=== PATIENT | female | born 1950 | race Asian ===

== ENCOUNTER 2023-10-09 18:54 | Emergency (ER) | payer MEDICARE, OTHER, SELFPAY ==
[2023-10-09 18:56] VITALS: BP 133/80
[2023-10-09 19:52] VITALS: BP 101/63
[2023-10-09 19:56] VITALS: BMI 26.2
[2023-10-09 19:59] LABS: % Basophils 0.2 % (0-2); % Eosinophils 0.5 % (0-6); % Immature Granulocytes 0.3 % (0-0.5); % Lymphocytes 5.3 % (20.5-51.1); % Neutrophils 91.7 % (42.2-75.2); Absolute Eosinophils 0.1 10^3/uL (0-0.7); Absolute Lymphocytes 0.8 10^3/uL (1.2-3.4); Absolute Monocytes 0.3 10^3/uL (0.1-0.6); Absolute Neutrophils 13.1 10^3/uL (1.4-6.5); Hematocrit 35.5 % (37.0-47.0); Hemoglobin 12.1 g/dL (12.0-16.0); Mean Corp Hgb Conc. 34.1 g/dL (33.0-37.0); Mean Corpuscular Hgb 31.6 pg (27.0-31.0); Mean Corpuscular Volume 92.7 fL (81.0-99.0); Mean Platelet Volume 9.8 fL (7.4-10.4); Nucleated Red Blood Cells % 0 %; Platelet Count 161 10^3/uL (130-400); Red Blood Cell Count 3.83 10^6/uL (4.20-5.40); Red Cell Dist. Width 13.5 % (11.5-14.5); White Blood Cell Count 14.3 10^3/uL (4.8-10.8)
[2023-10-09 20:00] VITALS: BP 96/71
[2023-10-09 20:07] LABS: Lactic Acid 0.9 mmol/L (0.7-2.0)
--- NOTE | 2023-10-09 20:12 | ED.GENMED ---
History of Present Illness
<MEDHAT Gomez - Last Filed: 10/12/23 17:29>
General
Chief Complaint: Fever
Source: patient and family
Exam Limitations: none
Time Seen by Provider: 10/09/23 19:48
Nursing documentation reviewed up to this point in time: agreed with
Travel History
Have you had any contact with someone who has COVID-19?: No
Do you have any symptoms of coronavirus? Fever > 100 degrees, chills, cough, shortness of breath, sore throat, loss of taste or smell, muscle aches, or headache?: Yes
Symptoms:: fever
History of Present Illness
History of Present Illness:
Patient is a 72-year-old female who presents to the ER with fever this morning of 39.3. She has a history of complications from cholecystectomy including liver abscess liver resection , reconstructive bile duct (hepatojejunostomy) sepsis and
diabetes e coli infection. Patient reports because of this past medical history she was concerned about fever. She has no symptoms except she feels tired she denies any cough abdominal pain urinary frequency urgency dysuria.
Past History
<MEDHAT Gomez - Last Filed: 10/12/23 17:29>
Past History
ED Past Medical History: Hypercholesterolemia, NIDDM and Other (Recurrent fevers of unknown origin)
ED Past Surgical History: Cholecystectomy and Other (Kian-en-Y, partial liver resection)
Patient has exhibited threatening behavior?: No
Social History
Tobacco: Non-smoker
Alcohol: None
Drug: None
Personal:
Living: with family
Employment: Retired
Family History
Family History: Other (Noncontributory)
Review of Systems
<MEDHAT Gomez - Last Filed: 10/12/23 17:29>
Review of Systems
Allergies reviewed?: Yes
Other source history: family
All Other Systems: ROS reviewed and negative except as documented in HPI and ROS
Constitutional: Reports fever and fatigue
EENT: Reports no symptoms
Respiratory: Reports no symptoms; Denies trouble breathing
Cardiac: Reports no symptoms
ABD/GI: Reports no symptoms; Denies abdominal pain, nausea or vomiting
Neurological: Reports no symptoms
Psychiatric: Reports no symptoms
Phy Exam
<MEDHAT Gomez - Last Filed: 10/12/23 17:29>
General Physical Exam
General Presentation: no apparent distress
General age: appears stated age
General Skin: warm and dry
General Habitus: normal
General Mental: alert
General Hydration: appears well hydrated
Cardiovascular Exam
Cardiovascular Exam: regular rate/rhythm, no murmur and normal peripheral pulses
Pulmonary Exam
Pulmonary Exam: lungs clear and no respiratory distress
Neurological Exam
Neurological Exam: alert and oriented x3
Musculoskeletal Exam
Musculoskeletal Exam: full ROM
Skin Exam
Skin Exam: normal color and warm/dry
Psychiatric Exam
Psychiatric Exam: normal mood/affect
Course
<MEDHAT Gomez - Last Filed: 10/12/23 17:29>
Orders/Labs/Results
Orders:
Orders
10/09/23 19:42
IV Insert/Care/Rem.- Treatment PRN
10/09/23 19:49
Complete Blood Count/With Diff Urgent
Comprehensive Metabolic Panel Urgent
Lactic Acid Q4H
Comment: ON ICE, CANCEL 2ND ORDER IF FIRST LACTIC ACID LEVEL <2
Blood Culture Q30M
EDU Source: Blood/Venous
Specimen Description:
Comment: FROM 2 SEPARATE SITES
Blood Culture Q30M
EDU Source: Blood/Venous
Specimen Description:
Comment: FROM 2 SEPARATE SITES
10/09/23 20:38
COVID-19 Antigen Urgent
Source: Nasal Swab
UA Reflex to Culture [Urinalysis Reflex To Culture] Urgent
Date Specimen was Collected: 10/09/23
Time Specimen was Collected: 20:36
Influenza A+B Rapid Molecular Urgent
EDU Source: Nasal Swab
Specimen Description:
10/09/23 21:52
US Abdomen Complete/Upper Urgent
Comment:
Reason For Exam: fever elevated lfts
Abnormal Lab Results
10/09/23
19:49
WBC 14.3 H 10^3/uL
(4.8-10.8)
RBC 3.83 L 10^6/uL
(4.20-5.40)
Hct 35.5 L %
(37.0-47.0)
MCH 31.6 H pg
(27.0-31.0)
Absolute Neuts (auto) 13.1 H 10^3/uL
(1.4-6.5)
Absolute Lymphs (auto) 0.8 L 10^3/uL
(1.2-3.4)
Neutrophils % 91.7 H %
(42.2-75.2)
Lymphocytes % 5.3 L %
(20.5-51.1)
Sodium 133 L mmol/L
(135-145)
Creatinine 0.4 L mg/dL
(0.6-1.0)
Glucose 137 H mg/dl
(70-99)
AST 154 H U/L
(14-36)
ALT 168 H U/L
(0-35)
Alkaline Phosphatase 144 H U/L
(38-126)
10/09/23 19:49
10/09/23 19:49
Vital Signs
Initial and Last Documented VS:
Initial Vital Signs
Temp Pulse Resp BP Pulse Ox
99.3 F 93 18 133/80 97
10/09/23 18:56 10/09/23 18:56 10/09/23 18:56 10/09/23 18:56 10/09/23 18:56
Last Documented Vital Signs
Temp Pulse Resp BP Pulse Ox
98.1 F 74 16 108/68 95
10/10/23 00:38 10/10/23 00:38 10/10/23 00:38 10/10/23 00:39 10/10/23 00:39
Charter Coach Driver consulted with Physician
Charter Coach Driver consulted with physician?: Yes
Name of Physician Consulted: Romy
<Francois Stanton, DO - Last Filed: 10/10/23 01:33>
Orders/Labs/Results
Orders:
Orders
10/09/23 19:42
IV Insert/Care/Rem.- Treatment PRN
10/09/23 19:49
Complete Blood Count/With Diff Urgent
Comprehensive Metabolic Panel Urgent
Lactic Acid Q4H
Comment: ON ICE, CANCEL 2ND ORDER IF FIRST LACTIC ACID LEVEL <2
Blood Culture Q30M
EDU Source: Blood/Venous
Specimen Description:
Comment: FROM 2 SEPARATE SITES
Blood Culture Q30M
EDU Source: Blood/Venous
Specimen Description:
Comment: FROM 2 SEPARATE SITES
10/09/23 20:38
COVID-19 Antigen Urgent
Source: Nasal Swab
UA Reflex to Culture [Urinalysis Reflex To Culture] Urgent
Date Specimen was Collected: 10/09/23
Time Specimen was Collected: 20:36
Influenza A+B Rapid Molecular Urgent
EDU Source: Nasal Swab
Specimen Description:
10/09/23 21:52
US Abdomen Complete/Upper Urgent
Comment:
Reason For Exam: fever elevated lfts
Abnormal Lab Results
10/09/23
19:49
WBC 14.3 H 10^3/uL
(4.8-10.8)
RBC 3.83 L 10^6/uL
(4.20-5.40)
Hct 35.5 L %
(37.0-47.0)
MCH 31.6 H pg
(27.0-31.0)
Absolute Neuts (auto) 13.1 H 10^3/uL
(1.4-6.5)
Absolute Lymphs (auto) 0.8 L 10^3/uL
(1.2-3.4)
Neutrophils % 91.7 H %
(42.2-75.2)
Lymphocytes % 5.3 L %
(20.5-51.1)
Sodium 133 L mmol/L
(135-145)
Creatinine 0.4 L mg/dL
(0.6-1.0)
Glucose 137 H mg/dl
(70-99)
AST 154 H U/L
(14-36)
ALT 168 H U/L
(0-35)
Alkaline Phosphatase 144 H U/L
(38-126)
10/09/23 19:49
10/09/23 19:49
Vital Signs
Initial and Last Documented VS:
Initial Vital Signs
Temp Pulse Resp BP Pulse Ox
99.3 F 93 18 133/80 97
10/09/23 18:56 10/09/23 18:56 10/09/23 18:56 10/09/23 18:56 10/09/23 18:56
Last Documented Vital Signs
Temp Pulse Resp BP Pulse Ox
98.1 F 74 16 108/68 95
10/10/23 00:38 10/10/23 00:38 10/10/23 00:38 10/10/23 00:39 10/10/23 00:39
<MEDHAT Gomez - Last Filed: 10/12/23 17:29>
MDM/Problems Addressed
Differential Diagnosis Includes:
not limited to infection
MDM/Problems Addressed:
0: Patient is a 72-year-old female with complication status postcholecystectomy, hepatojejunostomy recurrent . E. coli infections presents to the ER for evaluation of fever without any other symptoms. Patient presents awake alert no acute
distress temp is 99.3 here with a white count of 14.3 and elevated AST ALT and alk phosphatase. These LFTs are elevated from prior LFT. US pending at this time. CAre of pt transfered to DR Stanton.
<MEDHAT Gomez - Last Filed: 10/12/23 17:29>
*Critical Care Note
Total Time (30-74mins, 75-104mins- exclusive of procedures): Not Applicable
ED Attending Note
<MEDHAT Gomez - Last Filed: 10/12/23 17:29>
-
Portions of this chart may have been created with voice recognition software.� Occasional wrong word or��sound alike� substitutions may have occurred due to the inherent limitations of voice recognition software.
<Francois Stanton DO - Last Filed: 10/10/23 01:33>
ED Attending Note
Patient seen and examined by attending physician: Yes
I performed the substantive portion of visit, reviewed & personally made and approve the management plan that is documented in note by myself or MARY.: Yes
ED Attending Note:
Patient is 72-year-old female presents with fever and not feeling well for the past couple days. Patient has a rather complicated history with regards to sepsis with E. coli gallbladder removal. Patient states she otherwise feels fine she is
slightly tired. Patient denies nasal congestion, sore throat or cough. Patient denies abdominal pain, nausea, vomiting or diarrhea. Patient denies any symptoms. On physical exam the patient actually looks good. Heart is regular and lungs are
clear. Abdomen is relatively soft and nontender. Reviewed the patient's labs and her white count is mildly elevated but the liver enzymes are significantly elevated. Urine looks fine. Discussed this with the patient and she will follow-up with
her doctor and understands that if anyway she does not feel better but she is to return immediately to the ER.
Discharge Plan
Departure
Patient Disposition: Home (Routine Discharge)
Date of Disposition: 10/10/23
Time of Disposition:
Patient with high blood pressure during this ER visit?: No
Condition: Fair
Covid-19: Negative COVID-19
Discharge Problem:
Fever, Acute viral syndrome, Liver enzyme elevation
Instructions: Fever, Adult (DC), Viral Syndrome (DC)
Prescriptions:
No Action
multivitamin Tablet
1 tab PO Q48H
Janumet 50-500 mg Tablet
1 tab PO BID
ursodiol 200 mg Capsule
200 mg PO BID
Patient Comments:
03/26/23--family gets this from there [facility] which i believe she said [place]
cyanocobalamin (vitamin B-12) 1,000 mcg Tablet
1,000 mcg PO Q48H
ibuprofen [Advil] 200 mg Tablet
400 mg PO Q6H PRN (Reason: fever)
cefdinir 300 mg Capsule
300 mg PO Q12 Qty: 9 0RF
Rx Instructions:
Last day of antibiotics 04/01
Referrals:
NONE,* [Family Provider] -
Activity Restrictions/Additional Instructions:
Follow-up with your family doctor. Make sure to drink plenty of fluids. You may take ibuprofen 400 mg every 6 hours for fever. If increasing fever or abdominal pain please return immediately. You need to have your liver enzymes rechecked within
the week
Interventions
Interventions:
*Risk Screen - Suicide Last Done: 10/09/23 19:57
*General Assessment Last Done: 10/09/23 18:56
*Neglect/Abuse Screening Last Done: 10/09/23 19:57
ED- Fall Risk Assessment Last Done: 10/09/23 19:57
*ED COVID-19 Vaccine History Last Done: 10/09/23 19:57
*Nursing Disposition Last Done: 10/10/23 01:45
ED- Neurological Assessment Last Done: 10/09/23 19:56
ED-Skin Assessment Last Done: 10/09/23 19:56
Discharge Date and Time
Discharge Date/Time: 10/10/23 01:45
Print Language: CITIZEN OF [place]
[2023-10-09 20:27] LABS: ALT (SGPT) 168 U/L (0-35); AST (SGOT) 154 U/L (14-36); Albumin 3.8 g/dl (3.5-5.0); Alkaline Phosphatase 144 U/L (38-126); Blood Urea Nitrogen 10 mg/dl (7-17); Calcium 9.4 mg/dl (8.4-10.2); Carbon Dioxide 23 mmol/L (22-30); Chloride 103 mmol/L (98-107); Estimated Creatinine Clearance 68 ml/min; Glucose 137 mg/dl (70-99); Potassium 4.1 mmol/L (3.5-5.1); Sodium 133 mmol/L (135-145); Total Bilirubin 1.1 mg/dl (0.2-1.3); Total Protein 6.8 g/dl (6.3-8.2); eGFR > 60.00
[2023-10-09 20:52] LABS: Urine Albumin Negative (Neg - Trace); Urine Bilirubin Negative (Negative); Urine Character Clear (Clear); Urine Color Yellow; Urine Glucose Negative (Negative); Urine Ketone Negative (Negative); Urine Leukocyte Negative (Negative); Urine Nitrite Negative (Negative); Urine Occult Blood Negative (Negative); Urine Specific Gravity 1.005 (<1.030); Urine Urobilinogen Negative (Neg - 1+)
[2023-10-09 21:07] VITALS: BP 97/64
[2023-10-09 21:18] LABS: COVID-19 Antigen Negative (Negative)
[2023-10-10 00:37] VITALS: BP 148/79
[2023-10-10 00:38] VITALS: BP 108/68
[2023-10-10 00:39] VITALS: BP 108/68
== END 2023-10-10 01:45 | disposition home or self-care (01) ==
LOC: EMR 18:54
PROVIDERS: Nurse Practitioner; EMERGENCY PHYSICIAN Emergency Medicine
DX: B34.9 Viral infection, unspecified (principal); R50.9 Fever, unspecified; R74.8 Abnormal levels of other serum enzymes; Z11.52 Encounter for screening for COVID-19; E11.9 Type 2 diabetes mellitus without complications; E78.00 Pure hypercholesterolemia, unspecified; Z79.84 Long term (current) use of oral hypoglycemic drugs; Z90.49 Acquired absence of other specified parts of digestive tract; Z88.1 Allergy status to other antibiotic agents; Z91.013 Allergy to seafood
CPT/HCPCS: 99284; 76700; 80053; 81003; 83605; 85025; 87040; 87502; 87811

== ENCOUNTER 2023-11-14 12:14 | Emergency (ER) | payer MEDICARE, OTHER, SELFPAY ==
[2023-11-14 12:18] VITALS: BP 119/69
--- NOTE | 2023-11-14 12:32 | ED.GENMED ---
History of Present Illness
<Nadia Meade PA-C - Last Filed: 11/14/23 18:57>
General
Chief Complaint: Musculo-Skeletal Complaint
Source: patient
Exam Limitations: none
Time Seen by Provider: 11/14/23 12:32
Nursing documentation reviewed up to this point in time: agreed with
History of Present Illness
History of Present Illness:
This is a 72-year-old female with past medical history of osteoarthritis presenting emergency department today with concerns of left knee pain. Patient states that this started yesterday. Patient denies any history of trauma. Patient denies any
falls. Patient is able to walk without difficulty but she does note some pain with walking or any flexion extension. Patient states that she has known arthritis in her other knee. Patient states that she has had back pain in the past and has left
muscle accidents from this and is tried that with no relief. Patient states that she tried to get in with her family doctor they did not have any open appointments today. Patient not tried any ibuprofen or Tylenol for this pain. Patient denies
any history of cancer. Patient denies any fevers or chills, any recent injections, surgeries, or any recent hospital stays. Patient is requesting an x-ray or ultrasound.
Past History
<HITESH Briggs Last Filed: 11/14/23 18:57>
Past History
ED Past Medical History: Hypercholesterolemia, NIDDM and Other (Recurrent fevers of unknown origin)
ED Past Surgical History: Cholecystectomy and Other (Kian-en-Y, partial liver resection)
Patient has exhibited threatening behavior?: No
Social History
Tobacco: Non-smoker
Alcohol: None
Drug: None
Personal:
Living: with family
Employment: Retired
Family History
Family History: Other (Noncontributory)
Review of Systems
<HITESH Briggs Last Filed: 11/14/23 18:57>
Review of Systems
All Other Systems: ROS reviewed and negative except as documented in HPI and ROS
Phy Exam
<Nadia Meade PA-C - Last Filed: 11/14/23 18:57>
Physical Exam
Physical Exam:
General: Patient is well appearing and in no acute distress; non-toxic
Skin: Warm and dry, no rashes or lesions
Head: Normocephalic, atraumatic
Eyes: Sclera non-icteric. EOMs intact.
Peripheral Vascular: No lower extremity swelling or edema, 2+ dorsalis pedis pulses bilaterally.
Pulm: Normal respiratory effort
Musculoskeletal: No tenderness palpation of the left knee joint, no tenderness palpation of the left tibial tuberosity. No palpable bony deformities. Pain with passive range of motion of left knee.
Neuro: CN II-XII intact, no focal neurologic deficits.
Psychiatric: Appropriate mood and affect.
Course
<Nadia Meade PA-C - Last Filed: 11/14/23 18:57>
Orders/Labs/Results
Orders:
Orders
11/14/23 13:16
Ibuprofen [Motrin] 600 mg PO NOW STA
11/14/23 13:23
CR Knee - Left 4 Or More View* Urgent
Comment:
Reason For Exam: left proximal tibial pain
11/14/23 14:31
Knee Immobilizer Left-Treatmen ONCE
Vital Signs
Initial and Last Documented VS:
Initial Vital Signs
Temp Pulse Resp BP Pulse Ox
97.6 F 69 16 119/69 99
11/14/23 12:18 11/14/23 12:18 11/14/23 12:18 11/14/23 12:18 11/14/23 12:18
Last Documented Vital Signs
Temp Pulse Resp BP Pulse Ox
97.6 F 77 18 120/74 97
11/14/23 12:18 11/14/23 14:47 11/14/23 14:47 11/14/23 14:47 11/14/23 14:47
<Francois Stearns MD - Last Filed: 11/14/23 14:34>
Orders/Labs/Results
Orders:
Orders
11/14/23 13:16
Ibuprofen [Motrin] 600 mg PO NOW STA
11/14/23 13:23
CR Knee - Left 4 Or More View* Urgent
Comment:
Reason For Exam: left proximal tibial pain
11/14/23 14:31
Knee Immobilizer Left-Treatmen ONCE
Vital Signs
Initial and Last Documented VS:
Initial Vital Signs
Temp Pulse Resp BP Pulse Ox
97.6 F 69 16 119/69 99
11/14/23 12:18 11/14/23 12:18 11/14/23 12:18 11/14/23 12:18 11/14/23 12:18
Last Documented Vital Signs
Temp Pulse Resp BP Pulse Ox
97.6 F 77 18 120/74 97
11/14/23 12:18 11/14/23 14:47 11/14/23 14:47 11/14/23 14:47 11/14/23 14:47
<Nadia Meade PA-C - Last Filed: 11/14/23 18:57>
MDM/Problems Addressed
Differential Diagnosis Includes:
ddx includes ligamentous sprain/strain, contusion, tibial plateau fracture, osteoarthritis, gout, septic arthritis
MDM/Problems Addressed:
Knee pain:
This is a 72-year-old female with past medical history of osteoarthritis presenting emergency department today with concerns of left knee pain. Patient states that this started yesterday. Patient denies any history of trauma. Patient does have
known arthritis in the opposite knee. Patient states pain is worse with knee extension or walking. Patient's physical exam shows no evidence of any ligamentous instability, she is neurovascularly intact. She can ambulate without any difficulties.
Her x-ray demonstrates chronic degenerative changes and joint space narrowing consistent with arthritis. Patient was given knee immobilizer For comfort and referral for orthopedics. Patient stable for discharge
Chronic conditions affecting care:
Osteoarthritis, diabetes, hyperlipidemia
Acute Exacerbation and/or Progression of Chronic Illness:
Osteoarthritis, diabetes, hyperlipidemia
<Nadia Meade PA-C - Last Filed: 11/14/23 18:57>
*Pulse Oximetry
Patient hypoxic: no
*Critical Care Note
Total Time (30-74mins, 75-104mins- exclusive of procedures): Not Applicable
Data Reviewed
Review of Other/Old Records Reveals: Records (Reviewed ER physician documentation from 10/09/2023) and Discharge Summary (Reviewed discharge summary from 03/28/23)
Source: patient and records
Prescriptions/Medications Considered But Not Given:
Considered steroid treatment however patient has no evidence of neuropathic or radicular pain
<Nadia Meade PA-C - Last Filed: 11/14/23 18:57>
Patient Management
Escalation/DeEscalation of care consider admission/obs:
Admit not indicated, patient stable for discharge, case reviewed with my attending Dr.
ED Attending Note
<Nadia Meade PA-C - Last Filed: 11/14/23 18:57>
-
Portions of this chart may have been created with voice recognition software.� Occasional wrong word or��sound alike� substitutions may have occurred due to the inherent limitations of voice recognition software.
<Francois Stearns MD - Last Filed: 11/14/23 14:34>
ED Attending Note
Patient seen and examined by attending physician: Yes
I performed the substantive portion of visit, reviewed & personally made and approve the management plan that is documented in note by myself or MARY.: Yes
ED Attending Note:
Nontraumatic left knee pain since yesterday. No known injury or repetitive issue. History of knee problems however.
Tenderness to the left medial joint line. No unusual swelling. No warmth or erythema. No effusion. Knee is stable. Able to straight leg raise. Calf is normal without cords swelling or tenderness. Thigh is normal. Good distal pulses and color.
Nothing to be suspicious for DVT. Nothing to be suspicious for septic arthritis. Clinically it is a tendinitis or inflammation of the knee. Anti-inflammatories knee immobilizer and orthopedic follow-up
Discharge Plan
Departure
Patient Disposition: Home (Routine Discharge)
Date of Disposition: 11/14/23
Time of Disposition: 14:36
Patient with high blood pressure during this ER visit?: No
Condition: Good
Discharge Problem:
Osteoarthritis, Acute knee pain
Instructions: Osteoarthritis, Knee Immobilizer (DC)
Prescriptions:
No Action
multivitamin Tablet
1 tab PO Q48H
Janumet 50-500 mg Tablet
1 tab PO BID
ursodiol 200 mg Capsule
200 mg PO BID
Patient Comments:
03/26/23--family gets this from there [facility] which i believe she said [facility]
cyanocobalamin (vitamin B-12) 1,000 mcg Tablet
1,000 mcg PO Q48H
ibuprofen [Advil] 200 mg Tablet
400 mg PO Q6H PRN (Reason: fever)
cefdinir 300 mg Capsule
300 mg PO Q12 Qty: 9 0RF
Rx Instructions:
Last day of antibiotics 04/01
Referrals:
Jules Bland MD [Active] - Call in 1-3 days for appt
NONE,* [Family Provider] -
Activity Restrictions/Additional Instructions:
Please follow-up with the attached number for orthopedic referral. Call for an appointment.
You can wear your knee immobilizer when ambulating for comfort.
You can take ibuprofen and Tylenol as needed for pain. You can take 1 200 mg tablet of ibuprofen every 4-6 hours as needed, you can increase this to 400 mg every 4-6 hours as needed but do not exceed 1200 mg/day. You can also take acetaminophen
otherwise known as tylenol alternating with this. You can take an acetaminophen tablet, one 325 mg tablet every 4-6 hours as needed, do not exceed 4 g in 24 hours
Interventions
Interventions:
*Risk Screen - Suicide Last Done: 11/14/23 15:19
*General Assessment Last Done: 11/14/23 12:18
*Neglect/Abuse Screening Last Done: 11/14/23 15:19
ED- Fall Risk Assessment Last Done: 11/14/23 15:19
*ED COVID-19 Vaccine History Last Done: 11/14/23 12:18
*Nursing Disposition Last Done: 11/14/23 15:19
ED-Musculoskeletal Assessment Last Done: 11/14/23 14:41
Discharge Date and Time
Discharge Date/Time: 11/14/23 15:00
Print Language: EMIRATI
[2023-11-14] MEDS: MOTRIN 600 MG PO (13:24)
[2023-11-14 14:47] VITALS: BP 120/74
== END 2023-11-14 15:00 | disposition home or self-care (01) ==
LOC: EMR 12:14
PROVIDERS: EMERGENCY PHYSICIAN Emergency Medicine
DX: M17.12 Unilateral primary osteoarthritis, left knee (principal); M25.562 Pain in left knee
CPT/HCPCS: 99283; 29505; 73564

== ENCOUNTER 2023-12-25 12:49 | Emergency (ER) | payer MEDICARE, OTHER, SELFPAY ==
[2023-12-25 12:57] VITALS: BP 136/77
[2023-12-25 13:39] VITALS: BP 116/61
[2023-12-25 13:47] VITALS: BMI 23.9
[2023-12-25 13:51] LABS: Urine Albumin Negative (Neg - Trace); Urine Bilirubin Negative (Negative); Urine Character Clear (Clear); Urine Color Yellow; Urine Glucose 2+ (Negative); Urine Ketone Negative (Negative); Urine Leukocyte Negative (Negative); Urine Nitrite Negative (Negative); Urine Occult Blood Negative (Negative); Urine Urobilinogen Negative (Neg - 1+)
--- NOTE | 2023-12-25 13:54 | ED.GENMED ---
Addendum entered and electronically signed by Ajay Berger PA-C 12/26/23 09:34:
Patient has gram-negative bacilli in the anaerobic bottle. I reviewed patient's record and this appears to be a chronic issue. I did contact infectious disease who is currently recommending patient continue with the oral antibiotic but does not
come back to the ER yet. Await sensitivities. Same plan of if patient not feeling better or with fevers after 2 days should return to the ER but if better may continue treatment at home.
Original Note:
History of Present Illness
General
Chief Complaint: Fever
Source: patient
Exam Limitations: none
Time Seen by Provider: 12/25/23 13:24
Nursing documentation reviewed up to this point in time: agreed with
History of Present Illness
History of Present Illness:
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 Patient says that she has had E. coli positive blood cultures in the past has been
treated with IV and then oral antibiotics. It suspected that this is all complication of her previous surgeries. She has been followed by infectious disease while she was hospitalized but she says she has not followed up with them as an
outpatient. It sounds as if her last episode of bacteremia was in March. Patient started with a fever today around 11 AM 38.5. She treated this with 400 mg of ibuprofen. She did have some fatigue yesterday but no other symptoms. She has a
mild headache now. She does not usually get many symptoms with her bacteremia, occasionally nausea and vomiting. She has no cold symptoms, no urinary symptoms, no vomiting or diarrhea or abdominal pain. In the past patient has been cultured well
in the emergency department and discharged, called back with positive blood cultures.
Past History
Past History
ED Past Medical History: Hypercholesterolemia, NIDDM and Other (Recurrent fevers of unknown origin)
ED Past Surgical History: Cholecystectomy and Other (Kian-en-Y, partial liver resection)
Patient has exhibited threatening behavior?: No
Social History
Tobacco: Non-smoker
Alcohol: None
Drug: None
Personal:
Living: with family
Employment: Retired
Family History
Family History: Other (Noncontributory)
Review of Systems
Review of Systems
Allergies reviewed?: Yes
All Other Systems: Not applicable
Phy Exam
Physical Exam
Physical Exam:
GENERAL: Alert , in no apparent distress nontoxic-appearing
EYE: pupils equal and reactive
NECK: Supple
ENT: o/p clr, mmm. No pharyngeal erythema
CARDIAC: Regular rate and rhythm . Minimally tachycardic while febrile but HR imrpvoed; no murmur
LUNGS: Clear breath sounds bilaterally, no acute respiratory distress, no wheezes/rales/rhonchi
ABDOMEN: Soft, without focal tenderness, no r/g, no cvat, normal bowel sounds, nondistended
NEUROLOGICAL: Alert and oriented, no focal neuro deficits
SKIN: Warm and dry, skin intact. No rash
MUSCULOSKELETAL: No edema, well perfused. neg mando's sign
PSYCH: Normal and appropriate interaction.
Course
Orders/Labs/Results
Orders:
Orders
12/25/23 13:33
Urinalysis Reflex To Culture Urgent
Date Specimen was Collected: 12/25/23
Time Specimen was Collected: 13:28
12/25/23 13:41
COVID-19 Antigen Urgent
Source: Nasal Swab
12/25/23 13:53
0.9% Sodium Chloride 1000 ml [Nss] 1,000 ml IV BOLUS
12/25/23 14:00
Complete Blood Count/With Diff Urgent
Comprehensive Metabolic Panel Urgent
Lactic Acid Q4H
Comment: CANCEL 2nd LACTIC ACID IF 1st LACTIC ACID IS LESS THAN 2
Blood Culture Routine
EDU Source: Blood/Venous
Specimen Description:
12/25/23 14:29
Blood Culture Urgent
EDU Source: Blood/Venous
Specimen Description:
12/25/23 16:07
Cefdinir [Omnicef] 300 mg PO NOW STA
Abnormal Lab Results
12/25/23 12/25/23
13:33 14:00
RBC 3.89 L 10^6/uL
(4.20-5.40)
Hct 34.9 L %
(37.0-47.0)
MCH 31.4 H pg
(27.0-31.0)
Abs Immat Gran (auto) 0.1 H 10^3/uL
(0-0.05)
Absolute Neuts (auto) 8.0 H 10^3/uL
(1.4-6.5)
Absolute Lymphs (auto) 0.4 L 10^3/uL
(1.2-3.4)
Immature Gran % 0.6 H %
(0-0.5)
Neutrophils % 91.2 H %
(42.2-75.2)
Lymphocytes % 4.4 L %
(20.5-51.1)
Sodium 130 L mmol/L
(135-145)
Chloride 95 L mmol/L
(98-107)
Glucose 235 H mg/dl
(70-99)
AST 85 H U/L
(14-36)
ALT 54 H U/L
(0-35)
Alkaline Phosphatase 161 H U/L
(38-126)
Urine Glucose 2+ A
(Negative)
12/25/23 14:00
12/25/23 14:00
Vital Signs
Initial and Last Documented VS:
Initial Vital Signs
Temp Pulse Resp BP Pulse Ox
100.5 F H 107 16 136/77 98
12/25/23 12:57 12/25/23 12:57 12/25/23 12:57 12/25/23 12:57 12/25/23 12:57
Last Documented Vital Signs
Temp Pulse Resp BP Pulse Ox
98.8 F 78 23 106/63 98
12/25/23 15:42 12/25/23 15:30 12/25/23 15:30 12/25/23 15:00 12/25/23 12:57
MDM/Problems Addressed
Differential Diagnosis Includes:
bacteremia
MDM/Problems Addressed:
73 y/o F with h/o recurrent e coli/gram neg bacteremia
previous remote abd surgery
here with fever today, mild headache, no GI sypmtoms
no other symptoms
feels otherwise well
stable bp
temp treated with motrin POT BUILDER
well apearing, nontoxic
no signs of infection
exam unremarkable
no meningismus
d/w dr. woody who knows her ([facility])
recommends w/u with labs, cultures
and if doing well, d/c home with cefdinir
12/25/2023 1619 PM
defervesced
feels well
wants to go home
labs show normal wbc with left shift
neg ua
hyperglycemia
corrected sodium 133 for glucose
given IVF
her headache resolved
neg covid
cultures pending
d/w dr. khan from [facility]
ok to d/c on cefdinir
IF CULTURES POSITIVE: CALL PATIENT: IF NO FEVER AFTER 2 DAYS THEN CAN STAY HOME
PT SHOULD COME IN IF STILL HAVING FEVER > 2 DAYS OF ABX OR IF SHE FEELS ILL
*Critical Care Note
Total Time (30-74mins, 75-104mins- exclusive of procedures): Not Applicable
ED Attending Note
-
Portions of this chart may have been created with voice recognition software.� Occasional wrong word or��sound alike� substitutions may have occurred due to the inherent limitations of voice recognition software.
Discharge Plan
Departure
Patient Disposition: Home (Routine Discharge)
Date of Disposition: 12/25/23
Time of Disposition: 16:02
Patient with high blood pressure during this ER visit?: No
Condition: Fair
Covid-19: Not Applicable
Discharge Problem:
Fever
Instructions: Fever, Adult (DC)
Prescriptions:
New
cefdinir 300 mg capsule
300 mg PO BID Qty: 14 0RF
No Action
multivitamin Tablet
1 tab PO Q48H
Janumet 50-500 mg Tablet
1 tab PO BID
ursodiol 200 mg Capsule
200 mg PO BID
Patient Comments:
03/26/23--family gets this from there [place] which i believe she said [facility]
cyanocobalamin (vitamin B-12) 1,000 mcg Tablet
1,000 mcg PO Q48H
ibuprofen [Advil] 200 mg Tablet
400 mg PO Q6H PRN (Reason: fever)
cefdinir 300 mg Capsule
300 mg PO Q12 Qty: 9 0RF
Rx Instructions:
Last day of antibiotics 04/01
Referrals:
UNKNOWN - PT DOES,NOT KNOW [Family Provider] -
Activity Restrictions/Additional Instructions:
DR. WOODY SAID TO TAKE CEFDINIR TWICE A DAY FOR 7 DAYS
YOU WILL BE CALLED IF YOUR BLOOD CULTURES ARE POSITIVE
WE WOULD EXPECT YOUR FEVERS TO BREAK IN 1-2 DAYS
IF YOU ARE HAVING PERSISTENT FEVERS AFTER 2 DAYS OR FEELING ILL, WEAK ETC
RETURN TO THE ER
Interventions
Interventions:
*Risk Screen - Suicide Last Done: 12/25/23 12:57
*General Assessment Last Done: 12/25/23 12:57
*Neglect/Abuse Screening Last Done: 12/25/23 12:57
*ED COVID-19 Vaccine History Last Done: 12/25/23 12:57
*Nursing Disposition Last Done: 08/15/24 16:20
ED- Neurological Assessment Last Done: 12/25/23 13:47
ED-Skin Assessment Last Done: 12/25/23 13:47
Discharge Date and Time
Print Language: [place]
[2023-12-25 14:00] VITALS: BP 117/72
[2023-12-25 14:03] LABS: COVID-19 Antigen Negative (Negative)
[2023-12-25] MEDS: NSS 1000 IV (14:08)
[2023-12-25 14:25] LABS: % Basophils 0.3 % (0-2); % Eosinophils 0.1 % (0-6); % Immature Granulocytes 0.6 % (0-0.5); % Lymphocytes 4.4 % (20.5-51.1); % Monocytes 3.4 % (1.7-9.3); % Neutrophils 91.2 % (42.2-75.2); Absolute Immature Granulocytes 0.1 10^3/uL (0-0.05); Absolute Lymphocytes 0.4 10^3/uL (1.2-3.4); Absolute Monocytes 0.3 10^3/uL (0.1-0.6); Hematocrit 34.9 % (37.0-47.0); Hemoglobin 12.2 g/dL (12.0-16.0); Mean Corpuscular Hgb 31.4 pg (27.0-31.0); Mean Corpuscular Volume 89.7 fL (81.0-99.0); Nucleated Red Blood Cells % 0 %; Platelet Count 154 10^3/uL (130-400); Red Blood Cell Count 3.89 10^6/uL (4.20-5.40); Red Cell Dist. Width 13.6 % (11.5-14.5); White Blood Cell Count 8.8 10^3/uL (4.8-10.8)
[2023-12-25 14:30] LABS: ALT (SGPT) 54 U/L (0-35); AST (SGOT) 85 U/L (14-36); Albumin 4.3 g/dl (3.5-5.0); Alkaline Phosphatase 161 U/L (38-126); Blood Urea Nitrogen 14 mg/dl (7-17); Calcium 9.4 mg/dl (8.4-10.2); Carbon Dioxide 23 mmol/L (22-30); Chloride 95 mmol/L (98-107); Estimated Creatinine Clearance 70 ml/min; Glucose 235 mg/dl (70-99); Potassium 3.9 mmol/L (3.5-5.1); Sodium 130 mmol/L (135-145); Total Bilirubin 0.8 mg/dl (0.2-1.3); Total Protein 7.1 g/dl (6.3-8.2); eGFR > 60.00
[2023-12-25 14:37] LABS: Lactic Acid 1.8 mmol/L (0.7-2.0)
[2023-12-25 15:00] VITALS: BP 106/63
[2023-12-25] MEDS: OMNICEF 300 MG PO (16:15)
--- NOTE | 2024-01-02 14:31 | ED.ADDNOTE ---
ED Addendum
ED Addendum
ED Addendum Note:
Final blood culture result shows pansensitive E.coli. Patient discharged in cefdinir. I called patient to discuss her results and she is currently asymptomatic and feeling well. Fevers have resolved. She was advised to f/u with ID.
== END 2023-12-25 16:20 | disposition home or self-care (01) ==
LOC: EMR 12:49
PROVIDERS: Physician Assistant; EMERGENCY PHYSICIAN Emergency Medicine
DX: R50.9 Fever, unspecified (principal); E78.00 Pure hypercholesterolemia, unspecified; E11.65 Type 2 diabetes mellitus with hyperglycemia; Z90.49 Acquired absence of other specified parts of digestive tract
CPT/HCPCS: 99283; 80053; 81003; 83605; 85025; 87040; 87149; 87186; 87205; 87811

== ENCOUNTER 2024-01-02 17:35 | Emergency (ER) | payer MEDICARE, OTHER, SELFPAY ==
[2024-01-02 17:38] VITALS: BP 150/89
--- NOTE | 2024-01-02 18:31 | EDRN ---
Mag MELÉNDEZ in room w/pt at this time.
[2024-01-02 18:34] VITALS: BMI 24.8
--- NOTE | 2024-01-02 18:38 | EDRN ---
Pt arrives asymptomatic asking for repeat blood cultures, saying only one was drawn. In fact two blood cultures were drawn w/ one negative and second positive for E. Coli. Urine was negative as well that visit.
--- NOTE | 2024-01-02 18:40 | ED.GENMED ---
History of Present Illness
General
Chief Complaint: Abnormal Lab Value
Source: patient
Exam Limitations: none
Time Seen by Provider: 01/02/24 18:17
History of Present Illness
History of Present Illness:
This is a 73 year old female that comes in with c/o needing a repeat blood culture. States that she was called today and told that her blood culture was positive. Patient was here last week on with fever. States that she was given Cefdinir
for 7 days. States that she is feeling fine and has no fever. States that she just wanted to make sure that the E-coli in her system was gone. states that she has a slight headache. Denies any fever,chills, chest pain, SOB, abd pain, nausea,
vomiting, diarrhea, dizziness, urinary burning.
Past History
Past History
ED Past Medical History: Hypercholesterolemia, NIDDM and Other (Recurrent fevers of unknown origin, Bowel obstruction)
ED Past Surgical History: Cholecystectomy and Other (Kian-en-Y X 2, partial liver resection)
Patient has exhibited threatening behavior?: No
Social History
Tobacco: Non-smoker
Alcohol: None
Drug: None
Personal:
Living: with family
Employment: Employed
Family History
Family History: Other (Noncontributory)
Review of Systems
Review of Systems
All Other Systems: ROS reviewed and negative except as documented in HPI and ROS
Constitutional: Reports no symptoms; Denies fever or chills
EENT: Reports no symptoms
Respiratory: Reports no symptoms; Denies cough or trouble breathing
Cardiac: Reports no symptoms; Denies chest pain
ABD/GI: Reports no symptoms; Denies abdominal pain, nausea, vomiting or diarrhea
: Reports no symptoms; Denies dysuria, frequency or urgency
Musculoskeletal: Reports no symptoms
Skin: Reports no symptoms
Neurological: Reports headache (Slight); Denies dizzy
Psychiatric: Reports no symptoms
Phy Exam
General Physical Exam
General Presentation: well appearing and no apparent distress
General age: appears stated age
General Skin: warm and dry
General Habitus: normal
General Mental: alert
General Hydration: appears well hydrated
ENT Exam
ENT Exam: TM's normal, pharynx normal and neck supple
Eye Exam
Eye Exam: EOMI
Cardiovascular Exam
Cardiovascular Exam: regular rate/rhythm, no edema, no murmur and normal peripheral pulses
Pulmonary Exam
Pulmonary Exam: lungs clear, no respiratory distress, no rales, chest non tender, no crackles, no rhonchi, no wheezing and no cough
Gastrointestinal Exam
Gastrointestinal Exam: normal bowel sounds, non tender, soft, no organomegaly, no pulsatile mass and non distended
Abdominal Scars: right flank and vertical midline (Lower)
Musculoskeletal Exam
Musculoskeletal Exam: full ROM and no edema
Skin Exam
Skin Exam: normal color, warm/dry, no rash and no petechia
Psychiatric Exam
Psychiatric Exam: normal mood/affect
Course
Orders/Labs/Results
Orders:
Orders
01/02/24 19:01
Complete Blood Count/With Diff Urgent
Comprehensive Metabolic Panel Urgent
Lactic Acid Urgent
Blood Culture Urgent
EDU Source: Blood/Venous
Specimen Description:
Abnormal Lab Results
01/02/24
19:01
RBC 4.06 L 10^6/uL
(4.20-5.40)
Hct 36.2 L %
(37.0-47.0)
Chloride 97 L mmol/L
(98-107)
BUN 18 H mg/dl
(7-17)
Glucose 141 H mg/dl
(70-99)
Alkaline Phosphatase 152 H U/L
(38-126)
01/02/24 19:01
01/02/24 19:01
Slight Dehydration. Hyperglycemia. Alk phos elevation. Lactic acid normal at 1.1
Vital Signs
Initial and Last Documented VS:
Initial Vital Signs
Temp Pulse Resp BP Pulse Ox
98.0 F 79 20 150/89 96
01/02/24 17:38 01/02/24 17:38 01/02/24 17:38 01/02/24 17:38 01/02/24 17:38
Last Documented Vital Signs
Temp Pulse Resp BP Pulse Ox
98.0 F 69 14 119/59 99
01/02/24 17:38 01/02/24 19:12 01/02/24 19:12 01/02/24 19:12 01/02/24 19:12
MDM/Problems Addressed
Differential Diagnosis Includes:
abnormal blood culture,
MDM/Problems Addressed:
This is a 73 year old female that comes in with c/o abnormal blood culture. States that she was called today and told that she has E-coli in her blood. Patient had been treated with antibiotics for 7 days at is feeling better. States that she is
concerned that the infection is not gone.
Will recheck labs and blood culture. Patient will need to follow up with Infectious disease.
Back into see patient. Explained that her blood work is normal. Blood culture was sent and will call patient if this would come back positive. Patient will need to follow up with Infectious disease. Will discharge home.
Chronic conditions affecting care:
NA
Acute Exacerbation and/or Progression of Chronic Illness:
NA
*Pulse Oximetry
Patient hypoxic: no
*EKG
Interpreted by ED Provider?: NA
Rate: EKG- N/A
*Soliciting Freight Agent Interpretation
Rate: Soliciting Freight Agent- N/A
*Critical Care Note
Total Time (30-74mins, 75-104mins- exclusive of procedures): Not Applicable
ED Attending Note
-
Portions of this chart may have been created with voice recognition software.� Occasional wrong word or��sound alike� substitutions may have occurred due to the inherent limitations of voice recognition software.
Discharge Plan
Departure
Patient Disposition: Home (Routine Discharge)
Date of Disposition: 01/02/24
Time of Disposition: 19:42
Patient with high blood pressure during this ER visit?: No
Condition: Good
Covid-19: Not Applicable
Discharge Problem:
Abnormal laboratory test result
Prescriptions:
No Action
multivitamin Tablet
1 tab PO Q48H
Janumet 50-500 mg Tablet
1 tab PO BID
ursodiol 200 mg Capsule
200 mg PO BID
Patient Comments:
03/26/23--family gets this from there [facility] which i believe she said [facility]
cyanocobalamin (vitamin B-12) 1,000 mcg Tablet
1,000 mcg PO Q48H
ibuprofen [Advil] 200 mg Tablet
400 mg PO Q6H PRN (Reason: fever)
cefdinir 300 mg Capsule
300 mg PO Q12 Qty: 9 0RF
Rx Instructions:
Last day of antibiotics 04/01
cefdinir 300 mg capsule
300 mg PO BID Qty: 14 0RF
Referrals:
Liu Walters, DO [Active] - As needed
UNKNOWN - PT DOES,NOT KNOW [Family Provider] -
Activity Restrictions/Additional Instructions:
As discussed, your blood work here is normal. Your lactic acid is normal. A blood culture has been drawn. If this would again come back positive for infection you will be called. You will need to follow up with the Infectious disease specialist. IF
YOU HAVE ANY FEVER, OR ANY OTHER CONCERNS PLEASE RETURN TO THE EMERGENCY ROOM
Interventions
Interventions:
*Risk Screen - Suicide Last Done: 01/02/24 17:38
*General Assessment Last Done: 01/02/24 17:38
*Neglect/Abuse Screening Last Done: 01/02/24 17:38
ED- Fall Risk Assessment Last Done: 01/02/24 18:35
*ED COVID-19 Vaccine History Last Done: 01/02/24 18:35
Discharge Date and Time
Print Language: [place]
--- NOTE | 2024-01-02 19:08 | EDRN ---
Due to shortage of blood culture tubes and pt being asymptomatic and having had last dose of antibiotics yesterday, this RN approached Mag MELÉNDEZ about drawing a blood culture. Mag MELÉNDEZ states pt is afraid of still being septic and wants to
be reassured she is no longer septic as she was just called today for positive blood culture w/ E. Coli.
[2024-01-02 19:11] LABS: % Eosinophils 2.3 % (0-6); % Immature Granulocytes 0.2 % (0-0.5); % Lymphocytes 37.4 % (20.5-51.1); % Monocytes 5.6 % (1.7-9.3); % Neutrophils 53.5 % (42.2-75.2); Absolute Basophils 0.1 10^3/uL (0-0.2); Absolute Eosinophils 0.1 10^3/uL (0-0.7); Absolute Lymphocytes 1.8 10^3/uL (1.2-3.4); Absolute Monocytes 0.3 10^3/uL (0.1-0.6); Absolute Neutrophils 2.6 10^3/uL (1.4-6.5); Hematocrit 36.2 % (37.0-47.0); Hemoglobin 12.6 g/dL (12.0-16.0); Mean Corp Hgb Conc. 34.8 g/dL (33.0-37.0); Mean Corpuscular Volume 89.2 fL (81.0-99.0); Mean Platelet Volume 9.6 fL (7.4-10.4); Nucleated Red Blood Cells % 0 %; Platelet Count 232 10^3/uL (130-400); Red Blood Cell Count 4.06 10^6/uL (4.20-5.40); Red Cell Dist. Width 13.4 % (11.5-14.5); White Blood Cell Count 4.8 10^3/uL (4.8-10.8)
[2024-01-02 19:12] VITALS: BP 119/59
[2024-01-02 19:24] LABS: ALT (SGPT) 24 U/L (0-35); AST (SGOT) 27 U/L (14-36); Albumin 4.4 g/dl (3.5-5.0); Alkaline Phosphatase 152 U/L (38-126); Blood Urea Nitrogen 18 mg/dl (7-17); Calcium 9.7 mg/dl (8.4-10.2); Carbon Dioxide 26 mmol/L (22-30); Chloride 97 mmol/L (98-107); Estimated Creatinine Clearance 70 ml/min; Glucose 141 mg/dl (70-99); Potassium 4.2 mmol/L (3.5-5.1); Sodium 135 mmol/L (135-145); Total Bilirubin 0.3 mg/dl (0.2-1.3); Total Protein 7.2 g/dl (6.3-8.2); eGFR > 60.00
[2024-01-02 19:25] LABS: Lactic Acid 1.1 mmol/L (0.7-2.0)
== END 2024-01-02 19:55 | disposition home or self-care (01) ==
LOC: EMR 17:35
PROVIDERS: Clinical Nurse Specialist Family Health; EMERGENCY PHYSICIAN Emergency Medicine
DX: R79.9 Abnormal finding of blood chemistry, unspecified (principal)
CPT/HCPCS: 99283; 80053; 83605; 85025; 87040

== ENCOUNTER 2024-01-05 03:38 | Inpatient (IN) | payer MEDICARE, OTHER, SELFPAY ==
[2024-01-04 22:15] VITALS: BP 102/66
[2024-01-04 22:41] LABS: % Basophils 0.3 % (0-2); % Eosinophils 0.3 % (0-6); % Immature Granulocytes 0.3 % (0-0.5); % Lymphocytes 6.3 % (20.5-51.1); % Monocytes 0.6 % (1.7-9.3); % Neutrophils 92.2 % (42.2-75.2); Absolute Lymphocytes 0.5 10^3/uL (1.2-3.4); Absolute Monocytes 0.1 10^3/uL (0.1-0.6); Absolute Neutrophils 7.2 10^3/uL (1.4-6.5); Hematocrit 35.8 % (37.0-47.0); Hemoglobin 12.5 g/dL (12.0-16.0); Mean Corp Hgb Conc. 34.9 g/dL (33.0-37.0); Mean Corpuscular Hgb 31.6 pg (27.0-31.0); Mean Corpuscular Volume 90.6 fL (81.0-99.0); Nucleated Red Blood Cells % 0 %; Platelet Count 197 10^3/uL (130-400); Red Blood Cell Count 3.95 10^6/uL (4.20-5.40); Red Cell Dist. Width 13.3 % (11.5-14.5); White Blood Cell Count 7.8 10^3/uL (4.8-10.8)
[2024-01-04 22:50] LABS: COVID-19 Antigen Negative (Negative)
[2024-01-04 22:52] LABS: ALT (SGPT) 61 U/L (0-35); AST (SGOT) 121 U/L (14-36); Albumin 4.1 g/dl (3.5-5.0); Alkaline Phosphatase 199 U/L (38-126); Blood Urea Nitrogen 21 mg/dl (7-17); Calcium 9.5 mg/dl (8.4-10.2); Carbon Dioxide 19 mmol/L (22-30); Chloride 105 mmol/L (98-107); Glucose 168 mg/dl (70-99); Potassium 3.8 mmol/L (3.5-5.1); Sodium 139 mmol/L (135-145); Total Bilirubin 0.6 mg/dl (0.2-1.3); Total Protein 6.9 g/dl (6.3-8.2); eGFR > 60.00
[2024-01-04 22:57] VITALS: BP 89/61
[2024-01-04 23:00] VITALS: BP 95/54
[2024-01-04 23:00] LABS: Troponin I 0.021 ng/ml
[2024-01-04 23:11] VITALS: BP 95/54; BMI 25.6
--- NOTE | 2024-01-04 23:13 | ED.GENMED ---
History of Present Illness
<MINISTERIO Vilchis - Last Filed: 01/05/24 01:50>
General
Chief Complaint: Chest Pain
Source: patient
Time Seen by Provider: 01/04/24 22:54
History of Present Illness
History of Present Illness:
Patient is a 73 y/o female with PMHx of DM, HLD, remote history of cholecystectomy and hepatojejunostomy in [place] which resulted in gram negative bacteremia treated with antibiotics which has been recurrent multiple times. Patient was seen in this
ED on 12/25/23 for a fever. She had blood cultures drawn which were positive for E. coli and she was treated with 7 days of cefdinir. Patient had repeat blood cultures 01/02/24 which currently show no growth. Patient states that she has felt good
until tonight at around 8pm when she developed chills, shakiness, and a fever of 39.1C. She states she also began to experience some SOB and pleuritic chest pain at the same time which has never happened with her past symptoms. She states the
symptoms lasted for around 1.5 hours and she took 2 Advil which alleviated her sx. She currently is denying any symptoms. She denies any cough, sore throat, headache, abdominal pain, nausea, skin changes, urinary symptoms, edema.
Past History
<MINISTERIO Vilchis - Last Filed: 01/05/24 01:50>
Past History
ED Past Medical History: Hypercholesterolemia, NIDDM and Other (Recurrent fevers of unknown origin, Bowel obstruction)
ED Past Surgical History: Cholecystectomy and Other (Kian-en-Y X 2, partial liver resection)
Patient has exhibited threatening behavior?: No
Social History
Tobacco: Non-smoker
Alcohol: None
Drug: None
Personal:
Living: with family
Employment: Employed
Family History
Family History: Other (Noncontributory)
Phy Exam
<MINISTERIO Vilchis - Last Filed: 01/05/24 01:50>
Physical Exam
Physical Exam:
GENERAL: Alert , in no apparent distress
EYE: pupils equal and reactive
Throat: Airway intact, no exudates
NECK: Supple, no significant adenopathy.
CARDIAC: Mildly tachycardic. Regular rhythm . No murmurs, rubs, gallops, lifts, heaves.
LUNGS: Clear breath sounds bilaterally, no acute respiratory distress, no wheezes/rales/rhonchi
ABDOMEN: Soft, nondistended, nontender, no cvat
NEUROLOGICAL: Alert and oriented, no focal neuro deficits
SKIN: Warm and dry, skin intact. No rashes or lesions.
MUSCULOSKELETAL: No edema, well perfused. 2+ DP pulses b/l
PSYCH: Normal and appropriate interaction.
Scores
<MINISTERIO Vilchis - Last Filed: 01/05/24 01:50>
Heart Score for Chest Pain Patients
STEMI patient?: No
History: Slightly or Non-Suspicious
ECG: Normal
Age: >/= 65 years
Risk Factors: 1 or 2 Risk Factors
Troponin: </= Normal Limit
Heart Score for Chest Pain Patients: 3
Heart Score Risk: 2.5% MACE over next 6 weeks
Course
<MINISTERIO Vilchis - Last Filed: 01/05/24 01:50>
Orders/Labs/Results
Orders:
Orders
01/04/24 22:14
Electrocardiogram (*1) Urgent
Reason for Study: Chest Pain
EKG- Treatment ONCE
01/04/24 22:30
COVID-19 Antigen Urgent
Source: Nasal Swab
Complete Blood Count/With Diff Urgent
Comprehensive Metabolic Panel Urgent
Troponin I Urgent
01/04/24 23:34
Blood Culture Urgent
EDU Source: Blood/Venous
Specimen Description:
01/05/24 00:13
Troponin I Urgent
Blood Culture Routine
EDU Source: Blood/Venous
Specimen Description:
01/05/24 00:14
CT Chest Pe Study Urgent
Reason For Exam: acute pleuritic CP w SOB
01/05/24 01:21
Cefepime HCl [Maxipime] 1,000 mg IV NOW STA
01/05/24 02:00
Sterile Water [Sterile Water For Injection] 10 ml IV STAT ONE
Abnormal Lab Results
01/04/24
22:30
RBC 3.95 L 10^6/uL
(4.20-5.40)
Hct 35.8 L %
(37.0-47.0)
MCH 31.6 H pg
(27.0-31.0)
Absolute Neuts (auto) 7.2 H 10^3/uL
(1.4-6.5)
Absolute Lymphs (auto) 0.5 L 10^3/uL
(1.2-3.4)
Neutrophils % 92.2 H %
(42.2-75.2)
Lymphocytes % 6.3 L %
(20.5-51.1)
Monocytes % 0.6 L %
(1.7-9.3)
Carbon Dioxide 19 L mmol/L
(22-30)
BUN 21 H mg/dl
(7-17)
Glucose 168 H mg/dl
(70-99)
AST 121 H U/L
(14-36)
ALT 61 H U/L
(0-35)
Alkaline Phosphatase 199 H U/L
(38-126)
01/04/24 22:30
01/04/24 22:30
Vital Signs
Initial and Last Documented VS:
Initial Vital Signs
Temp Pulse Resp BP Pulse Ox
98.6 F 91 16 102/66 99
01/04/24 22:15 01/04/24 22:15 01/04/24 22:15 01/04/24 22:15 01/04/24 22:15
Last Documented Vital Signs
Temp Pulse Resp BP Pulse Ox
98.5 F 91 24 95/54 97
01/04/24 23:00 01/05/24 01:13 01/05/24 00:30 01/04/24 23:11 01/05/24 01:14
<Skylar Carrillo, DO - Last Filed: 01/05/24 01:53>
Orders/Labs/Results
Orders:
Orders
01/04/24 22:14
Electrocardiogram (*1) Urgent
Reason for Study: Chest Pain
EKG- Treatment ONCE
01/04/24 22:30
COVID-19 Antigen Urgent
Source: Nasal Swab
Complete Blood Count/With Diff Urgent
Comprehensive Metabolic Panel Urgent
Troponin I Urgent
01/04/24 23:34
Blood Culture Urgent
EDU Source: Blood/Venous
Specimen Description:
01/05/24 00:13
Troponin I Urgent
Blood Culture Routine
EDU Source: Blood/Venous
Specimen Description:
01/05/24 00:14
CT Chest Pe Study Urgent
Reason For Exam: acute pleuritic CP w SOB
01/05/24 01:21
Cefepime HCl [Maxipime] 1,000 mg IV NOW STA
01/05/24 02:00
Sterile Water [Sterile Water For Injection] 10 ml IV STAT ONE
Abnormal Lab Results
01/04/24
22:30
RBC 3.95 L 10^6/uL
(4.20-5.40)
Hct 35.8 L %
(37.0-47.0)
MCH 31.6 H pg
(27.0-31.0)
Absolute Neuts (auto) 7.2 H 10^3/uL
(1.4-6.5)
Absolute Lymphs (auto) 0.5 L 10^3/uL
(1.2-3.4)
Neutrophils % 92.2 H %
(42.2-75.2)
Lymphocytes % 6.3 L %
(20.5-51.1)
Monocytes % 0.6 L %
(1.7-9.3)
Carbon Dioxide 19 L mmol/L
(22-30)
BUN 21 H mg/dl
(7-17)
Glucose 168 H mg/dl
(70-99)
AST 121 H U/L
(14-36)
ALT 61 H U/L
(0-35)
Alkaline Phosphatase 199 H U/L
(38-126)
01/04/24 22:30
01/04/24 22:30
Vital Signs
Initial and Last Documented VS:
Initial Vital Signs
Temp Pulse Resp BP Pulse Ox
98.6 F 91 16 102/66 99
01/04/24 22:15 01/04/24 22:15 01/04/24 22:15 01/04/24 22:15 01/04/24 22:15
Last Documented Vital Signs
Temp Pulse Resp BP Pulse Ox
98.5 F 91 24 95/54 97
01/04/24 23:00 01/05/24 01:13 01/05/24 00:30 01/04/24 23:11 01/05/24 01:14
<MINISTERIO Vilchis - Last Filed: 01/05/24 01:50>
MDM/Problems Addressed
Differential Diagnosis Includes:
Differential diagnosis includes but is not limited to endocarditis, PE, PA.
<MINISTERIO Vilchis - Last Filed: 01/05/24 01:50>
*Radiology
Radiology exam reviewed: radiology read reviewed
*Pulse Oximetry
Patient hypoxic: no
*EKG
Interpreted by ED Provider?: Yes
EKG Intrepretation Date: 01/04/24
Interpretation: abnormal
Comparison EKG: no changes
Heart Rate: 105
Rate: tachycardiac
Rhythm: sinus tachycardia
Holden: normal axis
Interval: normal interval
QRS Pattern: normal QRS
Ischemia: no ischemia
*Track Mechanic Interpretation
Rate: tachycardiac
Interpretation: normal
Heart Rate: 105
Rhythm: sinus
*Critical Care Note
Total Time (30-74mins, 75-104mins- exclusive of procedures): Not Applicable
ED Attending Note
<MINISTERIO Vilchis - Last Filed: 01/05/24 01:50>
-
Portions of this chart may have been created with voice recognition software.� Occasional wrong word or��sound alike� substitutions may have occurred due to the inherent limitations of voice recognition software.
<Skylar Carrillo DO - Last Filed: 01/05/24 01:53>
ED Attending Note
Patient seen and examined by attending physician: Yes
ED Attending Note:
This is a 73-year-old woman who has history of recurrent E. coli bacteremia thought to be related to prior cholecystectomy and hepaticojejunostomy in [place] 2019. Over the past several years she has had recurrent episodes of acute febrile illness,
positive blood cultures and generally does quite well with 7-day course of cefdinir. She was last hospitalized briefly March 2023 for acute E. coli bacteremia.
Then more recently was evaluated in this ED for acute febrile illness December 24, started on a 7-day course of cefdinir for presumptive bacteremia and blood cultures were positive for E. coli. Fever defervesced within 24 hours and she was feeling
well until this evening when she developed abrupt onset of shaking chills, oral temperature of 102.3 �F accompanied with some pleuritic substernal chest pain discomfort and shortness of breath. She generally does not have accompanying chest pain
and shortness of breath with her febrile illnesses.
Of note follow-up blood cultures done yesterday January 01, thus far no growth in 48 hours. No other associated symptoms, she has had no UTI symptoms, no cough nor congestion. She did take ibuprofen 400 mg with onset of fever with Slow but complete
resolution of symptoms.
GENERAL: Alert , in no apparent distress
EYE: pupils equal and reactive. anicteric
NECK: Supple, nontender, no meningismus, no significant adenopathy.
ENT: posterior pharynx is clear, oral mucosa is moist. TM clear b/l, nares patent.
CARDIAC: Regular rate and rhythm. no murmur.
LUNGS: No acute respiratory distress. No cough. Scant intermittent fine rales right base otherwise clear to auscultation.
ABDOMEN: Soft, nondistended, without focal tenderness, no r/g, no cvat. normoactive BS.
NEUROLOGICAL: Alert and oriented x3, no focal neuro deficits. Gait is steady.
SKIN: Warm and dry, normal color, skin intact. No rash.
MUSCULOSKELETAL: No C/C/E. peripheral pulses are full and equal b/l. No palpable tenderness.
PSYCH: Normal and appropriate interaction.
Significant concern for recurrent E. coli bacteremia.
Extensive review of records, recurrent E. coli bacteremia is suspected related to prior hepaticojejunostomy. As episodes have been sporadic and not persistent in nature, endocarditis is much less likely.
Patient also notes chest pain, shortness of breath tonight thus must consider pneumonia, pleurisy, ACS, PE.
EKG shows mild sinus tachycardia otherwise similar and unchanged from previous.
With recurrent fever just 2 days after discontinuation of oral antibiotics, concern for recurrent/persistent bacteremia thus we will plan to initiate IV antibiotics and admit to hospitalist service.
Labs show moderately elevated LFTs, similar elevations noted in the past. She continues to have no abdominal pain and abdominal exam is soft and benign.
Initial troponin 0.021. Within normal range but has trended up from previous troponin of less than 0.012. Will plan to repeat troponin and will check CT of the chest.
01/05/[address] of the chest is unremarkable.
Repeat troponin remains normal/trending down.
IV antibiotics initiated and will admit to hospitalist service.
Discharge Plan
Departure
Patient Disposition: Admit
Date of Disposition: 01/05/24
Time of Disposition: 01:52
Admit to: Med/Surg
Admit to doctor: Juan Ramon
Presentation/result/management discussed w/ accepting MD/DO: Hospitalist
Discharge Problem:
Febrile illness, acute, History of recurrent E. coli bacteremia
Prescriptions:
No Action
multivitamin Tablet
1 tab PO Q48H
Janumet 50-500 mg Tablet
1 tab PO BID
ursodiol 200 mg Capsule
200 mg PO BID
Patient Comments:
03/26/23--family gets this from there [facility] which i believe she said [facility]
cyanocobalamin (vitamin B-12) 1,000 mcg Tablet
1,000 mcg PO Q48H
ibuprofen [Advil] 200 mg Tablet
400 mg PO Q6H PRN (Reason: fever)
cefdinir 300 mg Capsule
300 mg PO Q12 Qty: 9 0RF
Rx Instructions:
Last day of antibiotics 04/01
cefdinir 300 mg capsule
300 mg PO BID Qty: 14 0RF
Referrals:
UNKNOWN - PT DOES,NOT KNOW [Family Provider] -
Interventions
Interventions:
*Risk Screen - Suicide Last Done: 01/04/24 22:15
*General Assessment Last Done: 01/04/24 22:15
*Neglect/Abuse Screening Last Done: 01/04/24 22:15
*ED COVID-19 Vaccine History Last Done: 01/04/24 23:11
ED- Cardiac Assessment Last Done: 01/04/24 23:11
Discharge Date and Time
Print Language: KYRGYZ
[2024-01-05] VITALS (8 sets, daily range): BP systolic 104–130; BP diastolic 60–74; BMI 24.5
[2024-01-05 00:45] LABS: Troponin I 0.017 ng/ml
[2024-01-05] MEDS: MAXIPIME 1000 MG IV ×3 (02:00→17:06)
[2024-01-05] MEDS: STERILE WATER FOR INJECTION 10 ML IV ×3 (02:02→17:06)
--- NOTE | 2024-01-05 03:30 | HPS.HSE ---
Family Physician
-
Family Physician: NOT KNOW UNKNOWN - PT DOES
Chief Complaint
-
Fever
History of Present Illness
Patient is a 73y F with PMH significant for recurrent bacteremia and prior biliary surgery who presents to ED complaining of fever. Patient was hospitalized here 03/2023 with E coli bacteremia - presumed to be from biliary source at that time
given her history. She was treated and felt very well for some time. Patient most recently presented to the ED on 12/24 with complaints of fever. Cultures were obtained at that time and she was discharged to home on Cefdinir 300mg BID x 7 days.
Cultures from that visit were found to be positive for E coli in 1/4 bottles.
Patient returned to the ED on 01/01 and a single set of blood cultures was obtained. That was negative.
Patient states that she felt well until this afternoon when she again developed fever at home to 39.4. She took some ibuprofen and presented to the ED for further evaluation.
Patient complains of some chest heaviness / discomfort that has since resolved.
She denies any abdominal pain, N/V/D, urinary complaints, etc.
She denies any other focal symptoms including cough, sore throat, etc.
She complains of generalized fatigue, myalgias and chills.
Medical History
Past Medical History
Past Medical History: Reports Other
Additional Past Medical History:
DM-II
Recurrent E coli Bacteremia
Past Surgical History: Reports Other
Additional Past Surgical History:
Cholecystectomy
Hepatojejunostomy
Partial Hepatic Resection
Social History
Tobacco: Non-smoker
Alcohol: None
Drug: None
Family History
Family History: Not pertinent
Allergies / Home Medications
Allergies reflects when Allergies were last updated in [email or web address].
Home Medications with original date entered in [email or web address]
Allergy/Medication List:
Allergies
Allergy/AdvReac Type Severity Reaction Status Date / Time
piperacillin [From Zosyn] Allergy Itchy Verified 01/02/24 17:38
shrimp Allergy Rash Verified 01/02/24 17:38
tazobactam [From Zosyn] Allergy Itchy Verified 01/02/24 17:38
Home Medications
multivitamin 1 tab PO Q48H Supplement 11/17/22
sitagliptin phosphate 50 mg-metformin 500 mg tablet (Janumet) 1 tab PO BID Diabetes 11/17/22
ursodiol 200 mg capsule 200 mg PO BID Gastrointestinal Issue 11/17/22
cyanocobalamin (vitamin B-12) 1,000 mcg tablet 1,000 mcg PO Q48H Supplement 03/26/23
ibuprofen 200 mg tablet (Advil) 400 mg PO Q6H PRN fever 03/26/23
Review of Systems
-
History Source: Patient
A 12 point ROS was completed and negative except as noted: Yes
Constitutional: Reports Fever, Fatigue and Chills
EENT: Denies Sore Throat
Respiratory: Denies Cough or Trouble Breathing
Cardiac: Reports Chest Pain; Denies Palpitations
Abdomen/GI: Denies Abdominal Pain, Nausea, Vomiting or Diarrhea
: Denies Dysuria, Frequency or Flank Pain
Musculoskeletal: Denies Edema
Neurological: Denies Dizzy or Headache
Psych: Denies Depression or Anxiety
Physical Exam
Vital Signs
Vital Signs
Temp Pulse Resp BP Pulse Ox
98.5 F 89 14 108/69 100
01/04/24 23:00 01/05/24 03:05 01/05/24 03:00 01/05/24 03:00 01/05/24 03:00
Physical Exam
General: Other (73y F in no acute distress.)
HEENT: Moist mucous membranes and PERRLA
Respiratory: Clear; No Wheezes, Rales or Rhonchi
Cardiac: S1/S2 and Regular Rhythm; No Murmur
GI: Soft, Non Tender, Non Distended and Normal Bowel Sounds
Musculoskeletal: No Clubbing, No Cyanosis and No Edema
Neuro: AO x 3
Laboratory Results
-
01/04/24 22:30
01/04/24 22:30
Laboratory Results
Total Bilirubin 0.6 mg/dl (0.2-1.3) 01/04/24 22:30
AST 121 U/L (14-36) H 01/04/24 22:30
ALT 61 U/L (0-35) H 01/04/24 22:30
Alkaline Phosphatase 199 U/L (38-126) H 01/04/24 22:30
Troponin I 0.017 ng/ml 01/05/24 00:13
Impression/Plan
-
A/P: Patient is a 73y F with PMH significant for complicated biliary sirgeries and recurrent bacteremia who presents to ED complaining of fevers / chills.
Fever
Recurrent Bacteremia
Abnormal LFTs
- Admit for further evaluation and treatment.
- E coli positive anaerobic culture on 12/24. Subsequent blood cultures (1 set) negative on 01/01 after 7 days of cefdinir.
- Now with recurrent fever at home.
- Continue IV abx for now.
- Follow-up repeat blood cultures.
- ID evaluation.
- Check abdominal US given prior history, abnormal LFTs, etc.
- Follow for any new / focal symptoms.
DM-II
- Stable. Hold PO medications acutely.
- Follow glucose and cover with SSI as needed.
- Update A1C.
DVT Prophylaxis: SCDs
Code Status: Full
[2024-01-05] MEDS: NSS 1000 IV ×2 (05:09→16:12)
[2024-01-05 06:54] LABS: Hematocrit 35.5 % (37.0-47.0); Hemoglobin 12.3 g/dL (12.0-16.0); Mean Corp Hgb Conc. 34.6 g/dL (33.0-37.0); Mean Corpuscular Hgb 31.9 pg (27.0-31.0); Mean Platelet Volume 9.9 fL (7.4-10.4); Platelet Count 166 10^3/uL (130-400); Red Blood Cell Count 3.86 10^6/uL (4.20-5.40); Red Cell Dist. Width 13.7 % (11.5-14.5); White Blood Cell Count 10.3 10^3/uL (4.8-10.8)
[2024-01-05 07:23] LABS: ALT (SGPT) 64 U/L (0-35); AST (SGOT) 89 U/L (14-36); Albumin 3.7 g/dl (3.5-5.0); Alkaline Phosphatase 156 U/L (38-126); Blood Urea Nitrogen 15 mg/dl (7-17); Calcium 9.1 mg/dl (8.4-10.2); Carbon Dioxide 25 mmol/L (22-30); Chloride 105 mmol/L (98-107); Direct Bilirubin 0.3 mg/dl (0.0-0.4); Estimated Creatinine Clearance 70 ml/min; Glucose 151 mg/dl (70-99); Potassium 3.9 mmol/L (3.5-5.1); Sodium 140 mmol/L (135-145); Total Bilirubin 0.8 mg/dl (0.2-1.3); Total Protein 6.3 g/dl (6.3-8.2); eGFR > 60.00
[2024-01-05 07:40] LABS: Glucose - Point of Care 204 mg/dl (70-99)
[2024-01-05] MEDS: PROTONIX IV 40 MG IV (08:13)
[2024-01-05] MEDS: NOVOLOG FLEXPEN-LOW RESISTANCE 2 UNITS SC ×2 (08:13→12:40)
[2024-01-05] MEDS: NSS (PRESERVATIVE FREE) 10 ML IV (08:13)
--- NOTE | 2024-01-05 08:52 | CON.GI ---
Addendum entered and electronically signed by Marce Wallace MD 01/05/24 18:03:
I saw and examined the patient.
The SECURITY SYSTEMS INTEGRATOR or PA's note was reviewed and I agree with the note.
Comment:
Pt is a 73 y/o woman with a hx of fevers at home that resembles previous bacteremia from prior biliary surgery. She did have a cholecystectomy with bile duct injury and hepaticojejunostomay with ultimate partial liver resection. she has been seen
in the hospital before for colitis which was self limited. she now feels well. never had any abdominal complaints, nausea or vomiting
abd: soft nontender
U/s unrevealing
impression:
fevers/bacteremia
hx of bile duct surgery
plan:
MRCP/MRI
ID following
f/u Lfts
Addendum entered and electronically signed by Lexie Aguilar NP 01/05/24 10:15:
Requested records from [facility] to see what surgery she had done there.
Original Note:
Consultation
-
Date/Time Consultation Requested: 01/05/24 @ 04:18
Date/Time Consultation Performed: 01/05/24 @ 08:55
Requesting Provider: Dr. Franky Delatorre
Performing Provider: MEDHAT Cespedes; Dr. Marce Wallace
Reason for Consultation: Fever / Bacteremia, Biliary Abnormality
Medical History
Chief Complaint / HPI
Chief Complaint: fever
History of Present Illness:
The patient is a 73-year-old female with a past medical history significant for recurrent bacteremia, type 2 diabetes, history of cholecystectomy (2013) complicated by bile duct injury requiring hepaticojejunostomy and chronic biliary drain for 6 to
7 years with subsequent partial liver resection (2019), hyperlipidemia, who presented to the emergency room with complaints of fevers. We are being asked to evaluate for possible biliary source of bacteremia. Upon review of prior records, the
patient had been hospitalized here at [facility] in March 2023 with E. coli bacteremia. At that time it was presumed that her bacteremia was secondary to a biliary source given her history of hepatojejunostomy after CCY complications with bile
duct injury/leak and subsequent partial liver resection which were done in [place]. She does report having subsequent surgery at [facility] in 2019 (unclear as to what surgery then). In Mar 2023 she was placed on a course of cefdinir and advised to
follow-up in the ID office. She had been seen in the ER on 12/24 with reported fevers. She had blood cultures done at that time which were positive for gram-negative bacilli and she again was placed on a course of cefdinir. She was advised to
return to the emergency room to have repeat blood cultures done, which she did on 01/01. Unfortunately she had recurrent fevers and came to the emergency room for further evaluation. She had been seen by our group in 2021 at that time with evidence
of colitis and recurrent bacteremia. She was advised to have a flex sig at that time but declined given she had had a normal colonoscopy prior to that. She was treated with antibiotics and advised to follow-up outpatient. She reports that she had
been doing fairly well over the past year, but developed recurrent fevers earlier this month. She notes improvement after taking antibiotics as noted above, but again had recurrent fever of 39.4 �C the day prior to her admission. She notes taking
Advil in which her fever resolved. She otherwise denies any abdominal pain, nausea, vomiting, chills, cough, congestion, chest pain, urinary symptoms, change in bowel habits, signs of bleeding such as melena, hematochezia, hematemesis, or
unintentional weight loss. She does report that she had some dyspnea on exertion prior to admission but this has resolved. She denies any further fevers. She denies any yellowing of the skin or eyes. She denies any itching. She reports recent
travel to [place] a few weeks ago otherwise no international travel recently. She denies any home/sick contacts. She notes possibly testing positive for hepatitis B in the past but believes she cleared this. She denies any alcohol use or illicit
drug use. She notes history of several pancreatic cysts, and reports her most recent imaging did show some increase in size although it is unclear where she had this done. MRI imaging from April 2021 did show pancreatic atrophy with a none
dilated pain pancreatic duct with scattered subcentimeter cystic lesions throughout the pancreatic parenchyma most numerous in the pancreatic tail, with no suspicious features otherwise. She reports having a colonoscopy last year in [place] with no
findings. She also admits to having had an endoscopy within the last 10 years at the time of her prior surgery which also was unrevealing. Routine labs in the ER showing WBC 7.8, hemoglobin 12.5, platelets 197,000, sodium 139, potassium 3.8, BUN
21, creatinine 0.6, total bilirubin 0.6, AST 121, ALT 61, alk phos 199, troponin negative x 2. COVID PCR negative. Blood cultures x 2 sent and pending. Repeat blood cultures from 01/01 negative to date. She was started on cefepime and admitted for
further evaluation by GI and ID. His CT of the chest was done which was negative for PE. US of the abdomen is pending.
Past Medical History
Past Medical History: HTN, Hypercholesterolemia, NIDDM and Other (Recurrent bacteremia, bile leak status post CCY)
Past Surgical History: Cholecystectomy (With chronic drain placement for 6 years and removal), and Other (Kian-en-Y/liver resection (hepaticojejunostomy))
Social History
Tobacco: Non-Smoker
Alcohol: None
Drug: None
Family History
Family History: Reviewed & Not Pertinent
Allergies / Home Medications
Allergy/AdvReac Type Severity Reaction Status Date / Time
piperacillin [From Zosyn] Allergy Itchy Verified 01/02/24 17:38
shrimp Allergy Rash Verified 01/02/24 17:38
tazobactam [From Zosyn] Allergy Itchy Verified 01/02/24 17:38
�Medication �Instructions �Recorded
multivitamin 1 tab PO Q48H Supplement 11/17/22
sitagliptin phosphate 50 1 tab PO BID Diabetes 11/17/22
mg-metformin 500 mg tablet
(Janumet)
ursodiol 200 mg capsule 200 mg PO BID Gastrointestinal 11/17/22
Issue
cyanocobalamin (vitamin B-12) 1,000 mcg PO Q48H Supplement 03/26/23
1,000 mcg tablet
ibuprofen 200 mg tablet (Advil) 400 mg PO Q6H PRN fever 03/26/23
Review of Systems
-
History Source: Patient
Constitutional: Reports Fever
EENT: Reports No Symptoms
Respiratory: Reports Trouble Breathing (Resolved)
Cardiac: Reports No Symptoms
Abdomen/GI: Reports No Symptoms
: Reports No Symptoms
Musculoskeletal: Reports No Symptoms
Skin: Reports No Symptoms
Neurological: Reports No Symptoms
Endocrine: Reports No Symptoms
Hematologic/Lymphatic: Reports No Symptoms
Vital Signs
Temp Pulse Resp BP Pulse Ox
98.5 F 94 20 118/72 97
01/05/24 07:43 01/05/24 07:43 01/05/24 07:43 01/05/24 07:43 01/05/24 07:43
Physical Exam
Exam
General: Well Developed, Well Nourished and No Apparent Distress
HEENT: Normocephalic, Anicteric and Atraumatic
Respiratory: Clear
Cardiac: S1/S2 and Regular Rhythm
Breast: Deferred by me
GI: Soft, Non Tender, Non Distended and Normal Bowel Sounds
Rectal: Deferred by Provider
Musculoskeletal: No Edema
Skin: Warm and Dry
Neuro: Awake, Alert and Oriented
Psych: Calm
Results
WBC 10.3 10^3/uL (4.8-10.8) 01/05/24 06:16
Hgb 12.3 g/dL (12.0-16.0) 01/05/24 06:16
Hct 35.5 % (37.0-47.0) L 01/05/24 06:16
MCV 92.0 fL (81.0-99.0) 01/05/24 06:16
Plt Count 166 10^3/uL (130-400) 01/05/24 06:16
Absolute Neuts (auto) 7.2 10^3/uL (1.4-6.5) H 01/04/24 22:30
Sodium 140 mmol/L (135-145) 01/05/24 06:16
Potassium 3.9 mmol/L (3.5-5.1) 01/05/24 06:16
Chloride 105 mmol/L (98-107) 01/05/24 06:16
Carbon Dioxide 25 mmol/L (22-30) 01/05/24 06:16
BUN 15 mg/dl (7-17) 01/05/24 06:16
Creatinine 0.5 mg/dL (0.6-1.0) L 01/05/24 06:16
Calcium 9.1 mg/dl (8.4-10.2) 01/05/24 06:16
Total Bilirubin 0.8 mg/dl (0.2-1.3) 01/05/24 06:16
AST 89 U/L (14-36) H 01/05/24 06:16
ALT 64 U/L (0-35) H 01/05/24 06:16
Alkaline Phosphatase 156 U/L (38-126) H 01/05/24 06:16
Diagnostic Image Results:
01/05/24 CT Chest: IMPRESSION: No acute disease of the chest. No evidence of pulmonary embolus. Probable postsurgical changes of the liver. Stable. A preliminary report was provided by [facility].
Prior GI Procedures:
EGD: within the last 10 years (normal per pt-no record available)
Colonoscopy: Last year normal per pt
Assessment / Plan
-
The patient is a 73-year-old female with a past medical history significant for recurrent E. coli bacteremia, type 2 diabetes, pancreatic cyst, history of cholecystectomy complicated by bile duct injury requiring hepaticojejunostomy and chronic
biliary drain for 6 to 7 years with subsequent partial liver resection, hyperlipidemia, who presented to the emergency room with complaints of fevers with concern for possible biliary source of bacteremia given her history as noted above. She
denies any other complaints aside from fevers and mild dyspnea on exertion that has resolved. She has had no further fevers. Her LFTs are downtrending. Her bilirubin is normal. She reports initial cholecystectomy in 2012 with bile leak
postoperatively and placement of a biliary drain which she had for 6 to 7 years. She reports having undergone surgery as above subsequently, with surgery most recently she reports done at [facility] in 2019 (unclear to what was done). Blood
cultures from 12/24 did show E. coli bacteremia, which have since cleared on 01/01. Repeat blood cultures were drawn upon admission and are pending. She was placed on cefepime.
Problem list:
-Fevers
-recurrent bacteremia, Ecoli (BC 12/24, cleared 01/01)
-history of cholecystectomy (2013) complicated by bile duct injury requiring hepaticojejunostomy and chronic biliary drain for 6 to 7 years with subsequent partial liver resection in [place], surgery most recently in 2019 reported at [facility]
-Abnormal LFTs
-pancreatic cysts (seen on MRI in April 2021)
-Hepatitis B? reported in past, may have cleared this
Recommendations:
-Etiology of recurrent gram neg bacteremia possibly 2/2 biliary etiology given above complicated surgical hx v other.
-Await US imaging, may need further imaging with MRI/MRCP especially to help clarify anatomy/pancreatic cyst surveillance. May need eventually ERCP/EUS (w/ hx Kian-en-Y) inpt v outpatient. Currently she does not appear toxic.
-Trend LFT's
-Check UA/UC
-Follow hepatitis serologies
-Will discuss with Dr. Wallace and Dr. Holguin
-ID consult pending, antibiotics as per them
-OK for diet today
-Follow blood cultures
-Further management pending above
Data Reviewed
-
Old Records: Reviewed
-
-
Thank you for consultation and allowing me to participate in the patient's care. Please call the decommissioning well site manager GI physician during the after hours with any questions or concerns.
[2024-01-05] MEDS: URSO 250 MG PO ×2 (09:44→19:36)
[2024-01-05 10:27] LABS: Glycohemoglobin (HgbA1c) 7.7 % (4.0-5.6)
--- NOTE | 2024-01-05 11:07 | CON.ID ---
Consultation
-
Date/Time Consultation Requested: 01/05/24 4:18
Date/Time Consultation Performed: 01/05/24 11:08
Requesting Provider: Dr Delatorre
Performing Provider: Dr Gold
Reason for Consultation: Fever / Bacteremia
Chief Complaint / Past History
Chief Complaint
fever
History of Present Illness
Ms Puckett is a 73 year old female with history of remote history of cholecystectomy and hepatojejunostomy in [place], partial liver resection with recurrent gram negative bacteremias presumptively a biliary source. She was last seen in the ER on 12/24
for fever, blood culture with E coli sensitive to cefazolin, she completed a 7 day course of cefdinir at my recommendation, on 01/01 a single blood culture was repeated and finalized negative. Then 01/03 she had another fever - she took advil and the
fever resolved. Some pleurtic chest pain and shortness of breath No: abdominal pain, nausea, vomiting, chills, cough, congestion, chest pain, dysuria, myalgias change in bowel habits, unintentional weight loss. No further fevers. No sick
contacts. Recently traveled to [place] several weeks ago.
Since arrival here patient's Tmax is 100.5, bp initially mildly hypotensive now stable, wbc initially 7.8 now 10.3, hgb 12, plt 166, there was L shift on arrival and lymphopenia, eos were present, cr 0.5, a1c 7.7, t bili 0.8, ast 89, alt 64, alk
pohs 156,
Covid ag negative x1, viral hep panel was sent, abdominal US: unremarkable aside from prior cholecytectomy, ct chest PE study: no acute disease, two sets of blood cultures are now in progress. Currently on cefepime, ID is consulted for assistance
with management.
Past History
Additional Past Medical History:
HTN, Hypercholesterolemia, NIDDM and Other (Recurrent bacteremia, bile leak status post CCY)
Additional Past Surgical History:
Cholecystectomy (With chronic drain placement for 6 years and removal), and Other (Kian-en-Y/liver resection (hepaticojejunostomy))
Allergy History:
piperacillin [From Zosyn] Allergy (Verified 01/02/24 17:38)
Itchy
shrimp Allergy (Verified 01/02/24 17:38)
Rash
tazobactam [From Zosyn] Allergy (Verified 01/02/24 17:38)
Itchy
Medications Reviewed: Yes
Social History
Tobacco: Non-Smoker
Alcohol: None
Drug: None
Family History
Family History: Not Pertinent
Review of Systems
Review of Systems
General: Fever
All systems: All other systems were reviewed and were negative
Vital Signs
Temp Pulse Resp BP Pulse Ox
98.5 F 94 20 118/72 97
01/05/24 07:43 01/05/24 07:43 01/05/24 07:43 01/05/24 07:43 01/05/24 07:55
Physical Exam
Physical Exam
Constitutional: No Acute Distress
Cardiovascular: Regular Rate and S1/S2; Negative Murmur or Rub
Pulmonary: Clear and Symmetric; Negative Wheezes, Rales or Rhonchi
Gastrointestinal: Soft, Non Tender, Non Distended and Normal Bowel Sounds
Skin: Warm and Dry; Negative Rash or Jaundice
Lab / Diagnostic Study Results
01/05/24 06:16
01/05/24 06:16
Abs Immat Gran (auto) 0.0 10^3/uL (0-0.05) 01/04/24 22:30
Absolute Neuts (auto) 7.2 10^3/uL (1.4-6.5) H 01/04/24 22:30
Absolute Lymphs (auto) 0.5 10^3/uL (1.2-3.4) L 01/04/24 22:30
Absolute Monos (auto) 0.1 10^3/uL (0.1-0.6) 01/04/24 22:30
Absolute Basos (auto) 0.0 10^3/uL (0-0.2) 01/04/24 22:30
Immature Gran % 0.3 % (0-0.5) 01/04/24 22:30
Neutrophils % 92.2 % (42.2-75.2) H 01/04/24 22:30
Lymphocytes % 6.3 % (20.5-51.1) L 01/04/24 22:30
Monocytes % 0.6 % (1.7-9.3) L 01/04/24 22:30
Eosinophils % 0.3 % (0-6) 01/04/24 22:30
Basophils % 0.3 % (0-2) 01/04/24 22:30
Microbiology Results
Micro:
01/05/24 00:11 Blood Culture - Pending
Blood/Venous
01/05/24 00:13 Blood Culture - Pending
Blood/Venous
Assessment / Plan
Fever - new vs relapsed
Recurrent GNR bacteremias (mostly E coli) - suspected translocation due to altered anatomy secondary to surgery
H/o pruritus with zosyn
- complaints include fever/chills, pleuritic chest pain, fatigue
- covid ag negative x1, repeat tomorrow
- abd us and ct chest nonrevealing
- previous blood culture 12/24 E coli sensitive to cefazolin, repeat single blood cultures 01/01 negative
- symptoms could be viral syndrome - supportive care would be indicated
- recurrent bacteremia also possible - if same E coli seen again then would pursue TTE
- continue cefepime for now - follow clinically
[2024-01-05 11:59] LABS: Glucose - Point of Care 222 mg/dl (70-99)
[2024-01-05 14:15] LABS: Urine Albumin Negative (Neg - Trace); Urine Bilirubin Negative (Negative); Urine Glucose Negative (Negative); Urine Ketone Negative (Negative); Urine Leukocyte Negative (Negative); Urine Nitrite Negative (Negative); Urine Occult Blood Negative (Negative); Urine Urobilinogen Negative (Neg - 1+)
[2024-01-05 14:17] LABS: Urine Character Clear (Clear); Urine Color Yellow
--- NOTE | 2024-01-05 14:45 | W.PN.HOSP.TC ---
Today's Communication/Plan
-
f/u repeat blood cultures
Cont abx
trend lfts
MRCP v CT A/P w/ contrast
GI has requested records from recent surgery
TTE
Trend fever curve, WBC
Assessment / Plan
Assessment / Plan
Constitutional: No Acute Distress
Cardiovascular: Regular Rate and S1/S2; Negative Murmur or Rub
Pulmonary: Clear and Symmetric; Negative Wheezes, Rales or Rhonchi
Gastrointestinal: Soft, Non Tender, Non Distended and Normal Bowel Sounds
Skin: Warm and Dry; Negative Rash or Jaundice
#Fever, new or worse relapse
#Recurrent gram-negative yaz bacteremia
� Suspect secondary to recent surgery
� Requested records
� Continue IV antibiotics�continue cefepime
� Abdominal troponin CT chest unrevealing
� If recurrent E-Coli - TTE
#Transaminitis
# Suspect secondary to bacteremia
� Continue to trend
� Possibly may need MRCP/CT A/P w/ contrast depending on LFTs
� GI consulted
� Hepatitis panel pending
� Requested records
#Type 2 diabetes
� Hold p.o. medications acutely
� Sliding scale
� Continue to monitor glucose levels
#DVT prophylaxis
� HSQ
Anticipated Discharge: > 48 hours
Subjective/Interval History
-
Date of Service: January 05, 2024
recurrent fever, bc positive
Objective Data
-
Labs:
Laboratory Results
01/05/24
06:16
WBC 10.3
Hgb 12.3
Hct 35.5 L
Plt Count 166
Sodium 140
Potassium 3.9
Chloride 105
Carbon Dioxide 25
BUN 15
Creatinine 0.5 L
Glucose 151 H
Calcium 9.1
Total Bilirubin 0.8
AST 89 H
ALT 64 H
Alkaline Phosphatase 156 H
Vital Signs:
Vital Signs
Temp Pulse Resp BP Pulse Ox
98.5 F 94 20 118/72 97
01/05/24 07:43 01/05/24 07:43 01/05/24 07:43 01/05/24 07:43 01/05/24 07:55
I&O
01/04/24 01/05/24 01/06/24
06:59 06:59 06:59
Intake Total 480 / 480
Balance 480 / 480
Review of Systems
-
History Source: Patient
All other systems: Not reviewed unless documented
Physical Exam
-
General: Well Developed, Well Nourished and No Apparent Distress
HEENT: Normocephalic and Atraumatic
Respiratory: Clear to Auscultation; Negative Wheezes or Rhonchi
Cardiac: Regular Rhythm and S1/S2; Negative Murmur
GI: Soft, Nontender, Nondistended and Normal Bowel Sounds
Musculoskeletal: No Clubbing, No Cyanosis and No Edema
Skin: Warm
Neuro: Awake
Psych: Calm
Data Reviewed
-
CT Scan: Image personally visualized and interpreted and Report Reviewed by me
Ultrasound: Report Reviewed by me
Labs: Labs Reviewed by me
[2024-01-05 16:03] LABS: Glucose - Point of Care 127 mg/dl (70-99)
[2024-01-05] MEDS: NOVOLOG FLEXPEN-LOW RESISTANCE SC (16:12)
--- NOTE | 2024-01-05 16:35 | CM ---
manager proposal reviewed patient's chart and met with patient and patient states she lives with her spouse in a one story home, no steps to enter, patient is independent with adl's and ambulation, patient states she does not drive.
Pharmacy: [facility]
[place]
PCP: Dr. Porras
Plan; Home with spouse when stable.
[2024-01-05 19:14] LABS: Hepatitis B Surface Antigen Negative (Negative)
[2024-01-05 19:31] LABS: Hepatitis B Surface Antibody Negative; Hepatitis C Antibody Negative (Negative)
[2024-01-05 21:20] LABS: Glucose - Point of Care 175 mg/dl (70-99)
[2024-01-05] MEDS: MELATONIN 3 MG PO (22:36)
[2024-01-06] MEDS: STERILE WATER FOR INJECTION 10 ML IV ×3 (01:15→17:20)
[2024-01-06] MEDS: MAXIPIME 1000 MG IV ×3 (01:15→17:20)
[2024-01-06] MEDS: NSS 1000 IV (01:15)
[2024-01-06] MEDS: TYLENOL 650 MG PO (01:22)
[2024-01-06 06:40] LABS: COVID-19 Antigen Negative (Negative)
[2024-01-06 07:26] VITALS: BP 100/57
[2024-01-06 08:15] LABS: Hematocrit 30.1 % (37.0-47.0); Hemoglobin 10.4 g/dL (12.0-16.0); Mean Corp Hgb Conc. 34.6 g/dL (33.0-37.0); Mean Corpuscular Hgb 31.5 pg (27.0-31.0); Mean Corpuscular Volume 91.2 fL (81.0-99.0); Mean Platelet Volume 10.3 fL (7.4-10.4); Platelet Count 143 10^3/uL (130-400); Red Cell Dist. Width 13.9 % (11.5-14.5)
[2024-01-06 08:27] LABS: Glucose - Point of Care 164 mg/dl (70-99)
[2024-01-06] MEDS: PROTONIX IV 40 MG IV (08:45)
[2024-01-06] MEDS: NSS (PRESERVATIVE FREE) 10 ML IV (08:45)
[2024-01-06] MEDS: NOVOLOG FLEXPEN-LOW RESISTANCE 1 UNITS SC ×2 (08:46→17:19)
[2024-01-06] MEDS: URSO 250 MG PO ×2 (08:46→19:39)
[2024-01-06 08:56] LABS: ALT (SGPT) 46 U/L (0-35); AST (SGOT) 40 U/L (14-36); Albumin 3.1 g/dl (3.5-5.0); Alkaline Phosphatase 129 U/L (38-126); Blood Urea Nitrogen 7 mg/dl (7-17); Calcium 8.8 mg/dl (8.4-10.2); Carbon Dioxide 24 mmol/L (22-30); Chloride 111 mmol/L (98-107); Estimated Creatinine Clearance 70 ml/min; Glucose 131 mg/dl (70-99); Potassium 3.8 mmol/L (3.5-5.1); Sodium 143 mmol/L (135-145); Total Bilirubin 0.8 mg/dl (0.2-1.3); Total Protein 5.6 g/dl (6.3-8.2); eGFR > 60.00
[2024-01-06] MEDS: NOVOLOG FLEXPEN-LOW RESISTANCE SC (11:26)
--- NOTE | 2024-01-06 11:29 | CM ---
Chart reviewed home when stable.
Plan; Home when stable.
[2024-01-06] MEDS: NSS IV (13:54)
--- NOTE | 2024-01-06 14:26 | W.PN.HOSP.TC ---
Today's Communication/Plan
-
f/u gi recs for MRI findings
Cont abx
F/u cultures
Assessment / Plan
Assessment / Plan
Constitutional: No Acute Distress
Cardiovascular: Regular Rate and S1/S2; Negative Murmur or Rub
Pulmonary: Clear and Symmetric; Negative Wheezes, Rales or Rhonchi
Gastrointestinal: Soft, Non Tender, Non Distended and Normal Bowel Sounds
Skin: Warm and Dry; Negative Rash or Jaundice
#Fever, new or worse relapse
#Recurrent gram-negative yaz bacteremia
-possibly 2/2 to cholangitis?
� Suspect secondary to recent surgery
� Requested records
� Continue IV antibiotics�continue cefepime
� Abdominal troponin CT chest unrevealing
� Echo unremarkable for endocarditis
#Transaminitis
# Suspect secondary to bacteremia
� Continue to trend
� MRI Abd: Possible Cholangitis - may need ERCP - f/u GI recs
� GI consulted
� Hepatitis panel pending
� Requested records
� Trending down
#pancreatic cystic lesions without suspicious features, likely pseudocysts and/or side branch intraductal papillary mucinous neoplasms.
-Recommend follow-up MRI/MRCP abdomen without and with gadolinium contrast in one year per ACR criteria
#Type 2 diabetes
� Hold p.o. medications acutely
� Sliding scale
� Continue to monitor glucose levels
#DVT prophylaxis
� HSQ
Total time spent on today's encounter was 50 minutes which included time spent in counseling the patient/family regarding diagnosis and treatment plan as listed above, goals of care, and symptom management. Case was discussed with nursing staff,
specialists, and care coordinators/case management. All labs and imaging personally reviewed by me. Remainder the time spent in detailed review of previous records, lab data, imaging, and other medical provider documentation.
Anticipated Discharge: > 48 hours
Subjective/Interval History
-
Date of Service: January 06, 2024
Still having mild febrile episodes
Objective Data
-
Labs:
Laboratory Results
01/06/24
07:28
WBC 5.0
Hgb 10.4 L
Hct 30.1 L
Plt Count 143
Sodium 143
Potassium 3.8
Chloride 111 H
Carbon Dioxide 24
BUN 7
Creatinine 0.5 L
Glucose 131 H
Calcium 8.8
Total Bilirubin 0.8
AST 40 H
ALT 46 H
Alkaline Phosphatase 129 H
Vital Signs:
Vital Signs
Temp Pulse Resp BP Pulse Ox
98 F 67 20 100/57 98
01/06/24 07:26 01/06/24 07:26 01/06/24 07:26 01/06/24 07:26 01/06/24 08:00
I&O
01/05/24 01/06/24 01/07/24
06:59 06:59 06:59
Intake Total 480 / 480 2100 / 2100
Balance 480 / 480 2100 / 2100
Review of Systems
-
History Source: Patient
All other systems: Not reviewed unless documented
Physical Exam
-
General: Well Developed, Well Nourished and No Apparent Distress
HEENT: Normocephalic and Atraumatic
Respiratory: Clear to Auscultation; Negative Wheezes or Rhonchi
Cardiac: Regular Rhythm and S1/S2; Negative Murmur
GI: Soft, Nontender, Nondistended and Normal Bowel Sounds
Musculoskeletal: No Clubbing, No Cyanosis and No Edema
Skin: Warm
Neuro: Awake
Psych: Calm
Data Reviewed
-
CT Scan: Image personally visualized and interpreted and Report Reviewed by me
Ultrasound: Report Reviewed by me
Medical Tests (Nuc Med, Echo etc): Report Reviewed by me
Labs: Labs Reviewed by me
[2024-01-06 15:27] VITALS: BP 108/71
[2024-01-06 16:36] LABS: Glucose - Point of Care 158 mg/dl (70-99)
--- NOTE | 2024-01-06 16:38 | W.PN.ID1 ---
Date of Service
Date of Service: January 06, 2024
Today's Communication
await sensitivities - transition to orals in the near future
Assessment / Plan
Fever - resolved
Cholangitis
Recurrent GNR bacteremias (mostly E coli) - suspected translocation due to altered anatomy secondary to surgery
H/o pruritus with zosyn
- GNR in the blood stream, MRCP suggestive of cholangitis, may be anatomic due to small bile duct
- TTE no vegetations
- continue cefepime for present
- likely transition to oral therapy when sensi back
- appreciate GI input
- pill in the pocket strategy may be an approach for recurrences
Chief Complaint
-: Bacteremia
Subjective / Review of Systems
afebrile
bp stable
MRI consistent with cholangitis, no stone reported, but duct is small and difficult to visualize
Vital Signs / Physical Exam
Vital Signs
Vital Signs
Temp Pulse Resp BP Pulse Ox
97.8 F 75 18 108/71 98
01/06/24 15:27 01/06/24 15:27 01/06/24 15:27 01/06/24 15:27 01/06/24 15:27
Physical Exam
Constitutional: No Acute Distress
Cardiovascular: Regular Rate and S1/S2; Negative Murmur or Rub
Pulmonary: Clear and Symmetric; Negative Wheezes or Rales
Gastrointestinal: Soft, Non Tender, Non Distended and Normal Bowel Sounds
Skin: Warm and Dry; Negative Rash or Jaundice
Objective Data
Lab Data
Lab Results
01/06/24 07:28
01/06/24 07:28
Estimated Creat Clear 70 ml/min 01/06/24 07:28
Total Bilirubin 0.8 mg/dl (0.2-1.3) 01/06/24 07:28
AST 40 U/L (14-36) H 01/06/24 07:28
ALT 46 U/L (0-35) H 01/06/24 07:28
Alkaline Phosphatase 129 U/L (38-126) H 01/06/24 07:28
Most recent labs reviewed.
Micro Results:
01/06/24 12:15 Blood Culture - Pending
Blood/Venous
01/05/24 00:11 Blood Culture - Preliminary
Blood/Venous Escherichia coli
Gram Stain - Final
01/05/24 00:13 Blood Culture - Preliminary
Blood/Venous No Growth in 24 hours- Final report to follow
--- NOTE | 2024-01-06 17:27 | W.PN.GI.CBS2 ---
Today's Communication / Plan
-
Will review MRI/MRCP with advanced endoscopy GI
Repeat BC today
C/w abx
Resume diet
Assessment / Plan
-
The patient is a 73-year-old female with a past medical history significant for recurrent E. coli bacteremia, type 2 diabetes, pancreatic cyst, history of cholecystectomy complicated by bile duct injury requiring hepaticojejunostomy and chronic
biliary drain for 6 to 7 years with subsequent partial liver resection, hyperlipidemia, who presented to the emergency room with complaints of fevers with concern for possible biliary source of bacteremia given her history as noted above. She
denies any other complaints aside from fevers and mild dyspnea on exertion that has resolved. She has had no further fevers. Her LFTs are downtrending. Her bilirubin is normal. She reports initial cholecystectomy in 2012 with bile leak
postoperatively and placement of a biliary drain which she had for 6 to 7 years. She reports having undergone surgery as above subsequently, with surgery most recently she reports done at [place] in 2019 (unclear to what was done). Blood
cultures from 12/24 did show E. coli bacteremia, which have since cleared on 01/01. Repeat blood cultures were drawn upon admission and are pending. She was placed on cefepime.
Problem list:
-Fevers
-recurrent bacteremia, Ecoli (BC 12/24, cleared 01/01)
-history of cholecystectomy (2013) complicated by bile duct injury requiring hepaticojejunostomy and chronic biliary drain for 6 to 7 years with subsequent partial liver resection in [facility], surgery most recently in 2019 reported at [place]
-Abnormal LFTs
-pancreatic cysts (seen on MRI in April 2021)
-Hepatitis B? reported in past, may have cleared this
Recommendations:
- Suspect biliary source of recurrent Ecoli bacteremia
- MRI MRCP done and awaiting recs from advanced endoscopist. Likely not amenable to ERCP given post surgical anatomy. May need tertiary care center eval for possible IR drain vs surgery to prevent recurrent cholangitis
- Repeat blood cultures today
- C/w abx
- Appreciate ID recs
- C/w diet
Will follow with you
Subjective
Subjective
Date of Service: January 06, 2024
She denies further abd pain. No more fevers. Tolerated diet
Objective
Data Reviewed
Laboratory Data:
Laboratory Results
01/06/24 07:28
01/06/24 07:28
Laboratory Results
Total Bilirubin 0.8 mg/dl (0.2-1.3) 01/06/24 07:28
AST 40 U/L (14-36) H 01/06/24 07:28
ALT 46 U/L (0-35) H 01/06/24 07:28
Alkaline Phosphatase 129 U/L (38-126) H 01/06/24 07:28
Vital Signs and I&O:
Vital Signs
Temp Pulse Resp BP Pulse Ox
97.8 F 75 18 108/71 98
01/06/24 15:27 01/06/24 15:27 01/06/24 15:27 01/06/24 15:27 01/06/24 15:27
I&O
01/05/24 01/06/24 01/07/24
06:59 06:59 06:59
Intake Total 480 / 480 2099 / 2100
Balance 480 / 480 2099 / 2100
Physical Exam
Physical Exam
GEN: No acute distress, conversant, pleasant
HEENT: anicteric, extraocular movements intact, clear oropharynx without exudates
GI: soft, non-distended, not tender to palpation, normal active bowel sounds, no hepatosplenomegaly
EXT: warm, well perfused, no edema bilaterally
NEURO: AAOx3, non-focal
[2024-01-06 22:46] LABS: Glucose - Point of Care 169 mg/dl (70-99)
[2024-01-06 23:24] VITALS: BP 113/71
[2024-01-07] MEDS: STERILE WATER FOR INJECTION 10 ML IV ×2 (01:24→09:04)
[2024-01-07] MEDS: MAXIPIME 1000 MG IV ×2 (01:24→09:03)
[2024-01-07 07:15] VITALS: BP 131/86
[2024-01-07 07:51] LABS: Hematocrit 33.1 % (37.0-47.0); Hemoglobin 11.5 g/dL (12.0-16.0); Mean Corp Hgb Conc. 34.7 g/dL (33.0-37.0); Mean Corpuscular Hgb 31.7 pg (27.0-31.0); Mean Corpuscular Volume 91.2 fL (81.0-99.0); Mean Platelet Volume 10.5 fL (7.4-10.4); Platelet Count 149 10^3/uL (130-400); Red Blood Cell Count 3.63 10^6/uL (4.20-5.40); Red Cell Dist. Width 13.4 % (11.5-14.5)
[2024-01-07 07:56] LABS: Glucose - Point of Care 185 mg/dl (70-99)
[2024-01-07 08:30] LABS: ALT (SGPT) 50 U/L (0-35); AST (SGOT) 44 U/L (14-36); Albumin 3.5 g/dl (3.5-5.0); Alkaline Phosphatase 201 U/L (38-126); Blood Urea Nitrogen 13 mg/dl (7-17); Calcium 8.9 mg/dl (8.4-10.2); Carbon Dioxide 24 mmol/L (22-30); Chloride 105 mmol/L (98-107); Estimated Creatinine Clearance 70 ml/min; Glucose 198 mg/dl (70-99); Potassium 4.1 mmol/L (3.5-5.1); Sodium 141 mmol/L (135-145); Total Bilirubin 0.5 mg/dl (0.2-1.3); Total Protein 6.3 g/dl (6.3-8.2); eGFR > 60.00
[2024-01-07] MEDS: NOVOLOG FLEXPEN-LOW RESISTANCE 1 UNITS SC (08:56)
[2024-01-07] MEDS: NSS (PRESERVATIVE FREE) 10 ML IV (08:57)
[2024-01-07] MEDS: PROTONIX IV 40 MG IV (08:57)
[2024-01-07] MEDS: URSO 250 MG PO (09:05)
--- NOTE | 2024-01-07 09:48 | W.PN.GI.CBS2 ---
Today's Communication / Plan
-
Results of MRI d/w pt. Recommending ERCP tomorrow with Dr Holguin due to recurrent Ecoli bacteremia related to biliary source
PT declines if changes her mind please let GI service know
Above d/w hospitalist
Assessment / Plan
-
The patient is a 73-year-old female with a past medical history significant for recurrent E. coli bacteremia, type 2 diabetes, pancreatic cyst, history of cholecystectomy complicated by bile duct injury requiring hepaticojejunostomy and chronic
biliary drain for 6 to 7 years with subsequent partial liver resection, hyperlipidemia, who presented to the emergency room with complaints of fevers with concern for possible biliary source of bacteremia given her history as noted above. She
denies any other complaints aside from fevers and mild dyspnea on exertion that has resolved. She has had no further fevers. Her LFTs are downtrending. Her bilirubin is normal. She reports initial cholecystectomy in 2012 with bile leak
postoperatively and placement of a biliary drain which she had for 6 to 7 years. She reports having undergone surgery as above subsequently, with surgery most recently she reports done at [place] in 2019 (unclear to what was done). Blood
cultures from 12/24 did show E. coli bacteremia, which have since cleared on 01/01. Repeat blood cultures were drawn upon admission and are pending. She was placed on cefepime.
Problem list:
-Fevers
-recurrent bacteremia, Ecoli (BC 12/24, cleared 01/01)
thought likely due to biliary source
-history of cholecystectomy (2013) complicated by bile duct injury requiring hepaticojejunostomy and chronic biliary drain for 6 to 7 years with subsequent partial liver resection in [facility], surgery most recently in 2019 reported at [place]
-Abnormal LFTs
-pancreatic cysts (seen on MRI in April 2021)
-Hepatitis B? reported in past, may have cleared this
Recommendations:
- Recurrent Ecoli bacteremia likely from biliary source
- Results of MRI/MRCP done 01/05 d/w patient. Recommend ERCP tomorrow with Dr Holguin. She declines and prefers d/c to have done in [facility] in May 2024. I advised her that given her illness that would risk sepsis and even . If she is d/lydia today
should be AMA (against medical advice)
- Repeat BC thus far negative
- C/w abx
GI will sign off if patient changes her mind please let us know. Above d/w hospitalist
Subjective
Subjective
Date of Service: January 07, 2024
She denies abd pain, nausea/vomiting. Tolerated diet.
Objective
Data Reviewed
Laboratory Data:
Laboratory Results
01/07/24 06:59
01/07/24 06:59
Laboratory Results
Total Bilirubin 0.5 mg/dl (0.2-1.3) 01/07/24 06:59
AST 44 U/L (14-36) H 01/07/24 06:59
ALT 50 U/L (0-35) H 01/07/24 06:59
Alkaline Phosphatase 201 U/L (38-126) H 01/07/24 06:59
Vital Signs and I&O:
Vital Signs
Temp Pulse Resp BP Pulse Ox
98.9 F 78 16 131/86 98
01/07/24 07:15 01/07/24 07:15 01/07/24 07:15 01/07/24 07:15 01/07/24 07:15
I&O
01/06/24 01/07/24 01/08/24
06:59 06:59 06:59
Intake Total 2099 1720 / 1720
Balance 2099 172 / 1720
Physical Exam
Physical Exam
GEN: No acute distress, conversant, pleasant
HEENT: anicteric, extraocular movements intact, clear oropharynx without exudates
GI: soft, non-distended, not tender to palpation, normal active bowel sounds, no hepatosplenomegaly
EXT: warm, well perfused, no edema bilaterally
NEURO: AAOx3, non-focal
[2024-01-07 11:41] LABS: Glucose - Point of Care 208 mg/dl (70-99)
--- NOTE | 2024-01-07 12:36 | W.PN.ID1 ---
Date of Service
Date of Service: January 07, 2024
Today's Communication
- switched to cefdinir/metronidazole to complete a 14 day total course (11 more days)
Assessment / Plan
Fever - resolved
Cholangitis
Recurrent E coli bacteremias - suspected translocation due to altered anatomy secondary to surgery
H/o pruritus with zosyn
- E coli bacteremia noted, sensi back
- TTE no vegetations - suspect these are new infections due to her anatomy rather than relapses
- switched to cefdinir/metronidazole to complete a 14 day total course (11 more days
- appreciate GI and IM input
- I plan a pill in the pocket strategy for recurrences will give her an additional script for cefdinir/metro to keep at home. she agrees to call me if fever without a source and will start the antibiotics then
- may consider challenge with augmentin in the future
- encouraged patient to get her last ERCP and original surgery records translated into kyrgyz and bring those to our next visit
- follow up in ID clinic PRN
stable for dc from ID perspective
Chief Complaint
-: Fever and Bacteremia
Subjective / Review of Systems
remains afebrile
no abdominal pain which is typical for her
feels well physically
we re-reviewed the zosyn allergy, she felt it might have been more due to the infusion rate with a bit of burning/tingling, a single questionable hive was recorded
Vital Signs / Physical Exam
Vital Signs
Vital Signs
Temp Pulse Resp BP Pulse Ox
98.9 F 78 16 131/86 98
01/07/24 07:15 01/07/24 07:15 01/07/24 07:15 01/07/24 07:15 01/07/24 07:15
Physical Exam
Constitutional: No Acute Distress
Cardiovascular: Regular Rate and S1/S2; Negative Murmur or Rub
Pulmonary: Clear and Symmetric; Negative Wheezes or Rales
Gastrointestinal: Soft, Non Tender, Non Distended and Normal Bowel Sounds
Skin: Warm and Dry; Negative Rash or Jaundice
Objective Data
Lab Data
Lab Results
01/07/24 06:59
01/07/24 06:59
Estimated Creat Clear 70 ml/min 01/07/24 06:59
Total Bilirubin 0.5 mg/dl (0.2-1.3) 01/07/24 06:59
AST 44 U/L (14-36) H 01/07/24 06:59
ALT 50 U/L (0-35) H 01/07/24 06:59
Alkaline Phosphatase 201 U/L (38-126) H 01/07/24 06:59
Most recent labs reviewed.
Micro Results:
01/06/24 12:15 Blood Culture - Preliminary
Blood/Venous No Growth in 24 hours- Final report to follow
01/05/24 00:11 Blood Culture - Final
Blood/Venous Escherichia coli
Escherichia coli#2
Gram Stain - Final
01/05/24 00:13 Blood Culture - Preliminary
Blood/Venous No Growth in 48 hours- Final report to follow
Care Review
Plan reviewed with: Physician (Dr Katie lund)
--- NOTE | 2024-01-07 12:51 | CM ---
Chart reviewed and plan is to home when stable.
Plan; Home when stable.
--- NOTE | 2024-01-07 13:13 | W.PN.HOSP.TC ---
Today's Communication/Plan
-
switched to cefdinir/metronidazole to complete a 14 day total course (11 more days)
pt leaving AMA - understands/verbalizes risks of not undergoing recommended ERCP
F/u GI immediately - if in [place] then this is applicable; F/u ID outpatient
Assessment / Plan
Assessment / Plan
Constitutional: No Acute Distress
Cardiovascular: Regular Rate and S1/S2; Negative Murmur or Rub
Pulmonary: Clear and Symmetric; Negative Wheezes, Rales or Rhonchi
Gastrointestinal: Soft, Non Tender, Non Distended and Normal Bowel Sounds
Skin: Warm and Dry; Negative Rash or Jaundice
#Fever, new or worse relapse
#Recurrent gram-negative yaz bacteremia
-possibly 2/2 to cholangitis?
� Suspect secondary to recent surgery
� Requested records
� IV antibiotics�continue cefepime - switched to Cefdinir/Flagyl for additional 11 days to complete 14 day course;
- Should have ERCP reports obtained and translated, otherwise please perform another ERCP stat; Patient refused ERCP and further testing and understands/verbalizes risks. Patient desires to leave AMA.
- Call ID if fever without source again
� Abdominal troponin CT chest unrevealing
� Echo unremarkable for endocarditis
#Transaminitis
# Suspect secondary to bacteremia
� Continue to trend
� MRI Abd: Possible Cholangitis - see plan above for ERCP
� GI consulted
� Hepatitis panel pending
� Requested records
� Trending down
#pancreatic cystic lesions without suspicious features, likely pseudocysts and/or side branch intraductal papillary mucinous neoplasms.
-Recommend follow-up MRI/MRCP abdomen without and with gadolinium contrast in one year per ACR criteria
#Type 2 diabetes
� Hold p.o. medications acutely
� Sliding scale
� Continue to monitor glucose levels
#DVT prophylaxis
� HSQ
More than 30 minutes spent in discharge including
Final examination of the patient
Summarizing hospital stay
Instructions for continuing care to all relevant caregivers
Preparation of discharge records, prescriptions, and referral forms
Total time spent (35 in minutes):
Anticipated Discharge: Today
Subjective/Interval History
-
Date of Service: January 07, 2024
persistent fever, declining ERCP
Objective Data
-
Labs:
Laboratory Results
01/07/24
06:59
WBC 4.0 L
Hgb 11.5 L
Hct 33.1 L
Plt Count 149
Sodium 141
Potassium 4.1
Chloride 105
Carbon Dioxide 24
BUN 13
Creatinine 0.5 L
Glucose 198 H
Calcium 8.9
Total Bilirubin 0.5
AST 44 H
ALT 50 H
Alkaline Phosphatase 201 H
Vital Signs:
Vital Signs
Temp Pulse Resp BP Pulse Ox
98.9 F 78 16 131/86 98
01/07/24 07:15 01/07/24 07:15 01/07/24 07:15 01/07/24 07:15 01/07/24 07:15
I&O
01/06/24 01/07/24 01/08/24
06:59 06:59 06:59
Intake Total 2099 1720 / 1720
Balance 2099 1720 / 1720
Review of Systems
-
History Source: Patient
All other systems: Not reviewed unless documented
Physical Exam
-
General: Well Developed, Well Nourished and No Apparent Distress
HEENT: Normocephalic and Atraumatic
Respiratory: Clear to Auscultation; Negative Wheezes or Rhonchi
Cardiac: Regular Rhythm and S1/S2; Negative Murmur
GI: Soft, Nontender, Nondistended and Normal Bowel Sounds
Musculoskeletal: No Clubbing, No Cyanosis and No Edema
Skin: Warm
Neuro: Awake
Psych: Calm
--- NOTE | 2024-01-07 13:19 | W.DS.TRANS ---
DC Summary - Enterprise Infrastructure Architect
-
Discharge Instructions:
Discharge Diagnosis/Procedures -Fevers
-recurrent bacteremia, Ecoli (BC 12/24, cleared 8
) thought likely due to biliary source
Diet Low Cholesterol,Low Fat,Diabetic, Carb
Controlled
Activity As tolerated
Blood Work cbc, cmp outpatient
Others Tests should have ERCP done
Instructions:
Stand-Alone Forms:
Changes to Home Medications: Yes
Discharge Medications:
DC Medications w/original date entered in [facility]
multivitamin 1 tab PO Q48H Supplement 11/17/22
sitagliptin phosphate 50 mg-metformin 500 mg tablet (Janumet) 1 tab PO BID Diabetes 11/17/22
ursodiol 200 mg capsule 200 mg PO BID Gastrointestinal Issue 11/17/22
cyanocobalamin (vitamin B-12) 1,000 mcg tablet 1,000 mcg PO Q48H Supplement 03/26/23
ibuprofen 200 mg tablet (Advil) 400 mg PO Q6H PRN fever 03/26/23
cefdinir 300 mg capsule 300 mg PO Q12 11 days #22 caps 01/07/24
metronidazole 500 mg tablet 500 mg PO BID 11 days #22 tabs 01/07/24
pantoprazole 40 mg tablet,delayed release 40 mg PO DAILY #30 tabs 01/07/24
Home Medication Changes
cefdinir 300 mg capsule 300 mg PO Q12 11 days #22 caps 01/07/24
metronidazole 500 mg tablet 500 mg PO BID 11 days #22 tabs 01/07/24
pantoprazole 40 mg tablet,delayed release 40 mg PO DAILY #30 tabs 01/07/24
Pending Results: No
[2024-01-07] MEDS: OMNICEF 300 MG PO (13:31)
[2024-01-07] MEDS: NOVOLOG FLEXPEN-LOW RESISTANCE 2 UNITS SC (13:31)
[2024-01-07] MEDS: FLAGYL 500 MG PO (13:31)
== END 2024-01-07 14:48 | disposition left against medical advice (07) | DRG 872 ==
LOC: 4 WEST ACU 03:38
PROVIDERS: Nurse Practitioner Family; Student in an Organized Health Care Education/Training Program; ADMITTING PHYSICIAN Hospitalist; ATTENDING PHYSICIAN Internal Medicine; CONSULT PHYSICIAN Internal Medicine; EMERGENCY PHYSICIAN Emergency Medicine; OTHER PHYSICIAN Student in an Organized Health Care Education/Training Program
DX: R78.81 Bacteremia (principal); K86.2 Cyst of pancreas; E11.9 Type 2 diabetes mellitus without complications; Z11.52 Encounter for screening for COVID-19
CPT/HCPCS: 71275; 74183; 76700; 80048; 80053; 80076; 81003; 82962; 83036; 84484; 85025; 85027; 86706; 86803; 87040; 87077; 87149; 87186; 87205; 87340; 87811; 93005; 93306; 96374; 99285; A9575; Q9967

== ENCOUNTER 2024-04-09 13:05 | Inpatient (IN) | payer MEDICARE, OTHER, SELFPAY ==
[2024-04-09] VITALS (7 sets, daily range): BP systolic 132–157; BP diastolic 72–96; BMI 23.0; BMI 23.2
[2024-04-09 10:43] LABS: Urine Albumin 3+ (Neg - Trace); Urine Bilirubin Negative (Negative); Urine Character Clear (Clear); Urine Color Amber; Urine Glucose 3+ (Negative); Urine Ketone Negative (Negative); Urine Leukocyte Trace (Negative); Urine Nitrite Positive (Negative); Urine Occult Blood 4+ (Negative); Urine Urobilinogen Negative (Neg - 1+)
[2024-04-09 10:54] LABS: ALT (SGPT) 53 U/L (0-35); AST (SGOT) 66 U/L (14-36); Albumin 3.4 g/dl (3.5-5.0); Alkaline Phosphatase 199 U/L (38-126); Blood Urea Nitrogen 33 mg/dl (7-17); Calcium 8.7 mg/dl (8.4-10.2); Carbon Dioxide 28 mmol/L (22-30); Chloride 104 mmol/L (98-107); Estimated Creatinine Clearance 70 ml/min; Glucose 142 mg/dl (70-99); Potassium 4.7 mmol/L (3.5-5.1); Sodium 138 mmol/L (135-145); Total Bilirubin 4.8 mg/dl (0.2-1.3); Total Protein 6.2 g/dl (6.3-8.2); eGFR > 60.00
--- NOTE | 2024-04-09 11:16 | ED.GENMED ---
History of Present Illness
General
Chief Complaint: Urinary Symptoms
Source: patient
Exam Limitations: none
Time Seen by Provider: 04/09/24 09:40
Nursing documentation reviewed up to this point in time: agreed with
History of Present Illness
History of Present Illness:
Patient is a 73-year female with past medical history of cholecystectomy /liver abscess / resection hepaticojejunostomy in [place] with recurrent gram-negative bacteremia (e-coli )presents to the ER complaining of orange-colored urine and some
discomfort with urination that started yesterday.
She denies any fever chills
Past History
Past History
ED Past Medical History: Hypercholesterolemia, NIDDM and Other (Recurrent fevers of unknown origin, Bowel obstruction)
ED Past Surgical History: Cholecystectomy and Other (Kian-en-Y X 2, partial liver resection)
Patient has exhibited threatening behavior?: No
Social History
Tobacco: Non-smoker
Alcohol: None
Drug: None
Personal:
Living: with family
Employment: Employed
Family History
Family History: Other (Noncontributory)
Review of Systems
Review of Systems
Allergies reviewed?: Yes
All Other Systems: ROS reviewed and negative except as documented in HPI and ROS
Constitutional: Reports no symptoms; Denies fever, fatigue or chills
Respiratory: Reports no symptoms
Cardiac: Reports no symptoms
ABD/GI: Reports abdominal pain (Lower abdominal discomfort)
: Reports other (Clay darker urine/mild discomfort after urination)
Musculoskeletal: Reports no symptoms
Skin: Reports no symptoms
Neurological: Reports no symptoms
Hematologic/Lymphatic: Reports no symptoms
Psychiatric: Reports no symptoms
Phy Exam
General Physical Exam
General Presentation: no apparent distress
General age: appears stated age
General Skin: warm and dry
General Habitus: normal
General Mental: alert
General Hydration: dry mucous membranes
Cardiovascular Exam
Cardiovascular Exam: regular rate/rhythm, no murmur and normal peripheral pulses
Pulmonary Exam
Pulmonary Exam: lungs clear and no respiratory distress
Neurological Exam
Neurological Exam: alert and oriented x3
Musculoskeletal Exam
Musculoskeletal Exam: full ROM
Skin Exam
Skin Exam: normal color, warm/dry and other (small petechial to chest )
Psychiatric Exam
Psychiatric Exam: normal mood/affect
Course
Orders/Labs/Results
Orders:
Orders
04/09/24 Breakfast
2000 calorie (17 carb) Diabetic
At Your Request: Full Participation
Does patient need a safe tray?: No
04/09/24 10:32
CMP [Comprehensive Metabolic Panel] Urgent
Complete Blood Count/No Diff Urgent
Direct Bilirubin Urgent
Comment: ADD ON
Urinalysis Reflex To Culture Urgent
Date Specimen was Collected: 04/09/24
Time Specimen was Collected: 10:23
Urine Microscopic Reflex Cult Urgent
Urine Culture Urgent
EDU Source: U
Specimen Description:
Date Specimen was Collected: 04/09/24
Time Specimen was Collected: 10:23
04/09/24 11:44
0.9% Sodium Chloride 1000 ml [Nss] 1,000 ml IV BOLUS
04/09/24 11:45
US Abdomen Complete/Upper Urgent
Comment:
Reason For Exam: elevated liver function tests
04/09/24 12:25
GASTROINTESTINAL CONSULT Routine
Consulting Provider: Aakash Bishop
Was physician already notified: Yes
HEMATOLOGY CONSULT Routine
Consulting Provider: Adelso Fu
Was physician already notified: Yes
04/09/24 12:38
Admit/Transfer Patient As Directed
Co-Sign Provider:
Level of Care: Inpatient admission
Assign to:: Medical/Surgical
Physician / Group: natalia
Diagnosis: thrombocytopenia
Reason for Hospitalization: thrombocytopenia
Expected length of stay greater than two midnights?: Yes
ELOS- Estimated Length of Stay in days: 3
I certify the patient meets the requirements for IP care: Yes
PRN Pain Medication Management As Directed
May give lesser potent ordered pain med per pt: Yes
preference::
Protocol:: Medication orders for pain may be administered in a
manner that supports deferring to patient preference
when the pt is:
- Requesting an ordered lesser potent pain medication.
Least to most potent pain medications are defined
as: acetaminophen < NSAID < tramadol < opioids
(morphine, oxycodone, hydromorphone).
- Requesting a lesser dose of the same medication IF
ORDERED.
- Requesting a less intrusive route of administration
if both routes are prescribed by the provider (PO <
IV).
04/09/24 12:39
Code Status As Directed
Resuscitation Status: Full Code
04/09/24 12:44
Add On- LAB Stat
Tests Added?: direct Bilirubin
04/09/24 12:52
ABO2 Stat
BBK Wristband Number:
Associate notified that ABO2 has been ordered: DENG
Date: 04/09/24
Time: 13:21
Environmental Compliance Engineer ID: [id number]
Ellie, Direct [MICHELLE Polyspecific GEL] Stat
Haptoglobin [S] Stat
LDH Stat
Reticulocyte Count Stat
Blood Culture Routine
EDU Source: Blood/Venous
Specimen Description:
04/09/24 14:28
Bisacodyl [Dulcolax] 10 mg RECTAL [id number] PRN
Dextrose 50%-Water [Dextrose 50% Syringe] 12.5 grams IV [id number] PRN
Docusate W/Senna [Senokot-S] 1 tablet PO BIDPRN PRN
Glucagon [GlucaGen] 1 mg IM PRN PRN
Polyethylene Glycol Powder [Miralax] 17 grams PO DAILYPRN PRN
04/09/24 14:28
VTE Contraindication Routine
VTE Mechanical Device Contraindication: Medical Contraindication
Pharmocologic Contraindication: Heparin-induced thrombocy
Activity As Directed
Activity Level: As Tolerated
Bedside Glucose Monitoring As Directed
Frequency: AC&HS
Additional Instructions:: Change to q6h if pt on TPN, tube feeding or not eating
Vital Signs As Directed
Frequency: Per unit guidelines
04/09/24 16:30
Insulin Aspart Corrective Low [Novolog Flexpen-Low Resistance] See Protocol SC AC
04/10/24 06:00
Basic Metabolic Panel IN AM
Complete Blood Count/No Diff IN AM
Glycohemoglobin (HgbA1c) IN AM
LFT [Mymtd-Cvpj-Lwdwuqi] IN AM
04/11/24 06:00
Basic Metabolic Panel IN AM
Complete Blood Count/No Diff IN AM
LFT [Qcmta-Cshx-Abaefrm] IN AM
04/12/24 06:00
Basic Metabolic Panel IN AM
Complete Blood Count/No Diff IN AM
LFT [Iumjn-Edgd-Rkmcesi] IN AM
04/13/24 06:00
Complete Blood Count/No Diff IN AM
LFT [Jhhez-Qzzp-Tzwupyv] IN AM
Abnormal Lab Results
04/09/24 04/09/24
10:32 12:52
WBC 4.7 L 10^3/uL
(4.8-10.8)
RBC 3.52 L 10^6/uL
(4.20-5.40)
Hgb 10.8 L g/dL
(12.0-16.0)
Hct 32.6 L %
(37.0-47.0)
RDW 14.8 H %
(11.5-14.5)
Plt Count 8 L* 10^3/uL
(130-400)
BUN 33 H mg/dl
(7-17)
Glucose 142 H mg/dl
(70-99)
Total Bilirubin 4.8 H mg/dl
(0.2-1.3)
Direct Bilirubin 1.0 H mg/dl
(0.0-0.4)
AST 66 H U/L
(14-36)
ALT 53 H U/L
(0-35)
Alkaline Phosphatase 199 H U/L
(38-126)
Lactate Dehydrogenase 1412 H U/L
(120-246)
Total Protein 6.2 L g/dl
(6.3-8.2)
Albumin 3.4 L g/dl
(3.5-5.0)
Ur Occult Blood Reflex 4+ A
(Negative)
Urine Nitrite (Reflex) Positive A
(Negative)
Leukocyte Esterase Rfl Trace A
(Negative)
Urine RBC 11-15 A /HPF
(0-2)
Urine Bacteria (Reflex) Moderate A
(Negative)
Urine Glucose 3+ A
(Negative)
Urine Albumin (Reflex) 3+ A
(Neg - Trace)
04/09/24 10:32
04/09/24 10:32
Vital Signs
Initial and Last Documented VS:
Initial Vital Signs
Temp Pulse Resp BP Pulse Ox
97 F 92 16 157/96 99
04/09/24 08:39 04/09/24 08:39 04/09/24 08:39 04/09/24 08:39 04/09/24 08:39
Last Documented Vital Signs
Temp Pulse Resp BP Pulse Ox
98.3 F 87 16 148/87 98
04/09/24 14:37 04/09/24 14:37 04/09/24 14:37 04/09/24 14:37 04/09/24 14:37
MDM/Problems Addressed
MDM/Problems Addressed:
73 yr old female w/ pmh of liver abscess/hepaticojejunostomy with recurrent E. coli bacteremia presents today with dark urine and some discomfort urination. Patient however found to have low platelets of 8000 with an elevated bilirubin of 4.8
minimally elevated alk phosphatase. Patient does have small petechial rash to her chest though she was not aware of this. Her BUN is elevated at 33 she was given fluids. Her creatinine is normal.
Urine does not appear infected. Patient's BUN is elevated patient was given fluids her creatinine is normal she is awake alert nontoxic-appearing she does have small petechial rash to upper chest. Will admit for elevated abnormal liver function,
thrombocytopenia
*Critical Care Note
Total Time (30-74mins, 75-104mins- exclusive of procedures): Not Applicable
ED Attending Note
-
Portions of this chart may have been created with voice recognition software.� Occasional wrong word or��sound alike� substitutions may have occurred due to the inherent limitations of voice recognition software.
Discharge Plan
Departure
Patient Disposition: Admit
Date of Disposition: 04/09/24
Time of Disposition: 12:01
Admit to: Med/Surg
Admit to doctor: hospitalist
Presentation/result/management discussed w/ accepting MD/DO: Hospitalist
Patient with high blood pressure during this ER visit?: Yes
Condition: Fair
Covid-19: Not Applicable
Discharge Problem:
Thrombocytopenia, Transaminitis
Interventions
Interventions:
*Risk Screen - Suicide Last Done: 04/09/24 08:40
*General Assessment Last Done: 04/09/24 14:19
*Neglect/Abuse Screening Last Done: 04/09/24 08:40
ED- Fall Risk Assessment Last Done: 04/09/24 10:37
*ED COVID-19 Vaccine History Last Done: 04/09/24 10:37
*Nursing Disposition Last Done: 04/09/24 14:22
ED-Female Genitourinary Assessment Last Done: 04/09/24 12:23
Discharge Date and Time
Discharge Date/Time: 04/09/24 14:22
[2024-04-09 11:17] LABS: Hematocrit 32.6 % (37.0-47.0); Hemoglobin 10.8 g/dL (12.0-16.0); Mean Corp Hgb Conc. 33.1 g/dL (33.0-37.0); Mean Corpuscular Hgb 30.7 pg (27.0-31.0); Mean Corpuscular Volume 92.6 fL (81.0-99.0); Platelet Count 8 10^3/uL (130-400); Red Blood Cell Count 3.52 10^6/uL (4.20-5.40); Red Cell Dist. Width 14.8 % (11.5-14.5); White Blood Cell Count 4.7 10^3/uL (4.8-10.8)
[2024-04-09 11:52] LABS: Urine Amorphous Seen; Urine Squamous Cell 0-2 /LPF (Few)
[2024-04-09 11:56] LABS: Urine Bacteria Moderate (Negative); Urine White Cell 0-2 /HPF (0-5)
--- NOTE | 2024-04-09 12:05 | HPS.HSE ---
Family Physician
-
Family Physician: Giuseppe Porras MD
Chief Complaint
-
dark orange color
History of Present Illness
73-year female with past medical history of cholecystectomy /liver abscess / resection hepaticojejunostomy in [place] with recurrent gram-negative bacteremia (e-coli )presents to the ER complaining of orange-colored urine. she noted jovanni color
yesterday morning. she was drinking lots of fluids as well as some herbal tea yesterday. patient noted urinary frequency as well as lower abdominal cramps after voiding.today she noticed dark orange red colored urine. stated some chills, denied
abdominal pain, nausea, vomiting and diarrhea. denied fever, chest pain, sob. denied dizzy or syncope. she took Advil for SHARIF yesterday.
upon arrival noted pancytopenia, low platelets. admitting for further management.
Medical History
Past Medical History
Past Medical History: Reports Other
Additional Past Medical History:
HLD
DM
liver cirrhosis
Past Surgical History: Reports Other
Additional Past Surgical History:
cholecystectomy
-katharine-hepatectomy
gastric bypass
Social History
Tobacco: Non-smoker
Alcohol: None
Drug: None
Family History
Family History: Not pertinent
Allergies / Home Medications
Allergies reflects when Allergies were last updated in [employer].
Home Medications with original date entered in [employer]
Allergy/Medication List:
Allergies
Allergy/AdvReac Type Severity Reaction Status Date / Time
piperacillin [From Zosyn] Allergy Itchy Verified 01/02/24 17:38
shrimp Allergy Rash Verified 01/02/24 17:38
tazobactam [From Zosyn] Allergy Itchy Verified 01/02/24 17:38
Home Medications
sitagliptin phosphate 50 mg-metformin 500 mg tablet (Janumet) 1 tab PO BID Diabetes 11/17/22
cyanocobalamin (vitamin B-12) 1,000 mcg tablet 1,000 mcg PO Q48H Supplement 03/26/23
ibuprofen 200 mg tablet (Advil) 400 mg PO Q6HPRN PRN mild pain 03/26/23
ascorbic acid (vitamin C) 500 mg tablet (Vitamin C) 500 mg PO DAILY Supplement 04/09/24
cholecalciferol (vitamin D3) 25 mcg (1,000 unit) tablet (Vitamin D3) 25 mcg PO DAILY Supplement 04/09/24
empagliflozin 25 mg tablet (Jardiance) 25 mg PO DAILY Diabetes 04/09/24
ursodiol 250 mg tablet 250 mg PO BID Gastrointestinal Issue 04/09/24
Review of Systems
-
Constitutional: Reports No Symptoms
EENT: Reports No Symptoms
Respiratory: Reports No Symptoms
Cardiac: Reports No Symptoms
Abdomen/GI: Reports No Symptoms
: Reports Other (dark orange reddish urine)
Musculoskeletal: Reports No Symptoms
Skin: Reports No Symptoms
Neurological: Reports No Symptoms
Endocrine: Reports No Symptoms
Hematologic/Lymphatic: Reports No Symptoms
Psych: Reports No Symptoms
Physical Exam
Vital Signs
Vital Signs
Temp Pulse Resp BP Pulse Ox
97.4 F 72 18 142/84 95
04/09/24 11:00 04/09/24 11:00 04/09/24 11:00 04/09/24 11:00 04/09/24 11:00
Physical Exam
General: Well Developed, Well Nourished and No Apparent Distress
HEENT: NormoCephalic, Moist mucous membranes and Atraumatic
Respiratory: Clear
Cardiac: S1/S2 and Regular Rhythm; No Murmur or Rub
GI: Soft, Non Tender, Non Distended and Normal Bowel Sounds; No Organomegaly
Rectal: Deferred by Provider
Musculoskeletal: No Clubbing, No Cyanosis and No Edema
Skin: No Rash
Neuro: AO x 3 and Nonfocal/grossly intact
Psych: Calm
Laboratory Results
-
04/09/24 10:32
04/09/24 10:32
Laboratory Results
Total Bilirubin 4.8 mg/dl (0.2-1.3) H 04/09/24 10:32
AST 66 U/L (14-36) H 04/09/24 10:32
ALT 53 U/L (0-35) H 04/09/24 10:32
Alkaline Phosphatase 199 U/L (38-126) H 04/09/24 10:32
Data Reviewed
-
Lab Data: Labs Reviewed by me
Impression/Plan
-
#dark orange urine unclear cause
#hxt of liver abscess with biliary reconstruction
#chronic LFT elevation
-AST 66,ALT 53, ALK 199, T Bili 4.8
-will obtain LDH,reticulocyte, and haptoglobin
-will obtain Ellie test and direct Bili
-US of abdomen ordered
-normal ERCP last month at [facility] as per patient
-GI consulted
#pancytopenia
-wbc 4.7, hgb 10.8, platelets 8
-hematology consulted
#recurrent E coli bacteremia
-obtain Blood culture
-patient remained afebrile
-ctm
#Type 2 diabetes
� Hold p.o. medications acutely
� Sliding scale
� Continue to monitor glucose levels
-=CHO diet
#DVT prophylaxis
� none
#code status
-full code
[2024-04-09] MEDS: NSS 1000 IV (12:21)
--- NOTE | 2024-04-09 12:54 | W.PN.UPDATE ---
Update Note
Progress Note Update
This is an addendum to the H&P written by Briseida Garrison on 04/09/2024.� Patient seen and examined independently with PRECISION FARMING COORDINATOR.
73-year-old female past medical history of type 2 diabetes, cholecystectomy/hepatojejunostomy, recurrent E. coli bacteremia, E. coli bacteremia in December secondary to possible cholangitis with refusal of ERCP at that time, presenting with orange
color urine, discomfort with urination which started yesterday.� No fevers or chills.
She was admitted in December for E. coli bacteremia and refused ERCP at that time however she did follow-up with [facility] and had a ERCP last month which was reportedly normal.
Petechial rash on chest and forearms. No abdominal tenderness.�
Labs showed stable mild transaminitis with elevation of bilirubin to 4.8, severe thrombocytopenia with platelets of 8.� Stable leukopenia and anemia.� Urinalysis not consistent with urinary tract infection but rather with hyperbilirubinemia.
Presentation concerning for likely ITP/hemolysis versus less likely recurrent bacteremia related to biliary infection/obstruction.� Check blood cultures.� Check hemolysis labs including reticulocyte count, LDH, haptoglobin, Hanley.� Hematology
consulted.� GI consulted.
[2024-04-09 13:03] LABS: Reticulocyte Count 1.7 % (0.4-2.8)
[2024-04-09 13:27] LABS: LDH 1412 U/L (120-246)
--- NOTE | 2024-04-09 14:00 | PTCARENOTE ---
Recieved from RD. Bender, BETTY, oriented to unit. Patient walked form stretcher to bed.
--- NOTE | 2024-04-09 15:30 | CON.GI ---
Addendum entered and electronically signed by Aakash Bishop MD 04/09/24 17:48:
I saw and examined the patient.
The CARPET LAYER HELPER or PA's note was reviewed and I agree with the note.
Comment: 73-year-old female past medical history of pancreatic cyst, cholecystectomy complicated by bile duct injury requiring hepatojejunostomy with chronic biliary drain and subsequent partial liver resection, recurrent E. coli bacteremia
presenting with orange-colored urine found to have abnormal LFTs and severe thrombocytopenia. Reviewing blood work, bilirubin is all indirect consistent more with hemolysis. Patient denies any abdominal pain, nausea, vomiting, fevers, chills.
Abdominal ultrasound with normal common bile duct size no intrahepatic bile duct dilation. Do not suspect cholangitis.
Of note, her AST and ALT and alk phos are chronically elevated and are stable from December 2023 (similar elevation as far back as 2020).
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 Primary team has ordered hep C antibody.
At this time, do not recommend further GI workup. Defer to hematology. GI will sign off. Please call with questions or issues. Thank you.
Original Note:
Consultation
-
Date/Time Consultation Requested: 04/09/24 1255
Date/Time Consultation Performed: 04/09/24 1515
Requesting Provider: MEDHAT Garcia
Performing Provider: Dr. Bishop / Michelle Archibald PA-C
Reason for Consultation: elevated LFTs
Medical History
Chief Complaint / HPI
Chief Complaint: dark urine
History of Present Illness:
This is a 73-year-old female past with a past medical history of DM, hyperlipidemia, pancreatic cysts, h/o cholecystectomy in 2014 (in [place]) complicated by bile duct injury requiring hepatojejunostomy with chronic biliary drain for 6-7 years with
subsequent partial liver resection (2019) and recurrent E. coli bacteremia, with recent admission in December 2023 for E. coli bacteremia secondary to possible cholangitis (pt refused ERCP at that time, but did have ERCP done last month at [place],
reportedly normal), who presented to the hospital with darker, orange-colored urine which started yesterday.� She denies any fevers, chills or abdominal pain. Labs in ER reviewed showing mild transaminitis: AST 66, ALT 53, and elevated bilirubin
(total bili 4.8, direct bili 1.0), and alk phos of 199. Severe thrombocytopenia noted with platelet count of 8. WBC count 4.7, RBC count 3.52, Hgb 10.8, with normocytic indices MCV 92.6, MCH 30.7. Reticulocyte count normal, 05/18. Haptoglobin pending.
LDH significantly elevated at 1412. Patient reports she has no history of thrombocytopenia. Hematology has been consulted. US without any acute hepatobiliary abnormalities.
Past Medical History
Past Medical History: Hypercholesterolemia, NIDDM and Other (pancreatic cysts, recurrent bacteremia)
Past Surgical History: Other (cholecystectomy in 2013 (in [place]) complicated by bile duct injury requiring hepatojejunostomy with chronic biliary drain for 6-7 years with subsequent partial liver resection (2019), Kian-en-Y gastric bypass)
Social History
Tobacco: Non-Smoker
Alcohol: None
Drug: None
Family History
Family History: Other (no family history of any GI malignancies)
Allergies / Home Medications
Allergy/AdvReac Type Severity Reaction Status Date / Time
piperacillin [From Zosyn] Allergy Itchy Verified 01/02/24 17:38
shrimp Allergy Rash Verified 01/02/24 17:38
tazobactam [From Zosyn] Allergy Itchy Verified 01/02/24 17:38
�Medication �Instructions �Recorded
sitagliptin phosphate 50 1 tab PO BID Diabetes 11/17/22
mg-metformin 500 mg tablet
(Janumet)
cyanocobalamin (vitamin B-12) 1,000 mcg PO Q48H Supplement 03/26/23
1,000 mcg tablet
ibuprofen 200 mg tablet (Advil) 400 mg PO Q6HPRN PRN mild pain 03/26/23
ascorbic acid (vitamin C) 500 mg 500 mg PO DAILY Supplement 04/09/24
tablet (Vitamin C)
cholecalciferol (vitamin D3) 25 25 mcg PO DAILY Supplement 04/09/24
mcg (1,000 unit) tablet (Vitamin
D3)
empagliflozin 25 mg tablet 25 mg PO DAILY Diabetes 04/09/24
(Jardiance)
ursodiol 250 mg tablet 250 mg PO BID Gastrointestinal 04/09/24
Issue
Review of Systems
-
History Source: Patient
All other systems: A 12 pt ROS was Negative except as stated above in HPI
Vital Signs
Temp Pulse Resp BP Pulse Ox
98.3 F 87 16 148/87 98
04/09/24 14:37 04/09/24 14:37 04/09/24 14:37 04/09/24 14:37 04/09/24 14:37
Physical Exam
Exam
General: Well Developed, Well Nourished and No Apparent Distress
HEENT: Other (+mild scleral icterus)
Respiratory: Clear
Cardiac: Regular Rhythm
GI: Soft, Non Tender, Non Distended and Normal Bowel Sounds
Skin: Warm and Dry
Neuro: AO x 3
Psych: Calm
Results
WBC 4.7 10^3/uL (4.8-10.8) L 04/09/24 10:32
Hgb 10.8 g/dL (12.0-16.0) L 04/09/24 10:32
Hct 32.6 % (37.0-47.0) L 04/09/24 10:32
MCV 92.6 fL (81.0-99.0) 04/09/24 10:32
Plt Count 8 10^3/uL (130-400) L* 04/09/24 10:32
Sodium 138 mmol/L (135-145) 04/09/24 10:32
Potassium 4.7 mmol/L (3.5-5.1) 04/09/24 10:32
Chloride 104 mmol/L (98-107) 04/09/24 10:32
Carbon Dioxide 28 mmol/L (22-30) 04/09/24 10:32
BUN 33 mg/dl (7-17) H 04/09/24 10:32
Creatinine 0.6 mg/dL (0.6-1.0) 04/09/24 10:32
Calcium 8.7 mg/dl (8.4-10.2) 04/09/24 10:32
Total Bilirubin 4.8 mg/dl (0.2-1.3) H 04/09/24 10:32
AST 66 U/L (14-36) H 04/09/24 10:32
ALT 53 U/L (0-35) H 04/09/24 10:32
Alkaline Phosphatase 199 U/L (38-126) H 04/09/24 10:32
Diagnostic Image Results:
US Abdomen 04/09/24:
No acute hepatobiliary abnormalities.
Surgically absent gallbladder.
MRI Abdomen 01/06/24:
The extrahepatic bile duct is diminutive and difficult to visualize, as before. There is apparent thickening and hyperenhancement of intrahepatic bile ducts, particularly involving the left hepatic lobe. Findings may reflect cholangitis.
Redemonstration of scattered pancreatic cystic lesions without suspicious features, likely pseudocysts and/or side branch intraductal papillary mucinous neoplasms. Recommend follow-up MRI/MRCP abdomen without and with gadolinium contrast in one year
per ACR criteria.
Prior GI Procedures:
EGD: 3-4 yrs ago, in [place] (reportedly normal)
Colonoscopy: 3-4 yrs ago, in [place] (reportedly normal, no polyps)
Assessment / Plan
-
IMPRESSION / PLAN:
Mild transaminitis with elevated bilirubin, specifically indirect
- with severe thrombocytopenia with platelet count of 8, which is new, raising concern for hemolytic process
- LDH significantly elevated at 1412, haptoglobin pending
- await Hematology input
H/o recurrent bacteremia, most recently in December 2023, thought to be possibly secondary to cholangitis/biliary source
- blood and urine cultures obtained, though patient is not currently presenting with signs/symptoms of cholangitis or bacteremia
- reportedly had ERCP done at [place] last month, will attempt to obtain records
- US without any acute abnormalities and with recent MRI in December, will hold off on further imaging for now
Further recommendations to follow.
-
-
Thank you for consultation and allowing me to participate in the patient's care. Please call the data migration consultant GI physician during the after hours with any questions or concerns.
[2024-04-09 16:38] LABS: Glucose - Point of Care 180 mg/dl (70-99)
[2024-04-09] MEDS: NOVOLOG FLEXPEN-LOW RESISTANCE SC (17:23)
[2024-04-09] MEDS: TYLENOL 650 MG PO (20:45)
--- NOTE | 2024-04-09 21:30 | PTCARENOTE ---
Pt refuses to get her accucheck done, worries about the bleeding.
[2024-04-10] VITALS (9 sets, daily range): BP systolic 82–161; BP diastolic 81–94
[2024-04-10] MEDS: TYLENOL 650 MG PO (04:57)
[2024-04-10] MEDS: TUMS CHEWABLE TABLET 200 MG PO (05:44)
--- NOTE | 2024-04-10 06:38 | CON.ONC ---
Documented by User: MEDHAT Beard 04/10/24 09:36
Impression
Impression
73-year-old female significant PMH of pancreatic cyst, cholecystectomy c/b bile duct injury requiring hepatojejunostomy with chronic biliary drain (6-7yrs) and subsequent partial liver resection 2019, recurrent E. coli bacteremia December 2023 who
presented with orange-colored urine, elevated LFTs, pancytopenia with severe thrombocytopenia.
Elevated Tbili, LDH, Dbili 1, normal retic, haptoglobin pending. MICHELLE negative
Chronic elevation AST/ALT
Acute thrombocytopenia
Anemia and leukopenia -WBC and Hgb stable since December 2023
Plan
Plan
check coags, DIC panel
f/u haptoglobin, MICHELLE negative
check iron studies, b12, folate
add differential
Dr. Trevino will review smear
consider dexamethasone 40mg daily x 4 doses. Will need tight glycemic control on steroids, GI PPX while on steroids
transfuse 1unit SDP today -risk/benefit reviewed, consent signed
OP follow up will be arranged upon discharge
Patient History
History of Present Illness
73yo F presented to ER with orange urine. She noted jovanni color urine 04/08 in the morning so she was pushing oral fluid intake. Her symptoms progressed to lower abdominal cramping after voiding and urine continued to darken to orange/red
colored urine which prompted her to seek further evaluation in the ER. She reports chills and took Advil for headache 04/08. Initial evaluation notable for WBC 4.7, Hgb 10.8, platelet count 8000, retic 1.7, Tbili 4.8, direct bili 1, AST 66, ALT 53,
Alk phos 199, LDH 1412, MICHELLE negative, UA with hematuria. Ab US showed no acute hepatobiliary abnormalities. BCx and UCx pending. Her AST and ALT and alk phos are chronically elevated and are stable. She was hospitalized in December 2023 for suspected
cholangitis, however, refused ERCP at that time but reportedly had a subsequent ERCP at [facility] that was 'normal' last month. She had a MRI December 2023 that showed scattered pancreatic cystic lesions without suspicious features, likely pseudocysts
and/or side branch intraductal papillary mucinous neoplasms.
Clinically, denies fever, cough, sob, ruiz, chest pain, palpitations, n/v/d/c. She denies any overt bleeding, new medications, or new supplements. She reports a frontal headache that is new today.
Afebrile, no hypoxia or hypotension
Past-Medical/Surgical History
Past Medical History
HLD
DM2
liver cirrhosis
Past Surgical History:
cholecystectomy
hepaticojejunostomy
gastric bypass
Social History
Tobacco: Non-smoker
Alcohol: None
Drug: None
Retired nurse
Family History
denies malignancy
Patient Medication
�Medication �Instructions �Recorded �Confirmed �Last Taken �Type
sitagliptin phosphate 50 1 tab PO BID Diabetes 11/17/22 04/09/24 04/08/24 History
mg-metformin 500 mg tablet
(Janumet)
cyanocobalamin (vitamin B-12) 1,000 mcg PO Q48H Supplement 03/26/23 04/09/24 04/09/24 History
1,000 mcg tablet
ibuprofen 200 mg tablet (Advil) 400 mg PO Q6HPRN PRN mild pain 03/26/23 04/09/24 04/08/24 History
ascorbic acid (vitamin C) 500 mg 500 mg PO DAILY Supplement 04/09/24 04/09/24 04/09/24 History
tablet (Vitamin C)
cholecalciferol (vitamin D3) 25 25 mcg PO DAILY Supplement 04/09/24 04/09/24 04/09/24 History
mcg (1,000 unit) tablet (Vitamin
D3)
empagliflozin 25 mg tablet 25 mg PO DAILY Diabetes 04/09/24 04/09/24 04/09/24 History
(Jardiance)
ursodiol 250 mg tablet 250 mg PO BID Gastrointestinal 04/09/24 04/09/24 04/09/24 History
Issue
Active Medications
Generic Name Dose Route Start Last Admin
Trade Name Freq PRN Reason Stop Dose Admin
Acetaminophen 650 mg 04/09/24 17:30 04/10/24 04:57
Acetaminophen 325 Mg Tablet PO 05/07/24 17:29 650 mg
Q6HPRN PRN Administration
mild pain/ fever>100.5F/SHARIF
Bisacodyl 10 mg 04/09/24 14:28
Bisacodyl 10 Mg Rectal Suppository RECTAL 05/07/24 14:27
[id number] PRN
constipation
Dextrose 12.5 grams 04/09/24 14:28
Dextrose 50% (0.5 Grams/Ml) 50 Ml Syringe IV 05/07/24 14:27
[id number] PRN
hypoglycemia
Protocol
Glucagon 1 mg 04/09/24 14:28
Glucagon 1 Mg Vial IM 05/07/24 14:27
PRN PRN
hypoglycemia
Protocol
Insulin Aspart 0 units 04/09/24 16:30 04/09/24 17:23
Insulin Aspart Low Resistance 300 Units/3 Ml Pen.Injctr SC 05/07/24 16:29 Not Given
AC DOC
Protocol
Polyethylene Glycol 17 grams 04/09/24 14:28
Polyethylene Glycol Powder 17 Grams Packet PO 05/07/24 14:27
DAILYPRN PRN
constipation
Senna/Docusate Sodium 1 tablet 04/09/24 14:28
Docusate W/Senna (Raegan-Colace) Tablet PO 05/07/24 14:27
BIDPRN PRN
constipation
Sodium Chloride 0 flush 04/09/24 15:00
Sodium Chloride 0.9% (Flush) Syringe IV 05/07/24 14:59
PER PROTOCOL DOC
Review of Systems
-
Review of systems notable for HPI, otherwise negative
Physical Exam
-
General: Well Developed, Well Nourished and No Apparent Distress
HEENT: NormoCephalic, Moist mucous membranes and Atraumatic
Respiratory: Clear
Cardiac: S1/S2 and Regular Rhythm, no edema
GI: Soft, Non Tender, Non Distended
Skin: No Rash
Neuro: A&O x 3 and speech clear
Psych: Calm
Labs
Lab Results
WBC 4.7 10^3/uL (4.8-10.8) L 04/09/24 10:32
RBC 3.52 10^6/uL (4.20-5.40) L 04/09/24 10:32
Hgb 10.8 g/dL (12.0-16.0) L 04/09/24 10:32
Hct 32.6 % (37.0-47.0) L 04/09/24 10:32
MCV 92.6 fL (81.0-99.0) 04/09/24 10:32
MCH 30.7 pg (27.0-31.0) 04/09/24 10:32
MCHC 33.1 g/dL (33.0-37.0) 04/09/24 10:32
RDW 14.8 % (11.5-14.5) H 04/09/24 10:32
Plt Count 8 10^3/uL (130-400) L* 04/09/24 10:32
MPV Not Reportable 04/09/24 10:32
Creatinine 0.6 mg/dL (0.6-1.0) 04/09/24 10:32
Vital Signs
Vital Signs
Temp Pulse Resp BP Pulse Ox
97.5 F 86 17 150/89 96
04/09/24 23:33 04/09/24 23:33 04/09/24 23:33 04/09/24 23:33 04/09/24 23:33

Documented by User: Juana Trevino MD 04/10/24 14:01
Impression
Impression
1) Hemolytic anemia
2) Severe thrombocytopenia
3) Headache
4) Chronic hepatic transaminitis
Plan
Plan
Smear reviewed showing helmet cells, giant platelets, spherocytes, ie classic for TTP.
Headache likely a mild neurologic manifestation.
Pt with PLASMIC score of 6 out of 7, strongly predictive of ITP.
Plan:
- Plasmapheresis daily x 5, then re-eval
- Steroids initiated
- [id number] activity ordered
- brain MRI as ordered to eval SHARIF
Reviewed med list, none of her current meds have an association with ITP
Other possible contributing factors would be vaccinations for flu, COVID or pna; viral illness; collagen vascular disease, APLA.
Viral serologies ordered: HIV, hep C, hep B, EBV, CMV.
APLA panel ordered.
Will confirm with pt whether she had vaccines recently.
Thank you for consult, will follow along with you.
Physical Exam
-
General: Well Developed and Well Nourished
HEENT: Jaundice and Moist Mucous Membranes
Cardiology: Normal Sinus Rhythm, S1 and S2
Pulmonary: Clear
GI: Soft
Musculoskeletal: No Clubbing, No Cyanosis and No Edema
Extremities: Negative Phlebitic Signs
Neurology: Non Focal
Skin: Warm and Dry
Hematologic / Lymphatic: No Lymphadenopathy
Psych: Calm and Intact Judgement/Insight
[2024-04-10 07:05] LABS: Hematocrit 28.4 % (37.0-47.0); Hemoglobin 9.7 g/dL (12.0-16.0); Mean Corp Hgb Conc. 34.2 g/dL (33.0-37.0); Mean Corpuscular Hgb 31.1 pg (27.0-31.0); Platelet Count 2 10^3/uL (130-400); Red Blood Cell Count 3.12 10^6/uL (4.20-5.40); Red Cell Dist. Width 15.5 % (11.5-14.5); White Blood Cell Count 4.4 10^3/uL (4.8-10.8)
[2024-04-10 07:07] LABS: ALT (SGPT) 44 U/L (0-35); AST (SGOT) 77 U/L (14-36); Albumin 3.2 g/dl (3.5-5.0); Alkaline Phosphatase 181 U/L (38-126); Blood Urea Nitrogen 36 mg/dl (7-17); Calcium 8.5 mg/dl (8.4-10.2); Carbon Dioxide 26 mmol/L (22-30); Chloride 106 mmol/L (98-107); Direct Bilirubin 0.7 mg/dl (0.0-0.4); Estimated Creatinine Clearance 70 ml/min; Glucose 172 mg/dl (70-99); Potassium 4.3 mmol/L (3.5-5.1); Sodium 138 mmol/L (135-145); Total Bilirubin 3.5 mg/dl (0.2-1.3); Total Protein 5.9 g/dl (6.3-8.2); eGFR > 60.00
[2024-04-10 07:12] LABS: % Basophils 0.2 % (0-2); % Eosinophils 1.2 % (0-6); % Immature Granulocytes 2.3 % (0-0.5); % Lymphocytes 27.7 % (20.5-51.1); % Monocytes 10.7 % (1.7-9.3); % Neutrophils 57.9 % (42.2-75.2); Absolute Eosinophils 0.1 10^3/uL (0-0.7); Absolute Immature Granulocytes 0.1 10^3/uL (0-0.05); Absolute Lymphocytes 1.2 10^3/uL (1.2-3.4); Absolute Monocytes 0.5 10^3/uL (0.1-0.6); Absolute Neutrophils 2.5 10^3/uL (1.4-6.5); Nucleated Red Blood Cells % 0 %
[2024-04-10 07:40] LABS: Glucose - Point of Care 166 mg/dl (70-99)
--- NOTE | 2024-04-10 07:46 | W.PN.HOSP.TC ---
Today's Communication/Plan
-
see plan
Assessment / Plan
Assessment / Plan
Gen: NAD, AAOx3.
Eyes: EOMI, PERRLA, no scleral icterus.
Neck: supple.
CV: RRR, +S1/S2, no m/r/g.
Resp: CTAB, no rales, wheezes, or rhonchi.
Abd: +BS, soft, NT, ND
Skin: No rashes. + jaundice
Neuro: CN 2-12 intact, non-focal.
Psych: Normal mood and affect.
Abd U/S: No acute hepatobiliary abnormalities. Surgically absent gallbladder.
Pancytopenia with severe thrombocytopenia:
-case discussed at length with Pérez, concern for ITP, starting pulse decadron
-transfuse plts
-with headache and thrombocytopenia check CT scan of the brain
-Hb stable from 01/06/24
-Ellie NEG
-retic normal, LDH elevated, awaiting haptoglobin
-no bleeding at this time
Elevated LFTs:
-Patient has a history of elevated transaminases, current level similar to prior
-Bilirubin now elevated, large component of indirect bilirubin with concern for hemolysis, LDH 1412
-note h/o liver abscess with biliary reconstruction
-h/o cholecystectomy complicated by bile duct injury requiring hepatojejunostomy with chronic biliary drain and subsequent partial liver resection
-normal ERCP last month at [place] as per patient
-GI saw in c/s and signed off
Other problems:
h/o recurrent E coli bacteremia: afebrile and hemodynamically stable. Follow BCxs.
DM2: SSI/accuchecks/diabetic diet. a1c P. Will likely develop steroid-induced hyperglycemia and will likely require basal insulin.
FULL/no DVT prophylaxis with platelets of 2
Total time spent on today's encounter was 50 minutes which included time spent in counseling the patient/family regarding diagnosis and treatment plan as listed above, goals of care, and symptom management. Case was discussed with nursing staff,
specialists, and care coordinators/case management. All labs and imaging personally reviewed by me. Remainder the time spent in detailed review of previous records, lab data, imaging, and other medical provider documentation.
Anticipated Discharge: > 48 hours
Subjective/Interval History
-
Date of Service: April 10, 2024
Patient reports headache earlier today. Complained of some abdominal pain.
Objective Data
-
Labs:
Laboratory Results
04/10/24 04/10/24
06:21 07:24
WBC 4.4 L
Hgb 9.7 L
Hct 28.4 L
Plt Count 2 L* D
PT Pending
INR Pending
APTT Pending
Sodium 138
Potassium 4.3
Chloride 106
Carbon Dioxide 26
BUN 36 H
Creatinine 0.6
Glucose 172 H
Calcium 8.5
Total Bilirubin 3.5 H
AST 77 H
ALT 44 H
Alkaline Phosphatase 181 H
Vital Signs:
Vital Signs
Temp Pulse Resp BP Pulse Ox
97.5 F 86 17 150/89 96
04/09/24 23:33 04/09/24 23:33 04/09/24 23:33 04/09/24 23:33 04/09/24 23:33
I&O
04/09/24 04/10/24 04/11/24
06:59 06:59 06:59
Intake Total 0 / 0
Output Total 480 / 480
Balance -480 / -480
[2024-04-10 07:51] LABS: INR 0.94; PT 12.8 Sec (11.4-14.6)
[2024-04-10 07:52] LABS: APTT 33.3 Sec (23.4-35.0); Fibrinogen 484 MG/DL (199-459)
[2024-04-10 07:54] LABS: D-Dimer 3.57 ug/mlFEU (0.00-0.50)
[2024-04-10 08:24] LABS: Iron 215 ug/dl (37-170)
[2024-04-10 08:33] LABS: Percent Saturation 93 % (20-50); Total Iron Binding Capacity 229 ug/dl (265-497)
[2024-04-10] MEDS: NOVOLOG FLEXPEN-LOW RESISTANCE SC (09:24)
[2024-04-10 09:27] LABS: Folate 18.6 ng/ml (2.76-20); Vitamin B12 846 pg/ml (239-931)
[2024-04-10] MEDS: DECADRON 60 MG IV (09:27)
[2024-04-10] MEDS: PROTONIX 40 MG PO (09:27)
--- NOTE | 2024-04-10 10:39 | W.PN.UPDATE ---
Update Note
Progress Note Update
Case discussed with Dr. Tubbs and she feels the pt has TTP. Pt will start plasmapheresis.
[2024-04-10] MEDS: NSS 1000 IV (11:01)
[2024-04-10 11:02] LABS: Glycohemoglobin (HgbA1c) 6.7 % (4.0-5.6)
[2024-04-10 12:28] LABS: Glucose - Point of Care 274 mg/dl (70-99)
[2024-04-10] MEDS: NOVOLOG FLEXPEN-LOW RESISTANCE 3 UNITS SC (12:53)
--- NOTE | 2024-04-10 16:24 | CM ---
EVI attempted to speak with Heidy Hayden and her family regarding advance directive, however they were meeting with the door closed. When I returned to the room her family had left.
Plan: Will speak with Heidy Blake and family regarding advance directives tomorrow.
[2024-04-10 16:57] LABS: Glucose - Point of Care 361 mg/dl (70-99)
[2024-04-10] MEDS: NOVOLOG FLEXPEN-LOW RESISTANCE 5 UNITS SC (17:04)
--- NOTE | 2024-04-10 17:09 | PTCARENOTE ---
pt received 1 unit of plt. pt tolerated the infusion.
--- NOTE | 2024-04-10 17:24 | PTCARENOTE ---
AT 14:30, Pt back from IR s/o Pheresis Catheter placement. pt denied any discomfort. site with scant drainage.
[2024-04-10] MEDS: ATARAX 25 MG PO ×2 (19:01→21:14)
[2024-04-10] MEDS: HEPARIN 2400 UNITS INTRACATH (20:37)
[2024-04-10] MEDS: CALCIUM GLUCONATE 10% INJECTION 276 MG IV (20:44)
[2024-04-10 21:17] LABS: Glucose - Point of Care 316 mg/dl (70-99)
--- NOTE | 2024-04-10 21:22 | PTCARENOTE ---
Pt given plasmapheresis (10 units of frozen fresh plasma) by [place] RN. Hematology (Dr. Trevino) asked if it's appropriate to transfer the pt to IMU/ICU given her critically low platelets (2). They think that the pt may stay on the floor
since the pt is stable and no bleeding. Plasmapheresis also should help increase the pt's platelets. Pt is hemodynamically stable, complains about itching. Atarax given with a significant relief. Will continue to monitor the pt.
[2024-04-10] MEDS: NOVOLOG FLEXPEN 4 UNITS SC (21:32)
[2024-04-10 23:39] LABS: Glucose - Point of Care 266 mg/dl (70-99)
[2024-04-11] MEDS: NSS 1000 IV ×2 (01:22→18:00)
[2024-04-11 03:30] VITALS: BP 122/71
[2024-04-11 07:33] LABS: Glucose - Point of Care 206 mg/dl (70-99)
--- NOTE | 2024-04-11 07:39 | W.PN.ONC2 ---
Today's Communication / Plan
-
PLEX Day 2
Dexamethasone Day 2
daily CBC, coags, fibrinogen, magnesium, LDH, CMP
Impression
Impression
1) Hemolytic anemia
2) Severe thrombocytopenia
3) Headache
4) Chronic hepatic transaminitis
Plan
Plan
Smear reviewed showing helmet cells, giant platelets, spherocytes, ie classic for TTP.
Headache likely a mild neurologic manifestation.
Pt with PLASMIC score of 6 out of 7, strongly predictive of TTP.
Plan:
- Plasmapheresis daily x 5, then re-eval -started 04/10
- Steroids initiated Day 2 of 4 dexamethasone 40mg
- [id number] activity pending -can take 7-10 business days for results
- CT head no acute abnormalitis
Reviewed med list, none of her current meds have an association with ITP
Other possible contributing factors would be vaccinations for flu, COVID or pna; viral illness; collagen vascular disease, APLA.
Viral serologies ordered: HIV, hep C, hep B, EBV, CMV.
APLA panel ordered.
Subjective/Objective
Subjective
Vital Signs:
Vital Signs
Temp Pulse Resp BP Pulse Ox
97.7 F 83 18 122/71 98
04/11/24 03:30 04/11/24 03:30 04/11/24 03:30 04/11/24 03:30 04/11/24 03:30
Lab Results:
Laboratory Data
WBC 4.4 10^3/uL (4.8-10.8) L 04/10/24 06:21
Hgb 9.7 g/dL (12.0-16.0) L 04/10/24 06:21
Plt Count 2 10^3/uL (130-400) L* D 04/10/24 06:21
PT 12.8 Sec (11.4-14.6) 04/10/24 07:24
INR 0.94 04/10/24 07:24
APTT 33.3 Sec (23.4-35.0) 04/10/24 07:24
eGFR > 60.00 04/10/24 06:21
Orders
Orders
Orders From Last 24 Hours
04/10/24 07:00
Add On- LAB Routine
04/10/24 07:24
B12 [Vitamin B12] Routine
D-Dimer Routine
Ferritin Routine
Fibrinogen Routine
Folate Routine
INR [Prothrombin Time] Routine
Iron Routine
PTT Routine
TIBC [Total Iron Binding] Routine
04/10/24 09:00
Dexamethasone Sod Phosphate [Decadron] 40 mg 0.9% Sodium Chloride 50 ml [Nss] 50 ml IV DAILY@0900
Pantoprazole [Protonix] 40 mg PO DAILY
04/10/24 09:36
Blood Bank Products [* Blood Bank Products] Routine
Head wo Contrast CT [CT Head W/o Iv Contrast] Stat
04/10/24 11:35
Consult Interventional Radiology [IRAD CONSULT] Routine
04/10/24 11:37
Blood Bank Products [* Blood Bank Products] Routine
04/11/24 06:00
Fibrinogen IN AM
INR [Prothrombin Time] IN AM
LDH IN AM
Magnesium IN AM
PTT IN AM
Phosphorus IN AM
04/12/24 06:00
Fibrinogen IN AM
INR [Prothrombin Time] IN AM
LDH IN AM
Magnesium IN AM
PTT IN AM
Phosphorus IN AM
04/13/24 06:00
Fibrinogen IN AM
INR [Prothrombin Time] IN AM
LDH IN AM
Magnesium IN AM
PTT IN AM
Phosphorus IN AM
04/14/24 06:00
Fibrinogen IN AM
INR [Prothrombin Time] IN AM
LDH IN AM
Magnesium IN AM
PTT IN AM
Phosphorus IN AM
04/15/24 06:00
Fibrinogen IN AM
INR [Prothrombin Time] IN AM
LDH IN AM
Magnesium IN AM
PTT IN AM
Phosphorus IN AM
04/16/24 06:00
Fibrinogen IN AM
INR [Prothrombin Time] IN AM
LDH IN AM
PTT IN AM
[2024-04-11 08:51] LABS: INR 1.02; PT 13.7 Sec (11.4-14.6)
[2024-04-11 08:52] LABS: APTT 26.5 Sec (23.4-35.0); Fibrinogen 298 MG/DL (199-459)
[2024-04-11 08:56] VITALS: BP 117/69
[2024-04-11 08:56] LABS: Mean Corpuscular Hgb 30.3 pg (27.0-31.0); Mean Corpuscular Volume 86.6 fL (81.0-99.0); Platelet Count 8 10^3/uL (130-400); Red Blood Cell Count 2.31 10^6/uL (4.20-5.40); Red Cell Dist. Width 15.7 % (11.5-14.5); White Blood Cell Count 7.3 10^3/uL (4.8-10.8)
[2024-04-11] MEDS: PROTONIX 40 MG PO (09:12)
[2024-04-11] MEDS: NOVOLOG FLEXPEN-LOW RESISTANCE 2 UNITS SC ×2 (09:13→12:19)
[2024-04-11] MEDS: DECADRON 60 MG IV (09:15)
[2024-04-11] MEDS: FLUSH (NSS) 1 FLUSH IV (09:16)
[2024-04-11 09:37] LABS: ALT (SGPT) 29 U/L (0-35); AST (SGOT) 62 U/L (14-36); Albumin 2.7 g/dl (3.5-5.0); Alkaline Phosphatase 92 U/L (38-126); Blood Urea Nitrogen 72 mg/dl (7-17); Calcium 8.3 mg/dl (8.4-10.2); Carbon Dioxide 27 mmol/L (22-30); Chloride 102 mmol/L (98-107); Direct Bilirubin 0.3 mg/dl (0.0-0.4); Estimated Creatinine Clearance 35 ml/min; Glucose 172 mg/dl (70-99); Magnesium 2.1 mg/dl (1.6-2.3); Phosphorus 5.9 mg/dl (2.5-4.5); Sodium 135 mmol/L (135-145); Total Bilirubin 2.5 mg/dl (0.2-1.3); Total Protein 4.8 g/dl (6.3-8.2); eGFR 48.09
[2024-04-11 09:47] LABS: LDH 1467 U/L (120-246)
[2024-04-11] MEDS: CALCIUM GLUCONATE 10% INJECTION 276 MG IV (09:53)
--- NOTE | 2024-04-11 10:23 | W.PN.HOSP.TC ---
Today's Communication/Plan
-
see bold
Assessment / Plan
Assessment / Plan
Gen: NAD, AAOx3.
Eyes: EOMI, PERRLA, mild scleral icterus.
Neck: supple.
CV: Remains RRR, +S1/S2, no m/r/g.
Resp: Remains CTAB, no rales, wheezes, or rhonchi.
Abd: +BS, soft, NT, ND
Skin: No rashes. + jaundice. Minimal/mild ecchymoses noted on arms.
Neuro: CN 2-12 intact, non-focal.
Psych: Normal mood and affect.
Abd U/S: No acute hepatobiliary abnormalities. Surgically absent gallbladder.
CT brain: No acute intracranial abnormality noted.
Acute TTP:
-presented with pancytopenia with severe thrombocytopenia:
-case discussed at length with Pérez, pt diagnosed with TTP 04/10/24
-cont pulse decadron
-cont Plasmapharesis
-continues to have no active bleeding at this time. Case discussed with pérez, no transfusions of plts/pRBCs today as pt without active bleeding.
-Ellie NEG
-retic normal, LDH elevated, awaiting haptoglobin
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
-Cr increased to 1.2 from 0.6
-cont IVFs
-c/s renal
-cont tx of TTP as above
-discussed with Dr. Bautista
Elevated LFTs:
-Patient has a history of elevated transaminases, current level similar to prior
-Bilirubin now elevated, large component of indirect bilirubin with concern for hemolysis, LDH 1412
-note h/o liver abscess with biliary reconstruction
-h/o cholecystectomy complicated by bile duct injury requiring hepatojejunostomy with chronic biliary drain and subsequent partial liver resection
-normal ERCP last month at [facility] as per patient
-GI saw in c/s and signed off
Other problems:
h/o recurrent E coli bacteremia: afebrile and hemodynamically stable. BCxs NGTD.
DM2: SSI/accuchecks/diabetic diet. a1c 6.7%. Start Lantus 10U.
FULL/no DVT prophylaxis with platelets of 2
Total time spent on today's encounter was 52 minutes which included time spent in counseling the patient/family regarding diagnosis and treatment plan as listed above, goals of care, and symptom management. Case was discussed with nursing staff,
specialists, and care coordinators/case management. All labs and imaging personally reviewed by me. Remainder the time spent in detailed review of previous records, lab data, imaging, and other medical provider documentation.
Anticipated Discharge: > 48 hours
Subjective/Interval History
-
Date of Service: April 11, 2024
Denies hematuria, hematochezia, melena, hemoptysis. Does note some bruising on the arms.
Objective Data
-
Labs:
Laboratory Results
04/11/24
08:19
WBC 7.3
Hgb 7.0 L D
Hct 20.0 L*
Plt Count 8 L* D
PT 13.7
INR 1.02
APTT 26.5
Sodium 135
Potassium 4.0
Chloride 102
Carbon Dioxide 27
BUN 72 H
Creatinine 1.2 H
Glucose 172 H
Calcium 8.3 L
Total Bilirubin 2.5 H
AST 62 H
ALT 29
Alkaline Phosphatase 92
Vital Signs:
Vital Signs
Temp Pulse Resp BP Pulse Ox
97.8 F 99 18 117/69 99
04/11/24 08:56 04/11/24 08:56 04/11/24 08:56 04/11/24 08:56 04/11/24 08:59
I&O
04/10/24 04/11/24 04/12/24
06:59 06:59 06:59
Intake Total 0 / 0 2210
Output Total 480 / 480
Balance -480 / -480 2210
--- NOTE | 2024-04-11 10:44 | W.CON.NEPH ---
Consultation
-
Date/Time Consultation Requested: 04/11/2024 10:45 AM
Date/Time Consultation Performed: 04/11/2024 10:45 AM
Requesting Provider: Dr. Brown
Performing Provider: Dr. Bautista
Reason for Consultation: Acute kidney injury
Medical History
-
Chief Complaint: Acute kidney injury
History of Present Illness:
The patient is a 73-year-old female with a past medical history of diabetes maintained on Jardiance and Janumet. He has a prior history of cholecystectomy liver abscess requiring resection and hepaticojejunostomy in [facility]. He has had recurrent
issues with gram-negative bacteremia of E. coli type. He presented to the emergency room on 04/09/2024 with orange-colored urine. He was also noted to have associated dysuria and lower abdominal cramping. The patient admits to have been taking
Advil as well for headaches. Upon arrival to the hospital she was notably to be pancytopenic with profound thrombocytopenia. Over the course of his admission he has now developed acute kidney injury with his creatinine rising from 0.6-1.2. There
has been associated macroscopic hematuria and proteinuria. Now with strong suspicion for TTP and placed on steroid therapy and for plasmapheresis
Past Medical History
HLD
DM
liver cirrhosis
History of recurrent E. coli bacteremia
Past Surgical History: Reports Other
Additional Past Surgical History:
cholecystectomy
-katharine-hepatectomy
gastric bypass
Social History
Tobacco: Non-Smoker
Alcohol: None
Family History
No CKD
Allergies / Home Medications
Allergy/AdvReac Type Severity Reaction Status Date / Time
piperacillin [From Zosyn] Allergy Itchy Verified 01/02/24 17:38
shrimp Allergy Rash Verified 01/02/24 17:38
tazobactam [From Zosyn] Allergy Itchy Verified 01/02/24 17:38
�Medication �Instructions �Recorded �Confirmed �Type
sitagliptin phosphate 50 1 tab PO BID Diabetes 11/17/22 04/09/24 History
mg-metformin 500 mg tablet
(Janumet)
cyanocobalamin (vitamin B-12) 1,000 mcg PO Q48H Supplement 03/26/23 04/09/24 History
1,000 mcg tablet
ibuprofen 200 mg tablet (Advil) 400 mg PO Q6HPRN PRN mild pain 03/26/23 04/09/24 History
ascorbic acid (vitamin C) 500 mg 500 mg PO DAILY Supplement 04/09/24 04/09/24 History
tablet (Vitamin C)
cholecalciferol (vitamin D3) 25 25 mcg PO DAILY Supplement 04/09/24 04/09/24 History
mcg (1,000 unit) tablet (Vitamin
D3)
empagliflozin 25 mg tablet 25 mg PO DAILY Diabetes 04/09/24 04/09/24 History
(Jardiance)
ursodiol 250 mg tablet 250 mg PO BID Gastrointestinal 04/09/24 04/09/24 History
Issue
Review of Systems
-
History Source: Patient
All other systems: Negative unless noted
EENT: Other (Headache)
: Urgency and Other (Meigs or red urine)
Skin: Other (Ecchymosis along upper extremities)
Physical Exam
Vital Signs
Vital Signs
Temp Pulse Resp BP Pulse Ox
97.8 F 99 18 117/69 99
04/11/24 08:56 04/11/24 08:56 04/11/24 08:56 04/11/24 08:56 04/11/24 08:59
Lab Results
04/11/24 08:19
04/11/24 08:19
WBC 7.3 10^3/uL (4.8-10.8) 04/11/24 08:19
RBC 2.31 10^6/uL (4.20-5.40) L 04/11/24 08:19
Hgb 7.0 g/dL (12.0-16.0) L D 04/11/24 08:19
Hct 20.0 % (37.0-47.0) L* 04/11/24 08:19
Plt Count 8 10^3/uL (130-400) L* D 04/11/24 08:19
Sodium 135 mmol/L (135-145) 04/11/24 08:19
Potassium 4.0 mmol/L (3.5-5.1) 04/11/24 08:19
Chloride 102 mmol/L (98-107) 04/11/24 08:19
Carbon Dioxide 27 mmol/L (22-30) 04/11/24 08:19
BUN 72 mg/dl (7-17) H 04/11/24 08:19
Creatinine 1.2 mg/dL (0.6-1.0) H 04/11/24 08:19
eGFR 48.09 04/11/24 08:19
Glucose 172 mg/dl (70-99) H 04/11/24 08:19
Calcium 8.3 mg/dl (8.4-10.2) L 04/11/24 08:19
Phosphorus 5.9 mg/dl (2.5-4.5) H 04/11/24 08:19
Albumin 2.7 g/dl (3.5-5.0) L 04/11/24 08:19
Physical Exam
General: AOx3, Nontoxic , NAD
HEENT: PERRL, EOMI, Anicteric, Conjunctivae pale, Ear/Nose Intact, Hearing Normal, Oropharynx Clear/Moist, Dentition Intact, Facial Symmetry, Neck Supple, right IJ catheter ,Neck: Trachea Midline, No JVD and No Thyromegaly, no Bruits
Respiratory: Clear to auscultation bilaterally with normal lung exersion
Cardiac: S1/S2 and Regular Rate/Rhythm
Breast: Deferred by me
Abdomen: Soft, Nontender, Nondistended, Normal Bowel Sounds and No Hepatosplenomegaly
Rectal: Deferred by Provider
Genito-urinary: No Costovertebral Tenderness
Extremities: No Clubbing, No Cyanosis and No Edema
Skin: No Rash or open lesions
Neuro: Nonfocal/Grossly Intact, CN II-XII (Intact) and Strength (Musculoskeletal exam 5 out of 5 both upper and lower extremities)
Hematologic/Lymphatic: No Cervical Lymphadenopathy, No Submandibular Lymphadenopathy and No Supraclavicular Lymphadenopathy
Psych: Mood/afflect pleasant, Insight/judgement good and Appropriate
Vascular: plus 2 pedal and radial pulses
Data Reviewed
-
Ultrasound: Report Reviewed by me (Abdominal ultrasound: Right kidney is unremarkable without hydronephrosis)
Labs: Labs Reviewed by me (BMP CBC urinalysis)
Old Records: Reviewed (Reviewed previous urinalysis from 01/05/2024 urinalysis without blood or protein, creatinine 0.5 from January 07, 2024)
Assessment/Plan
-
Impression:
MOIZ
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
Diabetes
Recurrent E. coli bacteremia
Pancytopenia
History of liver abscess with biliary reconstruction
Plan;
MOIZ
-Strong suspicion secondary to microangiopathic hemolytic anemia in the setting of evolving TTP
-LDH elevated , thrombocytopenia and anemia exacerbating,
-Noted 4+ blood and 3+ albumin in urine consistent with microangiopathic hemolytic anemia
-Prior urinalysis from December 2023 was clean
-Plasmapheresis initiated along with steroids
-No acute dialysis requirement. Yet...
-Patient had been taking NSAIDs prior to admission but no other nephrotoxins identified
-Will quantitate underlying proteinuria with urine protein to urine creatinine ratio
-No NSAIDs
[2024-04-11 12:08] LABS: Glucose - Point of Care 242 mg/dl (70-99)
--- NOTE | 2024-04-11 12:17 | CM ---
Addendum entered by Jen Hogue 04/12/24 11:21:
Heidy Blake lives with her in an apartment. She is (I) amb and adls, no DME.
Plan: Discharge to home with no anticipated needs; CM to continue to follow to coordinate discharge needs identified during further hospitalization.
Original Note:
CM met with Heidy Blake and her son at bedside. Advance Directive forms provided; pt's son, Param Puckett advised that he is a Resident and will be able to fully discuss the advance directive with his mother. Heidy Blake also advised that she can understand the
[place] language and was agreeable to review of the Advance Directive.
Cm will be available to assist as needed.
[2024-04-11] MEDS: LANTUS 0.1 UNITS SC (12:18)
[2024-04-11 14:36] LABS: Troponin I 0.017 ng/ml
[2024-04-11 15:27] VITALS: BP 139/75
--- NOTE | 2024-04-11 17:09 | PTCARENOTE ---
Pt AAO x3, ALMONTE well, OOB in room/to BR; rome well. VSS. On room air- pulse ox 99%, no SOB noted. Abd large, soft, rome PO well, eating foods brought in by family. Voiding in BR without difficulty. IVF's NSS@ 75 ml/hr infusing via Lt forearm site
without sx of infiltration. Resting in bed at present, no c/o. Will continue to monitor.
[2024-04-11 17:11] LABS: Glucose - Point of Care 453 mg/dl (70-99)
[2024-04-11 17:24] LABS: Protein/creatinine Ratio 22.8; Urine Protein 1031 mg/dl
[2024-04-11 18:25] LABS: Glucose 384 mg/dl (70-99)
[2024-04-11] MEDS: NOVOLOG FLEXPEN-LOW RESISTANCE 5 UNITS SC (18:40)
[2024-04-11 20:43] LABS: Haptoglobin <10 mg/dL (30-200)
[2024-04-11 20:52] LABS: Glucose - Point of Care 355 mg/dl (70-99)
[2024-04-11] MEDS: NOVOLOG FLEXPEN 7 UNITS SC (21:54)
[2024-04-11 23:23] VITALS: BP 121/71
[2024-04-12 00:17] LABS: Glucose - Point of Care 256 mg/dl (70-99)
[2024-04-12 03:26] LABS: Glucose - Point of Care 252 mg/dl (70-99)
[2024-04-12 03:29] VITALS: BP 114/77
[2024-04-12] MEDS: NSS 1000 IV ×2 (06:14→18:03)
[2024-04-12 07:30] VITALS: BP 127/65
[2024-04-12 07:36] LABS: Glucose - Point of Care 251 mg/dl (70-99)
[2024-04-12] MEDS: LANTUS 0.1 UNITS SC (07:59)
[2024-04-12] MEDS: DECADRON 60 MG IV (08:00)
[2024-04-12] MEDS: NOVOLOG FLEXPEN-LOW RESISTANCE 3 UNITS SC (08:00)
[2024-04-12] MEDS: PROTONIX 40 MG PO (08:01)
[2024-04-12 09:57] LABS: INR 0.95; PT 12.9 Sec (11.4-14.6)
[2024-04-12 09:58] LABS: APTT 23.5 Sec (23.4-35.0); Fibrinogen 243 MG/DL (199-459)
[2024-04-12 10:05] LABS: % Basophils 0.1 % (0-2); % Immature Granulocytes 2.4 % (0-0.5); % Lymphocytes 21.3 % (20.5-51.1); % Monocytes 5.4 % (1.7-9.3); % Neutrophils 70.8 % (42.2-75.2); Absolute Immature Granulocytes 0.2 10^3/uL (0-0.05); Absolute Lymphocytes 1.9 10^3/uL (1.2-3.4); Absolute Monocytes 0.5 10^3/uL (0.1-0.6); Absolute Neutrophils 6.3 10^3/uL (1.4-6.5); Hematocrit 19.6 % (37.0-47.0); Mean Corp Hgb Conc. 35.7 g/dL (33.0-37.0); Mean Corpuscular Hgb 31.4 pg (27.0-31.0); Mean Corpuscular Volume 87.9 fL (81.0-99.0); Nucleated Red Blood Cells % 0.7 %; Platelet Count 8 10^3/uL (130-400); Red Blood Cell Count 2.23 10^6/uL (4.20-5.40); Red Cell Dist. Width 16.5 % (11.5-14.5); Reticulocyte Count 4.4 % (0.4-2.8); White Blood Cell Count 8.9 10^3/uL (4.8-10.8)
[2024-04-12] MEDS: ATARAX 25 MG PO (10:13)
[2024-04-12 10:19] LABS: ALT (SGPT) 33 U/L (0-35); AST (SGOT) 64 U/L (14-36); Albumin 3.2 g/dl (3.5-5.0); Alkaline Phosphatase 93 U/L (38-126); Blood Urea Nitrogen 94 mg/dl (7-17); Calcium 8.2 mg/dl (8.4-10.2); Carbon Dioxide 28 mmol/L (22-30); Chloride 97 mmol/L (98-107); Estimated Creatinine Clearance 22 ml/min; Glucose 173 mg/dl (70-99); Magnesium 2.2 mg/dl (1.6-2.3); Phosphorus 5.6 mg/dl (2.5-4.5); Sodium 134 mmol/L (135-145); Total Protein 5.5 g/dl (6.3-8.2); eGFR 27.71
[2024-04-12 10:37] LABS: LDH 1350 U/L (120-246)
[2024-04-12 10:38] LABS: CMV IgG Antibody >10.00 U/mL (<=0.70)
[2024-04-12 10:42] LABS: EBV-EA (D) Ab IgG 8.8 U/mL (0.0-10.9); EBV-VCA IgM Antibodies <10.0 U/mL (0.0-43.9)
[2024-04-12 11:14] LABS: CMV IgM Antibody <8.0 AU/mL (<=29.9)
[2024-04-12] MEDS: CALCIUM GLUCONATE 10% INJECTION 276 MG IV (13:26)
[2024-04-12 13:54] LABS: Glucose - Point of Care 372 mg/dl (70-99)
[2024-04-12] MEDS: NOVOLOG FLEXPEN-MODERATE RESISTANCE 9 UNITS SC ×2 (13:59→18:03)
--- NOTE | 2024-04-12 14:47 | W.PN.HOSP.TC ---
Today's Communication/Plan
-
continue steroids and plasmapheresis; monitor daily CBC
monitor renal function; follow nephrology recs
add mealtime insulin, reduce oral intake of carbs and also increase SSI to moderate
Assessment / Plan
Assessment / Plan
Gen: NAD, AAOx3.
Eyes: EOMI, PERRLA, mild scleral icterus.
Neck: supple.
CV: Remains RRR, +S1/S2, no m/r/g.
Resp: Remains CTAB, no rales, wheezes, or rhonchi.
Abd: +BS, soft, NT, ND
Skin: No rashes. + jaundice. Minimal/mild ecchymoses noted on arms.
Neuro: CN 2-12 intact, non-focal.
Psych: Normal mood and affect.
Abd U/S: No acute hepatobiliary abnormalities. Surgically absent gallbladder.
CT brain: No acute intracranial abnormality noted.
Acute TTP:
-presented with pancytopenia with severe thrombocytopenia:
-case discussed at length with Pérez, pt diagnosed with TTP 04/10/24
-cont pulse decadron, day 3
-cont Plasmapheresis, day 3
-continues to have no active bleeding at this time. Case discussed with pérez, no transfusions of plts/pRBCs today as pt without active bleeding.
-Ellie NEG
-retic normal, LDH elevated, awaiting haptoglobin
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
-Cr increased to 1.9 from 0.6
-cont IVFs
-Nephrology following
-cont tx of TTP as above
Elevated LFTs:
-Patient has a history of elevated transaminases, current level similar to prior
-Bilirubin now elevated, large component of indirect bilirubin with concern for hemolysis, LDH 1412
-note h/o liver abscess with biliary reconstruction
-h/o cholecystectomy complicated by bile duct injury requiring hepatojejunostomy with chronic biliary drain and subsequent partial liver resection
-normal ERCP last month at [facility] as per patient
-GI saw in c/s and signed off
Other problems:
h/o recurrent E coli bacteremia: afebrile and hemodynamically stable. BCxs NGTD.
DM2 with steroid induced hyperglycemia: accu-checks/diabetic diet. a1c 6.7%. continue Lantus 10U. add Aspart 4 units with meals. Moderate SSI.
no DVT prophylaxis with platelets of 8.
Code: Full
Anticipated Discharge: > 48 hours
Subjective/Interval History
-
Date of Service: April 12, 2024
no complaints
receiving further plasmapheresis today
Objective Data
-
Labs:
Laboratory Results
04/12/24
09:07
WBC 8.9
Hgb 7.0 L
Hct 19.6 L*
Plt Count 8 L*
PT 12.9
INR 0.95
APTT 23.5
Sodium 134 L
Potassium 4.0
Chloride 97 L
Carbon Dioxide 28
BUN 94 H
Creatinine 1.9 H
Glucose 173 H
Calcium 8.2 L
Total Bilirubin 2.0 H
AST 64 H
ALT 33
Alkaline Phosphatase 93
Vital Signs:
Vital Signs
Temp Pulse Resp BP Pulse Ox
98.6 F 85 18 127/65 96
04/12/24 07:30 04/12/24 07:30 04/12/24 07:30 04/12/24 07:30 04/12/24 11:37
I&O
04/11/24 04/12/24 04/13/24
06:59 06:59 06:59
Intake Total 2211 / 2211 2915 / 2915
Balance 2211 / 2211 2915 / 2915
Data Reviewed
-
Total Time Spent with Patient (in minutes): 45
Labs: Labs Reviewed by me
[2024-04-12 15:20] VITALS: BP 131/68
[2024-04-12 15:22] LABS: HIV Combo Negative (Negative)
[2024-04-12 15:29] LABS: Hepatitis B Surface Antigen Negative (Negative)
--- NOTE | 2024-04-12 15:30 | W.PN.NEPH.PH ---
Today's Communication / Plan
-
wean IVF, monitor uop
Assessment/Plan
-
Impression:
MOIZ
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
Diabetes
Recurrent E. coli bacteremia
Pancytopenia
History of liver abscess with biliary reconstruction
Plan;
MOIZ-cr increasing to 1.9 , subjectively non oliguric
-Strong suspicion secondary to microangiopathic hemolytic anemia in the setting of evolving TTP
-LDH elevated , thrombocytopenia and anemia-s/p PE day 3 and steroids
-Noted 4+ blood and 3+ albumin in urine consistent with microangiopathic hemolytic anemia
U PCR 22gm/gm of cr -check DANY, complements
other serologies pending per Heme , LDH still high
-No acute dialysis requirement. Yet...
wean IVF and monitor UOP closely
-Patient had been taking NSAIDs prior to admission but no other nephrotoxins identified
avoid nephrotoxins
-
-
Date of Service: April 12, 2024
CC / HPI / ROS
-
Chief Complaint:
MOIZ
History of Present Illness:
cr up at 1.9, uop not recorded
no fever
hb low at 7, plt 8k
Plasmapheresis this am
Review of Systems:
no cp or sob
subjectively non oliguric
bp stable
thinks LEs are mild edematous and wearing TEDs
Labs
-
Labs:
WBC 8.9 10^3/uL (4.8-10.8) 04/12/24 09:07
RBC 2.23 10^6/uL (4.20-5.40) L 04/12/24 09:07
Hgb 7.0 g/dL (12.0-16.0) L 04/12/24 09:07
Hct 19.6 % (37.0-47.0) L* 04/12/24 09:07
Plt Count 8 10^3/uL (130-400) L* 04/12/24 09:07
Sodium 134 mmol/L (135-145) L 04/12/24 09:07
Potassium 4.0 mmol/L (3.5-5.1) 04/12/24 09:07
Chloride 97 mmol/L (98-107) L 04/12/24 09:07
Carbon Dioxide 28 mmol/L (22-30) 04/12/24 09:07
BUN 94 mg/dl (7-17) H 04/12/24 09:07
Creatinine 1.9 mg/dL (0.6-1.0) H 04/12/24 09:07
eGFR 27.71 04/12/24 09:07
Glucose 173 mg/dl (70-99) H 04/12/24 09:07
Calcium 8.2 mg/dl (8.4-10.2) L 04/12/24 09:07
Phosphorus 5.6 mg/dl (2.5-4.5) H 04/12/24 09:07
Albumin 3.2 g/dl (3.5-5.0) L 04/12/24 09:07
Physical Exam
-
Vital Signs:
Vital Signs
Temp Pulse Resp BP Pulse Ox
98.6 F 85 18 127/65 96
04/12/24 07:30 04/12/24 07:30 04/12/24 07:30 04/12/24 07:30 04/12/24 11:37
Cardiovascular:: Regular rate and rhythm
Respiratory:: Bilateral: CTA
Lung Excursion:: Normal
Abdomen:: Nontender and Soft
Extremity Edema:: None: Bilateral:
Leon Catheter: No
[2024-04-12 15:42] LABS: Hepatitis C Antibody Negative (Negative)
[2024-04-12 15:47] LABS: Hepatitis B Core Ab, Total Negative (Negative); Hepatitis B Surface Antibody Positive
[2024-04-12 18:02] LABS: Glucose - Point of Care 363 mg/dl (70-99)
[2024-04-12] MEDS: NOVOLOG FLEXPEN 4 UNITS SC (18:04)
--- NOTE | 2024-04-12 18:22 | TRANSFER ---
pt transferred to . report given to JANETH Cheng. Belongings sent with the pt.
[2024-04-12 18:25] VITALS: BP 138/74
--- NOTE | 2024-04-12 18:34 | PTCARENOTE ---
Received patient as transfer from into room 2120. Patient AAOx3, VSS, NSS infusing through L FA at 60 ml/hr. Patient oriented to room and call jackson, states no concerns at this time. Dinnertime blood sugar 363, patient covered with scheduled
insulin prior to transport, dinner at bedside.
[2024-04-12 18:37] LABS: Cardiolipin IgA Antibody <10 APL (<=11); Cardiolipin IgM Antibody <10 MPL (<=12); Cardiolipin Igg Antibody <10 GPL (<=14)
[2024-04-12 18:46] LABS: Beta-2-Glycoprotein I Ab. IgG <10 SGU (<=20); Beta-2-Glycoprotein I Ab. IgM <10 SMU (<=20)
--- NOTE | 2024-04-12 20:17 | W.PN.ONC2 ---
Today's Communication / Plan
-
Hemolysis parameters stable to improved.
Renal failure rapidly progressive. Still making urine at this time.
Platelets stable but not improved.
No neurologic deterioration so far. Troponin normal.
Platelet count should increase to >50 after five PLEX sessions.
If acute deterioration then increase steroids to 1 g solumedrol daily x 3 days, increase PLEX to 1.5 plasma volume and consider caplacizumab 10 mg SQ daily after each PLEX treatment.
Would also add Rituxan if it can be given inpt.
Impression
Impression
1) Hemolytic anemia
2) Severe thrombocytopenia
3) Headache
4) Chronic hepatic transaminitis
Plan
Plan
Smear reviewed showing helmet cells, giant platelets, spherocytes, ie classic for TTP.
Headache likely a mild neurologic manifestation.
Pt with PLASMIC score of 6 out of 7, strongly predictive of TTP.
Plan:
- Plasmapheresis daily x 5, then re-eval - started 04/10
- Steroids initiated Day 3 of 4 dexamethasone 40mg
- [id number] activity pending -can take 7-10 business days for results
- CT head no acute abnormalities
Reviewed med list, none of her current meds have an association with ITP or TTP
Other possible contributing factors would be vaccinations for flu, COVID or pna; viral illness; collagen vascular disease.
Viral serologies ordered and pending HIV, hep C, hep B, EBV, CMV.
APLA panel ordered.
Subjective/Objective
Chief Complaint
Hematology follow up of TTP
Subjective
No new complaint today
Vital Signs:
Vital Signs
Temp Pulse Resp BP Pulse Ox
98.2 F 89 16 138/74 97
04/12/24 18:25 04/12/24 18:25 04/12/24 18:25 04/12/24 18:25 04/12/24 18:25
Lab Results:
Laboratory Data
WBC 8.9 10^3/uL (4.8-10.8) 04/12/24 09:07
Hgb 7.0 g/dL (12.0-16.0) L 04/12/24 09:07
Plt Count 8 10^3/uL (130-400) L* 04/12/24 09:07
PT 12.9 Sec (11.4-14.6) 04/12/24 09:07
INR 0.95 04/12/24 09:07
APTT 23.5 Sec (23.4-35.0) 04/12/24 09:07
eGFR 27.71 04/12/24 09:07
Physical Exam
HEENT: Jaundice and Moist Mucous Membranes
Cardiology: Normal Sinus Rhythm, S1 and S2
Pulmonary: Clear; No Wheezes or Rales
GI: Soft
Extremities: No C/C/E
Neuro: Non Focal
Review of Systems
Review of Systems
10-pt ROS negative in detail
Constitutional: Denies Fever
Head: Denies Sore Throat
Respiratory: Denies Dyspnea or Cough
Cardiovascular: Denies Chest Pain or Palpitations
Gastrointestinal: Denies Nausea/Vomiting or Diarrhea
Genitourinary: Denies Hematuria
Skin: Denies Rash or Pruritis
Neurological: Reports Headache
Hem/Lymphatic: Reports Easy Bruising
Orders
Orders
Orders From Last 24 Hours
04/12/24 09:07
CBC/With Reticulocyte Count IN AM
04/13/24 06:00
BUN [Blood Urea Nitrogen] IN AM
CBC/With Reticulocyte Count IN AM
LDH IN AM
04/14/24 06:00
BUN [Blood Urea Nitrogen] IN AM
CBC/With Reticulocyte Count IN AM
LDH IN AM
04/15/24 06:00
BUN [Blood Urea Nitrogen] IN AM
CBC/With Reticulocyte Count IN AM
LDH IN AM
04/16/24 06:00
BUN [Blood Urea Nitrogen] IN AM
CBC/With Reticulocyte Count IN AM
LDH IN AM
04/17/24 06:00
BUN [Blood Urea Nitrogen] IN AM
CBC/With Reticulocyte Count IN AM
LDH IN AM
04/18/24 06:00
BUN [Blood Urea Nitrogen] IN AM
CBC/With Reticulocyte Count IN AM
LDH IN AM
04/19/24 06:00
BUN [Blood Urea Nitrogen] IN AM
CBC/With Reticulocyte Count IN AM
LDH IN AM
[2024-04-12 21:11] LABS: Glucose - Point of Care 276 mg/dl (70-99)
[2024-04-12] MEDS: MELATONIN 3 MG PO (22:00)
[2024-04-12 22:08] VITALS: BP 126/76
[2024-04-12 23:08] VITALS: BP 126/76
[2024-04-13] VITALS (8 sets, daily range): BP systolic 120–142; BP diastolic 64–76
--- NOTE | 2024-04-13 02:29 | PTCARENOTE ---
Notified hospitalist METHODS ENGINEER Hepmoni that pt.'s HS blood sugar 276; okay not to cover with extra dose Novalog per Hephziba (pt. received HS coverage night before, on high dose steroids). Otherwise pt. has no complaints of pain/discomfort, independent
and ambulatory in room with steady gait. Voiding clear jovanni/brown urine in bathroom, IVF's infusing as per order. Currently sleeping.
[2024-04-13 06:51] LABS: INR 1.04; PT 13.9 Sec (11.4-14.6)
[2024-04-13 06:52] LABS: APTT 24.5 Sec (23.4-35.0)
[2024-04-13 07:16] LABS: % Basophils 0.1 % (0-2); % Immature Granulocytes 4.8 % (0-0.5); % Lymphocytes 18.7 % (20.5-51.1); % Monocytes 7.1 % (1.7-9.3); % Neutrophils 69.3 % (42.2-75.2); Absolute Immature Granulocytes 0.5 10^3/uL (0-0.05); Absolute Lymphocytes 2.1 10^3/uL (1.2-3.4); Absolute Monocytes 0.8 10^3/uL (0.1-0.6); Absolute Neutrophils 7.7 10^3/uL (1.4-6.5); Hematocrit 17.7 % (37.0-47.0); Hemoglobin 6.1 g/dL (12.0-16.0); Mean Corp Hgb Conc. 34.5 g/dL (33.0-37.0); Mean Corpuscular Volume 89.8 fL (81.0-99.0); Nucleated Red Blood Cells % 1.8 %; Platelet Count 12 10^3/uL (130-400); Red Blood Cell Count 1.97 10^6/uL (4.20-5.40); Red Cell Dist. Width 17.1 % (11.5-14.5); White Blood Cell Count 11.1 10^3/uL (4.8-10.8)
[2024-04-13 07:18] LABS: ALT (SGPT) 31 U/L (0-35); AST (SGOT) 53 U/L (14-36); Albumin 2.9 g/dl (3.5-5.0); Alkaline Phosphatase 77 U/L (38-126); Blood Urea Nitrogen 98 mg/dl (7-17); Calcium 8.1 mg/dl (8.4-10.2); Carbon Dioxide 31 mmol/L (22-30); Chloride 99 mmol/L (98-107); Estimated Creatinine Clearance 19 ml/min; Glucose 153 mg/dl (70-99); Magnesium 2.2 mg/dl (1.6-2.3); Phosphorus 5.6 mg/dl (2.5-4.5); Potassium 4.1 mmol/L (3.5-5.1); Sodium 136 mmol/L (135-145); Total Bilirubin 1.8 mg/dl (0.2-1.3); Total Protein 5.1 g/dl (6.3-8.2); eGFR 23.24
[2024-04-13 07:27] LABS: LDH 978 U/L (120-246)
[2024-04-13 07:28] LABS: Fibrinogen 209 MG/DL (199-459)
[2024-04-13] MEDS: DECADRON 60 MG IV (08:05)
[2024-04-13] MEDS: PROTONIX 40 MG PO (08:05)
[2024-04-13 08:16] LABS: Glucose - Point of Care 180 mg/dl (70-99)
--- NOTE | 2024-04-13 08:39 | W.PN.ONC ---
Today's Communication / Plan
-
Today is day 4 of plasma exchange (started 04/10). 7-10 treatments may be required, would continue until platelet count >150,000 x2 days
Today is day 4 of pulse dexamethasone. Will switch to oral prednisone tomorrow, 1mg/kg/d. Continue same dose for a week after plasma exchange is stopped, then wean over 2-3 weeks.
Improving LDH, LFTs, platelet count noted. Hopefully renal function will begin improving shortly.
Await [id number] level, pending
Will transfuse 1u PRBCs today
Mgmt of hyperglycemia per primary team
PPI for GI ppx
Impression
Impression
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
Smear reviewed showing helmet cells, giant platelets, spherocytes, ie classic for TTP.
Headache likely a mild neurologic manifestation.
Pt with PLASMIC score of 6 out of 7, strongly predictive of TTP
Plan
Plan
Today is day 4 of plasma exchange (started 04/10). 7-10 treatments may be required, would continue until platelet count >150,000 x2 days
Today is day 4 of pulse dexamethasone. Will switch to oral prednisone tomorrow, 1mg/kg/d. Continue same dose for a week after plasma exchange is stopped, then wean over 2-3 weeks.
Improving LDH, LFTs, platelet count noted. Hopefully renal function will begin improving shortly.
Await [id number] level, pending
Will transfuse 1u PRBCs today
Mgmt of hyperglycemia per primary team
PPI for GI ppx
Subjective/Objective
Subjective/Objective
c/o insomnia and left leg discomfort from varicose vein. Appetite is poor.
Vital Signs:
Vital Signs
Temp Pulse Resp BP Pulse Ox
98.0 F 79 16 120/64 93
04/13/24 07:00 04/13/24 07:00 04/13/24 07:00 04/13/24 07:00 04/13/24 07:00
Lab Results:
Laboratory Data
WBC 11.1 10^3/uL (4.8-10.8) H 04/13/24 05:34
Hgb 6.1 g/dL (12.0-16.0) L* 04/13/24 05:34
Plt Count 12 10^3/uL (130-400) L* D 04/13/24 05:34
PT 13.9 Sec (11.4-14.6) 04/13/24 05:34
INR 1.04 04/13/24 05:34
APTT 24.5 Sec (23.4-35.0) 04/13/24 05:34
eGFR 23.24 04/13/24 05:34
Orders
Orders
Orders From Last 24 Hours
04/13/24 08:38
* Blood Bank Products Routine
04/14/24 08:00
Prednisone [Deltasone] 60 mg PO DAILY
[2024-04-13] MEDS: LANTUS 0.1 UNITS SC (08:55)
[2024-04-13] MEDS: NOVOLOG FLEXPEN 4 UNITS SC ×2 (08:56→12:31)
[2024-04-13] MEDS: NOVOLOG FLEXPEN-MODERATE RESISTANCE 1 UNITS SC (08:56)
[2024-04-13] MEDS: NSS 1000 IV (09:22)
--- NOTE | 2024-04-13 10:14 | CM ---
Patient OOB in chair, ambulating in room.
Continues with plasmapheresis and IV steroids.
No d/c needs anticipated.
Plan: home no needs.
--- NOTE | 2024-04-13 11:19 | W.PN.NEPH.PH ---
Addendum entered and electronically signed by Lois Wiley MD 04/13/24 11:24:
azotemia is worsening likely from steroids
Original Note:
Today's Communication / Plan
-
stop IVF for edema
Assessment/Plan
-
Impression:
MOIZ
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
Diabetes
Recurrent E. coli bacteremia
Pancytopenia
History of liver abscess with biliary reconstruction
Plan;
MOIZ-cr increasing to 2.2 , subjectively non oliguric
-Strong suspicion secondary to microangiopathic hemolytic anemia in the setting of evolving TTP
-LDH improving, thrombocytopenia and anemia-for PE day 4 and cont steroids, prn transfusions
-Noted 4+ blood and 3+ albumin in urine consistent with microangiopathic hemolytic anemia
U PCR 22gm/gm of cr -pending DANY, complements
other serologies pending per Heme
-No acute dialysis requirement. Yet...
increasing edema likely from nephrotic proteinuria and hypoalbuminemia
will stop IVF, prn lasix
monitor UOP closely , daily wts
-Patient had been taking NSAIDs prior to admission but no other nephrotoxins identified
avoid nephrotoxins
-
-
Date of Service: April 13, 2024
CC / HPI / ROS
-
Chief Complaint:
MOIZ
History of Present Illness:
cr up at 2.2, uop not recorded
no fever
hb low at 6.1, plt 12k
Plasmapheresis scheduled
Review of Systems:
no cp, mild sob this am
subjectively non oliguric
bp stable
thinks LEs are mild edematous and wearing TEDs
Labs
-
Labs:
WBC 11.1 10^3/uL (4.8-10.8) H 04/13/24 05:34
RBC 1.97 10^6/uL (4.20-5.40) L 04/13/24 05:34
Hgb 6.1 g/dL (12.0-16.0) L* 04/13/24 05:34
Hct 17.7 % (37.0-47.0) L* 04/13/24 05:34
Plt Count 12 10^3/uL (130-400) L* D 04/13/24 05:34
Sodium 136 mmol/L (135-145) 04/13/24 05:34
Potassium 4.1 mmol/L (3.5-5.1) 04/13/24 05:34
Chloride 99 mmol/L (98-107) 04/13/24 05:34
Carbon Dioxide 31 mmol/L (22-30) H 04/13/24 05:34
BUN 98 mg/dl (7-17) H 04/13/24 05:34
Creatinine 2.2 mg/dL (0.6-1.0) H 04/13/24 05:34
eGFR 23.24 04/13/24 05:34
Glucose 153 mg/dl (70-99) H 04/13/24 05:34
Calcium 8.1 mg/dl (8.4-10.2) L 04/13/24 05:34
Phosphorus 5.6 mg/dl (2.5-4.5) H 04/13/24 05:34
Albumin 2.9 g/dl (3.5-5.0) L 04/13/24 05:34
Physical Exam
-
Vital Signs:
Vital Signs
Temp Pulse Resp BP Pulse Ox
98.0 F 79 16 120/64 93
04/13/24 07:00 04/13/24 07:00 04/13/24 07:00 04/13/24 07:00 04/13/24 09:28
Cardiovascular:: Regular rate and rhythm
Respiratory:: Bilateral: CTA
Lung Excursion:: Normal
Abdomen:: Nontender and Soft
Extremity Edema:: +1: Bilateral:
Leon Catheter: No
[2024-04-13 12:20] LABS: Glucose - Point of Care 313 mg/dl (70-99)
[2024-04-13] MEDS: NOVOLOG FLEXPEN-MODERATE RESISTANCE 7 UNITS SC ×2 (12:32→17:31)
[2024-04-13] MEDS: CALCIUM GLUCONATE 10% INJECTION 276 MG IV (12:37)
[2024-04-13] MEDS: ATARAX 25 MG PO (12:39)
--- NOTE | 2024-04-13 13:08 | W.PN.HOSP.TC ---
Today's Communication/Plan
-
continue IV steroids, PLEX and monitor counts
1 unit PRBC today
Assessment / Plan
Assessment / Plan
Gen: NAD, AAOx3.
Eyes: EOMI, PERRLA, mild scleral icterus.
Neck: supple.
CV: Remains RRR, +S1/S2, no m/r/g.
Resp: Remains CTAB, no rales, wheezes, or rhonchi.
Abd: +BS, soft, NT, ND
Skin: No rashes. + jaundice. Minimal/mild ecchymoses noted on arms.
Neuro: CN 2-12 intact, non-focal.
Psych: Normal mood and affect.
Abd U/S: No acute hepatobiliary abnormalities. Surgically absent gallbladder.
CT brain: No acute intracranial abnormality noted.
Acute TTP:
-presented with pancytopenia with severe thrombocytopenia:
-case discussed at length with Pérez pt diagnosed with TTP 04/10/24. Platelets most recently 12.
-cont pulse decadron, day 4/4 - transition to PO steroids tomorrow per Hematology
-cont Plasmapheresis, day 4. possibly 7-10 course planned per Hematology
-1 unit PRBC ordered 04/13
-continues to have no active bleeding at this time.
-Ellie NEG
-retic normal, LDH elevated, awaiting haptoglobin
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
-Cr increased to 2.2 from 0.6
-cont IVFs
-Nephrology following
-cont tx of TTP as above
Elevated LFTs:
-Patient has a history of elevated transaminases, current level similar to prior
-Bilirubin now elevated, large component of indirect bilirubin with concern for hemolysis, LDH 1412
-note h/o liver abscess with biliary reconstruction
-h/o cholecystectomy complicated by bile duct injury requiring hepatojejunostomy with chronic biliary drain and subsequent partial liver resection
-normal ERCP last month at [place] as per patient
-GI saw in c/s and signed off
Other problems:
h/o recurrent E coli bacteremia: afebrile and hemodynamically stable. BCxs NGTD.
DM2 with steroid induced hyperglycemia: accu-checks/diabetic diet. a1c 6.7%. continue Lantus 15U. add Aspart 8 units with meals. Moderate SSI. Should improve once steroids taper to PO. If remains uncontrolled tomorrow, will consult CALENDER SUPERVISOR for further
management.
no DVT prophylaxis with platelets of 8.
Code: Full
Anticipated Discharge: > 48 hours
Subjective/Interval History
-
Date of Service: April 13, 2024
mild SOB this AM in setting of anemia
non oliguric
Objective Data
-
Labs:
Laboratory Results
04/13/24
05:34
WBC 11.1 H
Hgb 6.1 L*
Hct 17.7 L*
Plt Count 12 L* D
PT 13.9
INR 1.04
APTT 24.5
Sodium 136
Potassium 4.1
Chloride 99
Carbon Dioxide 31 H
BUN 98 H
Creatinine 2.2 H
Glucose 153 H
Calcium 8.1 L
Total Bilirubin 1.8 H
AST 53 H
ALT 31
Alkaline Phosphatase 77
Vital Signs:
Vital Signs
Temp Pulse Resp BP Pulse Ox
98.4 F 85 16 122/68 93
04/13/24 12:27 04/13/24 12:27 04/13/24 12:27 04/13/24 12:27 04/13/24 09:28
I&O
04/12/24 04/13/24 04/14/24
06:59 06:59 06:59
Intake Total 2915 / 2915 360 / 360
Output Total 550 / 550
Balance 2915 / 2915 -190 / -190
Data Reviewed
-
Total Time Spent with Patient (in minutes): 42
Labs: Labs Reviewed by me
[2024-04-13] MEDS: LANTUS 0.05 UNITS SC (14:04)
[2024-04-13 16:57] LABS: Glucose - Point of Care 318 mg/dl (70-99)
[2024-04-13] MEDS: NOVOLOG FLEXPEN 8 UNITS SC (17:30)
[2024-04-13 22:12] LABS: Glucose - Point of Care 229 mg/dl (70-99)
[2024-04-14 01:08] LABS: Beta-2-Glycoprotein I Ab. IgA <10 SAU (<=20)
[2024-04-14 06:00] VITALS: BMI 27.6
[2024-04-14 06:05] LABS: White Blood Cell Count 11.4 10^3/uL (4.8-10.8)
[2024-04-14 06:06] LABS: % Basophils 0.2 % (0-2); % Immature Granulocytes 4.4 % (0-0.5); % Lymphocytes 20.7 % (20.5-51.1); % Monocytes 8.2 % (1.7-9.3); % Neutrophils 66.5 % (42.2-75.2); Absolute Immature Granulocytes 0.5 10^3/uL (0-0.05); Absolute Lymphocytes 2.4 10^3/uL (1.2-3.4); Absolute Monocytes 0.9 10^3/uL (0.1-0.6); Absolute Neutrophils 7.6 10^3/uL (1.4-6.5); Hemoglobin 7.2 g/dL (12.0-16.0); Mean Corpuscular Hgb 31.2 pg (27.0-31.0); Mean Corpuscular Volume 86.6 fL (81.0-99.0); Nucleated Red Blood Cells % 3.7 %; Platelet Count 16 10^3/uL (130-400); Red Blood Cell Count 2.31 10^6/uL (4.20-5.40); Red Cell Dist. Width 18.2 % (11.5-14.5); Reticulocyte Count 7.3 % (0.4-2.8)
[2024-04-14 06:08] LABS: INR 1.07; PT 14.2 Sec (11.4-14.6)
[2024-04-14 06:09] LABS: APTT 25.8 Sec (23.4-35.0); Fibrinogen 246 MG/DL (199-459)
[2024-04-14 06:38] LABS: ALT (SGPT) 28 U/L (0-35); AST (SGOT) 53 U/L (14-36); Albumin 2.8 g/dl (3.5-5.0); Alkaline Phosphatase 69 U/L (38-126); Blood Urea Nitrogen 99 mg/dl (7-17); Carbon Dioxide 33 mmol/L (22-30); Chloride 97 mmol/L (98-107); Estimated Creatinine Clearance 18 ml/min; Glucose 155 mg/dl (70-99); Magnesium 2.3 mg/dl (1.6-2.3); Phosphorus 5.8 mg/dl (2.5-4.5); Potassium 3.9 mmol/L (3.5-5.1); Sodium 137 mmol/L (135-145); Total Bilirubin 1.9 mg/dl (0.2-1.3); Total Protein 4.9 g/dl (6.3-8.2); eGFR 22.03
[2024-04-14 06:47] LABS: LDH 989 U/L (120-246)
[2024-04-14 07:00] VITALS: BP 136/75
--- NOTE | 2024-04-14 07:17 | PTCARENOTE ---
Pt with significant weight gain. On at 1427 pt weighed 131lb 3oz. Today, Apr 14, pt weighs 155lb 8oz. Notified GUIDE CHANGER. Informed dayshift nurse of weight difference. Pt with no complaints at this time.
[2024-04-14 07:43] LABS: Glucose - Point of Care 172 mg/dl (70-99)
--- NOTE | 2024-04-14 07:59 | W.PN.ONC2 ---
Addendum entered and electronically signed by Isaac Matute MD 04/15/24 06:12:
Laboratory Tests
04/13/24
05:34
Complement C3 76 L
Complement C4 < 8.0 L
Addendum entered and electronically signed by Isaac Matute MD 04/14/24 09:20:
Change of primary diagnosis from presumed TTP to NOW:
aHUS - atypical Hemolytic Uremic Syndrome
Addendum entered and electronically signed by Isaac Matute MD 04/14/24 08:52:
Spoke to pharmacy:
Recommended Dosage Regimen - aHUS For patients 18 years of age and older, Soliris therapy consists of: � 900 mg weekly for the first 4 weeks, followed by � 1200 mg for the fifth dose 1 week later, then � 1200 mg every 2 weeks thereafter.
Will initiate inpatient pending pharmacy approval.
75 minutes
Original Note:
Today's Communication / Plan
-
Seems to be clinically improving somewhat although ADAMSTS 13 = 88% which is unexpectedly normal for TTP.
This suggest the possibility of atypical hemolytic uremic syndrome (aHUS) which may require treatment with anti-complement directed therapy.
Spoke with Dr. Dario Suárez -based on the normal ADAMSTS 13, this is not TTP and is consistent with AHUS.
Order complement gene panel.
Will discontinue plasma exchange, prednisone, and initiate SOLARIS.
50 minutes spent coordinating speciality care
Impression
Impression
Presumed TTP with Hemolytic anemia, severe thrombocytopenia, headache, Chronic hepatic transaminitis
Smear reviewed showing helmet cells, giant platelets, spherocytes, ie classic for TTP.
Headache likely a mild neurologic manifestation.
Pt with PLASMIC score of 6 out of 7, strongly predictive of TTP
Plan
Plan
Today is day 5 of plasma exchange (started 04/10). 7-10 treatments may be required, would continue until platelet count >150,000 x 2 days.
She completed 4 days of pulsed dexamethasone 40 mg daily.
Today she is beginning prednisone 60 mg daily, 1 mg/kg with instructions/plans to continue same dose for a week after plasma exchange is stopped, then wean over 2-3 weeks.
Improving LDH, LFTs, platelet count noted. Hopefully renal function will begin improving shortly.
Hgb improved from 6.1-7.2 following 1 unit PRBCs transfused yesterday 04/13.
[id number] level = 88%. This suggests atypical HUS. I we will discuss with Dr. Donald Suárez a regional TTP/HUS expert at [place] for his opinion.
Mgmt of hyperglycemia per primary team
PPI for GI ppx
Subjective/Objective
Chief Complaint
ACS Hematology F/U
Subjective
Patient appears well. She is standing at the bedside. No bleeding. She is currently on daily plasma exchange.
Vital Signs:
Vital Signs
Temp Pulse Resp BP Pulse Ox
98.5 F 73 17 142/76 96
04/13/24 23:10 04/13/24 23:10 04/13/24 23:10 04/13/24 23:10 04/14/24 01:35
Lab Results:
Laboratory Data
WBC 11.4 10^3/uL (4.8-10.8) H 04/14/24 05:35
Hgb 7.2 g/dL (12.0-16.0) L 04/14/24 05:35
Plt Count 16 10^3/uL (130-400) L* D 04/14/24 05:35
PT 14.2 Sec (11.4-14.6) 04/14/24 05:35
INR 1.07 04/14/24 05:35
APTT 25.8 Sec (23.4-35.0) 04/14/24 05:35
eGFR 22.03 04/14/24 05:35
ADAMSTS-13 = 88%
Physical Exam
HEENT: No Jaundice
Cardiology: S1 and S2
Pulmonary: Clear
GI: Soft
Extremities: No C/C/E
[2024-04-14] MEDS: NOVOLOG FLEXPEN-MODERATE RESISTANCE 1 UNITS SC (08:00)
[2024-04-14] MEDS: LANTUS 0.15 UNITS SC (08:00)
[2024-04-14] MEDS: NOVOLOG FLEXPEN 8 UNITS SC (08:00)
[2024-04-14] MEDS: PROTONIX 40 MG PO (08:01)
[2024-04-14] MEDS: DELTASONE 60 MG PO (08:01)
[2024-04-14] MEDS: CALCIUM GLUCONATE 10% INJECTION IV (09:00)
--- NOTE | 2024-04-14 11:12 | W.PN.NEPH.PH ---
Today's Communication / Plan
-
Patient with obvious volume overload
Will provide 40 mg IV Lasix
Follow BMP
Assessment/Plan
-
Impression:
MOIZ
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
Diabetes
Recurrent E. coli bacteremia
Pancytopenia
History of liver abscess with biliary reconstruction
Plan;
MOIZ-cr increasing to 2.3 , non oliguric, creatinine level may be plateauing
-Strong suspicion secondary to microangiopathic hemolytic anemia : now possible for atypical HUS as ADAMSTS 13 is 88%
-LDH up again ,hemoglobin at 7.2, PLT atg 16 thrombocytopenia and anemia-for PE day 5 and continues with steroids but changed to p.o. prednisone
-Noted 4+ blood and 3+ albumin in urine consistent with microangiopathic hemolytic anemia
U PCR 22gm/gm of cr -pending DANY, complements
-other serologies pending per Heme
-No acute dialysis requirement. Yet...
-increasing edema likely from nephrotic proteinuria and hypoalbuminemia
-weights up to 70Kg ?!!!, Will provide 40 mg IV Lasix today
-monitor UOP closely , daily wts
-Patient had been taking NSAIDs prior to admission but no other nephrotoxins identified
-avoid nephrotoxins
-
-
Date of Service: April 14, 2024
CC / HPI / ROS
-
Chief Complaint:
MOIZ
History of Present Illness:
cr up at 2..3
hb low at 7.2
PLT at 16
Plasmapheresis scheduled
Review of Systems:
no cp, mild sob this am
non oliguric
weights up
bp stable
thinks LEs are mild edematous and wearing TEDs
Labs
-
Labs:
WBC 11.4 10^3/uL (4.8-10.8) H 04/14/24 05:35
RBC 2.31 10^6/uL (4.20-5.40) L 04/14/24 05:35
Hgb 7.2 g/dL (12.0-16.0) L 04/14/24 05:35
Hct 20.0 % (37.0-47.0) L* 04/14/24 05:35
Plt Count 16 10^3/uL (130-400) L* D 04/14/24 05:35
Sodium 137 mmol/L (135-145) 04/14/24 05:35
Potassium 3.9 mmol/L (3.5-5.1) 04/14/24 05:35
Chloride 97 mmol/L (98-107) L 04/14/24 05:35
Carbon Dioxide 33 mmol/L (22-30) H 04/14/24 05:35
BUN 99 mg/dl (7-17) H 04/14/24 05:35
Creatinine 2.3 mg/dL (0.6-1.0) H 04/14/24 05:35
eGFR 22.03 04/14/24 05:35
Glucose 155 mg/dl (70-99) H 04/14/24 05:35
Calcium 8.0 mg/dl (8.4-10.2) L 04/14/24 05:35
Phosphorus 5.8 mg/dl (2.5-4.5) H 04/14/24 05:35
Albumin 2.8 g/dl (3.5-5.0) L 04/14/24 05:35
Physical Exam
-
Vital Signs:
Vital Signs
Temp Pulse Resp BP Pulse Ox
98.0 F 75 17 136/75 95
04/14/24 07:00 04/14/24 07:00 04/14/24 07:00 04/14/24 07:00 04/14/24 09:15
Cardiovascular:: Regular rate and rhythm
Respiratory:: Bilateral: CTA
Lung Excursion:: Normal
Abdomen:: Nontender and Soft
Bowel Sounds:: Normal
Extremity Edema:: +1: Bilateral:
Leon Catheter: No
--- NOTE | 2024-04-14 11:55 | CM ---
Patient seen at bedside.
IV lasix once today, weights/labs monitored.
CM to continue to watch for needs.
PLAN: CM to follow for needs, to be determined
[2024-04-14] MEDS: LASIX 40 MG IV (12:00)
[2024-04-14 12:03] VITALS: BP 139/79
--- NOTE | 2024-04-14 12:33 | W.PN.HOSP.TC ---
Today's Communication/Plan
-
with diagnosis switch to atypical HUS, Soliris planned. PLEX and steroids stopped
with discontinuation of steroids, decrease Lantus/aspart
IV Lasix per Nephrology
Assessment / Plan
Assessment / Plan
Gen: NAD, AAOx3.
Eyes: EOMI, PERRLA, mild scleral icterus.
Neck: supple.
CV: Remains RRR, +S1/S2, no m/r/g.
Resp: Remains CTAB, no rales, wheezes, or rhonchi.
Abd: +BS, soft, NT, ND
Skin: No rashes. + jaundice. Minimal/mild ecchymoses noted on arms.
Neuro: CN 2-12 intact, non-focal.
Psych: Normal mood and affect.
Abd U/S: No acute hepatobiliary abnormalities. Surgically absent gallbladder.
CT brain: No acute intracranial abnormality noted.
Acute TTP:
-presented with pancytopenia with severe thrombocytopenia:
-case discussed at length with Pérez, pt diagnosed with TTP 04/10/24. [id number] activity is 88% on assay. Hematology has updated diagnosis to atypical HUS
-plasma exchange, steroids stopped
-Solaris initiated, day 1
-this hospitalization has received 34 FFP, 1 PRBC and 1 platelets
-continues to have no active bleeding at this time.
-Ellie NEG
-retic normal, LDH elevated, low haptoglobin
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
-Cr increased to 2.3 from 0.6
-off IVF
-IV Lasix per Nephrology
-cont tx of aHUS as above
Elevated LFTs:
-Patient has a history of elevated transaminases, current level similar to prior
-Bilirubin now elevated, large component of indirect bilirubin with concern for hemolysis, LDH 1412
-note h/o liver abscess with biliary reconstruction
-h/o cholecystectomy complicated by bile duct injury requiring hepatojejunostomy with chronic biliary drain and subsequent partial liver resection
-normal ERCP last month at [place] as per patient
-GI saw in c/s and signed off
Other problems:
h/o recurrent E coli bacteremia: afebrile and hemodynamically stable. BCxs NGTD.
DM2 with steroid induced hyperglycemia: accu-checks/diabetic diet. a1c 6.7%. continue Lantus 12U. add Aspart 5 units with meals. Moderate SSI.
no DVT prophylaxis with platelets of 12
Code: Full
Anticipated Discharge: > 48 hours
Subjective/Interval History
-
Date of Service: April 14, 2024
feels well
weight gain recorded and IV Lasix given
Objective Data
-
Labs:
Laboratory Results
04/14/24
05:35
WBC 11.4 H
Hgb 7.2 L
Hct 20.0 L*
Plt Count 16 L* D
PT 14.2
INR 1.07
APTT 25.8
Sodium 137
Potassium 3.9
Chloride 97 L
Carbon Dioxide 33 H
BUN 99 H
Creatinine 2.3 H
Glucose 155 H
Calcium 8.0 L
Total Bilirubin 1.9 H
AST 53 H
ALT 28
Alkaline Phosphatase 69
Vital Signs:
Vital Signs
Temp Pulse Resp BP Pulse Ox
98.3 F 80 17 139/79 94
04/14/24 12:03 04/14/24 12:03 04/14/24 12:03 04/14/24 12:03 04/14/24 12:03
I&O
04/13/24 04/14/24 04/15/24
06:59 06:59 06:59
Intake Total 360 / 360 1250 / 1250
Output Total 550 / 550 1200 / 1200
Balance -190 / -190 50 / 50
Data Reviewed
-
Total Time Spent with Patient (in minutes): 41
Labs: Labs Reviewed by me
[2024-04-14 12:52] LABS: Glucose - Point of Care 301 mg/dl (70-99)
[2024-04-14] MEDS: NOVOLOG FLEXPEN-MODERATE RESISTANCE 7 UNITS SC ×2 (13:24→17:38)
[2024-04-14] MEDS: NOVOLOG FLEXPEN SC (13:29)
[2024-04-14] MEDS: [UNRECOGNIZED DRUG - OTHER] 10 MCG IM (13:50)
[2024-04-14] MEDS: TRUMENBA 120 MCG IM (13:52)
[2024-04-14 15:00] VITALS: BP 128/75
[2024-04-14] MEDS: NOVOLOG FLEXPEN 5 UNITS SC (17:38)
[2024-04-14 17:39] LABS: Glucose - Point of Care 337 mg/dl (70-99)
[2024-04-14 22:29] LABS: Glucose - Point of Care 317 mg/dl (70-99)
[2024-04-14] MEDS: NOVOLOG FLEXPEN 7 UNITS SC (22:41)
[2024-04-14] MEDS: MELATONIN 5 MG PO (22:54)
[2024-04-14 23:12] VITALS: BP 139/79
[2024-04-15] VITALS (8 sets, daily range): BP systolic 128–147; BP diastolic 70–93; BMI 28.0; BMI 27.7
[2024-04-15 00:26] LABS: Complement C3 76 mg/dl (88-165)
[2024-04-15 01:06] LABS: Phosphatidylserine Ab, IgA 0 APS (0-19); Phosphatidylserine Ab, IgG 0 GPS (0-15); Phosphatidylserine Ab, IgM 0 MPS (0-21)
[2024-04-15 01:13] LABS: Glucose - Point of Care 235 mg/dl (70-99)
[2024-04-15 01:30] LABS: ANA, IgG Reflex to HEp-2 None Detected (None Detected)
[2024-04-15 05:58] LABS: APTT 25.4 Sec (23.4-35.0); INR 0.96; PT 13.3 Sec (11.4-14.6)
[2024-04-15 05:59] LABS: Fibrinogen 229 MG/DL (199-459)
[2024-04-15 06:48] LABS: % Basophils 0.1 % (0-2); % Eosinophils 0.2 % (0-6); % Immature Granulocytes 2.8 % (0-0.5); % Lymphocytes 20.1 % (20.5-51.1); % Monocytes 6.1 % (1.7-9.3); % Neutrophils 70.7 % (42.2-75.2); Absolute Immature Granulocytes 0.4 10^3/uL (0-0.05); Absolute Lymphocytes 2.5 10^3/uL (1.2-3.4); Absolute Monocytes 0.8 10^3/uL (0.1-0.6); Absolute Neutrophils 8.9 10^3/uL (1.4-6.5); Hematocrit 20.8 % (37.0-47.0); Hemoglobin 6.7 g/dL (12.0-16.0); Mean Corp Hgb Conc. 32.2 g/dL (33.0-37.0); Mean Corpuscular Hgb 30.3 pg (27.0-31.0); Mean Corpuscular Volume 94.1 fL (81.0-99.0); Nucleated Red Blood Cells % 2.9 %; Platelet Count 19 10^3/uL (130-400); Red Blood Cell Count 2.21 10^6/uL (4.20-5.40); Reticulocyte Count 10.4 % (0.4-2.8); White Blood Cell Count 12.6 10^3/uL (4.8-10.8)
[2024-04-15 07:21] LABS: ALT (SGPT) 35 U/L (0-35); AST (SGOT) 67 U/L (14-36); Albumin 2.8 g/dl (3.5-5.0); Alkaline Phosphatase 78 U/L (38-126); Blood Urea Nitrogen 106 mg/dl (7-17); Calcium 7.8 mg/dl (8.4-10.2); Carbon Dioxide 30 mmol/L (22-30); Chloride 98 mmol/L (98-107); Estimated Creatinine Clearance 19 ml/min; Glucose 118 mg/dl (70-99); Magnesium 2.4 mg/dl (1.6-2.3); Phosphorus 5.4 mg/dl (2.5-4.5); Potassium 3.5 mmol/L (3.5-5.1); Sodium 136 mmol/L (135-145); Total Bilirubin 1.7 mg/dl (0.2-1.3); Total Protein 4.9 g/dl (6.3-8.2); eGFR 19.93
--- NOTE | 2024-04-15 08:08 | W.PN.ONC2 ---
Today's Communication / Plan
-
Once available through pharmacy, initiate Soliris 900 mg weekly for the first 4 weeks, followed by 1200 mg for the fifth dose 1 week later, then 1200 mg every 2 weeks thereafter.
Will initiate inpatient pending pharmacy approval and give subsequent doses in the office once counts improve
Impression
Impression
[id number] level = 88%. This suggests atypical HUS. Hemolytic anemia, severe thrombocytopenia, headache d/w Dr. Donald Suárez a regional TTP/HUS expert. plasma exchange and steroids discontinued once adamts T suggested AHUS rather then TTP, last
exchange 04/13
Headache likely a mild neurologic manifestation.
Pt with PLASMIC score of 6 out of 7. Smear reviewed showing helmet cells, giant platelets, spherocytes
Chronic hepatic transaminitis
MOIZ
s/p meningococcal vaccine 04/14
Plan
Plan
s/p 1unit prbc during hospitalization -I will order another unit prbc today for Hgb <7
Improving LDH, LFTs, platelet count noted. Hopefully renal function will begin improving shortly.
Mgmt of hyperglycemia per primary team
PPI for GI ppx
Subjective/Objective
Subjective
SOB
denies chest pain, palpitations, or dizziness
Vital Signs:
Vital Signs
Temp Pulse Resp BP Pulse Ox
98.3 F 81 17 139/79 97
04/14/24 23:12 04/14/24 23:12 04/14/24 23:12 04/14/24 23:12 04/14/24 23:41
Lab Results:
Laboratory Data
WBC 12.6 10^3/uL (4.8-10.8) H 04/15/24 04:59
Hgb 6.7 g/dL (12.0-16.0) L* 04/15/24 04:59
Plt Count 19 10^3/uL (130-400) L* 04/15/24 04:59
PT 13.3 Sec (11.4-14.6) 04/15/24 04:59
INR 0.96 04/15/24 04:59
APTT 25.4 Sec (23.4-35.0) 04/15/24 04:59
eGFR 19.93 04/15/24 04:59
Physical Exam
HEENT: Moist Mucous Membranes; No Jaundice
Cardiology: Normal Sinus Rhythm
Pulmonary: Clear
GI: Soft
Extremities: Pulses Present and Edema (b/l LE)
Neuro: Non Focal
Orders
Orders
Orders From Last 24 Hours
04/15/24 04:59
Fibrinogen IN AM
INR [Prothrombin Time] IN AM
LDH IN AM
Magnesium IN AM
PTT IN AM
Phosphorus IN AM
04/16/24 06:00
Fibrinogen IN AM
INR [Prothrombin Time] IN AM
LDH IN AM
PTT IN AM
[2024-04-15 08:25] LABS: Glucose - Point of Care 151 mg/dl (70-99)
--- NOTE | 2024-04-15 08:28 | W.PN.HOSP.TC ---
Addendum entered and electronically signed by Kim Angulo MD 04/15/24 08:35:
1 unit PRBC today as well with updated T+S
Original Note:
Today's Communication/Plan
-
with diagnosis switch to atypical HUS, Soliris to start today. PLEX and steroids stopped yesterday
continue Lantus/aspart
IV Lasix per Nephrology
Assessment / Plan
Assessment / Plan
Abd U/S: No acute hepatobiliary abnormalities. Surgically absent gallbladder.
CT brain: No acute intracranial abnormality noted.
Acute atypical HUS:
-presented with pancytopenia with severe thrombocytopenia:
-case discussed at length with Pérez pt diagnosed with TTP 04/10/24. [id number] activity is 88% on assay. Hematology has updated diagnosis to atypical HUS
-plasma exchange, steroids stopped
-Solaris to start today, day 1
-this hospitalization has received 34 FFP, 1 PRBC and 1 platelets. 1 additional PRBC ordered now.
-continues to have no active bleeding at this time.
-Ellie NEG
-retic normal, LDH elevated, low haptoglobin
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
-Cr increased to 2.5 from 0.6
-off IVF
-IV Lasix per Nephrology; requires intensive monitoring of weights, I/Os, lytes
-add fluid restriction
-cont tx of aHUS as above
Elevated LFTs:
-Patient has a history of elevated transaminases, current level similar to prior
-Bilirubin now elevated, large component of indirect bilirubin with concern for hemolysis, LDH 1412
-note h/o liver abscess with biliary reconstruction
-h/o cholecystectomy complicated by bile duct injury requiring hepatojejunostomy with chronic biliary drain and subsequent partial liver resection
-normal ERCP last month at [place] as per patient
-GI saw in c/s and signed off
Other problems:
h/o recurrent E coli bacteremia: afebrile and hemodynamically stable. BCxs NGTD.
DM2 with steroid induced hyperglycemia: accu-checks/diabetic diet. a1c 6.7%. continue Lantus 12U. continue Aspart 5 units with meals. Moderate SSI. Ancipitate lowering insulin doses further as either renal function possibly rises or effect of IV
steroids wear off.
no DVT prophylaxis with platelets of 19
Code: Full
Anticipated Discharge: > 48 hours
Subjective/Interval History
-
Date of Service: April 15, 2024
feels swelling is unchanged despite IV Lasix dose
denies any SOB
Objective Data
-
Labs:
Laboratory Results
04/15/24
04:59
WBC 12.6 H
Hgb 6.7 L*
Hct 20.8 L*
Plt Count 19 L*
PT 13.3
INR 0.96
APTT 25.4
Sodium 136
Potassium 3.5
Chloride 98
Carbon Dioxide 30
BUN 106 H*
Creatinine 2.5 H
Glucose 118 H
Calcium 7.8 L
Total Bilirubin 1.7 H
AST 67 H
ALT 35
Alkaline Phosphatase 78
Vital Signs:
Vital Signs
Temp Pulse Resp BP Pulse Ox
98.3 F 81 17 139/79 97
04/14/24 23:12 04/14/24 23:12 04/14/24 23:12 04/14/24 23:12 04/14/24 23:41
I&O
04/14/24 04/15/24 04/16/24
06:59 06:59 06:59
Intake Total 1250 / 1250 1140 / 1140
Output Total 1200 / 1200 1150 / 1150
Balance 50 / 50 -10 / -10
Physical Exam
-
General: No Apparent Distress
HEENT: Normocephalic and Atraumatic
Respiratory: Negative Wheezes
Cardiac: Regular Rhythm and S1/S2
GI: Soft
Musculoskeletal: Edema, Right Lower Extrem and Edema, Left Lower Extrem
Neuro: AO x 3
Hematologic / Lymphatic: No Lymphadenopathy
Psych: Calm
Data Reviewed
-
Total Time Spent with Patient (in minutes): 51
Labs: Labs Reviewed by me
[2024-04-15] MEDS: PROTONIX 40 MG PO (09:48)
[2024-04-15] MEDS: NOVOLOG FLEXPEN-MODERATE RESISTANCE 1 UNITS SC ×2 (09:48→16:20)
[2024-04-15 10:01] LABS: Glucose - Point of Care 166 mg/dl (70-99)
[2024-04-15] MEDS: NOVOLOG FLEXPEN SC (10:04)
[2024-04-15] MEDS: LASIX 80 MG IV (11:50)
--- NOTE | 2024-04-15 11:50 | W.PN.NEPH.PH ---
Today's Communication / Plan
-
80 mg IV Lasix
CXR
Emergent dialysis to be provide
Assessment/Plan
-
Impression:
MOIZ
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
Diabetes
Recurrent E. coli bacteremia
Pancytopenia
History of liver abscess with biliary reconstruction
Plan;
MOIZ-cr increasing to 2.5 , non oliguric, urine output around 1 L after 80 mg IV Lasix provided
Stat chest x-ray and 80 mg IV Lasix provide
Patient is now short of breath and edematous, I will provide emergent dialysis , orders provided
-Strong suspicion secondary to microangiopathic hemolytic anemia : now possible for atypical HUS as ADAMSTS 13 is 88%
-LDH up again ,hemoglobin at 7.2, PLT atg 19 thrombocytopenia and anemia-for PE day 5 and continues with steroids but changed to p.o. prednisone
-Noted 4+ blood and 3+ albumin in urine consistent with microangiopathic hemolytic anemia
U PCR 22gm/gm of cr -pending DANY, complements
-other serologies pending per Heme
-increasing edema likely from nephrotic proteinuria and hypoalbuminemia
-weights up to 72Kg
-monitor UOP closely , daily wts
-Patient had been taking NSAIDs prior to admission but no other nephrotoxins identified
-avoid nephrotoxins
-Patient at clinically high risk with worsening respiratory status in setting of acute kidney injury necessitating emergent dialysis
-
-
Date of Service: April 15, 2024
CC / HPI / ROS
-
Chief Complaint:
MOIZ
History of Present Illness:
cr up at 2..5
Anemia worsening to 6.7
PLT at 19
Eculizumab initiated for atypical HUS
Review of Systems:
no cp,
increasing sob
non oliguric
weights up
bp stable
thinks LEs are mild edematous and wearing TEDs
Labs
-
Labs:
WBC 12.6 10^3/uL (4.8-10.8) H 04/15/24 04:59
RBC 2.21 10^6/uL (4.20-5.40) L 04/15/24 04:59
Hgb 6.7 g/dL (12.0-16.0) L* 04/15/24 04:59
Hct 20.8 % (37.0-47.0) L* 04/15/24 04:59
Plt Count 19 10^3/uL (130-400) L* 04/15/24 04:59
Sodium 136 mmol/L (135-145) 04/15/24 04:59
Potassium 3.5 mmol/L (3.5-5.1) 04/15/24 04:59
Chloride 98 mmol/L (98-107) 04/15/24 04:59
Carbon Dioxide 30 mmol/L (22-30) 04/15/24 04:59
BUN 106 mg/dl (7-17) H* 04/15/24 04:59
Creatinine 2.5 mg/dL (0.6-1.0) H 04/15/24 04:59
eGFR 19.93 04/15/24 04:59
Glucose 118 mg/dl (70-99) H 04/15/24 04:59
Calcium 7.8 mg/dl (8.4-10.2) L 04/15/24 04:59
Phosphorus 5.4 mg/dl (2.5-4.5) H 04/15/24 04:59
Albumin 2.8 g/dl (3.5-5.0) L 04/15/24 04:59
Physical Exam
-
Vital Signs:
Vital Signs
Temp Pulse Resp BP Pulse Ox
98.2 F 87 18 131/75 97
04/15/24 07:00 04/15/24 07:00 04/15/24 07:00 04/15/24 07:00 04/15/24 07:00
Cardiovascular:: Regular rate and rhythm
Respiratory:: Bilateral: Coarse
Lung Excursion:: Normal
Abdomen:: Nontender and Soft
Bowel Sounds:: Normal
Extremity Edema:: +1: Bilateral:
Leon Catheter: No
--- NOTE | 2024-04-15 12:05 | W.PN.UPDATE ---
Update Note
Progress Note Update
more acutely SOB - IV Lasix given. CXR pending
d/w Nephrology and plan is for initiation of HD today
transfer to IMU
d/w RN
[2024-04-15] MEDS: ATIVAN 0.5 MG PO (12:41)
--- NOTE | 2024-04-15 12:50 | W.PN.NEPH.HD ---
Assessment
-
Patient seen on dialysis
Will attempt ultrafiltration of 1.5 kg
Will likely provide dialysis again tomorrow
Progress Note - Hemodialysis
-
Date of Service: April 15, 2024
Duration: 30 minutes and 2 hours
Potassium Bath: 3
Calcium Bath: 2.5
Opti-Dialyzer: 160
Ultrafiltration: Other (1.5 to 2 kg as hemodynamically tolerated)
Blood Flow: 200
Dialysate Flow: Other (400)
Heparin: None
EPO: None none
[2024-04-15] MEDS: NOVOLOG FLEXPEN-MODERATE RESISTANCE 5 UNITS SC (12:52)
[2024-04-15 12:54] LABS: Glucose - Point of Care 275 mg/dl (70-99)
[2024-04-15] MEDS: MANNITOL 25% 12.5 GRAMS IV ×2 (13:05→14:08)
--- NOTE | 2024-04-15 13:48 | CM ---
Patient started dialysis today
Upon entering room - patient sleeping.
Per unit controller patient to be tx to IMU
PLAN: Discharge when medically stable, outpatient dialysis may need set up
[2024-04-15 14:32] LABS: LDH 1828 U/L (120-246)
[2024-04-15] MEDS: FLUSH (NSS) 1 FLUSH INTRACATH (15:27)
[2024-04-15 15:49] LABS: Glucose - Point of Care 155 mg/dl (70-99)
--- NOTE | 2024-04-15 15:52 | PTCARENOTE ---
Patient c/o feeling SOB at rest and on exertion, denies chest pain. Vitals taken by tech stable. 97% on RA. MD made aware, stat dose of 80 mg IV lasix ordered per MD. Nephrology at bedside, patient to start HD.
--- NOTE | 2024-04-15 15:54 | PTCARENOTE ---
Patient transfused 1 unit PRBC for hgb 6.7 during HD session by HD nurse Rosalee. VSS throughout transfusion, 2 kilos taken off patient during HD. Patient states improvement in SOB after HD session.
--- NOTE | 2024-04-15 18:08 | PTCARENOTE ---
Patient transferred to IMU, report given to Sandra. Patient transported by this RN in wheelchair with belongings. Insulin pen and chart tubed to IMU.
--- NOTE | 2024-04-15 18:17 | PTCARENOTE ---
Received from [address] [place] [id number], IMU monitors placed. ST 92 on tele BP 128/74 94% on RAIR. LEWIS- resolved at rest. Discussed anxiety- she will ask for Ativan later tonight. Oriented to room. Denies pain, no current needs. Call jackson at bedside.
[2024-04-15 22:19] LABS: Glucose - Point of Care 283 mg/dl (70-99)
--- NOTE | 2024-04-15 22:21 | PTCARENOTE ---
Pt received from previous RN. Pt AAox3. at bedside. Pt informed to call for RN before ambulating to bathroom due to being connected to monitor and possibility of tripping. NSR on monitor. Pt on RA, sat 98%. Assessment as documented. Call
light in reach.
[2024-04-16] VITALS (26 sets, daily range): BP systolic 116–162; BP diastolic 55–93; BMI 27.3
[2024-04-16 05:13] LABS: APTT 29.3 Sec (23.4-35.0); INR 0.98; PT 13.5 Sec (11.4-14.6)
[2024-04-16 05:14] LABS: Fibrinogen 259 MG/DL (199-459)
[2024-04-16 05:23] LABS: % Basophils 0.1 % (0-2); % Eosinophils 0.4 % (0-6); % Immature Granulocytes 2.4 % (0-0.5); % Lymphocytes 19.6 % (20.5-51.1); % Monocytes 5.7 % (1.7-9.3); % Neutrophils 71.8 % (42.2-75.2); Absolute Immature Granulocytes 0.2 10^3/uL (0-0.05); Absolute Lymphocytes 1.9 10^3/uL (1.2-3.4); Absolute Monocytes 0.5 10^3/uL (0.1-0.6); Absolute Neutrophils 6.8 10^3/uL (1.4-6.5); Hemoglobin 7.6 g/dL (12.0-16.0); Mean Corpuscular Hgb 31.1 pg (27.0-31.0); Mean Corpuscular Volume 94.3 fL (81.0-99.0); Nucleated Red Blood Cells % 0.7 %; Platelet Count 14 10^3/uL (130-400); Red Blood Cell Count 2.44 10^6/uL (4.20-5.40); Red Cell Dist. Width 22.3 % (11.5-14.5); White Blood Cell Count 9.5 10^3/uL (4.8-10.8)
[2024-04-16 05:45] LABS: ALT (SGPT) 33 U/L (0-35); AST (SGOT) 67 U/L (14-36); Albumin 2.7 g/dl (3.5-5.0); Alkaline Phosphatase 100 U/L (38-126); Blood Urea Nitrogen 70 mg/dl (7-17); Calcium 7.6 mg/dl (8.4-10.2); Carbon Dioxide 34 mmol/L (22-30); Chloride 98 mmol/L (98-107); Estimated Creatinine Clearance 24 ml/min; Glucose 168 mg/dl (70-99); Potassium 4.3 mmol/L (3.5-5.1); Sodium 134 mmol/L (135-145); Total Protein 4.9 g/dl (6.3-8.2); eGFR 26.05
[2024-04-16 05:54] LABS: LDH 1802 U/L (120-246)
[2024-04-16 07:41] LABS: Glucose - Point of Care 199 mg/dl (70-99)
[2024-04-16] MEDS: NOVOLOG FLEXPEN-MODERATE RESISTANCE 1 UNITS SC ×2 (08:59→17:23)
[2024-04-16] MEDS: PROTONIX 40 MG PO (09:00)
[2024-04-16] MEDS: SENOKOT-S 1 TABLET PO (09:37)
[2024-04-16] MEDS: MIRALAX 17 GRAMS PO (09:37)
[2024-04-16] MEDS: ATIVAN 0.5 MG PO (10:18)
[2024-04-16 12:08] LABS: Acanthocytes 1+; Anisocytosis 1+; Hypochromasia 1+; Macrocytosis 1+; Normal RBC Morphology No; Ovalocytes 1+; Spherocytes 2+
[2024-04-16 12:48] LABS: Glucose - Point of Care 233 mg/dl (70-99)
[2024-04-16] MEDS: MANNITOL 25% 12.5 GRAMS IV ×2 (13:05→14:02)
[2024-04-16] MEDS: NOVOLOG FLEXPEN-MODERATE RESISTANCE 3 UNITS SC (13:05)
--- NOTE | 2024-04-16 13:50 | W.PN.HOSP.TC ---
Today's Communication/Plan
-
continue acute HD per Nephrology
starting Soliris, day 1
monitor sugars - add diabetic modification
Assessment / Plan
Assessment / Plan
Abd U/S: No acute hepatobiliary abnormalities. Surgically absent gallbladder.
CT brain: No acute intracranial abnormality noted.
Acute atypical HUS:
-presented with pancytopenia with severe thrombocytopenia:
-case discussed at length with Pérez, pt diagnosed with TTP 04/10/24. [id number] activity is 88% on assay. Hematology has updated diagnosis to atypical HUS
-plasma exchange, steroids stopped
-Solaris to start today, day 1
-this hospitalization has received 34 FFP, 2 PRBC and 1 platelets.
-continues to have no active bleeding at this time.
-Ellie NEG
-retic normal, LDH elevated, low haptoglobin
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
-Cr increased to 2.5 from 0.6; now down to 2.0 after initiation of acute HD 04/15
-continue fluid restriction
-cont tx of aHUS as above
Elevated LFTs:
-Patient has a history of elevated transaminases, current level similar to prior
-Bilirubin now elevated, large component of indirect bilirubin with concern for hemolysis, LDH 1412
-note h/o liver abscess with biliary reconstruction
-h/o cholecystectomy complicated by bile duct injury requiring hepatojejunostomy with chronic biliary drain and subsequent partial liver resection
-normal ERCP last month at [facility] as per patient
-GI saw in c/s and signed off
Other problems:
h/o recurrent E coli bacteremia: afebrile and hemodynamically stable. BCxs NGTD.
DM2 with steroid induced hyperglycemia: accu-checks/diabetic diet. a1c 6.7%. continue Moderate SSI.
no DVT prophylaxis with platelets of 14
Code: Full
Anticipated Discharge: > 48 hours
Subjective/Interval History
-
Date of Service: April 16, 2024
on HD, tolerating well, has mild dizziness at times
SOB improved with HD
Objective Data
-
Labs:
Laboratory Results
04/16/24
04:34
WBC 9.5
Hgb 7.6 L
Hct 23.0 L
Plt Count 14 L* D
PT 13.5
INR 0.98
APTT 29.3
Sodium 134 L
Potassium 4.3
Chloride 98
Carbon Dioxide 34 H
BUN 70 H
Creatinine 2.0 H
Glucose 168 H
Calcium 7.6 L
Total Bilirubin 2.0 H
AST 67 H
ALT 33
Alkaline Phosphatase 100
Vital Signs:
Vital Signs
Temp Pulse Resp BP Pulse Ox
98.5 F 86 17 134/75 94
04/16/24 11:33 04/16/24 11:00 04/16/24 11:00 04/16/24 10:12 04/16/24 11:00
I&O
04/15/24 04/16/24 04/17/24
06:59 06:59 06:59
Intake Total 1140 / 1140 970 / 970
Output Total 1150 / 1150 200 / 200
Balance -10 / -10 770 / 770
Physical Exam
-
General: No Apparent Distress
HEENT: Normocephalic and Atraumatic
Respiratory: Negative Wheezes
Cardiac: Regular Rhythm and S1/S2
GI: Soft
Neuro: AO x 3
Psych: Calm
Data Reviewed
-
Total Time Spent with Patient (in minutes): 42
Labs: Labs Reviewed by me
[2024-04-16] MEDS: SODIUM CHLORIDE 4 MEQ/ML IV (14:00)
[2024-04-16] MEDS: [UNRECOGNIZED DRUG - OTHER] IV (14:00)
--- NOTE | 2024-04-16 15:00 | W.PN.ONC ---
Today's Communication / Plan
-
for Soliris
HD starting today
monitor CBC
Impression
Impression
atypical HUS - microcangiopathic hemolysis
Headache likely a mild neurologic manifestation.
Chronic hepatic transaminitis
MOIZ - now on HD
s/p meningococcal vaccine 04/14
Plan
Plan
1. Atypical HUS -
-for Soliris today
-HD started
-monitor CBC
-supportive care
Subjective/Objective
Subjective/Objective
feeling decent, no new complaints
Vital Signs:
Vital Signs
Temp Pulse Resp BP Pulse Ox
98.5 F 91 17 139/93 99
04/16/24 11:33 04/16/24 14:15 04/16/24 14:15 04/16/24 14:15 04/16/24 14:15
Lab Results:
Laboratory Data
WBC 9.5 10^3/uL (4.8-10.8) 04/16/24 04:34
Hgb 7.6 g/dL (12.0-16.0) L 04/16/24 04:34
Plt Count 14 10^3/uL (130-400) L* D 04/16/24 04:34
PT 13.5 Sec (11.4-14.6) 04/16/24 04:34
INR 0.98 04/16/24 04:34
APTT 29.3 Sec (23.4-35.0) 04/16/24 04:34
eGFR 26.05 04/16/24 04:34
Exam: unchanged
--- NOTE | 2024-04-16 15:43 | CM ---
[employer]/Ch[place]an speaking patient. Room air. Has nontunneled R IJ pheresis catheter. Emergent Dialysis yesterday. Receiving IV Soliris today, transfusion ordered. Per nursing; A/O, ambulatory in room.
Message with Dr Bautista; undecided at this time if patient will need outpatient HD.
CM continuing to follow for d/c needs.
Plan home.
[2024-04-16] MEDS: FLUSH (NSS) 1 FLUSH INTRACATH (15:53)
--- NOTE | 2024-04-16 15:59 | W.PN.NEPH.HD ---
Assessment
-
pt seen and examined during HD
vitals stable
had cramping-hence decreased UF
HD again tomorrow
temp catheter functions fine
SOliris today
Progress Note - Hemodialysis
-
Date of Service: April 16, 2024
Duration: 30 minutes and 2 hours
Potassium Bath: 3
Calcium Bath: 2.5
Opti-Dialyzer: 160
Ultrafiltration: Other (1.5-2kg)
Blood Flow: 300
Dialysate Flow: 600
Heparin: no
EPO: no
[2024-04-16] MEDS: [UNRECOGNIZED DRUG - OTHER] 180 MG IV (16:03)
[2024-04-16] MEDS: TYLENOL 650 MG PO ×2 (16:14→23:59)
--- NOTE | 2024-04-16 16:45 | PTCARENOTE ---
Received IV eculizumab from pharmacy. Gave printed material on eculizumab indications/side effects/reactions in Romanian to patient. Started IV infusion at 16:03. Pt aaox3, able to make needs known. VSS. Call jackson and belongings within reach.
[2024-04-16 16:53] LABS: Glucose - Point of Care 185 mg/dl (70-99)
[2024-04-16 21:34] LABS: Glucose - Point of Care 287 mg/dl (70-99)
[2024-04-17] VITALS (34 sets, daily range): BP systolic 120–165; BP diastolic 58–97; BMI 26.9
[2024-04-17 05:34] LABS: % Eosinophils 1.4 % (0-6); % Immature Granulocytes 2.4 % (0-0.5); % Lymphocytes 22.1 % (20.5-51.1); % Monocytes 5.5 % (1.7-9.3); % Neutrophils 68.6 % (42.2-75.2); Absolute Eosinophils 0.1 10^3/uL (0-0.7); Absolute Immature Granulocytes 0.1 10^3/uL (0-0.05); Absolute Lymphocytes 1.3 10^3/uL (1.2-3.4); Absolute Monocytes 0.3 10^3/uL (0.1-0.6); Hematocrit 19.3 % (37.0-47.0); Hemoglobin 6.5 g/dL (12.0-16.0); Mean Corp Hgb Conc. 33.7 g/dL (33.0-37.0); Mean Corpuscular Hgb 31.4 pg (27.0-31.0); Mean Corpuscular Volume 93.2 fL (81.0-99.0); Nucleated Red Blood Cells % 0 %; Platelet Count 13 10^3/uL (130-400); Red Blood Cell Count 2.07 10^6/uL (4.20-5.40); Red Cell Dist. Width 22.8 % (11.5-14.5); Reticulocyte Count 14.8 % (0.4-2.8); White Blood Cell Count 5.8 10^3/uL (4.8-10.8)
[2024-04-17 05:50] LABS: ALT (SGPT) 33 U/L (0-35); AST (SGOT) 54 U/L (14-36); Albumin 2.5 g/dl (3.5-5.0); Alkaline Phosphatase 112 U/L (38-126); Blood Urea Nitrogen 47 mg/dl (7-17); Calcium 7.2 mg/dl (8.4-10.2); Carbon Dioxide 34 mmol/L (22-30); Chloride 98 mmol/L (98-107); Estimated Creatinine Clearance 28 ml/min; Glucose 170 mg/dl (70-99); Sodium 133 mmol/L (135-145); Total Bilirubin 1.5 mg/dl (0.2-1.3); Total Protein 4.6 g/dl (6.3-8.2); eGFR 31.66
[2024-04-17 06:00] LABS: LDH 1196 U/L (120-246)
[2024-04-17 08:40] LABS: Glucose - Point of Care 192 mg/dl (70-99)
[2024-04-17] MEDS: NOVOLOG FLEXPEN-MODERATE RESISTANCE SC ×2 (09:00→17:11)
--- NOTE | 2024-04-17 09:05 | W.PN.ONC ---
Today's Communication / Plan
-
s/p soliris, first dose 04/16/24. Anticipate weekly dosing (next hopefully as outpatient)
anticipate response/improvement in platelet count in 3-7 d
significant improvement in LDH and billirubin (from 04/16 to 04/17) already noted
HD per nephrology
for 1u PRBCs today
daily CBC/CMP
Impression
Impression
atypical HUS - microcangiopathic hemolysis
Headache likely a mild neurologic manifestation.
Chronic hepatic transaminitis
MOIZ - now on HD
s/p meningococcal vaccine 04/14
Plan
Plan
s/p soliris, first dose 04/16/24. Anticipate weekly dosing (next hopefully as outpatient)
anticipate response/improvement in platelet count in 3-7 d
significant improvement in LDH and billirubin (from 04/16 to 04/17) already noted
HD per nephrology
for 1u PRBCs today
daily CBC/CMP
Subjective/Objective
Subjective/Objective
rec'd first dose of Soliris yesterday, tolerated well
notes some dyspnea, headache
no bleeding
sleeping better since steroids were stopped
Vital Signs:
Vital Signs
Temp Pulse Resp BP Pulse Ox
98.0 F 88 18 116/58 96
04/17/24 08:15 04/16/24 18:45 04/16/24 18:45 04/16/24 17:15 04/16/24 18:15
Lab Results:
Laboratory Data
WBC 5.8 10^3/uL (4.8-10.8) 04/17/24 05:03
Hgb 6.5 g/dL (12.0-16.0) L* 04/17/24 05:03
Plt Count 13 10^3/uL (130-400) L* 04/17/24 05:03
PT 13.5 Sec (11.4-14.6) 04/16/24 04:34
INR 0.98 04/16/24 04:34
APTT 29.3 Sec (23.4-35.0) 04/16/24 04:34
eGFR 31.66 04/17/24 05:03
--- NOTE | 2024-04-17 09:30 | PTCARENOTE ---
Patient received from manager shift. Patient resting comfortably in bed. AAO, VSS. No events noted over night. Patient with some complaints of a headache but denies any medication. Scheduled at noon for HD, 1 unit of PRBC is ordered to given for
Hgb 6.5. No other tests scheduled for today. Call jackson in reach.
[2024-04-17] MEDS: PROTONIX 40 MG PO (10:55)
[2024-04-17] MEDS: NOVOLOG FLEXPEN-MODERATE RESISTANCE 1 UNITS SC (10:59)
[2024-04-17 11:09] LABS: Glucose - Point of Care 181 mg/dl (70-99)
[2024-04-17] MEDS: ATIVAN 0.5 MG PO (12:36)
--- NOTE | 2024-04-17 12:44 | W.PN.HOSP.TC ---
Today's Communication/Plan
-
1 unit PRBC
follow daily labs, hematology recs
resume basal/bolus insulin at lower doses
HD per Nephrology
Assessment / Plan
Assessment / Plan
Abd U/S: No acute hepatobiliary abnormalities. Surgically absent gallbladder.
CT brain: No acute intracranial abnormality noted.
Acute atypical HUS:
-presented with pancytopenia with severe thrombocytopenia:
-case discussed at length with Pérez, pt diagnosed with TTP 04/10/24. [id number] activity is 88% on assay. Hematology has updated diagnosis to atypical HUS
-plasma exchange, steroids stopped
-Solaris given 04/16 - first dose. weekly dosing per Oncology
-this hospitalization has received 34 FFP, 3 PRBC and 1 platelets.
-continues to have no active bleeding at this time.
-Ellie NEG
-retic normal, LDH elevated, low haptoglobin
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
-Cr increased to 2.5 from 0.6; now down to 1.7 after initiation of acute HD 04/15
-continue fluid restriction
-cont tx of aHUS as above
Elevated LFTs:
-Patient has a history of elevated transaminases, current level similar to prior
-Bilirubin now elevated, large component of indirect bilirubin with concern for hemolysis, LDH 1412
-note h/o liver abscess with biliary reconstruction
-h/o cholecystectomy complicated by bile duct injury requiring hepatojejunostomy with chronic biliary drain and subsequent partial liver resection
-normal ERCP last month at [place] as per patient
-GI saw in c/s and signed off
Other problems:
h/o recurrent E coli bacteremia: afebrile and hemodynamically stable. BCxs NGTD.
DM2 with steroid induced hyperglycemia: accu-checks/diabetic diet. a1c 6.7%. continue Moderate SSI. Resume Aspart 3 units with meals, Lantus 8 units HS and titrate accordingly.
no DVT prophylaxis with platelets of 13
Code: Full
Anticipated Discharge: > 48 hours
Subjective/Interval History
-
Date of Service: April 17, 2024
tolerated Soliris well yesterday
some dyspnea and headache
denies bleeding
Objective Data
-
Labs:
Laboratory Results
04/17/24
05:03
WBC 5.8
Hgb 6.5 L*
Hct 19.3 L*
Plt Count 13 L*
Sodium 133 L
Potassium 4.0
Chloride 98
Carbon Dioxide 34 H
BUN 47 H
Creatinine 1.7 H
Glucose 170 H
Calcium 7.2 L
Total Bilirubin 1.5 H
AST 54 H
ALT 33
Alkaline Phosphatase 112
Vital Signs:
Vital Signs
Temp Pulse Resp BP Pulse Ox
98.1 F 88 18 116/58 96
04/17/24 12:00 04/16/24 18:45 04/16/24 18:45 04/16/24 17:15 04/16/24 18:15
I&O
04/16/24 04/17/24 04/18/24
06:59 06:59 06:59
Intake Total 970 / 970 480 / 480
Output Total 200 / 200 400 / 400
Balance 770 / 770 80 / 80
Physical Exam
-
General: No Apparent Distress
HEENT: Normocephalic and Atraumatic
Respiratory: Negative Wheezes
Cardiac: Regular Rhythm and S1/S2
GI: Soft and Nontender
Neuro: AO x 3
Psych: Calm
Data Reviewed
-
Total Time Spent with Patient (in minutes): 45
Labs: Labs Reviewed by me
--- NOTE | 2024-04-17 15:23 | W.PN.NEPH.HD ---
Assessment
-
pt seen during HD
vitals stable
UF as tolerates
getting PRBBC with HD
monitor LDH, CBC , s/p SOliris on 04/16
no HD tomorrow
Progress Note - Hemodialysis
-
Date of Service: April 17, 2024
Duration: 30 minutes and 3 hours
Potassium Bath: 3
Calcium Bath: 2.5
Opti-Dialyzer: 160
Ultrafiltration: Other (2.5kg)
Blood Flow: 400
Dialysate Flow: 600
Heparin: no
EPO: no
[2024-04-17 16:40] LABS: Glucose - Point of Care 141 mg/dl (70-99)
[2024-04-17] MEDS: NOVOLOG FLEXPEN 3 UNITS SC (17:12)
[2024-04-17] MEDS: LANTUS 0.08 UNITS SC (21:26)
[2024-04-17 21:38] LABS: Glucose - Point of Care 216 mg/dl (70-99)
[2024-04-17] MEDS: ROBITUSSIN 200 MG PO (22:09)
[2024-04-18] VITALS (13 sets, daily range): BP systolic 110–161; BP diastolic 64–121; BMI 26.3
[2024-04-18 06:23] LABS: ALT (SGPT) 35 U/L (0-35); AST (SGOT) 48 U/L (14-36); Albumin 2.6 g/dl (3.5-5.0); Alkaline Phosphatase 180 U/L (38-126); Blood Urea Nitrogen 32 mg/dl (7-17); Calcium 7.5 mg/dl (8.4-10.2); Carbon Dioxide 33 mmol/L (22-30); Chloride 99 mmol/L (98-107); Estimated Creatinine Clearance 30 ml/min; Glucose 137 mg/dl (70-99); Potassium 3.8 mmol/L (3.5-5.1); Sodium 133 mmol/L (135-145); Total Bilirubin 1.8 mg/dl (0.2-1.3); Total Protein 4.9 g/dl (6.3-8.2); eGFR 39.97
[2024-04-18 06:28] LABS: % Basophils 0.2 % (0-2); % Eosinophils 1.8 % (0-6); % Immature Granulocytes 1.4 % (0-0.5); % Lymphocytes 16.6 % (20.5-51.1); Absolute Eosinophils 0.1 10^3/uL (0-0.7); Absolute Immature Granulocytes 0.1 10^3/uL (0-0.05); Absolute Lymphocytes 0.9 10^3/uL (1.2-3.4); Absolute Monocytes 0.3 10^3/uL (0.1-0.6); Absolute Neutrophils 3.8 10^3/uL (1.4-6.5); Hematocrit 23.4 % (37.0-47.0); Hemoglobin 7.8 g/dL (12.0-16.0); Mean Corp Hgb Conc. 33.3 g/dL (33.0-37.0); Mean Corpuscular Hgb 31.8 pg (27.0-31.0); Mean Corpuscular Volume 95.5 fL (81.0-99.0); Nucleated Red Blood Cells % 0 %; Platelet Count 21 10^3/uL (130-400); Red Blood Cell Count 2.45 10^6/uL (4.20-5.40); Red Cell Dist. Width 21.3 % (11.5-14.5); Reticulocyte Count 13.4 % (0.4-2.8); White Blood Cell Count 5.1 10^3/uL (4.8-10.8)
[2024-04-18 06:33] LABS: LDH 1078 U/L (120-246)
[2024-04-18 07:41] LABS: Glucose - Point of Care 152 mg/dl (70-99)
[2024-04-18] MEDS: MIRALAX 17 GRAMS PO (08:36)
[2024-04-18] MEDS: PROTONIX 40 MG PO (08:36)
[2024-04-18] MEDS: SENOKOT-S 1 TABLET PO (08:36)
[2024-04-18] MEDS: NOVOLOG FLEXPEN 3 UNITS SC ×3 (08:37→18:22)
[2024-04-18] MEDS: NOVOLOG FLEXPEN-MODERATE RESISTANCE 1 UNITS SC ×2 (08:37→12:49)
--- NOTE | 2024-04-18 12:31 | W.PN.NEPH.PH ---
Addendum entered and electronically signed by Lois Wiley MD 04/18/24 15:06:
updated family Param on phone
Original Note:
Today's Communication / Plan
-
follow labs and UOP
Assessment/Plan
-
Impression:
MOIZ
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
Diabetes
Recurrent E. coli bacteremia
Pancytopenia
History of liver abscess with biliary reconstruction
Noted 4+ blood and 3+ albumin in urine consistent with microangiopathic hemolytic anemia
U PCR 22gm/gm of cr
Plan;
MOIZ-cr peak at 2.5 , HD initiated for hypervolemia on 04/15
UOP decreasing since admit, and monitor cr if increasing likely need HD
wt is improving with less edema
possible for atypical HUS as ADAMSTS 13 is 88%, low complements s/p Soliris 04/16
PLt improving, hb better post PRBC
LDH improving slowly -Heme follows , weekly dosing of Soliris
-monitor UOP closely , daily wts
-avoid nephrotoxins
low salt diet and FR
-
-
Date of Service: April 18, 2024
CC / HPI / ROS
-
Chief Complaint:
MOIZ
History of Present Illness:
HD started 04/15, cr peak 2.5
Anemia better at 7.8 post PRBC
PLT better at 21k
Eculizumab initiated for atypical HUS on 04/16
wt decreasing
Review of Systems:
no cp or sob
no n/v
feels well but decreased UOP
Labs
-
Labs:
WBC 5.1 10^3/uL (4.8-10.8) 04/18/24 05:55
RBC 2.45 10^6/uL (4.20-5.40) L 04/18/24 05:55
Hgb 7.8 g/dL (12.0-16.0) L 04/18/24 05:55
Hct 23.4 % (37.0-47.0) L 04/18/24 05:55
Plt Count 21 10^3/uL (130-400) L* D 04/18/24 05:55
Sodium 133 mmol/L (135-145) L 04/18/24 05:55
Potassium 3.8 mmol/L (3.5-5.1) 04/18/24 05:55
Chloride 99 mmol/L (98-107) 04/18/24 05:55
Carbon Dioxide 33 mmol/L (22-30) H 04/18/24 05:55
BUN 32 mg/dl (7-17) H 04/18/24 05:55
Creatinine 1.4 mg/dL (0.6-1.0) H 04/18/24 05:55
eGFR 39.97 04/18/24 05:55
Glucose 137 mg/dl (70-99) H 04/18/24 05:55
Calcium 7.5 mg/dl (8.4-10.2) L 04/18/24 05:55
Phosphorus 5.4 mg/dl (2.5-4.5) H 04/15/24 04:59
Albumin 2.6 g/dl (3.5-5.0) L 04/18/24 05:55
Physical Exam
-
Vital Signs:
Vital Signs
Temp Pulse Resp BP Pulse Ox
98.1 F 81 16 110/64 99
04/18/24 07:24 04/18/24 10:00 04/18/24 10:00 04/18/24 10:00 04/18/24 08:01
Cardiovascular:: Regular rate and rhythm
Respiratory:: Bilateral: CTA
Lung Excursion:: Normal
Abdomen:: Nontender and Soft
Extremity Edema:: None: Bilateral: (trace)
Leon Catheter: No
[2024-04-18 12:46] LABS: Glucose - Point of Care 166 mg/dl (70-99)
--- NOTE | 2024-04-18 13:44 | W.PN.HOSP.TC ---
Today's Communication/Plan
-
continue Soliris weekly
HD per Nephrology
follow daily labs
Assessment / Plan
Assessment / Plan
Abd U/S: No acute hepatobiliary abnormalities. Surgically absent gallbladder.
CT brain: No acute intracranial abnormality noted.
Acute atypical HUS:
-presented with pancytopenia with severe thrombocytopenia:
-case discussed at length with Pérez, pt diagnosed with TTP 04/10/24. [id number] activity is 88% on assay. Hematology has updated diagnosis to atypical HUS
-plasma exchange, steroids stopped
-Solaris given 04/16 - first dose. weekly dosing per Oncology
-this hospitalization has received 34 FFP, 3 PRBC and 1 platelets.
-continues to have no active bleeding at this time.
-Ellie NEG
-retic normal, LDH elevated, low haptoglobin
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
-Cr increased to 2.5 from 0.6; now down to 1.4 after initiation of acute HD 04/15
-continue fluid restriction
-cont tx of aHUS as above
Elevated LFTs:
-Patient has a history of elevated transaminases, current level similar to prior
-Bilirubin now elevated, large component of indirect bilirubin with concern for hemolysis, LDH 1412
-note h/o liver abscess with biliary reconstruction
-h/o cholecystectomy complicated by bile duct injury requiring hepatojejunostomy with chronic biliary drain and subsequent partial liver resection
-normal ERCP last month at [place] as per patient
-GI saw in c/s and signed off
Other problems:
h/o recurrent E coli bacteremia: afebrile and hemodynamically stable. BCxs NGTD.
DM2 with steroid induced hyperglycemia: accu-checks/diabetic diet. a1c 6.7%. continue Moderate SSI. Resume Aspart 3 units with meals, Lantus 8 units HS and titrate accordingly.
no DVT prophylaxis with platelets of 21
Code: Full
Anticipated Discharge: > 48 hours
Subjective/Interval History
-
Date of Service: April 18, 2024
resting comfortably
less SOB and less edema with HD
no HD today
plts 21
Objective Data
-
Labs:
Laboratory Results
04/18/24
05:55
WBC 5.1
Hgb 7.8 L
Hct 23.4 L
Plt Count 21 L* D
Sodium 133 L
Potassium 3.8
Chloride 99
Carbon Dioxide 33 H
BUN 32 H
Creatinine 1.4 H
Glucose 137 H
Calcium 7.5 L
Total Bilirubin 1.8 H
AST 48 H
ALT 35
Alkaline Phosphatase 180 H
Vital Signs:
Vital Signs
Temp Pulse Resp BP Pulse Ox
98.1 F 94 18 110/64 99
04/18/24 11:05 04/18/24 12:00 04/18/24 12:00 04/18/24 10:00 04/18/24 08:01
I&O
04/17/24 04/18/24 04/19/24
06:59 06:59 06:59
Intake Total 480 / 480 250 / 250
Output Total 400 / 400 650 / 650 150 / 150
Balance 80 / 80 -400 / -400 -150 / -150
Physical Exam
-
General: No Apparent Distress
HEENT: Normocephalic and Atraumatic
Respiratory: Decreased Breath Sounds; Negative Wheezes
Cardiac: Regular Rhythm and S1/S2
GI: Soft and Nontender
Musculoskeletal: Edema, Right Lower Extrem and Edema, Left Lower Extrem
Neuro: AO x 3
Hematologic / Lymphatic: No Lymphadenopathy
Psych: Calm
Data Reviewed
-
Total Time Spent with Patient (in minutes): 44
Labs: Labs Reviewed by me
--- NOTE | 2024-04-18 14:25 | PTCARENOTE ---
Pt's son visiting from [place]. Pt asking for doctor to speak with him. TT to , who asked for patient's name and phone number and it was provided via TT.
[2024-04-18 17:38] LABS: Glucose - Point of Care 212 mg/dl (70-99)
[2024-04-18] MEDS: NOVOLOG FLEXPEN-MODERATE RESISTANCE 3 UNITS SC (18:22)
[2024-04-18] MEDS: LANTUS 0.08 UNITS SC (20:51)
[2024-04-18 21:04] LABS: Glucose - Point of Care 164 mg/dl (70-99)
--- NOTE | 2024-04-18 23:41 | PTCARENOTE ---
Caring for pt overnight. aaox3, pleasant, denies pain. OOB as tolerated. R HD cath in place. BS 164 8U lantus given. VSS. No other issues at this time. Will monitor.
[2024-04-18 23:55] LABS: Glucose - Point of Care 139 mg/dl (70-99)
[2024-04-19] VITALS (11 sets, daily range): BP systolic 111–142; BP diastolic 62–102; BMI 26.8
[2024-04-19 06:04] LABS: Glucose - Point of Care 124 mg/dl (70-99)
[2024-04-19 06:11] LABS: % Basophils 0.2 % (0-2); % Eosinophils 1.6 % (0-6); % Immature Granulocytes 0.6 % (0-0.5); % Neutrophils 69.6 % (42.2-75.2); Absolute Eosinophils 0.1 10^3/uL (0-0.7); Absolute Monocytes 0.4 10^3/uL (0.1-0.6); Absolute Neutrophils 3.4 10^3/uL (1.4-6.5); Hematocrit 21.8 % (37.0-47.0); Hemoglobin 7.4 g/dL (12.0-16.0); Mean Corp Hgb Conc. 33.9 g/dL (33.0-37.0); Mean Corpuscular Hgb 32.5 pg (27.0-31.0); Mean Corpuscular Volume 95.6 fL (81.0-99.0); Nucleated Red Blood Cells % 0 %; Platelet Count 42 10^3/uL (130-400); Red Blood Cell Count 2.28 10^6/uL (4.20-5.40); Red Cell Dist. Width 21.1 % (11.5-14.5); Reticulocyte Count 12.8 % (0.4-2.8); White Blood Cell Count 4.9 10^3/uL (4.8-10.8)
[2024-04-19 06:34] LABS: ALT (SGPT) 35 U/L (0-35); AST (SGOT) 50 U/L (14-36); Albumin 2.6 g/dl (3.5-5.0); Alkaline Phosphatase 181 U/L (38-126); Blood Urea Nitrogen 47 mg/dl (7-17); Calcium 7.6 mg/dl (8.4-10.2); Carbon Dioxide 32 mmol/L (22-30); Chloride 101 mmol/L (98-107); Estimated Creatinine Clearance 31 ml/min; Glucose 109 mg/dl (70-99); Potassium 3.9 mmol/L (3.5-5.1); Sodium 134 mmol/L (135-145); Total Bilirubin 1.4 mg/dl (0.2-1.3); Total Protein 4.8 g/dl (6.3-8.2)
[2024-04-19 07:01] LABS: LDH 950 U/L (120-246)
[2024-04-19 07:30] LABS: Glucose - Point of Care 116 mg/dl (70-99)
[2024-04-19] MEDS: NOVOLOG FLEXPEN SC (08:40)
[2024-04-19] MEDS: NOVOLOG FLEXPEN-MODERATE RESISTANCE SC (08:41)
[2024-04-19] MEDS: PROTONIX 40 MG PO (08:41)
--- NOTE | 2024-04-19 08:43 | W.PN.NEPH.PH ---
Today's Communication / Plan
-
No dialysis today
Will evaluate daily
Assessment/Plan
-
Impression:
MOIZ
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
Diabetes
Recurrent E. coli bacteremia
Pancytopenia
History of liver abscess with biliary reconstruction
Noted 4+ blood and 3+ albumin in urine consistent with microangiopathic hemolytic anemia
U PCR 22gm/gm of cr
Plan;
MOIZ-cr peak at 2.5 , HD initiated for hypervolemia on 04/15
UOP 750cc
creatinine at 1.5 today with last HD on 04/17
will evaluate daily for HD requirement
wt is improving with less edema
possible for atypical HUS as ADAMSTS 13 is 88%, low complements s/p Soliris 04/16
PLt improving, hgb better post PRBC buyt now at 7.4
LDH improving slowly -Heme follows , weekly dosing of Soliris
-monitor UOP closely , daily wts
-avoid nephrotoxins
low salt diet and FR
-
-
Date of Service: April 19, 2024
CC / HPI / ROS
-
Chief Complaint:
MOIZ
History of Present Illness:
HD started 04/15, cr peak 2.5, at 1.5 today
Anemia at 7.4 post PRBC
PLT better at 42k
Eculizumab initiated for atypical HUS on 04/16
wt decreasing
Review of Systems:
no cp or sob
no n/v
Nonoliguric
Weight stable
Labs
-
Labs:
WBC 4.9 10^3/uL (4.8-10.8) 04/19/24 05:53
RBC 2.28 10^6/uL (4.20-5.40) L 04/19/24 05:53
Hgb 7.4 g/dL (12.0-16.0) L 04/19/24 05:53
Hct 21.8 % (37.0-47.0) L 04/19/24 05:53
Plt Count 42 10^3/uL (130-400) L D 04/19/24 05:53
Sodium 134 mmol/L (135-145) L 04/19/24 05:53
Potassium 3.9 mmol/L (3.5-5.1) 04/19/24 05:53
Chloride 101 mmol/L (98-107) 04/19/24 05:53
Carbon Dioxide 32 mmol/L (22-30) H 04/19/24 05:53
BUN 47 mg/dl (7-17) H 04/19/24 05:53
Creatinine 1.5 mg/dL (0.6-1.0) H 04/19/24 05:53
eGFR 36.80 04/19/24 05:53
Glucose 109 mg/dl (70-99) H 04/19/24 05:53
Calcium 7.6 mg/dl (8.4-10.2) L 04/19/24 05:53
Phosphorus 5.4 mg/dl (2.5-4.5) H 04/15/24 04:59
Albumin 2.6 g/dl (3.5-5.0) L 04/19/24 05:53
Physical Exam
-
Vital Signs:
Vital Signs
Temp Pulse Resp BP Pulse Ox
98.0 F 77 15 134/78 93
04/19/24 07:30 04/19/24 06:00 04/19/24 06:00 04/19/24 06:00 04/19/24 06:00
Cardiovascular:: Regular rate and rhythm
Respiratory:: Bilateral: CTA
Lung Excursion:: Normal
Abdomen:: Nontender and Soft
Extremity Edema:: None: Bilateral: (trace)
Leon Catheter: No
--- NOTE | 2024-04-19 08:51 | W.PN.HOSP.TC ---
Today's Communication/Plan
-
see A/P
Assessment / Plan
Assessment / Plan
A/P:
# Acute atypical HUS:
presented with pancytopenia with severe thrombocytopenia:
pt diagnosed with TTP 04/10/24. [id number] activity is 88% on assay. Hematology has updated diagnosis to atypical HUS.
plasma exchange, steroids stopped
Solaris given 04/16 - first dose. weekly dosing per Oncology
this hospitalization has received 34 FFP, 3 PRBC and 1 platelets.
Continues to have no active bleeding at this time.
Ellie NEG
retic normal, LDH elevated, low haptoglobin
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
Cr increased to 2.5 from 0.6
Initiated acute HD 04/15
continue fluid restriction
cont tx of aHUS as above
# Elevated LFTs
Patient has a history of elevated transaminases, current level similar to prior
Bilirubin elevated, large component of indirect bilirubin with concern for hemolysis, LDH 1412
noted h/o liver abscess with biliary reconstruction
h/o cholecystectomy complicated by bile duct injury requiring hepatojejunostomy with chronic biliary drain and subsequent partial liver resection
normal ERCP last month at [facility] as per patient
GI saw in c/s and signed off
Other problems:
# h/o recurrent E coli bacteremia: afebrile and hemodynamically stable. BCxs NGTD.
# DM2 with steroid induced hyperglycemia
accu-checks/diabetic diet.
a1c 6.7%.
continue SSI.
Pt requesting to stop Insulin AC, hold further Aspart, cover with ISS
decrease Lantus from 8 units to 5 units HS.
no DVT prophylaxis with low platelet count
Code: Full
DW RN
updated on the phone
Anticipated Discharge: > 48 hours
Subjective/Interval History
-
Date of Service: April 19, 2024
Objective Data
-
Labs:
Laboratory Results
04/19/24
05:53
WBC 4.9
Hgb 7.4 L
Hct 21.8 L
Plt Count 42 L D
Sodium 134 L
Potassium 3.9
Chloride 101
Carbon Dioxide 32 H
BUN 47 H
Creatinine 1.5 H
Glucose 109 H
Calcium 7.6 L
Total Bilirubin 1.4 H
AST 50 H
ALT 35
Alkaline Phosphatase 181 H
Vital Signs:
Vital Signs
Temp Pulse Resp BP Pulse Ox
36.7 C 77 15 134/78 93
04/19/24 07:30 04/19/24 06:00 04/19/24 06:00 04/19/24 06:00 04/19/24 06:00
I&O
04/18/24 04/19/24 04/20/24
06:59 06:59 06:59
Intake Total 250 / 250 1920 / 1920
Output Total 650 / 650 900 / 900
Balance -400 / -400 1020 / 1020
Review of Systems
-
All other systems: Reviewed and negative
Physical Exam
-
General: Well Developed, Well Nourished, No Apparent Distress, Comfortable and Conversant
HEENT: Normocephalic and Atraumatic
Respiratory: Non Labored Respirations and Decreased Breath Sounds; Negative Wheezes or Accessory Resp Muscle Use
Cardiac: Regular Rhythm and S1/S2
GI: Soft and Nontender
Neuro: Awake and Alert
Psych: Calm and Intact Judgement/Insight
Data Reviewed
-
Labs: Labs Reviewed by me and Discussed with Patient
--- NOTE | 2024-04-19 09:04 | PTCARENOTE ---
Patient stating that she feels her blood sugar is too low for her. Discussed with Dr. Dawson. Blood suage 116 before breakfast patient refused her pre meal insulin, MD aware.
[2024-04-19 12:21] LABS: Glucose - Point of Care 177 mg/dl (70-99)
[2024-04-19] MEDS: NOVOLOG FLEXPEN-MODERATE RESISTANCE 1 UNITS SC ×2 (12:50→17:36)
--- NOTE | 2024-04-19 13:08 | CM ---
Addendum entered by Wendi Escobedo RN 04/19/24 15:00:
Letter for patient re; hospital stay, drafted by & signed by Dr Dawson, and provided to patient's son Param.
Message from Dr Bautista; too early to say if patient will need outpatient HD.
CM continuing to follow for potential outpatient HD needs.
Plan follow up after seen by PT/OT.
Original Note:
Slovenian/Albanian speaking patient. Room air. No dialysis today.
Met with patient and her son Param, who lives in [place];
the patient says she experiences weakness with mobility, and is ambulating to the bathroom here with a RW and assistance.
Patient and son may be interested in hiring a caregiver for home, as works during the day - caregiver list provided.
Son asking for a Letter stating patient under treatment for Atypical HUS and will need weekly Soliris injections beyond date of airline travel 05/09- Dr Kaur agrees to provide letter with MD signature.
Message to Dr Dawson requesting PT/OT Evals.
Plan provide Letter re; Hospital Stay to son.
Plan follow up after seen by PT/OT.
[2024-04-19 17:44] LABS: Glucose - Point of Care 158 mg/dl (70-99)
--- NOTE | 2024-04-19 18:12 | W.PN.ONC2 ---
Today's Communication / Plan
-
Platelet showed significant improvement today with other labs moving in the right direction.
Soliris due 04/23, will give as outpt if D/C'd.
Impression
Impression
Atypical HUS - microcangiopathic hemolysis
Headache likely a mild neurologic manifestation.
Chronic hepatic transaminitis
MOIZ - now on HD
s/p meningococcal vaccine 04/14
Plan
Plan
s/p soliris, first dose 04/16/24. Anticipate weekly dosing (next hopefully as outpatient)
anticipate response/improvement in platelet count in 3-7 d
significant improvement in LDH and billirubin (from 04/16 to 04/17) already noted
HD per nephrology
for 1u PRBCs today
daily CBC/CMP
Subjective/Objective
Chief Complaint
Heme/Onc follow up of atypical HUS
Subjective
Pt is s/p Soliris, initiated 04/16. States persistent SHARIF, otherwise without complaint.
Vital Signs:
Vital Signs
Temp Pulse Resp BP Pulse Ox
99.3 F 93 17 116/70 96
04/19/24 15:25 04/19/24 17:38 04/19/24 17:38 04/19/24 17:38 04/19/24 17:40
Lab Results:
Laboratory Data
WBC 4.9 10^3/uL (4.8-10.8) 04/19/24 05:53
Hgb 7.4 g/dL (12.0-16.0) L 04/19/24 05:53
Plt Count 42 10^3/uL (130-400) L D 04/19/24 05:53
PT 13.5 Sec (11.4-14.6) 04/16/24 04:34
INR 0.98 04/16/24 04:34
APTT 29.3 Sec (23.4-35.0) 04/16/24 04:34
eGFR 36.80 04/19/24 05:53
Physical Exam
Awake, alert, non-toxic
Orders
Orders
Orders From Last 24 Hours
04/19/24 05:53
CBC/With Reticulocyte Count IN AM
LDH IN AM
[2024-04-19] MEDS: LANTUS 0.05 UNITS SC (21:53)
[2024-04-19] MEDS: TYLENOL 650 MG PO (21:53)
[2024-04-19 21:54] LABS: Glucose - Point of Care 169 mg/dl (70-99)
[2024-04-20] VITALS (16 sets, daily range): BP systolic 114–159; BP diastolic 63–109; PULSE 84; O2SAT 96; BMI 26.8
[2024-04-20 03:41] LABS: Glucose - Point of Care 145 mg/dl (70-99)
[2024-04-20 05:57] LABS: % Basophils 0.3 % (0-2); % Eosinophils 1.3 % (0-6); % Immature Granulocytes 0.5 % (0-0.5); % Lymphocytes 23.7 % (20.5-51.1); % Monocytes 9.9 % (1.7-9.3); % Neutrophils 64.3 % (42.2-75.2); Absolute Eosinophils 0.1 10^3/uL (0-0.7); Absolute Lymphocytes 0.9 10^3/uL (1.2-3.4); Absolute Monocytes 0.4 10^3/uL (0.1-0.6); Absolute Neutrophils 2.5 10^3/uL (1.4-6.5); Mean Corp Hgb Conc. 33.3 g/dL (33.0-37.0); Mean Corpuscular Hgb 32.3 pg (27.0-31.0); Mean Corpuscular Volume 96.8 fL (81.0-99.0); Nucleated Red Blood Cells % 0 %; Platelet Count 51 10^3/uL (130-400); Red Blood Cell Count 2.17 10^6/uL (4.20-5.40); Red Cell Dist. Width 20.6 % (11.5-14.5); White Blood Cell Count 3.9 10^3/uL (4.8-10.8)
[2024-04-20 06:17] LABS: Blood Urea Nitrogen 49 mg/dl (7-17); Calcium 7.8 mg/dl (8.4-10.2); Carbon Dioxide 30 mmol/L (22-30); Chloride 100 mmol/L (98-107); Estimated Creatinine Clearance 31 ml/min; Glucose 123 mg/dl (70-99); Magnesium 2.4 mg/dl (1.6-2.3); Potassium 3.5 mmol/L (3.5-5.1); Sodium 133 mmol/L (135-145)
[2024-04-20] MEDS: NOVOLOG FLEXPEN-MODERATE RESISTANCE SC (08:01)
[2024-04-20] MEDS: TYLENOL 650 MG PO ×2 (08:08→23:36)
[2024-04-20] MEDS: PROTONIX 40 MG PO (08:08)
[2024-04-20 08:13] LABS: Glucose - Point of Care 126 mg/dl (70-99)
[2024-04-20] MEDS: MIRALAX 17 GRAMS PO (08:14)
--- NOTE | 2024-04-20 09:06 | W.PN.HOSP.TC ---
Today's Communication/Plan
-
see A/P
Assessment / Plan
Assessment / Plan
A/P:
# Acute atypical HUS:
presented with pancytopenia with severe thrombocytopenia:
pt diagnosed with TTP 04/10/24. [id number] activity is 88% on assay. Hematology has updated diagnosis to atypical HUS.
plasma exchange, steroids stopped
Solaris given 04/16 first dose. Weekly dosing per Oncology.
Platelet improved to 51 today
this hospitalization has received 34 FFP, 3 PRBC and 1 platelets.
Transfuse additional PRBC today 04/20 for Hgb 7.0.
Continues to have no active bleeding at this time.
Ellie NEG
retic normal, LDH elevated, low haptoglobin
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
Cr peaked at 2.5 from baseline 0.6
Initiated acute HD 04/15
continue fluid restriction
cont tx of aHUS as above
# Elevated LFTs
Patient has a history of elevated transaminases, current level similar to prior
Bilirubin elevated, large component of indirect bilirubin with concern for hemolysis, LDH 1412
noted h/o liver abscess with biliary reconstruction
h/o cholecystectomy complicated by bile duct injury requiring hepatojejunostomy with chronic biliary drain and subsequent partial liver resection
normal ERCP last month at [facility] as per patient
GI saw in c/s and signed off
# headache
cont tylenol PRN
suspect headache related to poor sleep, start melatonin 5 mg HS
Other problems:
# h/o recurrent E coli bacteremia: afebrile and hemodynamically stable. BCxs NGTD.
# DM2 with steroid induced hyperglycemia
accu-checks/diabetic diet.
a1c 6.7%.
continue SSI.
Pt requested to stop AC Insulin, hold further Aspart AC, cover with ISS
decreased Lantus to 3 units HS.
no DVT prophylaxis with low platelet count
Code: Full
DW RN
DW [employer]
updated on the phone
Anticipated Discharge: > 48 hours
Subjective/Interval History
-
Date of Service: April 20, 2024
Objective Data
-
Labs:
Laboratory Results
04/20/24
05:33
WBC 3.9 L
Hgb 7.0 L
Hct 21.0 L
Plt Count 51 L D
Sodium 133 L
Potassium 3.5
Chloride 100
Carbon Dioxide 30
BUN 49 H
Creatinine 1.5 H
Glucose 123 H
Calcium 7.8 L
Vital Signs:
Vital Signs
Temp Pulse Resp BP Pulse Ox
36.6 C 75 15 114/65 98
04/20/24 07:43 04/20/24 06:00 04/20/24 06:00 04/20/24 02:00 04/19/24 22:39
I&O
04/19/24 04/20/24 04/21/24
06:59 06:59 06:59
Intake Total 1919 / 192
Output Total 900 / 900 1050 / 1050 250 / 250
Balance 1020 / 1020 -1050 / -1050 -250 / -250
Review of Systems
-
Neuro: Reports Headache (mild)
Physical Exam
-
General: Well Developed, Well Nourished, No Apparent Distress, Comfortable and Conversant
HEENT: Normocephalic and Atraumatic
Respiratory: Non Labored Respirations; Negative Wheezes or Accessory Resp Muscle Use
Cardiac: Regular Rhythm and S1/S2
GI: Soft and Nontender
Neuro: Awake and Alert
Psych: Calm and Intact Judgement/Insight
Data Reviewed
-
Labs: Labs Reviewed by me and Discussed with Patient
--- NOTE | 2024-04-20 09:24 | W.PN.ONC ---
Today's Communication / Plan
-
anticipate stable for d/c from heme standpoint in next day or so, awaiting insurance approval for outpatient Soliris dosing - dose #2 due on 04/23
Impression
Impression
Atypical HUS - microcangiopathic hemolysis s/p first dose of Soliris on 04/16
Headache likely a mild neurologic manifestation.
Chronic hepatic transaminitis
MOIZ - now on HD
s/p meningococcal vaccine 04/14
Plan
Plan
s/p soliris, first dose 04/16/24. Anticipate weekly dosing (next hopefully as outpatient). Our office is working on obtaining insurance authorization.
Platelet count is improving
for 1u PRBCs today, anticipate improvement in hemolytic anemia
HD per nephrology for hypervolemia; done 04/15, 04/16, 04/17
daily CBC/CMP
d/c planning
Subjective/Objective
Subjective/Objective
notes fatigue
Vital Signs:
Vital Signs
Temp Pulse Resp BP Pulse Ox
97.9 F 75 15 114/65 98
04/20/24 07:43 04/20/24 06:00 04/20/24 06:00 04/20/24 02:00 04/19/24 22:39
Lab Results:
Laboratory Data
WBC 3.9 10^3/uL (4.8-10.8) L 04/20/24 05:33
Hgb 7.0 g/dL (12.0-16.0) L 04/20/24 05:33
Plt Count 51 10^3/uL (130-400) L D 04/20/24 05:33
PT 13.5 Sec (11.4-14.6) 04/16/24 04:34
INR 0.98 04/16/24 04:34
APTT 29.3 Sec (23.4-35.0) 04/16/24 04:34
eGFR 36.80 04/20/24 05:33
[2024-04-20 09:41] LABS: ALT (SGPT) 35 U/L (0-35); AST (SGOT) 49 U/L (14-36); Albumin 2.6 g/dl (3.5-5.0); Alkaline Phosphatase 174 U/L (38-126); Direct Bilirubin 0.2 mg/dl (0.0-0.4); Total Bilirubin 1.1 mg/dl (0.2-1.3); Total Protein 4.8 g/dl (6.3-8.2)
--- NOTE | 2024-04-20 10:34 | PTCARENOTE ---
Patient currently working with PT.
--- NOTE | 2024-04-20 10:57 | W.PN.NEPH.PH ---
Today's Communication / Plan
-
Daily evaluation for dialysis
No dialysis for today
Anemia worsening
Platelet count improving
Assessment/Plan
-
Impression:
MOIZ
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
Diabetes
Recurrent E. coli bacteremia
Pancytopenia
History of liver abscess with biliary reconstruction
Noted 4+ blood and 3+ albumin in urine consistent with microangiopathic hemolytic anemia
U PCR 22gm/gm of cr
Plan;
MOIZ-cr peak at 2.5 , HD initiated for hypervolemia on 04/15,
UOP 1300c
creatinine at 1.5 today with last HD on 04/17
will evaluate daily for HD requirement, no need for today
wt is improving with less edema
Anemia persistent hemoglobin down to 7 platelet count rising to 50
atypical HUS as ADAMSTS 13 is 88%, low complements s/p Soliris 04/16
LDH improving slowly -Heme follows , weekly dosing of Soliris
-monitor UOP closely , daily wts
-avoid nephrotoxins
low salt diet and FR
-
-
Date of Service: April 20, 2024
CC / HPI / ROS
-
Chief Complaint:
MOIZ
History of Present Illness:
HD started 04/15, cr peak 2.5, at 1.5 today
Anemia at 7post PRBC
PLT better at 51k
Eculizumab initiated for atypical HUS on 04/16
Review of Systems:
no cp or sob
no n/v
Nonoliguric
Weight stable
Labs
-
Labs:
WBC 3.9 10^3/uL (4.8-10.8) L 04/20/24 05:33
RBC 2.17 10^6/uL (4.20-5.40) L 04/20/24 05:33
Hgb 7.0 g/dL (12.0-16.0) L 04/20/24 05:33
Hct 21.0 % (37.0-47.0) L 04/20/24 05:33
Plt Count 51 10^3/uL (130-400) L D 04/20/24 05:33
Sodium 133 mmol/L (135-145) L 04/20/24 05:33
Potassium 3.5 mmol/L (3.5-5.1) 04/20/24 05:33
Chloride 100 mmol/L (98-107) 04/20/24 05:33
Carbon Dioxide 30 mmol/L (22-30) 04/20/24 05:33
BUN 49 mg/dl (7-17) H 04/20/24 05:33
Creatinine 1.5 mg/dL (0.6-1.0) H 04/20/24 05:33
eGFR 36.80 04/20/24 05:33
Glucose 123 mg/dl (70-99) H 04/20/24 05:33
Calcium 7.8 mg/dl (8.4-10.2) L 04/20/24 05:33
Phosphorus 5.4 mg/dl (2.5-4.5) H 04/15/24 04:59
Albumin 2.6 g/dl (3.5-5.0) L 04/20/24 05:33
Physical Exam
-
Vital Signs:
Vital Signs
Temp Pulse Resp BP Pulse Ox
97.9 F 90 23 149/83 97
04/20/24 07:43 04/20/24 10:27 04/20/24 10:27 04/20/24 10:27 04/20/24 10:27
Cardiovascular:: Regular rate and rhythm
Respiratory:: Bilateral: CTA
Lung Excursion:: Normal
Abdomen:: Nontender and Soft
Extremity Edema:: None: Bilateral: (trace)
Leon Catheter: No
[2024-04-20] MEDS: KCL 40 MEQ PO (11:42)
[2024-04-20] MEDS: NOVOLOG FLEXPEN-MODERATE RESISTANCE 5 UNITS SC (12:32)
[2024-04-20 12:42] LABS: Glucose - Point of Care 254 mg/dl (70-99)
--- NOTE | 2024-04-20 15:51 | PTCARENOTE ---
1 unit of PRBCs infused. Pt reported no reaction during infusion. Pt did need a new IV site during infusion. IV pump kept reporting occlusion even though line was patent. No blood lost due to new line placement.
[2024-04-20] MEDS: NOVOLOG FLEXPEN-MODERATE RESISTANCE 1 UNITS SC (17:46)
[2024-04-20 17:56] LABS: Glucose - Point of Care 166 mg/dl (70-99)
[2024-04-20 21:32] LABS: Glucose - Point of Care 178 mg/dl (70-99)
[2024-04-20] MEDS: MELATONIN 5 MG PO (22:08)
[2024-04-20] MEDS: LANTUS 0.03 UNITS SC (22:09)
--- NOTE | 2024-04-20 23:01 | PTCARENOTE ---
caring for patient overnight. OOB as tolerated with rolling walker. BS 178 and 3 units of lantis given. Right IJ in place. Patient resting in bed with call jackson in reach.
[2024-04-21] VITALS: BP 134/79
[2024-04-21] MEDS: MELATONIN 5 MG PO (01:02)
[2024-04-21 02:00] VITALS: BP 147/81
[2024-04-21 03:18] VITALS: BMI 27.0
[2024-04-21 04:55] VITALS: BP 116/73
[2024-04-21 05:08] LABS: % Basophils 0.3 % (0-2); % Eosinophils 1.9 % (0-6); % Immature Granulocytes 0.3 % (0-0.5); % Lymphocytes 29.7 % (20.5-51.1); % Neutrophils 58.8 % (42.2-75.2); Absolute Eosinophils 0.1 10^3/uL (0-0.7); Absolute Lymphocytes 1.1 10^3/uL (1.2-3.4); Absolute Monocytes 0.3 10^3/uL (0.1-0.6); Absolute Neutrophils 2.2 10^3/uL (1.4-6.5); Hematocrit 24.8 % (37.0-47.0); Hemoglobin 8.1 g/dL (12.0-16.0); Mean Corp Hgb Conc. 32.7 g/dL (33.0-37.0); Mean Corpuscular Hgb 30.6 pg (27.0-31.0); Mean Corpuscular Volume 93.6 fL (81.0-99.0); Mean Platelet Volume 11.8 fL (7.4-10.4); Nucleated Red Blood Cells % 0 %; Platelet Count 74 10^3/uL (130-400); Red Blood Cell Count 2.65 10^6/uL (4.20-5.40); Red Cell Dist. Width 21.2 % (11.5-14.5); White Blood Cell Count 3.8 10^3/uL (4.8-10.8)
[2024-04-21 06:02] LABS: ALT (SGPT) 33 U/L (0-35); AST (SGOT) 41 U/L (14-36); Albumin 2.6 g/dl (3.5-5.0); Alkaline Phosphatase 179 U/L (38-126); Blood Urea Nitrogen 43 mg/dl (7-17); Calcium 7.8 mg/dl (8.4-10.2); Carbon Dioxide 28 mmol/L (22-30); Chloride 102 mmol/L (98-107); Direct Bilirubin 0.1 mg/dl (0.0-0.4); Estimated Creatinine Clearance 37 ml/min; Glucose 126 mg/dl (70-99); Magnesium 2.4 mg/dl (1.6-2.3); Sodium 133 mmol/L (135-145); Total Bilirubin 1.1 mg/dl (0.2-1.3); Total Protein 4.9 g/dl (6.3-8.2); eGFR 43.69
--- NOTE | 2024-04-21 08:02 | W.PN.HOSP.TC ---
Addendum entered and electronically signed by Aubrie Dawson MD 04/21/24 13:48:
total DC time 40 min
Original Note:
Today's Communication/Plan
-
Renal directing course of HD
Assessment / Plan
Assessment / Plan
A/P:
# Acute atypical HUS:
presented with pancytopenia with severe thrombocytopenia:
pt diagnosed with TTP 04/10/24. [id number] activity is 88% on assay. Hematology has updated diagnosis to atypical HUS.
plasma exchange, steroids stopped
Solaris given 04/16 first dose. Weekly dosing per Oncology.
Platelet improved to 74 today
this hospitalization has received 34 FFP, 4 PRBC and 1 platelets.
Hgb today at 8.1
Continues to have no active bleeding at this time.
Ellie NEG
retic normal, LDH elevated, low haptoglobin
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
Cr peaked at 2.5 from baseline 0.6
Initiated acute HD on 04/15
continue fluid restriction
cont tx of aHUS as above
Renal directing course of HD
# Elevated LFTs, improving
Patient has a history of elevated transaminases, current level similar to prior
Bilirubin elevated, large component of indirect bilirubin with concern for hemolysis, LDH 1412
noted h/o liver abscess with biliary reconstruction
h/o cholecystectomy complicated by bile duct injury requiring hepatojejunostomy with chronic biliary drain and subsequent partial liver resection
normal ERCP last month at [place] as per patient
GI saw in c/s and signed off
# headache, resolved
cont tylenol PRN
suspect headache related to poor sleep, started melatonin 5 mg HS
Other problems:
# h/o recurrent E coli bacteremia: afebrile and hemodynamically stable. BCxs NGTD.
# DM2 with steroid induced hyperglycemia
accu-checks/diabetic diet.
a1c 6.7%.
continue SSI.
Pt requested to stop AC Insulin, hold further Aspart AC, cover with ISS
decreased Lantus to 3 units HS.
no DVT prophylaxis with low platelet count
Code: Full
Offered to update family, pt says no need
Anticipated Discharge: 24 - 48 hours
Subjective/Interval History
-
Date of Service: April 21, 2024
Objective Data
-
Labs:
Laboratory Results
04/21/24
04:52
WBC 3.8 L
Hgb 8.1 L
Hct 24.8 L
Plt Count 74 L D
Sodium 133 L
Potassium 4.0
Chloride 102
Carbon Dioxide 28
BUN 43 H
Creatinine 1.3 H
Glucose 126 H
Calcium 7.8 L
Total Bilirubin 1.1
AST 41 H
ALT 33
Alkaline Phosphatase 179 H
Vital Signs:
Vital Signs
Temp Pulse Resp BP Pulse Ox
36.5 C 70 27 116/73 92
04/21/24 07:37 04/21/24 04:55 04/21/24 04:55 04/21/24 04:55 04/21/24 02:00
I&O
04/20/24 04/21/24 04/22/24
06:59 06:59 06:59
Intake Total 1210 / 1210
Output Total 1050 / 1050 700 / 700
Balance -1050 / -1050 510 / 510
Review of Systems
-
All other systems: Reviewed and negative
Physical Exam
-
General: Well Developed, Well Nourished, No Apparent Distress, Comfortable and Conversant
HEENT: Normocephalic and Atraumatic
Respiratory: Non Labored Respirations; Negative Wheezes or Accessory Resp Muscle Use
Cardiac: Regular Rhythm and S1/S2
GI: Soft and Nontender
Neuro: Awake and Alert
Psych: Calm and Intact Judgement/Insight
Data Reviewed
-
Labs: Labs Reviewed by me and Discussed with Patient
[2024-04-21] MEDS: PROTONIX 40 MG PO (08:28)
[2024-04-21] MEDS: NOVOLOG FLEXPEN-MODERATE RESISTANCE SC (08:35)
[2024-04-21 08:43] LABS: Glucose - Point of Care 137 mg/dl (70-99)
--- NOTE | 2024-04-21 09:00 | PTCARENOTE ---
Patient received from shift production associate. Patient resting comfortably in bed. AAO, VSS. No events noted over night. No complaints of pain at this time. Hgb stable this AM. No other tests scheduled for today. Possible D/C today. Call jackson in reach.
--- NOTE | 2024-04-21 09:56 | W.PN.NEPH.PH ---
Today's Communication / Plan
-
dc CVC
Assessment/Plan
-
Impression:
MOIZ
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
Diabetes
Recurrent E. coli bacteremia
Pancytopenia
History of liver abscess with biliary reconstruction
Noted 4+ blood and 3+ albumin in urine consistent with microangiopathic hemolytic anemia
U PCR 22gm/gm of cr
Plan;
MOIZ resolved
dc CVC
dc planning with OP solaris
-
-
Date of Service: April 21, 2024
CC / HPI / ROS
-
Chief Complaint:
MOIZ
History of Present Illness:
HD started 04/15, cr peak 2.5, down to 1.3
Anemia improving
PLT improving
Eculizumab initiated for atypical HUS on 04/16
Review of Systems:
no cp or sob
no n/v
Nonoliguric
Labs
-
Labs:
WBC 3.8 10^3/uL (4.8-10.8) L 04/21/24 04:52
RBC 2.65 10^6/uL (4.20-5.40) L 04/21/24 04:52
Hgb 8.1 g/dL (12.0-16.0) L 04/21/24 04:52
Hct 24.8 % (37.0-47.0) L 04/21/24 04:52
Plt Count 74 10^3/uL (130-400) L D 04/21/24 04:52
Sodium 133 mmol/L (135-145) L 04/21/24 04:52
Potassium 4.0 mmol/L (3.5-5.1) 04/21/24 04:52
Chloride 102 mmol/L (98-107) 04/21/24 04:52
Carbon Dioxide 28 mmol/L (22-30) 04/21/24 04:52
BUN 43 mg/dl (7-17) H 04/21/24 04:52
Creatinine 1.3 mg/dL (0.6-1.0) H 04/21/24 04:52
eGFR 43.69 04/21/24 04:52
Glucose 126 mg/dl (70-99) H 04/21/24 04:52
Calcium 7.8 mg/dl (8.4-10.2) L 04/21/24 04:52
Phosphorus 5.4 mg/dl (2.5-4.5) H 04/15/24 04:59
Albumin 2.6 g/dl (3.5-5.0) L 04/21/24 04:52
Physical Exam
-
Vital Signs:
Vital Signs
Temp Pulse Resp BP Pulse Ox
97.7 F 70 27 116/73 92
04/21/24 07:37 04/21/24 04:55 04/21/24 04:55 04/21/24 04:55 04/21/24 02:00
Cardiovascular:: Regular rate and rhythm
Respiratory:: Bilateral: Coarse
Lung Excursion:: Normal
Abdomen:: Nontender and Soft
Bowel Sounds:: Normal
Extremity Edema:: None: Bilateral:
--- NOTE | 2024-04-21 10:00 | W.PN.ONC2 ---
Today's Communication / Plan
-
s/p soliris, first dose 04/16/24. Anticipate weekly dosing next dose / in office with OV tomorrow 8:30 am to set up office chart.
OV with me 04/20 at 8:30 am
Soliris Tx 04/21 at 9:30 am - WE HAVE RECEIVED insurance authorization.
Platelet count is improving now up to 75,000!
HD to be D/C'd. Permacath removal.
Anticipate D/C home today.
Tried to call son with update.
Impression
Impression
Atypical HUS - microcangiopathic hemolysis s/p first dose of Soliris on 04/16
Headache likely a mild neurologic manifestation.
Chronic hepatic transaminitis
MOIZ - now on HD
s/p meningococcal vaccine 04/14
Plan
Plan
s/p soliris, first dose 04/16/24. Anticipate weekly dosing next dose 04/23 in office with OV tomorrow 8:30 am to set up office chart.
OV with me 04/20 at 8:30 am
Soliris Tx 04/21 at 9:30 am - WE HAVE RECEIVED insurance authorization.
Platelet count is improving now up to 75,000!
HD to be D/C'd. Permacath removal.
Anticipate D/C.
Tried to call son with update.
Subjective/Objective
Chief Complaint
ACS Heme ONC
Subjective
Feels weak. Occasional headache.
Vital Signs:
Vital Signs
Temp Pulse Resp BP Pulse Ox
97.7 F 70 27 116/73 92
04/21/24 07:37 04/21/24 04:55 04/21/24 04:55 04/21/24 04:55 04/21/24 02:00
Lab Results:
Laboratory Data
WBC 3.8 10^3/uL (4.8-10.8) L 04/21/24 04:52
Hgb 8.1 g/dL (12.0-16.0) L 04/21/24 04:52
Plt Count 74 10^3/uL (130-400) L D 04/21/24 04:52
PT 13.5 Sec (11.4-14.6) 04/16/24 04:34
INR 0.98 04/16/24 04:34
APTT 29.3 Sec (23.4-35.0) 04/16/24 04:34
eGFR 43.69 04/21/24 04:52
Physical Exam
Cardiology: S1 and S2
Pulmonary: Clear
GI: Soft
--- NOTE | 2024-04-21 11:55 | VNURNOTE ---
Home Health Liaison spoke with patient's son Param to discuss [facility] nurse/therapy, visits, schedule and homebound status. He is agreeable and understands that visits at home will be 2-3 x per week to assess and teach medical management. Does not
appear to have a skilled nurse need, however, [facility] can provide home PT and OT. Son in agreement. He is aware that [facility] will contact them for start of care in 1-2 days after discharge from . [facility] referral completed in [facility].
[2024-04-21 12:49] LABS: Glucose - Point of Care 213 mg/dl (70-99)
--- NOTE | 2024-04-21 13:30 | W.DCSUMMARY ---
Discharge Summary
Discharge Data
Date of Admission: 04/09/24
Date of Discharge: 04/21/24
-
Pending Results: No
Hospital Course
Principal Diagnosis:
Acute atypical hemolytic uremic syndrome (HUS)
Acute kidney injury (MOIZ) due to HUS
Elevated LFTs, improving
Chronic Diagnoses:�
History of recurrent E coli bacteremia
[id number]-vatcnxfes diabetes
History of liver abscess with biliary reconstruction
History of cholecystectomy complicated by bile duct injury requiring hepatojejunostomy with chronic biliary drain and subsequent partial liver resection
Consultations:�
Hematology
Nephrology
Procedures:�
Temporary HD line placement and removal
Clinical course:�
This is a 73-year-old female, with past medical history as stated above, who presented with orange-colored urine and was noted to be anemic with severe thrombocytopenia.
Problem 1:
Acute atypical HUS, presented with pancytopenia with severe thrombocytopenia.
She was initially diagnosed with TTP on 04/10/24, however her [id number] activity was noted at 88% on assay, hence Hematology updated diagnosis to atypical HUS.
She did receive plasma exchange and steroid, which were both stopped following the correction of diagnosis to HUS.
She received Solaris first dose on 04/16 first dose, she can continue weekly dosing outpatient with hematology.
Of note, she received a total of 34 FFP, 4 PRBC and 1 platelet transfusion during her admission.
Her hemoglobin was at 8.1 on the day of discharge. Her platelet count improved from 2 to 74.
Problem 2:
MOIZ due to HUS
Her Cr peaked at 2.5 from baseline 0.6.
She was started with HD on 04/15.
Her serum creatinine improved to 1.3.
She was observed without further dialysis for several days while in the hospital, and per nephrology, she does not require ongoing hemodialysis.
She can continue receive treatment for her atypical HUS as stated above.
Problem 3:
Elevated LFTs, improving.
Her bilirubin was elevated with significant indirect hyperbilirubinemia indicating likely ongoing hemolysis.
This was confirmed with high LDH at 1400.
Her AST and ALT have largely normalized, levels at 41 and 33 respectively on the day of discharge.
As for the rest of her medical problems, they were stable during her hospital stay.
Discharge Plan
-
Patient Disposition: Home with Home Care
Discharge Diagnosis/Procedures: Acute atypical Hemolytic Uremic Syndrome presented with pancytopenia with severe thrombocytopenia (counts improved following Solaris);
Initiated dialysis for acute kidney injury (dialysis stopped)
Condition: Fair
Diet: As tolerated
Activity: As tolerated
Driving Restrictions: Not until seen by your Dr
Blood Work: CBC and BMP with your corporation pilot
Activity Restrictions/Additional Instructions:
Follow up with Safety Coordinator on 04/22/24 at 8:30 am to set up Soliris infusion for Friday04/23/24 at 9:30 am.
Referrals:
Giuseppe Porras MD [Family Provider] - in less than 1 week
Isaac Matute MD [Active] - in one day
Prescriptions:
Continued
Janumet 50-500 mg Tablet
1 tab PO BID
cyanocobalamin (vitamin B-12) 1,000 mcg Tablet
1,000 mcg PO Q48H
ascorbic acid (vitamin C) [Vitamin C] 500 mg Tablet
500 mg PO DAILY
ursodiol 250 mg Tablet
250 mg PO BID
cholecalciferol (vitamin D3) [Vitamin D3] 25 mcg (1,000 unit) Tablet
25 mcg PO DAILY
Jardiance 25 mg Tablet
25 mg PO DAILY
Discontinued
ibuprofen [Advil] 200 mg Tablet
400 mg PO Q6HPRN PRN (Reason: mild pain )
Discharge Orders:
Discharge Patient (As Directed); Ordered 04/21/24
Ordered By: Aubrie Dawson
Discharge Date and Time
Print Language: ANDORRAN
[2024-04-21] MEDS: NOVOLOG FLEXPEN-MODERATE RESISTANCE 3 UNITS SC (13:47)
--- NOTE | 2024-04-21 14:47 | CM ---
PT/OT recommend outpatient therapy.
Met with patient and spoke with son Param by phone; patient says she spoke with her son and they both agree to d/c home today. IMM completed. Patient agreeable to [facility] for PT/OT and chooses [facility]. Patient says her will provide transport home
today.
Referral to [facility] Liaison.
Plan home today with [facility].
[2024-04-21] MEDS: FLUAD (65 yr+) 2024-2025 FORMULA 0.5 ML IM (16:06)
[2024-04-21 16:16] VITALS: BP 151/87
[2024-04-21 16:18] VITALS: BP 153/81
--- NOTE | 2024-04-21 18:36 | PTCARENOTE ---
Patient discharged to home. Patient left with via volunteer escort via wheel chair. Discharge instructions reviewed and all questions answered. Patient left with all known belongings.
== END 2024-04-21 16:55 | disposition home health service (06) | DRG 812 ==
LOC: IMU 13:05
PROVIDERS: Internal Medicine; Internal Medicine Hematology & Oncology; Nurse Practitioner; Nurse Practitioner Acute Care; Radiology Vascular & Interventional Radiology; Registered Nurse; ADMITTING PHYSICIAN Hospitalist; ATTENDING PHYSICIAN Internal Medicine; CONSULT PHYSICIAN Internal Medicine Gastroenterology; CONSULT PHYSICIAN Specialist; EMERGENCY PHYSICIAN Emergency Medicine; FAMILY PHYSICIAN Internal Medicine; OTHER PHYSICIAN Internal Medicine Hematology & Oncology
PROC: 6A551Z3 Pheresis of Plasma, Multiple (ICD-10-PCS; 2024-04-10)
PROC: B5181ZA Fluoroscopy of Superior Vena Cava using Low Osmolar Contrast, Guidance (ICD-10-PCS; 2024-04-10)
PROC: 02HV33Z Insertion of Infusion Device into Superior Vena Cava, Percutaneous Approach (ICD-10-PCS; 2024-04-10)
PROC: 30233R1 Transfusion of Nonautologous Platelets into Peripheral Vein, Percutaneous Approach (ICD-10-PCS; 2024-04-10)
PROC: 30233N1 Transfusion of Nonautologous Red Blood Cells into Peripheral Vein, Percutaneous Approach (ICD-10-PCS; 2024-04-13)
PROC: 3E0234Z Introduction of Serum, Toxoid and Vaccine into Muscle, Percutaneous Approach (ICD-10-PCS; 2024-04-14)
PROC: 30243N1 Transfusion of Nonautologous Red Blood Cells into Central Vein, Percutaneous Approach (ICD-10-PCS; 2024-04-15)
PROC: 5A1D70Z Performance of Urinary Filtration, Intermittent, Less than 6 Hours Per Day (ICD-10-PCS; 2024-04-15)
PROC: XW0 New Technology, Anatomical Regions, Introduction (ICD-10-PCS; 2024-04-16)
PROC: 3E02340 Introduction of Influenza Vaccine into Muscle, Percutaneous Approach (ICD-10-PCS; 2024-04-21)
PROC: 02PYX3Z Removal of Infusion Device from Great Vessel, External Approach (ICD-10-PCS; 2024-04-21)
DX: D59.39 Other hemolytic-uremic syndrome (principal); N17.9 Acute kidney failure, unspecified; D61.818 Other pancytopenia; R78.81 Bacteremia; K86.2 Cyst of pancreas; R30.9 Painful micturition, unspecified; D59.4 Other nonautoimmune hemolytic anemias; E11.649 Type 2 diabetes mellitus with hypoglycemia without coma; E78.00 Pure hypercholesterolemia, unspecified; R10.30 Lower abdominal pain, unspecified; B96.20 Unspecified Escherichia coli [E. coli] as the cause of diseases classified elsewhere; R79.89 Other specified abnormal findings of blood chemistry; R21 Rash and other nonspecific skin eruption; I83.812 Varicose veins of left lower extremity with pain; R74.01 Elevation of levels of liver transaminase levels; R80.9 Proteinuria, unspecified; E88.09 Other disorders of plasma-protein metabolism, not elsewhere classified; G47.00 Insomnia, unspecified; K74.60 Unspecified cirrhosis of liver; Z88.1 Allergy status to other antibiotic agents; Z88.0 Allergy status to penicillin; Z91.013 Allergy to seafood; Z79.84 Long term (current) use of oral hypoglycemic drugs; Z98.84 Bariatric surgery status; Z90.49 Acquired absence of other specified parts of digestive tract; Z23 Encounter for immunization
CPT/HCPCS: 36556; 70450; 71045; 76700; 76937; 77001; 80053; 81003; 81015; 82248; 82570; 82607; 82728; 82746; 82947; 82962; 83010; 83036; 83540; 83550; 83615; 83735; 84100; 84156; 84484; 85025; 85027; 85045; 85379; 85384; 85610; 85730; 86038; 86146; 86147; 86148; 86160; 86644; 86645; 86663; 86664; 86665; 86704; 86705; 86706; 86803; 86850; 86880; 86900; 86901; 86920; 86927; 87040; 87086; 87340; 87389; 90619; 90662; 96360; 97116; 97163; 97167; 99284; C1752; G0008; G0257; J1300; P9016; P9047; P9059; P9073

== ENCOUNTER → 2024-04-23 15:14 | Outpatient (REF) | payer MEDICARE, OTHER, SELFPAY ==
[2024-04-23 13:22] LABS: % Basophils 0.5 % (0-2); % Eosinophils 1.3 % (0-6); % Immature Granulocytes 0.3 % (0-0.5); % Lymphocytes 15.6 % (20.5-51.1); % Monocytes 7.5 % (1.7-9.3); % Neutrophils 74.8 % (42.2-75.2); Absolute Eosinophils 0.1 10^3/uL (0-0.7); Absolute Lymphocytes 0.6 10^3/uL (1.2-3.4); Absolute Monocytes 0.3 10^3/uL (0.1-0.6); Absolute Neutrophils 2.8 10^3/uL (1.4-6.5); Hematocrit 25.3 % (37.0-47.0); Hemoglobin 8.1 g/dL (12.0-16.0); Mean Corpuscular Hgb 31.5 pg (27.0-31.0); Mean Corpuscular Volume 98.4 fL (81.0-99.0); Mean Platelet Volume 12.1 fL (7.4-10.4); Nucleated Red Blood Cells % 0 %; Platelet Count 111 10^3/uL (130-400); Red Blood Cell Count 2.57 10^6/uL (4.20-5.40); White Blood Cell Count 3.7 10^3/uL (4.8-10.8)
[2024-04-23 13:32] LABS: Fibrinogen 357 MG/DL (199-459)
[2024-04-23 13:37] LABS: ALT (SGPT) 26 U/L (0-35); AST (SGOT) 28 U/L (14-36); Albumin 2.9 g/dl (3.5-5.0); Alkaline Phosphatase 179 U/L (38-126); Blood Urea Nitrogen 31 mg/dl (7-17); Carbon Dioxide 25 mmol/L (22-30); Chloride 104 mmol/L (98-107); Direct Bilirubin 0.2 mg/dl (0.0-0.4); Glucose 143 mg/dl (70-99); LDH 629 U/L (120-246); Potassium 4.3 mmol/L (3.5-5.1); Sodium 134 mmol/L (135-145); Total Bilirubin 0.8 mg/dl (0.2-1.3); Total Protein 5.2 g/dl (6.3-8.2); eGFR 48.09
[2024-04-23 14:35] LABS: PT 13.1 Sec (11.4-14.6)
[2024-04-23 14:39] LABS: INR 0.96
== END ==
LOC: OIDL 15:14
PROVIDERS: ATTENDING PHYSICIAN Internal Medicine Hematology & Oncology
DX: D59.39 Other hemolytic-uremic syndrome (principal); I48.0 Paroxysmal atrial fibrillation
CPT/HCPCS: 80053; 82248; 83615; 85025; 85384; 85610; 85730

== ENCOUNTER 2024-04-27 17:40 | Inpatient (IN) | payer MEDICARE, OTHER, SELFPAY ==
[2024-04-27] VITALS (11 sets, daily range): BP systolic 138–167; BP diastolic 78–92; BMI 27.0; BMI 25.4
--- NOTE | 2024-04-27 10:16 | ED.GENMED ---
History of Present Illness
General
Chief Complaint: Swelling
Source: patient
Exam Limitations: none
Time Seen by Provider: 04/27/24 10:06
Nursing documentation reviewed up to this point in time: agreed with
History of Present Illness
History of Present Illness:
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 Patient was just admitted April 09 and
discharged April 21 for anemia and severe thrombocytopenia/pancytopenia. 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 She did receive a plasma exchange and steroid. She required dialysis.
Patient presents here today with continued edema and shortness of breath. Patient reports normally her weight is 130 pounds however weight was 146 pounds today.
Her family doctor yesterday called her on Lasix 20 mg.
Past History
Past History
ED Past Medical History: Hypercholesterolemia, NIDDM and Other (Recurrent fevers of unknown origin, Bowel obstruction)
ED Past Surgical History: Cholecystectomy and Other (Kian-en-Y X 2, partial liver resection)
Patient has exhibited threatening behavior?: No
Social History
Tobacco: Non-smoker
Alcohol: None
Drug: None
Personal:
Living: with family
Employment: Employed
Family History
Family History: Other (Noncontributory)
Review of Systems
Review of Systems
Allergies reviewed?: Yes
All Other Systems: ROS reviewed and negative except as documented in HPI and ROS
Constitutional: Reports weight gain
EENT: Reports no symptoms
Respiratory: Reports trouble breathing
Cardiac: Reports no symptoms
ABD/GI: Reports no symptoms
Musculoskeletal: Reports other (+ l/e swelling )
Skin: Reports no symptoms
Neurological: Reports no symptoms
Psychiatric: Reports no symptoms
Phy Exam
General Physical Exam
General Presentation: no apparent distress
General age: appears stated age
General Skin: warm and dry
General Habitus: normal
General Mental: alert
General Hydration: appears well hydrated
Cardiovascular Exam
Cardiovascular Exam: regular rate/rhythm, no murmur and normal peripheral pulses
Pulmonary Exam
Pulmonary Exam: lungs clear and no respiratory distress
Musculoskeletal Exam
Musculoskeletal Exam: other (+ l/e swelling into abdomen )
Skin Exam
Skin Exam: normal color and warm/dry
Psychiatric Exam
Psychiatric Exam: normal mood/affect
Scores
Heart Failure Risk
Heart Failure Risk Score: Not Applicable
Course
Orders/Labs/Results
Orders:
Orders
04/27/24 10:21
Chest [CR Chest - 2 Views ] Urgent
Comment:
Reason For Exam: sob
04/27/24 11:11
Basic Metabolic Panel Urgent
Complete Blood Count/With Diff Urgent
Lipase Urgent
04/27/24 11:52
Urinalysis Reflex To Culture Urgent
Date Specimen was Collected: 04/27/24
Time Specimen was Collected: 11:48
Urine Microscopic Reflex Cult Urgent
04/27/24 12:17
Electrocardiogram (*1) Stat
Reason for Study: Other
Other Reason for Exam: chest pain
EKG- Treatment ONCE
04/27/24 12:40
NT-proBNP Urgent
Troponin I Urgent
Comment: ADD ON
04/27/24 14:40
Potassium Urgent
04/27/24 Dinner
Regular
At Your Request: Full Participation
04/27/24 16:09
Furosemide [Lasix] 40 mg IV NOW STA
04/27/24 17:19
Admit/Transfer Patient As Directed
Co-Sign Provider:
Level of Care: Inpatient admission
Assign to:: Medical/Surgical
Physician / Group: Fatoumata Champion
Diagnosis: Volume overload/HUS
Reason for Hospitalization: Volume overload/HUS
Expected length of stay greater than two midnights?: Yes
ELOS- Estimated Length of Stay in days: 3
I certify the patient meets the requirements for IP care: Yes
04/27/24 17:23
Code Status As Directed
Resuscitation Status: Full Code
04/27/24 19:38
Acetaminophen [Tylenol] 650 mg PO Q4HPRN PRN
Ascorbic Acid [Vitamin C] 500 mg PO DAILY
Bisacodyl [Dulcolax] 10 mg RECTAL [id number] PRN
Docusate W/Senna [Senokot-S] 1 tablet PO BIDPRN PRN
Enoxaparin Sodium [Lovenox] 40 mg SC QPM
Polyethylene Glycol Powder [Miralax] 17 grams PO DAILYPRN PRN
04/27/24 19:38
Add On- LAB Routine
Tests Added?: pro-BNP,TropI
Activity As Directed
Activity Level: As Tolerated
Vital Signs As Directed
Frequency: Per unit guidelines
DX Deep Vein Thrombosis Video Routine
04/27/24 20:00
Dapagliflozin [Farxiga] 10 mg PO DAILY
Ursodiol [Wilner] 250 mg PO BID
04/28/24 05:29
Complete Blood Count/With Diff IN AM
Comprehensive Metabolic Panel IN AM
Magnesium IN AM
04/28/24 06:00
CR Chest - 2 Views Routine
Comment:
Reason For Exam: shortness of breath
Abnormal Lab Results
04/27/24 04/27/24
11:11 11:52
WBC 3.5 L 10^3/uL
(4.8-10.8)
RBC 2.49 L 10^6/uL
(4.20-5.40)
Hgb 8.0 L g/dL
(12.0-16.0)
Hct 24.2 L %
(37.0-47.0)
MCH 32.1 H pg
(27.0-31.0)
RDW 18.8 H %
(11.5-14.5)
Plt Count 115 L 10^3/uL
(130-400)
Absolute Lymphs (auto) 0.7 L 10^3/uL
(1.2-3.4)
Immature Gran % 0.6 H %
(0-0.5)
Lymphocytes % 20.3 L %
(20.5-51.1)
BUN 22 H mg/dl
(7-17)
Glucose 115 H mg/dl
(70-99)
Ur Occult Blood Reflex 1+ A
(Negative)
Urine RBC 3-6 A /HPF
(0-2)
Urine Glucose 3+ A
(Negative)
Urine Albumin (Reflex) 1+ A
(Neg - Trace)
04/27/24 11:11
04/27/24 14:40
Vital Signs
Initial and Last Documented VS:
Initial Vital Signs
Temp Pulse Resp BP Pulse Ox
98.2 F 85 16 143/87 98
04/27/24 08:48 04/27/24 08:48 04/27/24 08:48 04/27/24 08:48 04/27/24 08:48
Last Documented Vital Signs
Temp Pulse Resp BP Pulse Ox
98.7 F 79 16 148/82 99
04/29/24 07:41 04/29/24 07:41 04/29/24 07:41 04/29/24 07:41 04/29/24 07:41
MDM/Problems Addressed
Differential Diagnosis Includes:
Not limited to CHF, renal failure
MDM/Problems Addressed:
Patient is a 73-year-old female who presents with lower extremity swelling and shortness of breath. As documented patient has a complicated significant history. Patient's creatinine is 0.9 today which is improved. During recent mission patient
was on dialysis. Her BNP however is elevated. Potassium is clotted will recheck however with shortness of breath and swelling with elevated BNP will admit for Lasix.
*Radiology
Radiology exam reviewed: radiology read reviewed
*Pulse Oximetry
Patient hypoxic: no
*Critical Care Note
Total Time (30-74mins, 75-104mins- exclusive of procedures): Not Applicable
ED Attending Note
-
Portions of this chart may have been created with voice recognition software.� Occasional wrong word or��sound alike� substitutions may have occurred due to the inherent limitations of voice recognition software.
Discharge Plan
Departure
Patient Disposition: Admit
Date of Disposition: 04/27/24
Time of Disposition: 14:09
Admit to: Telemetry
Admit to doctor: hospitalist
Presentation/result/management discussed w/ accepting MD/DO: Hospitalist
Patient with high blood pressure during this ER visit?: Yes
Condition: Fair
Covid-19: Not Applicable
Discharge Problem:
Congestive heart failure (CHF)
Interventions
Interventions:
*Risk Screen - Suicide Last Done: 04/27/24 08:48
*General Assessment Last Done: 04/27/24 08:48
*Neglect/Abuse Screening Last Done: 04/27/24 08:48
ED- Fall Risk Assessment Last Done: 04/27/24 11:45
*ED COVID-19 Vaccine History Last Done: 04/27/24 11:45
*Nursing Disposition Last Done: 04/27/24 19:33
ED- Cardiac Assessment Last Done: 04/27/24 11:45
ED- Pulmonary Assessment Last Done: 04/27/24 11:45
ED-Skin Assessment Last Done: 04/27/24 11:45
Discharge Date and Time
Discharge Date/Time: 04/27/24 19:33
[2024-04-27 11:18] LABS: % Basophils 0.6 % (0-2); % Eosinophils 1.4 % (0-6); % Immature Granulocytes 0.6 % (0-0.5); % Lymphocytes 20.3 % (20.5-51.1); % Monocytes 6.4 % (1.7-9.3); % Neutrophils 70.7 % (42.2-75.2); Absolute Eosinophils 0.1 10^3/uL (0-0.7); Absolute Lymphocytes 0.7 10^3/uL (1.2-3.4); Absolute Monocytes 0.2 10^3/uL (0.1-0.6); Absolute Neutrophils 2.4 10^3/uL (1.4-6.5); Hematocrit 24.2 % (37.0-47.0); Mean Corp Hgb Conc. 33.1 g/dL (33.0-37.0); Mean Corpuscular Hgb 32.1 pg (27.0-31.0); Mean Corpuscular Volume 97.2 fL (81.0-99.0); Mean Platelet Volume 10.2 fL (7.4-10.4); Nucleated Red Blood Cells % 0 %; Platelet Count 115 10^3/uL (130-400); Red Blood Cell Count 2.49 10^6/uL (4.20-5.40); Red Cell Dist. Width 18.8 % (11.5-14.5); White Blood Cell Count 3.5 10^3/uL (4.8-10.8)
[2024-04-27 11:56] LABS: Blood Urea Nitrogen 22 mg/dl (7-17); Calcium 8.4 mg/dl (8.4-10.2); Carbon Dioxide 23 mmol/L (22-30); Chloride 107 mmol/L (98-107); Glucose 115 mg/dl (70-99); Lipase 240 U/L (23-300); Sodium 137 mmol/L (135-145); eGFR > 60.00
[2024-04-27 12:05] LABS: Urine Albumin 1+ (Neg - Trace); Urine Bilirubin Negative (Negative); Urine Character Clear (Clear); Urine Color Yellow; Urine Glucose 3+ (Negative); Urine Ketone Negative (Negative); Urine Leukocyte Negative (Negative); Urine Nitrite Negative (Negative); Urine Occult Blood 1+ (Negative); Urine Specific Gravity 1.005 (<1.030); Urine Urobilinogen Negative (Neg - 1+)
[2024-04-27 12:18] LABS: Urine White Cell 0-2 /HPF (0-5)
[2024-04-27 12:19] LABS: Urine Urothelial Cell 0-2 /LPF (FEW)
[2024-04-27 13:23] LABS: NT-proBNP 2880 pg/ml
--- NOTE | 2024-04-27 15:15 | HPS.HSE ---
Addendum entered and electronically signed by Fatoumata Champion MD 04/27/24 18:12:
I personally performed a history and physical exam of the patient independently and discussed management with the resident. I reviewed the resident's note and agree with the documented findings and plan of care HPI/CC.
GENERAL: well developed, well nourished, female in no apparent distress
HEENT: NC/AT
HEART: regular rate and rhythm, +S1, +S2
LUNGS : crackles at bases bilaterally
ABDOM: soft, nontender, nondistended, + bowel sounds
EXT: no cyanosis, clubbing-- 2+ LE edema bilaterally
NEUROLOGIC: grossly intact
Shortness of breath -- likely due to volume overload, less likely PE, pro BNP 2880, CXR with bilateral pleural effusions--agree with IV diuresis (40 mg IV BID)--daily weights, I/Os--check ECHO, EKG without acute issues--check troponin--for
completeness will check CT to r/o PE
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
April 23, 2024--Next dose is due on April 30, 2024
History of pancytopenia during her previous admission-currently her labs show a stable hemoglobin and a platelet count of 115
History of recurrent E. coli bacteremia
Rmv-alkucms-zvfegonsh diabetes mellitus--on Janumet 50-500and Jardiance 25 mg daily, diabetic diet, daily Accu-Cheks
DVT prophylaxis--enoxaparin
CODE STATUS--full code
Original Note:
Family Physician
-
Family Physician: Giuseppe Porras MD
Chief Complaint
-
Generalized edema and shortness of breath
History of Present Illness
Patient is a 73-year-old female with past medical history of TTP with [id number] 88%/atypical HUS/recurrent E. coli bacteremia who was recently discharged from the hospital after 11 days of stay for pancytopenia and orange discoloration of urine.
Based on her hemolysis, low platelet count and MOIZ she was eventually diagnosed with TTP/atypical HUS and had hemodialysis for her fluid overload. She received plasma exchange and Decadron pulse, she did not require any further dialysis and was
started on Solaris. She has received 2 doses and her next dose is due on April 30, 2024.
She states that since her discharge she gradually developed shortness of breath, she was unable to lie down in her bed and had to prop up her head and sometimes even her legs to help her become comfortable .she also noticed body swelling and she
gained about 20 pounds in 1 week. She says that due to her medications Alaris she was told to keep an eye on her urine output and weight and that is how she noticed that she was getting heavier. She brought it to the attention of her faculty member
and initially it was thought due to her steroid treatment and prior week but according to her baseline weight is 130 pounds, she weighed herself yesterday and it was 150 pounds, she called her primary care physician who advised her to take 20 mg of
Lasix which helped her become comfortable and today her weight is 146 pounds. She says that in addition to the shortness of breath she has mild headache but it is diffuse and she thinks it is because of being restless. He had a CT scan of head
done on April 10, 2024 for similar complaints that was unremarkable. She feels tired and weak.
She denies any fever, chest pain, pain in lower extremities, nausea, vomiting, diarrhea, bleeding, palpitations, apprehension, constipation or any other issues. She had her meal few minutes ago she feels fine.
Medical History
Past Medical History
Past Medical History: Reports Hypercholesterolemia, NIDDM and Other (Atypical hemolytic uremic syndrome, TTP, chronically elevated LFTs, recurrent E. coli bacteremia)
Past Surgical History: Reports Cholecystectomy and Other (Cholecystectomy leading to bile duct injury resulting in chronic biliary drain for 6 to 7 years with eventual partial liver resection in 2019,)
Social History
Tobacco: Non-smoker
Alcohol: None
Drug: None
Personal:
Living: With Family (With her )
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
Family History
Family History: Not pertinent
Allergies / Home Medications
Allergies reflects when Allergies were last updated in [facility].
Home Medications with original date entered in [facility]
Allergy/Medication List:
Allergies
Allergy/AdvReac Type Severity Reaction Status Date / Time
piperacillin [From Zosyn] Allergy Itchy Verified 04/27/24 08:46
shrimp Allergy Rash Verified 04/27/24 08:46
tazobactam [From Zosyn] Allergy Itchy Verified 04/27/24 08:46
Home Medications
sitagliptin phosphate 50 mg-metformin 500 mg tablet (Janumet) 1 tab PO BID Diabetes 11/17/22
ascorbic acid (vitamin C) 500 mg tablet (Vitamin C) 500 mg PO DAILY Supplement 04/09/24
empagliflozin 25 mg tablet (Jardiance) 25 mg PO DAILY Diabetes 04/09/24
ursodiol 250 mg tablet 250 mg PO BID Gastrointestinal Issue 04/09/24
furosemide 20 mg tablet (Lasix) 20 mg PO DAILY 04/27/24
Review of Systems
-
A 12 point ROS was completed and negative except as noted: Yes
Physical Exam
Vital Signs
Vital Signs
Temp Pulse Resp BP Pulse Ox
98.2 F 81 26 138/84 97
04/27/24 08:48 04/27/24 14:30 04/27/24 14:30 04/27/24 14:00 04/27/24 11:45
Physical Exam
General: Well Developed, Well Nourished, Comfortable, Conversant and Other (Generalized body swelling)
HEENT: Anicteric and Moist mucous membranes
Respiratory: Clear and Crackles (Crackles auscultated more on right side of the chest)
Cardiac: S1/S2, Regular Rhythm and JVD
GI: Soft, Non Tender and Normal Bowel Sounds
Musculoskeletal: Other (Bilateral mild pedal edema)
Skin: Warm and Dry
Neuro: Awake, Alert, Oriented and No Motor Deficits
Psych: Calm and Other (Pleasant and cooperative)
Laboratory Results
-
04/27/24 11:11
Laboratory Results
Total Bilirubin Cancelled 04/27/24 11:11
AST Cancelled 04/27/24 11:11
ALT Cancelled 04/27/24 11:11
Alkaline Phosphatase Cancelled 04/27/24 11:11
Lipase 240 U/L (23-300) 04/27/24 11:11
Impression/Plan
-
IMPRESSION:
Patient is a 73-year-old female with past medical history of atypical hemolytic uremic syndrome, TTP, recurrent E. coli bacteremia, recently discharged from hospital on April 21, 2024 with diagnosis of atypical hemolytic uremic syndrome and TTP
due to [id number] activity 88%. She had 3 hemodialysis as per the patient during her stay in the hospital for volume overload. She was pulsed with Decadron for her pancytopenia and was discharged on Solaris. She has received 2 doses of Solaris.
Her next dose is due on April 30, 2024. She follows up with Dr. Tee Alvarado and Dr. Benjamin Soriano at [facility].
Currently complains of shortness of breath and generalized body edema
Weight gain-improved by 2 to 3 pound with a single dose of oral Lasix 20 mg at home
Mild headache-CT scan done on April 10, 2024 was normal
Echocardiography-done in December, within normal limits
ASSESSMENT/PLAN
1.Shortness of breath secondary to volume overload?
Patient has signs and symptoms consistent with volume overload secondary to her atypical hemolytic uremic syndrome
Evaluate patient for shortness of breath secondary to cardiac causes, pulmonary embolism and respiratory issues
Patient had an echocardiography done on December 18, 2023 that was within normal limits
And EKG done in the ER showed normal sinus rhythm, low voltage, no acute changes
Do a troponin and proBNP to rule out any cardiac event/effusion?
Do a CT chest to evaluate pulmonary embolism as cause of shortness of breath
Chest x-ray to look for any infiltrates/consolidations
Patient responded to Lasix, give 40 mg IV Lasix twice daily
2. Atypical hemolytic uremic syndrome/TTP
Patient was diagnosed with atypical hemolytic uremic syndrome and TTP on her last admission
She received plasma exchange and steroids
Required 1 hemodialysis session
Currently on Solaris for treatment of atypical hemolytic uremic syndrome
Received 2 doses, last dose received on Friday, April 23, 2024
Next dose is due on April 30, 2024
OTHER MEDICAL CONDITIONS
History of pancytopenia during her previous admission-currently her labs show a stable hemoglobin and a platelet count of 115
History of recurrent E. coli bacteremia
Rlz-xusablq-hjybkbtwh diabetes mellitus-on Janumet 50-500and Jardiance 25 mg daily, diabetic diet, daily Accu-Cheks
DVT prophylaxis-enoxaparin
CODE STATUS-full code
[2024-04-27 15:16] LABS: Potassium 4.3 mmol/L (3.5-5.1)
[2024-04-27] MEDS: LASIX 40 MG IV (16:40)
--- NOTE | 2024-04-27 17:45 | CM ---
Addendum entered by Marcella Paez 04/27/24 17:50:
update patient was discharged home with VN. CM will update liaison.
Original Note:
Patient seen in ED with physician. Patient confirmed that she has no changes from last admission and that she lives with her spouse in a one story home, no steps to enter, patient is independent with adl's and ambulation, patient states she does not
drive. Patient PCP is Dr. Porras and she uses the [facility] in [place]. CM will continue to follow for discharge planning needs.
Plan; Home with spouse watch for home with VN
[2024-04-27 20:29] LABS: Troponin I < 0.012 ng/ml
[2024-04-27] MEDS: LOVENOX 40 MG SC (20:50)
[2024-04-27] MEDS: URSO 250 MG PO (20:50)
[2024-04-27] MEDS: VITAMIN C 500 MG PO (20:52)
[2024-04-27] MEDS: JANUVIA 50 MG PO (20:52)
[2024-04-27] MEDS: GLUCOPHAGE 500 MG PO (20:56)
[2024-04-27] MEDS: FARXIGA PO (21:01)
[2024-04-27] MEDS: TYLENOL 650 MG PO (21:05)
[2024-04-27 21:51] LABS: Glucose - Point of Care 218 mg/dl (70-99)
[2024-04-28 06:07] LABS: % Basophils 0.9 % (0-2); % Eosinophils 2.8 % (0-6); % Immature Granulocytes 0.3 % (0-0.5); % Lymphocytes 25.4 % (20.5-51.1); % Monocytes 8.3 % (1.7-9.3); % Neutrophils 62.3 % (42.2-75.2); Absolute Eosinophils 0.1 10^3/uL (0-0.7); Absolute Lymphocytes 0.9 10^3/uL (1.2-3.4); Absolute Monocytes 0.3 10^3/uL (0.1-0.6); Absolute Neutrophils 2.2 10^3/uL (1.4-6.5); Hematocrit 23.2 % (37.0-47.0); Hemoglobin 7.7 g/dL (12.0-16.0); Mean Corp Hgb Conc. 33.2 g/dL (33.0-37.0); Mean Corpuscular Volume 96.3 fL (81.0-99.0); Mean Platelet Volume 11.4 fL (7.4-10.4); Nucleated Red Blood Cells % 0 %; Platelet Count 116 10^3/uL (130-400); Red Blood Cell Count 2.41 10^6/uL (4.20-5.40); Red Cell Dist. Width 18.5 % (11.5-14.5); White Blood Cell Count 3.5 10^3/uL (4.8-10.8)
[2024-04-28 06:36] LABS: ALT (SGPT) 15 U/L (0-35); AST (SGOT) 21 U/L (14-36); Alkaline Phosphatase 133 U/L (38-126); Blood Urea Nitrogen 21 mg/dl (7-17); Calcium 8.5 mg/dl (8.4-10.2); Carbon Dioxide 25 mmol/L (22-30); Chloride 107 mmol/L (98-107); Estimated Creatinine Clearance 42 ml/min; Glucose 101 mg/dl (70-99); Magnesium 2.1 mg/dl (1.6-2.3); Potassium 3.5 mmol/L (3.5-5.1); Sodium 138 mmol/L (135-145); Total Bilirubin 0.4 mg/dl (0.2-1.3); Total Protein 5.4 g/dl (6.3-8.2); eGFR 59.86
[2024-04-28 07:36] VITALS: BP 138/83
--- NOTE | 2024-04-28 07:36 | W.PN.HOSP.TC ---
Addendum entered and electronically signed by Fatoumata Champion MD 04/28/24 13:31:
I saw and evaluated the patient independently. I reviewed the resident�s note and agree with findings and plan as documented by Dr. Jeffries.
GENERAL: well developed, well nourished, female in no apparent distress
HEENT: NC/AT
HEART: regular rate and rhythm, +S1, +S2
LUNGS : crackles at bases bilaterally
ABDOM: soft, nontender, nondistended, + bowel sounds
EXT: no cyanosis, clubbing-- 2+ LE edema bilaterally
NEUROLOGIC: grossly intact
Shortness of breath -- likely due to volume overload, less likely PE, pro BNP 2880, CXR with bilateral pleural effusions--agree with IV diuresis (40 mg IV BID)--daily weights, I/Os-- EKG without acute issues, last echo done in December 2023-- troponin
< 0.012--for completeness will check CT chest--pending--will consult cards at pt request
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
April 23, 2024--Next dose is due on April 30, 2024
History of pancytopenia during her previous admission-currently her labs show a stable hemoglobin and a platelet count of 115
History of recurrent E. coli bacteremia
Xcx-oesjuvg-bxvrkeokv diabetes mellitus--on Janumet 50-500and Jardiance 25 mg daily, diabetic diet, daily Accu-Cheks
DVT prophylaxis--enoxaparin
CODE STATUS--full code
Original Note:
Today's Communication/Plan
-
Continue diuresis with IV Lasix
Daily weights and input output monitoring
Consult cardiology on patient's request
Assessment / Plan
Assessment / Plan
Impression
Patient is a 73-year-old female with past medical history of atypical hemolytic uremic syndrome, TTP, recurrent E. coli bacteremia, past history of pancytopenia, currently being treated for atypical hemolytic uremic syndrome with Solaris. She
received 2 doses, last dose was on April 23, 2024 and her next dose is due on April 30, 2024
Admitted with complaints of shortness of breath and generalized body edema
Appears to be in volume overload, less likely PE versus cardiac causes
Assessment/plan
1. Shortness of breath secondary to volume overload
Patient has signs and symptoms consistent with volume overload
Troponin I less than 0.1, proBNP 2880, chest x-ray shows bilateral pleural effusion
CT chest pending to evaluate for pulmonary embolism which is less likely
Continue IV Lasix 40mg twice daily for 24hrs and then try to reduce dose tomorrow
Daily intake and output record on
Daily weight checks
Patient requested an Echocardiography,last one was done in December 2023 by Breonna Darden,placed a consult on patient's request
2. Atypical hemolytic uremic syndrome/TTP
Currently follows up with [facility]
Received 2 doses of Solaris
Next dose due on April 30, 2024
Other medical conditions
History of pancytopenia-currently blood counts are stable
History of recurrent E. coli bacteremia
Dtf-zyzcvqb-orpzcmqsf diabetes mellitus-currently on Janumet 50-500 twice daily and Jardiance 25 mg daily
DVT prophylaxis-enoxaparin
CODE STATUS full code
Anticipated Discharge: 24 - 48 hours
Subjective/Interval History
-
Date of Service: April 28, 2024
Patient feels better but still has shortness of breath and swelling
Objective Data
-
Labs:
Laboratory Results
04/28/24
05:29
WBC 3.5 L
Hgb 7.7 L
Hct 23.2 L
Plt Count 116 L
Sodium 138
Potassium 3.5
Chloride 107
Carbon Dioxide 25
BUN 21 H
Creatinine 1.0
Glucose 101 H
Calcium 8.5
Total Bilirubin 0.4
AST 21
ALT 15
Alkaline Phosphatase 133 H
Vital Signs:
Vital Signs
Temp Pulse Resp BP Pulse Ox
97.7 F 83 16 159/92 96
04/27/24 23:00 04/27/24 23:00 04/27/24 23:00 04/27/24 23:00 04/27/24 23:00
I&O
04/27/24 04/28/24 04/29/24
06:59 06:59 06:59
Intake Total 280 / 280
Output Total 1300 / 1300
Balance -1020 / -1020
Review of Systems
-
All other systems: Reviewed and negative
Physical Exam
-
General: Well Developed, Well Nourished and No Apparent Distress
HEENT: Normocephalic and Atraumatic
Respiratory: Clear to Auscultation, Crackles (Present bilaterally at base of lungs) and Other
Cardiac: Regular Rhythm and S1/S2
GI: Soft, Nontender and Normal Bowel Sounds
Musculoskeletal: Other (Generalized body edema including arms legs face)
Skin: Warm and Dry
Neuro: Awake, Oriented and No Motor Deficits
Psych: Calm and Other (Pleasant and cooperative)
[2024-04-28 08:40] LABS: Glucose - Point of Care 129 mg/dl (70-99)
[2024-04-28] MEDS: GLUCOPHAGE 500 MG PO (09:30)
[2024-04-28] MEDS: JANUVIA 50 MG PO ×2 (09:30→16:30)
[2024-04-28] MEDS: FARXIGA 10 MG PO (09:30)
[2024-04-28] MEDS: URSO 250 MG PO ×2 (09:30→20:06)
[2024-04-28] MEDS: LASIX 40 MG IV ×2 (09:31→16:30)
[2024-04-28] MEDS: VITAMIN C 500 MG PO (09:33)
[2024-04-28 11:47] LABS: Glucose - Point of Care 203 mg/dl (70-99)
--- NOTE | 2024-04-28 13:24 | CM ---
Patient seen at bedside with physicians. Patient possible for discharge tomorrow pending further medical assessments. CM provided IMM and signed form placed on chart. CM will continue to follow for discharge planning needs.
Plan; home with no needs vs home with VN; watch for needs.
[2024-04-28 14:50] VITALS: BP 142/79
--- NOTE | 2024-04-28 15:07 | CON.CAR ---
Consultation
Consultation Request
Date/Time Consultation Requested: 04/28/24
Date/Time Consultation Performed: 04/28/24
Requesting Provider: Dr. Champion
Performing Provider: Dr. Ravi
Reason for Consultation: Acute HF
Medical History
-
History of Present Illness:
Patient presented to yesterday with increased edema and SOB and was admitted with acute HF with a consultation to cardiology. 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
to the HUS requiring transient dialysis. Patient also has a history of recurrent E. coli bacteremia and for this she had a TTE on 01/05/2024 that showed a preserved EF. During her admission 2 weeks ago she was diagnosed with TTP on 04/10/2024 and
had plasma exchange and steroid and was then started on Solaris. She received a total of 34 units of FFP, 4 units PRBCs and a platelet transfusion during that admission. Nephrology saw her for MOIZ and she required transient HD, but the CVC was
able to be removed prior to discharge and her creatinine was improved to 1.3. Patient has been taking Lasix 20 mg daily since discharge. Interestingly the patient's weight last admission was 158 lb and on day of discharge was 152 lbs. Patient's
weight today is 143 lbs, but she has profound edema and small bilateral pleural effusions on CXR. The hospitalist service has been diuresing patient with Lasix 40 mg IV twice daily and patient and family requested cardiology consultation.
PMH:
Recent admission for HUS, TTP and transient HD 04/09/24 until 04/21/24
h/o atypical hemolytic uremic syndrome/TTP
h/o pancytopenia
h/o E. coli bacteremia
DM 2
Past Medical History
Past Medical History: Other (in HPI)
Past Surgical History: Cholecystectomy and Other (liver resection)
Social History
Tobacco: Non-Smoker
Alcohol: None
Drug: None
Personal:
Family History
Family History: Reviewed & Not Pertinent
Allergies / Home Medications
Allergy/AdvReac Type Severity Reaction Status Date / Time
piperacillin [From Zosyn] Allergy Itchy Verified 04/27/24 08:46
shrimp Allergy Rash Verified 04/27/24 08:46
tazobactam [From Zosyn] Allergy Itchy Verified 04/27/24 08:46
�Medication �Instructions �Recorded �Confirmed �Type
sitagliptin phosphate 50 1 tab PO BID Diabetes 11/17/22 04/27/24 History
mg-metformin 500 mg tablet
(Janumet)
ascorbic acid (vitamin C) 500 mg 500 mg PO DAILY Supplement 04/09/24 04/27/24 History
tablet (Vitamin C)
empagliflozin 25 mg tablet 25 mg PO DAILY Diabetes 04/09/24 04/27/24 History
(Jardiance)
ursodiol 250 mg tablet 250 mg PO BID Gastrointestinal 04/09/24 04/27/24 History
Issue
furosemide 20 mg tablet (Lasix) 20 mg PO DAILY Fluid 04/27/24 04/27/24 History
Retention/Swelling
Review of Systems
-
History Source: Patient
All other systems: Negative unless noted
Physical Exam
Vital Signs
Temp Pulse Resp BP Pulse Ox
98.0 F 76 16 142/79 97
04/28/24 14:50 04/28/24 14:50 04/28/24 14:50 04/28/24 14:50 04/28/24 14:50
GEN: NAD.
HEENT: EOMI
LUNGS: RA. Bibasilar rales
CV: SR on tele. Reg, S1/S2, 05/17 syst LSB
ABD: soft, BS+, NT, ND
EXT: +2-3 pitting B/L edema.
NEURO: Gross non-focal
SKIN: No rash
Lab Results
04/28/24 05:29
12/18/24 05:29
Troponin I < 0.012 ng/ml 04/27/24 12:40
Iqr-L-Rxbvnkurvyu Pept 2880 pg/ml 04/27/24 12:40
Impression / Plan
-
PCP: Giuseppe Porras
Cardiology: None
Impression:
Admitted with SOB and CHF 04/27/24
Acute HFpEF
Recent admission for HUS, TTP and transient HD 04/09/24 until 04/21/24
h/o atypical hemolytic uremic syndrome/TTP
h/o pancytopenia
h/o E. coli bacteremia
DM 2
Echo 01/05/2024: EF 65%, normal diastolic function, trace MR, trace aortic regurgitation, no evidence of vegetations
Plan:
-Patient presented to yesterday with increased edema and SOB and was admitted with acute HF with a consultation to cardiology. 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
to the HUS requiring transient dialysis. Patient also has a history of recurrent E. coli bacteremia and for this she had a TTE on 01/05/2024 that showed a preserved EF. During her admission 2 weeks ago she was diagnosed with TTP on 04/10/2024 and
had plasma exchange and steroid and was then started on Solaris. She received a total of 34 units of FFP, 4 units PRBCs and a platelet transfusion during that admission. Nephrology saw her for MOIZ and she required transient HD, but the CVC was
able to be removed prior to discharge and her creatinine was improved to 1.3. Patient has been taking Lasix 20 mg daily since discharge. Interestingly the patient's weight last admission was 158 lb and on day of discharge was 152 lbs. Patient's
weight today is 143 lbs, but she has profound edema and small bilateral pleural effusions on CXR. The hospitalist service has been diuresing patient with Lasix 40 mg IV twice daily and patient and family requested cardiology consultation.
-ECG reviewed by me shows SR without acute ischemic changes.
-proBNP 2880 and patient also examines in acute HF. Agree with Lasix 40 mg IV twice daily. Patient was taking Lasix 20 mg PO daily prior to admission.
-Cre stable with diuresis thus far
-Patient requests repeat echo, this was ordered by me.
-Will add bilateral Tubigrips to help with significant LE edema
--- NOTE | 2024-04-28 16:18 | W.DCSUMMARY ---
Addendum entered and electronically signed by Fatoumata Champion MD 04/29/24 15:26:
Read, reviewed, and agree. See same day progress note for additional details. Time spent coordinating care, DC planning, review of DC plan of care with resident, transition of care, review of records in EMR, med rec, consults, notes, d/w
consultants, nursing, family, and CM = 24 minutes
Original Note:
Discharge Summary
Discharge Data
Date of Admission: 04/27/24
Date of Discharge: 04/29/24
-
Pending Results: No
Hospital Course
Discharging Physician :
Fatoumata Champion,Rose Marie Jeffries
Disposition :
Home routine discharge
Primary care physician :
Giuseppe Porras MD
Principal Discharge diagnosis :
Acute Heart failure
Atypical hemolytic uremic syndrome/TTP
Chronic Discharge diagnosis :
History of pancytopenia during her previous admission-currently blood counts look stable
Atypical hemolytic uremic syndrome-being treated with Solaris had 2 doses, next dose due on May 08, 2024
History of recurrent E. coli bacteremia
Iop-cvidcfx-xsiecjphl diabetes mellitus
Hospital Course :
Problem#1.Acute Heart Failure
Patient presented with increased edema and shortness of breath, admitted with acute heart failure with a consultation to cardiology
She had a TTE on January 05, 2024 that showed a preserved ejection fraction
Patient started on Lasix for diuresis and her weight return closer to baseline after 24 hours of IV Lasix 40 mg twice daily
Cardiology consult appreciated-who suggested a repeat echocardiography and continued diuresis with Lasix
Problem#2.Acute hemolytic uremia/TTP
Diagnosed on last admission, counts stable since discharge
Currently on Solaris for treatment of atypical hemolytic uremic syndrome
Received 2 doses of Solaris, last received on Friday, April 23, 2024
Next dose is due on April 30, 2024
Important imaging findings :
CT chest-04/28/2024
IMPRESSION:
1). Small bilateral pleural effusions with associated compressive atelectasis at the posterior lung bases
2). Sutures along the posterior margin of the right lobe liver
3). Pneumobilia
Chest x-ray 04/28/2024
IMPRESSION:
Stable small bilateral pleural effusions
Discharge Plan
-
Patient Disposition: Home (Routine Discharge)
Discharge Diagnosis/Procedures: Shortness of breath secondary to volume overload/atypical HUS/TTP
Condition: Fair
Diet: No restrictions
Activity: As tolerated
Driving Restrictions: As prior to admission
Bathing Restrictions: OK to Shower
Specialty Instructions: Weigh Daily- Call MD for wt gain/loss 3 lbs overnight/5 lbs in 1 week
Instructions: *[facility] Heart Failure Instructions
Referrals:
Giuseppe Porras MD [Family Provider] - in less than 1 week
Kay Moore CRNP [Specified Professional Personl] - 05/03/24 3:40 pm (You have a cardiology follow-up appointment at the [place] office. Please call with questions)
Prescriptions:
New
furosemide [Lasix] 40 mg tablet
40 mg PO BID 14 Days Qty: 28 0RF
Continued
Janumet 50-500 mg Tablet
1 tab PO BID
ascorbic acid (vitamin C) [Vitamin C] 500 mg Tablet
500 mg PO DAILY
ursodiol 250 mg Tablet
250 mg PO BID
Jardiance 25 mg Tablet
25 mg PO DAILY
Discontinued
furosemide [Lasix] 20 mg Tablet
20 mg PO DAILY
Discharge Orders:
Discharge Patient (As Directed); Ordered 04/29/24
Ordered By: Rose Marie Jeffries
Discharge Date and Time
Print Language: CZECH
[2024-04-28 16:28] LABS: Glucose - Point of Care 99 mg/dl (70-99)
[2024-04-28] MEDS: GLUCOPHAGE PO (16:53)
--- NOTE | 2024-04-28 17:11 | W.PN.UPDATE ---
Update Note
Progress Note Update
Please see consultation
Patient is a 73-year-old with a history of hemolytic uremic syndrome, pancytopenia, recurrent E. coli, diabetes. She presents with shortness of breath CHF. Will treat with IV Lasix. Recheck echocardiogram per patient request.
[2024-04-28 17:35] VITALS: BMI 25.4
[2024-04-28] MEDS: LOVENOX 40 MG SC (18:25)
[2024-04-28 18:30] VITALS: BMI 24.7
[2024-04-28 22:05] LABS: Glucose - Point of Care 167 mg/dl (70-99)
[2024-04-28 23:00] VITALS: BP 136/84
[2024-04-29 06:00] VITALS: BMI 24.3
[2024-04-29 06:18] LABS: % Basophils 0.6 % (0-2); % Eosinophils 2.5 % (0-6); % Immature Granulocytes 0.6 % (0-0.5); % Lymphocytes 28.3 % (20.5-51.1); % Monocytes 9.6 % (1.7-9.3); % Neutrophils 58.4 % (42.2-75.2); Absolute Eosinophils 0.1 10^3/uL (0-0.7); Absolute Lymphocytes 0.9 10^3/uL (1.2-3.4); Absolute Monocytes 0.3 10^3/uL (0.1-0.6); Absolute Neutrophils 1.9 10^3/uL (1.4-6.5); Hematocrit 24.2 % (37.0-47.0); Hemoglobin 7.8 g/dL (12.0-16.0); Mean Corp Hgb Conc. 32.2 g/dL (33.0-37.0); Mean Corpuscular Hgb 30.8 pg (27.0-31.0); Mean Corpuscular Volume 95.7 fL (81.0-99.0); Nucleated Red Blood Cells % 0 %; Platelet Count 129 10^3/uL (130-400); Red Blood Cell Count 2.53 10^6/uL (4.20-5.40); Red Cell Dist. Width 18.4 % (11.5-14.5); White Blood Cell Count 3.2 10^3/uL (4.8-10.8)
[2024-04-29 06:33] LABS: Blood Urea Nitrogen 25 mg/dl (7-17); Calcium 8.6 mg/dl (8.4-10.2); Carbon Dioxide 29 mmol/L (22-30); Chloride 103 mmol/L (98-107); Estimated Creatinine Clearance 42 ml/min; Glucose 101 mg/dl (70-99); Magnesium 2.1 mg/dl (1.6-2.3); Potassium 3.6 mmol/L (3.5-5.1); Sodium 135 mmol/L (135-145); eGFR 59.86
--- NOTE | 2024-04-29 07:13 | W.PN.HOSP.TC ---
Addendum entered and electronically signed by Fatoumata Champion MD 04/29/24 13:31:
I saw and evaluated the patient independently. I reviewed the resident�s note and agree with findings and plan as documented by Dr. Jeffries.
GENERAL: well developed, well nourished, female in no apparent distress
HEENT: NC/AT
HEART: regular rate and rhythm, +S1, +S2
LUNGS : crackles at bases bilaterally
ABDOM: soft, nontender, nondistended, + bowel sounds
EXT: no cyanosis, clubbing-- 1+ LE edema bilaterally
NEUROLOGIC: grossly intact
Shortness of breath -- likely due to volume overload (new onset acute HFpEF), less likely PE, pro BNP 2880, CXR with bilateral pleural effusions--agree with IV diuresis (40 mg IV BID)--daily weights, I/Os-- EKG without acute issues, last echo done
in December 2023-- troponin < 0.012--CT chest negative for PE--apprec cards--ECHO pending, d/c dose of lasix pending from cards
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
April 23, 2024--Next dose is due on April 30, 2024
History of pancytopenia during her previous admission-currently her labs show a stable hemoglobin and a platelet count of 115
History of recurrent E. coli bacteremia
Cua-rjldcmd-wmfvbcemc diabetes mellitus--on Janumet 50-500and Jardiance 25 mg daily, diabetic diet, daily Accu-Cheks
DVT prophylaxis--enoxaparin
CODE STATUS--full code
can d/c once cards finalizes plan
Original Note:
Today's Communication/Plan
-
Echocardiography
Plan discharge
Assessment / Plan
Assessment / Plan
Impression
Patient is a 73-year-old female with past medical history of atypical hemolytic uremic syndrome, TTP, recurrent E. coli bacteremia, past history of pancytopenia, currently being treated for atypical hemolytic uremic syndrome with Solaris. She
received 2 doses, last dose was on April 23, 2024 and her next dose is due on April 30, 2024
Patient's baseline weight is 130 pounds as per her admission on April 09, 2024
Admitted with a weight of 150 pounds on 04/27/2024, diuresis started with IV Lasix 40 mg twice daily
Weight on 04/29/2024 is 136 pounds
Complaints of shortness of breath and generalized body edema
Patient has been improving
Assessment/plan
1. Shortness of breath secondary to volume overload
Patient has signs and symptoms consistent with volume overload
Troponin I less than 0.1, proBNP 2880, chest x-ray shows bilateral pleural effusion
CT chest showed no pulmonary embolism
Patient's weight today is 136 pounds
Intake is 1550, output is 4300
Patient's weight is closer to baseline of 130
Patient requested an Echocardiography,last one was done in December 2023 by Breonna Darden that showed an ejection fraction of 65% with no significant abnormalities
Cardiology consult appreciated-echocardiography today
2. Atypical hemolytic uremic syndrome/TTP
Currently follows up with [facility]
Received 2 doses of Solaris
Next dose due on April 30, 2024
Other medical conditions
History of pancytopenia-currently blood counts are stable
History of recurrent E. coli bacteremia
Qfc-qcrnasx-nvawxajxs diabetes mellitus-currently on Janumet 50-500 twice daily and Jardiance 25 mg daily
DVT prophylaxis-enoxaparin
CODE STATUS full code
Anticipated Discharge: Within 24 hours
Subjective/Interval History
-
Date of Service: April 29, 2024
Patient reports feeling better, her weight today is 136 pounds
Objective Data
-
Labs:
Laboratory Results
04/29/24
05:50
WBC 3.2 L
Hgb 7.8 L
Hct 24.2 L
Plt Count 129 L
Sodium 135
Potassium 3.6
Chloride 103
Carbon Dioxide 29
BUN 25 H
Creatinine 1.0
Glucose 101 H
Calcium 8.6
Vital Signs:
Vital Signs
Temp Pulse Resp BP Pulse Ox
98.7 F 88 16 136/84 96
04/28/24 23:00 04/28/24 23:00 04/28/24 23:00 04/28/24 23:00 04/28/24 23:00
I&O
04/28/24 04/29/24 04/30/24
06:59 06:59 06:59
Intake Total 280 / 280 1550 / 1550
Output Total 1300 / 1300 4300 / 4300
Balance -1020 / -1020 -2750 / -2750
Review of Systems
-
All other systems: Reviewed and negative
Physical Exam
-
General: Well Developed, Well Nourished and No Apparent Distress
HEENT: Normocephalic and Atraumatic
Respiratory: Clear to Auscultation
Cardiac: Regular Rhythm and S1/S2
GI: Soft, Nontender, Nondistended and Normal Bowel Sounds
Musculoskeletal: No Clubbing, No Cyanosis and Other (Bilateral pedal edema)
Skin: Warm and Dry
Neuro: Awake, Alert and Nonfocal/Grossly Intact
Psych: Calm
[2024-04-29 07:41] VITALS: BP 148/82
[2024-04-29 07:50] LABS: Glucose - Point of Care 116 mg/dl (70-99)
[2024-04-29] MEDS: FARXIGA 10 MG PO (08:39)
[2024-04-29] MEDS: VITAMIN C 500 MG PO (08:39)
[2024-04-29] MEDS: URSO 250 MG PO (08:39)
[2024-04-29] MEDS: JANUVIA 50 MG PO (08:39)
[2024-04-29] MEDS: LASIX 40 MG IV (09:37)
[2024-04-29] MEDS: GLUCOPHAGE PO (09:37)
--- NOTE | 2024-04-29 09:38 | W.PN.CARDCBS ---
Addendum entered and electronically signed by Ted Jaime MD 04/29/24 14:15:
I saw and examined the patient.
The Human Resources Talent Manager's note was reviewed and I agree with the note.
Comment:
GEN: No distress, awake, Ox3
HEENT: supple, anicteric, mmm
LUNGS: CTA, no wheezes/rales
CV: Reg, S1/S2, 1/6 syst LSB, no gallop
ABD: soft, BS+, NT/ND
EXT: + edema
NEURO: Gross non-focal
SKIN: No rash
Plan: Weight is overall improved and down to 137. For echo today.
Continue Farxiga. Would likely add low-dose carvedilol after echo 3.125 mg p.o. twice daily.
Possible discharge if stable. If patient is discharged would discharge on Lasix 40 mg p.o. twice daily.
Creatinine normal.
Original Note:
Today's Communication / Plan
-
Continue IV Lasix diuresis
If needs to be discharged later today, would discharge on higher dose of p.o. Lasix
consider addition of low dose BB vs acei
Will arrange outpatient cardiac follow-up
Echo pending
Impression / Plan
-
PCP: Giuseppe Porras
Cardiology: None
Impression:
Admitted with SOB and CHF 04/27/24
Acute HFpEF
Recent admission for HUS, TTP and transient HD 04/09/24 until 04/21/24
h/o atypical hemolytic uremic syndrome/TTP
h/o pancytopenia
h/o E. coli bacteremia
DM 2
Echo 01/05/2024: EF 65%, normal diastolic function, trace MR, trace aortic regurgitation, no evidence of vegetations
ECHO 04/29/24: pending
Plan:
-Patient presented with increased edema and shortness of breath
-She is responding to diuresis and feels her lower extremity edema is improving
-Continue IV Lasix 40 mg twice daily. Creatinine stable. Prior to admission she was on 20 mg p.o. Lasix daily, will need higher dosing upon discharge
-Last echo from 12/2023 with results as above. Repeat ordered
-Tubigrip stockings
-Continue outpatient Jardiance for both diabetes and now for CHF
-Patient not on telemetry. BPs appear to be elevated. consider addition of low dose BB vs acei
-She reports she may need to leave later today due to an appointment tomorrow
-Will arrange outpatient cardiac follow-up
-Discussed with nursing
PREADMIT DATA:
-Patient presented to yesterday with increased edema and SOB and was admitted with acute HF with a consultation to cardiology. 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
to the HUS requiring transient dialysis. Patient also has a history of recurrent E. coli bacteremia and for this she had a TTE on 01/05/2024 that showed a preserved EF. During her admission 2 weeks ago she was diagnosed with TTP on 04/10/2024 and
had plasma exchange and steroid and was then started on Solaris. She received a total of 34 units of FFP, 4 units PRBCs and a platelet transfusion during that admission. Nephrology saw her for MOIZ and she required transient HD, but the CVC was
able to be removed prior to discharge and her creatinine was improved to 1.3. Patient has been taking Lasix 20 mg daily since discharge. Interestingly the patient's weight last admission was 158 lb and on day of discharge was 152 lbs. Patient's
weight today is 143 lbs, but she has profound edema and small bilateral pleural effusions on CXR. The hospitalist service has been diuresing patient with Lasix 40 mg IV twice daily and patient and family requested cardiology consultation.
Progress Note - Automobile Mechanic Assistant
Subjective
Date of Service: April 29, 2024
Reports breathing improved. Lower extremity edema improving
Objective
Labs:
04/29/24 05:50
04/29/24 05:50
Labs
Hgb 7.8 g/dL (12.0-16.0) L 04/29/24 05:50
Hct 24.2 % (37.0-47.0) L 04/29/24 05:50
Plt Count 129 10^3/uL (130-400) L 04/29/24 05:50
Sodium 135 mmol/L (135-145) 04/29/24 05:50
Potassium 3.6 mmol/L (3.5-5.1) 04/29/24 05:50
BUN 25 mg/dl (7-17) H 04/29/24 05:50
Creatinine 1.0 mg/dL (0.6-1.0) 04/29/24 05:50
Glucose 101 mg/dl (70-99) H 04/29/24 05:50
Troponins
04/27/24
12:40
Troponin I < 0.012
Vital Signs and I&O:
Vital Signs
Temp Pulse Resp BP Pulse Ox
98.7 F 79 16 148/82 99
04/29/24 07:41 04/29/24 07:41 04/29/24 07:41 04/29/24 07:41 04/29/24 07:41
Vital Signs
Temp Pulse Resp BP Pulse Ox
98.7 F 79 16 148/82 99
04/29/24 07:41 04/29/24 07:41 04/29/24 07:41 04/29/24 07:41 04/29/24 07:41
Intake & Output
04/27/24 04/28/24 04/29/24 04/30/24
07:59 07:59 07:59 07:59
Intake Total 280 / 280 1550 / 1550
Output Total 1300 / 1300 4300 / 4300
Balance -1020 / -1020 -2750 / -2750
Physical Exam
Physical Exam
GEN: No distress, awake, alert, oriented x3. Somewhat of language barrier
HEENT: supple, anicteric, mmm, EOMI
LUNGS: CTA bilaterally, no wheezes/rales
CV: Reg, S1/S2, no murmur
ABD: soft, BS+, NT/ND
EXT: No cyanosis, clubbing. Trace edema of bilateral lower extremity, 2+ edema of feet bilaterally
NEURO: Gross non-focal
SKIN: Warm, pink, dry. No rash
[2024-04-29 11:38] LABS: Glucose - Point of Care 180 mg/dl (70-99)
--- NOTE | 2024-04-29 12:55 | CM ---
Spoke with patient's son, Param, via phone. He reported that his father will provide transport home later today after work
Plan: Discharge to home; no needs
[2024-04-29 14:42] VITALS: BP 146/87
--- NOTE | 2024-04-30 13:15 | PN.CDI ---
CDI
- -
CDI:
Physician Documentation Request
Admit Date: 04/27/24 17:40
Dear Doctor Mervin,
Progress notes state 'History of pancytopenia-currently blood counts are stable'
Laboratory Tests
04/27/24 04/28/24 04/29/24
11:11 05:29 05:50
WBC 3.5 L 3.5 L 3.2 L
RBC 2.49 L 2.41 L 2.53 L
Plt Count 115 L 116 L 129 L
Please clarify:
Pancytopenia is a valid diagnosis for this admission
History of pancytopenia only
Other
Use of terms such as suspected, likely, concern for, or probable (associated with a specific diagnosis that is being evaluated, monitored, or treated as if it exists) are acceptable and can be coded in the inpatient setting, when documented at the
time of discharge.
Thank you,
Gia Hermosillo RN, BSN
CDI Specialist
tiger text
Please use your independent medical judgment in providing your response.
--- NOTE | 2024-04-30 13:37 | W.HF.CON ---
Heart Failure
- LV Function
Left ventricular function study result: LV Ejection fraction >/= 50%
Ejection Fraction Percentage: 65
- ARNI
Patient already on ARNI: No
Heart Failure ARNI Not Indicated: LV Ejection Fraction >/= 40%
- ACEI/ARB
Patient already on ACEI/ARB: No
Heart Failure ACEI/ARB Not Indicated: LV Ejection Fraction > 40%
- Beta Roxann
Patient already on Evidence Based Beta Roxann: No
Heart Failure Evidence Based Beta Roxann Not Indicated: LV Ejection Fraction > 40%
- Mineralocorticord Receptor Antagonist
Patient already on MRA: No
Heart Failure MRA Not Indicated: LV Ejection Fraction > 40%
- SGLT-2 Inhibitor
Patient already on SGLT-2 Inhibitor: Yes
- Hydralazine & Isosorbide Dinitrate
Patient already on Hydralazine & Isosorbide Dinitrate: Yes
- NYHA CHF Classification
NYHA CHF Classification Level: Class III - Symptoms w/ min exertion, interferes w/ nml daily activity
- ACC/AHA Stage
ACC/AHA Stage: Stage C: Symptomatic Heart Failure
--- NOTE | 2024-05-03 13:53 | W.PN.UPDATE ---
Update Note
Progress Note Update
Patient has history of pancytopenia on her last admission which has likely resolved now
== END 2024-04-29 16:56 | disposition home or self-care (01) | DRG 291 ==
LOC: 3 WEST ACU 17:40
PROVIDERS: Nurse Practitioner; ADMITTING PHYSICIAN Internal Medicine; CONSULT PHYSICIAN Internal Medicine Cardiovascular Disease; EMERGENCY PHYSICIAN Emergency Medicine; FAMILY PHYSICIAN Internal Medicine
DX: I50.31 Acute diastolic (congestive) heart failure (principal); D59.39 Other hemolytic-uremic syndrome; M31.19 Other thrombotic microangiopathy; E78.00 Pure hypercholesterolemia, unspecified; E11.9 Type 2 diabetes mellitus without complications; Z88.0 Allergy status to penicillin; Z79.899 Other long term (current) drug therapy; Z79.84 Long term (current) use of oral hypoglycemic drugs
CPT/HCPCS: 93308; 71046; 71260; 80048; 80053; 81003; 81015; 82962; 83690; 83735; 83880; 84132; 84484; 85025; 93005; 93321; 93325; 96374; 99285; Q9967

== ENCOUNTER → 2024-05-07 16:38 | Outpatient (REF) | payer MEDICARE, OTHER, SELFPAY ==
[2024-05-07 11:55] LABS: % Basophils 0.5 % (0-2); % Eosinophils 1.9 % (0-6); % Immature Granulocytes 0.2 % (0-0.5); % Lymphocytes 18.6 % (20.5-51.1); % Monocytes 7.2 % (1.7-9.3); % Neutrophils 71.6 % (42.2-75.2); Absolute Eosinophils 0.1 10^3/uL (0-0.7); Absolute Lymphocytes 0.8 10^3/uL (1.2-3.4); Absolute Monocytes 0.3 10^3/uL (0.1-0.6); Absolute Neutrophils 3.1 10^3/uL (1.4-6.5); Hematocrit 27.2 % (37.0-47.0); Hemoglobin 8.7 g/dL (12.0-16.0); Mean Corpuscular Hgb 32.5 pg (27.0-31.0); Mean Corpuscular Volume 101.5 fL (81.0-99.0); Mean Platelet Volume 10.3 fL (7.4-10.4); Platelet Count 156 10^3/uL (130-400); Red Blood Cell Count 2.68 10^6/uL (4.20-5.40); Red Cell Dist. Width 17.3 % (11.5-14.5); White Blood Cell Count 4.3 10^3/uL (4.8-10.8)
== END ==
LOC: OIDL 16:38
PROVIDERS: ATTENDING PHYSICIAN Nurse Practitioner Primary Care
DX: D59.39 Other hemolytic-uremic syndrome (principal); D59.30 Hemolytic-uremic syndrome, unspecified
CPT/HCPCS: 85025

== ENCOUNTER → 2024-05-14 14:39 | Outpatient (REF) | payer MEDICARE, OTHER, SELFPAY ==
[2024-05-14 13:51] LABS: % Basophils 0.4 % (0-2); % Eosinophils 1.2 % (0-6); % Immature Granulocytes 0.2 % (0-0.5); % Lymphocytes 20.9 % (20.5-51.1); % Monocytes 6.6 % (1.7-9.3); % Neutrophils 70.7 % (42.2-75.2); Absolute Eosinophils 0.1 10^3/uL (0-0.7); Absolute Monocytes 0.3 10^3/uL (0.1-0.6); Absolute Neutrophils 3.5 10^3/uL (1.4-6.5); Hematocrit 28.9 % (37.0-47.0); Hemoglobin 9.4 g/dL (12.0-16.0); Mean Corp Hgb Conc. 32.5 g/dL (33.0-37.0); Mean Corpuscular Hgb 32.8 pg (27.0-31.0); Mean Corpuscular Volume 100.7 fL (81.0-99.0); Mean Platelet Volume 10.6 fL (7.4-10.4); Platelet Count 175 10^3/uL (130-400); Red Blood Cell Count 2.87 10^6/uL (4.20-5.40); Red Cell Dist. Width 16.3 % (11.5-14.5); White Blood Cell Count 4.9 10^3/uL (4.8-10.8)
[2024-05-14 15:10] LABS: ALT (SGPT) 26 U/L (0-35); Albumin 4.1 g/dl (3.5-5.0); Alkaline Phosphatase 171 U/L (38-126); Blood Urea Nitrogen 24 mg/dl (7-17); Carbon Dioxide 24 mmol/L (22-30); Chloride 102 mmol/L (98-107); Glucose 149 mg/dl (70-99); Iron 59 ug/dl (37-170); Potassium 4.7 mmol/L (3.5-5.1); Sodium 136 mmol/L (135-145); Total Bilirubin 0.4 mg/dl (0.2-1.3); Total Protein 6.8 g/dl (6.3-8.2); eGFR > 60.00
[2024-05-14 15:19] LABS: NT-proBNP 344 pg/ml; Percent Saturation 24 % (20-50); Total Iron Binding Capacity 241 ug/dl (265-497)
[2024-05-14 15:53] LABS: AST (SGOT) 27 U/L (14-36)
[2024-05-14 16:15] LABS: Folate > 20.0 ng/ml (2.76-20); Vitamin B12 810 pg/ml (239-931)
[2024-05-14 16:21] LABS: LDH 250 U/L (120-246)
[2024-05-14 17:37] LABS: Total Bilirubin 0.3 mg/dl (0.2-1.3)
== END ==
LOC: OIDL 14:39
PROVIDERS: ATTENDING PHYSICIAN Internal Medicine Hematology & Oncology
DX: D59.39 Other hemolytic-uremic syndrome (principal); D51.9 Vitamin B12 deficiency anemia, unspecified
CPT/HCPCS: 80053; 82247; 82607; 82728; 82746; 83540; 83550; 83615; 83880; 85025

== ENCOUNTER 2024-05-18 08:50 | Emergency (ER) | payer MEDICARE, OTHER, SELFPAY ==
[2024-05-18 08:58] VITALS: BP 114/74
[2024-05-18 09:20] LABS: % Basophils 0.3 % (0-2); % Eosinophils 0.2 % (0-6); % Immature Granulocytes 0.3 % (0-0.5); % Lymphocytes 9.4 % (20.5-51.1); % Monocytes 4.5 % (1.7-9.3); % Neutrophils 85.3 % (42.2-75.2); Absolute Lymphocytes 0.6 10^3/uL (1.2-3.4); Absolute Monocytes 0.3 10^3/uL (0.1-0.6); Absolute Neutrophils 5.5 10^3/uL (1.4-6.5); Hemoglobin 9.9 g/dL (12.0-16.0); Mean Corpuscular Hgb 32.1 pg (27.0-31.0); Mean Corpuscular Volume 97.4 fL (81.0-99.0); Mean Platelet Volume 10.3 fL (7.4-10.4); Nucleated Red Blood Cells % 0 %; Platelet Count 152 10^3/uL (130-400); Red Blood Cell Count 3.08 10^6/uL (4.20-5.40); Red Cell Dist. Width 15.7 % (11.5-14.5); White Blood Cell Count 6.4 10^3/uL (4.8-10.8)
[2024-05-18 09:33] LABS: ALT (SGPT) 27 U/L (0-35); AST (SGOT) 39 U/L (14-36); Albumin 4.1 g/dl (3.5-5.0); Alkaline Phosphatase 179 U/L (38-126); Blood Urea Nitrogen 22 mg/dl (7-17); Calcium 8.5 mg/dl (8.4-10.2); Carbon Dioxide 22 mmol/L (22-30); Chloride 103 mmol/L (98-107); Glucose 171 mg/dl (70-99); Potassium 3.9 mmol/L (3.5-5.1); Sodium 135 mmol/L (135-145); Total Bilirubin 0.5 mg/dl (0.2-1.3); Total Protein 6.8 g/dl (6.3-8.2); eGFR > 60.00
[2024-05-18 09:37] LABS: COVID-19 Antigen Negative (Negative)
--- NOTE | 2024-05-18 11:40 | ED.GENMED ---
History of Present Illness
General
Chief Complaint: Fever
Source: patient
Exam Limitations: none
Time Seen by Provider: 05/18/24 11:11
Nursing documentation reviewed up to this point in time: agreed with
History of Present Illness
History of Present Illness:
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 Patient
states that around midnight she checked her temperature at home and she had a temp of 38.5 Celsius. She also reports this morning she had a mild headache. She did take a dose of Tylenol at 7 AM. Patient states that fever has resolved and headache
is much improved after Tylenol. However�given history of recurrent bacteremia patient presents to the emergency room for evaluation.
Patient states headache is not 'severe 'or was not acute in onset. She does have a history of headaches patient denies any neck pain/neck stiffness, back pain, chest pain, or shortness of breath. No abdominal pain no dysuria or urinary frequency.
Patient denies any visual changes, dizziness/lightheadedness, numbness/tingling, weakness, ataxia, or dysarthria.
Patient does follow with hematology/oncology outpatient for recent diagnosis of ELIE.
Past History
Past History
ED Past Medical History: Hypercholesterolemia, NIDDM and Other (Recurrent fevers of unknown origin, Bowel obstruction)
ED Past Surgical History: Cholecystectomy and Other (Kian-en-Y X 2, partial liver resection)
Patient has exhibited threatening behavior?: No
Social History
Tobacco: Non-smoker
Alcohol: None
Drug: None
Personal:
Living: with family
Employment: Employed
Family History
Family History: Other (Noncontributory)
Review of Systems
Review of Systems
Allergies reviewed?: Yes
All Other Systems: ROS reviewed and negative except as documented in HPI and ROS
Phy Exam
Physical Exam
Physical Exam:
Vitals: Patient's vital signs are stable. Afebrile
General: Patient is well appearing, no acute distress. Nontoxic appearing
Skin: Warm and dry, no rashes or lesions
Head: Normocephalic, atraumatic
Eyes: Sclera nonicteric. EOMs intact. No nystagmus. Visual murry intact
Throat: Protecting airway
Neck: Normal ROM, no cervical spine tenderness, no meningismus. Negative Prusinski sign
Cardiac: Regular rate and rhythm, no murmurs.
Pulm: Normal respiratory effort, no wheezes, rales, rhonchi heard on exam.
Abdomen: Abdomen soft. No abdominal tenderness.
Extremities: No evidence of cyanosis or edema. Sensation fully intact sharp and dull touch. Strength 5 out of 5 in upper and lower extremities
Neuro: AAOx3. CN II-XII intact. No focal neurologic deficits. Normal qfowun-iw-syaz. Steady gait. Fluid speech.
Psychiatric: Normal affect.
Sepsis
Sepsis Screening
Sepsis Assessment: Sepsis Ruled Out
Sepsis Screen
Sepsis Screen: Sepsis Ruled Out
Date: 05/18/24
Time: 20:07
Course
Orders/Labs/Results
Orders:
Orders
05/18/24 09:07
CBC/With Diff [Complete Blood Count/With Diff] Urgent
Comprehensive Metabolic Panel Urgent
05/18/24 09:09
COVID-19 Antigen Urgent
Source: Nasal Swab
Influenza A+B Rapid Molecular Urgent
EDU Source: Nasal Swab
Specimen Description:
05/18/24 12:24
Urinalysis Reflex To Culture Urgent
Date Specimen was Collected: 05/18/24
Time Specimen was Collected: 12:22
Urine Microscopic Reflex Cult Urgent
05/18/24 12:47
Blood Culture Q30M
EDU Source: Blood/Venous
Specimen Description:
Blood Culture Q30M
EDU Source: Blood/Venous
Specimen Description:
05/18/24 13:33
Cefdinir [Omnicef] 300 mg PO NOW STA
Abnormal Lab Results
05/18/24 05/18/24
09:07 12:24
RBC 3.08 L 10^6/uL
(4.20-5.40)
Hgb 9.9 L g/dL
(12.0-16.0)
Hct 30.0 L %
(37.0-47.0)
MCH 32.1 H pg
(27.0-31.0)
RDW 15.7 H %
(11.5-14.5)
Absolute Lymphs (auto) 0.6 L 10^3/uL
(1.2-3.4)
Neutrophils % 85.3 H %
(42.2-75.2)
Lymphocytes % 9.4 L %
(20.5-51.1)
BUN 22 H mg/dl
(7-17)
Glucose 171 H mg/dl
(70-99)
AST 39 H U/L
(14-36)
Alkaline Phosphatase 179 H U/L
(38-126)
Ur Occult Blood Reflex Trace A
(Negative)
Urine RBC 3-6 A /HPF
(0-2)
Urine Bacteria (Reflex) Few A
(Negative)
Urine Glucose 3+ A
(Negative)
05/18/24 09:07
05/18/24 09:07
Vital Signs
Initial and Last Documented VS:
Initial Vital Signs
Temp Pulse Resp BP Pulse Ox
97.9 F 82 16 114/74 98
05/18/24 08:58 05/18/24 08:58 05/18/24 08:58 05/18/24 08:58 05/18/24 08:58
Last Documented Vital Signs
Temp Pulse Resp BP Pulse Ox
98.7 F 85 12 144/78 100
05/18/24 13:02 05/18/24 13:02 05/18/24 13:02 05/18/24 13:02 05/18/24 13:02
MDM/Problems Addressed
Differential Diagnosis Includes:
Not limited to: Viral illness, migraine headache, UTI, bacteremia, etc.
MDM/Problems Addressed:
73-year-old female with history as documented presenting with history of fever and headache which have essentially resolved by arrival to emergency department. Reports temp of 38.5C earlier this morning and mild headache which she did take Tylenol.
No other infectious symptoms. No neck pain or meningeal signs. Patient is stable vital signs on arrival she is not tachycardic, hypoxic. She is afebrile. On exam�patient is well-appearing. She is conversational and nontoxic-appearing. No
neurologic deficits. No meningeal signs. Lungs clear. Benign abdomen. Labs were initiated in triage without any clinically significant abnormalities. Viral swabs negative patient does have history of recurrent gram-negative bacteremia from
likely cholecystectomy complication. It is possible that fever is viral illness. Although possible bacteremia also a possibility given history. Will check UA to rule out other infectious source. Will obtain blood cultures. Offered admission to
patient for IV antibiotics pending blood cultures versus discharge home. Given patient has remained afebrile and very well-appearing�feel discharge home on p.o. cefdinir pending blood cultures is reasonable. Patient would prefer discharge home on
p.o. antibiotics pending culture data.
Update: Case was discussed with hematology/oncologist on-call�Dr. Flor given patient's history of ELIE. Brief discussion with ID, Dr. Gold who is familiar with patient. They are both comfortable with plan of discharge home on p.o. Ceftin
pending culture data. Very close return precautions discussed with patient including any significant weakness or signs of infection. Patient given first dose in emergency department. Will follow culture data.
Chronic conditions affecting care:
Recurrent gram-negative bacteremia, ELIE
Acute Exacerbation and/or Progression of Chronic Illness:
N/A
*Pulse Oximetry
Patient hypoxic: no
*EKG
Interpreted by ED Provider?: NA
*Wig Dresser Interpretation
Rate: Wig Dresser- N/A
*Critical Care Note
Total Time (30-74mins, 75-104mins- exclusive of procedures): Not Applicable
Data Reviewed
Review of Other/Old Records Reveals: Labs (Positive blood culture from 01/05/2024 pansensitive gram-negative E. coli) and Records (Emergency department visit from 12/25/2023-ID recommended p.o. Omnicef at that time)
Patient Management
Discussion with other providers: [employer]ant (Hematology/oncology)
Escalation/DeEscalation of care consider admission/obs:
Considered admission although given he is afebrile and asymptomatic here�will discharge home on oral antibiotic pending blood cultures
ED Attending Note
-
Portions of this chart may have been created with voice recognition software.� Occasional wrong word or��sound alike� substitutions may have occurred due to the inherent limitations of voice recognition software.
Discharge Plan
Departure
Patient Disposition: Home (Routine Discharge)
Date of Disposition: 05/18/24
Time of Disposition: 13:34
Patient with high blood pressure during this ER visit?: No
Covid-19: Negative COVID-19
Discharge Problem:
Fever
Instructions: Fever, Adult (DC)
Prescriptions:
New
cefdinir 300 mg capsule
300 mg PO BID 7 Days Qty: 14 0RF
No Action
Janumet 50-500 mg Tablet
1 tab PO BID
ascorbic acid (vitamin C) [Vitamin C] 500 mg Tablet
500 mg PO DAILY
ursodiol 250 mg Tablet
250 mg PO BID
Jardiance 25 mg Tablet
25 mg PO DAILY
furosemide [Lasix] 40 mg tablet
40 mg PO BID 14 Days Qty: 28 0RF
Referrals:
Giuseppe Porras MD [Family Provider] -
Johana Gold MD [Active] - Call in 1-3 days for appt
Activity Restrictions/Additional Instructions:
RETURN TO THE EMERGENCY DEPARTMENT WITH PERSISTENT FEVERS, SEVERE HEADACHE/NECK PAIN, CHANGES IN MENTAL STATUS, FEELING UNWELL, WORSENING IN CURRENT SYMPTOMS, OR ANY OTHER CONCERNS
-We did draw blood cultures while you are in the emergency department today. We will contact you if these grow positive.
-We will initiate a prophylactic course of oral antibiotics which you have received in the past. You were given your first dose in the emergency department today. You should continue these antibiotics twice a day for the next week.
-Stay well-hydrated.
-You should follow-up with infectious disease outpatient for further evaluation/management. The contact information has been provided for you above.
Monitor your symptoms closely and return to the emergency department with any acute worsening/new symptoms or any signs of worsening infection
Interventions
Interventions:
*Risk Screen - Suicide Last Done: 05/18/24 08:58
*General Assessment Last Done: 05/18/24 12:24
*Neglect/Abuse Screening Last Done: 05/18/24 08:58
ED- Fall Risk Assessment Last Done: 05/18/24 12:27
*ED COVID-19 Vaccine History Last Done: 05/18/24 12:24
*Nursing Disposition Last Done: 05/18/24 14:25
ED- Neurological Assessment Last Done: 05/18/24 12:27
ED-Skin Assessment Last Done: 05/18/24 12:27
Discharge Date and Time
Discharge Date/Time: 05/18/24 14:25
Print Language: AMHARIC
[2024-05-18 12:34] LABS: Urine Albumin Negative (Neg - Trace); Urine Bilirubin Negative (Negative); Urine Character Clear (Clear); Urine Color Yellow; Urine Glucose 3+ (Negative); Urine Ketone Negative (Negative); Urine Leukocyte Negative (Negative); Urine Nitrite Negative (Negative); Urine Occult Blood Trace (Negative); Urine Specific Gravity 1.005 (<1.030); Urine Urobilinogen Negative (Neg - 1+); Urine pH 6.5 (5.0-9.0)
[2024-05-18 13:02] VITALS: BP 144/78
[2024-05-18 13:23] LABS: Urine Bacteria Few (Negative)
[2024-05-18] MEDS: OMNICEF 300 MG PO (13:56)
== END 2024-05-18 14:25 | disposition home or self-care (01) ==
LOC: EMR 08:50
PROVIDERS: Emergency Medicine; Physician Assistant; EMERGENCY PHYSICIAN Emergency Medicine; FAMILY PHYSICIAN Internal Medicine
DX: R50.9 Fever, unspecified (principal); R51.9 Headache, unspecified; R78.81 Bacteremia; Z11.52 Encounter for screening for COVID-19; D69.6 Thrombocytopenia, unspecified; Z90.49 Acquired absence of other specified parts of digestive tract; E78.00 Pure hypercholesterolemia, unspecified; E11.9 Type 2 diabetes mellitus without complications; Z88.8 Allergy status to other drugs, medicaments and biological substances; Z88.1 Allergy status to other antibiotic agents; Z91.013 Allergy to seafood
CPT/HCPCS: 99283; 80053; 81003; 81015; 85025; 87040; 87502; 87811

== ENCOUNTER → 2024-05-28 11:09 | Outpatient (REF) | payer MEDICARE, OTHER, SELFPAY ==
[2024-05-28 11:17] LABS: % Basophils 0.2 % (0-2); % Eosinophils 0.2 % (0-6); % Immature Granulocytes 0.1 % (0-0.5); % Lymphocytes 7.3 % (20.5-51.1); % Monocytes 3.9 % (1.7-9.3); % Neutrophils 88.3 % (42.2-75.2); Absolute Lymphocytes 0.7 10^3/uL (1.2-3.4); Absolute Monocytes 0.4 10^3/uL (0.1-0.6); Absolute Neutrophils 8.5 10^3/uL (1.4-6.5); Hematocrit 31.9 % (37.0-47.0); Hemoglobin 10.5 g/dL (12.0-16.0); Mean Corp Hgb Conc. 32.9 g/dL (33.0-37.0); Mean Corpuscular Hgb 32.7 pg (27.0-31.0); Mean Corpuscular Volume 99.4 fL (81.0-99.0); Mean Platelet Volume 9.9 fL (7.4-10.4); Platelet Count 196 10^3/uL (130-400); Red Blood Cell Count 3.21 10^6/uL (4.20-5.40); White Blood Cell Count 9.6 10^3/uL (4.8-10.8)
[2024-05-28 11:48] LABS: ALT (SGPT) 150 U/L (0-35); AST (SGOT) 189 U/L (14-36); Albumin 4.1 g/dl (3.5-5.0); Alkaline Phosphatase 198 U/L (38-126); Blood Urea Nitrogen 23 mg/dl (7-17); Calcium 8.9 mg/dl (8.4-10.2); Carbon Dioxide 24 mmol/L (22-30); Chloride 102 mmol/L (98-107); Glucose 170 mg/dl (70-99); Potassium 4.5 mmol/L (3.5-5.1); Sodium 135 mmol/L (135-145); Total Bilirubin 0.8 mg/dl (0.2-1.3); Total Protein 6.9 g/dl (6.3-8.2); eGFR > 60.00
[2024-05-28 12:02] LABS: LDH 338 U/L (120-246)
== END ==
LOC: OIDL 11:09
PROVIDERS: ATTENDING PHYSICIAN Internal Medicine Hematology & Oncology
DX: D59.39 Other hemolytic-uremic syndrome (principal); D59.30 Hemolytic-uremic syndrome, unspecified
CPT/HCPCS: 80053; 83615; 85025

== ENCOUNTER 2024-06-11 10:15 | Outpatient (RCR) | payer MEDICARE, OTHER, SELFPAY ==
[2024-06-11 10:43] VITALS: BP 132/79
[2024-06-11] MEDS: TRUMENBA 120 MCG IM (11:04)
[2024-06-11] MEDS: [UNRECOGNIZED DRUG - OTHER] 10 MCG IM (11:07)
== END 2024-06-11 23:59 | disposition home or self-care (01) ==
LOC: OID 10:15
PROVIDERS: ATTENDING PHYSICIAN Internal Medicine Hematology & Oncology; FAMILY PHYSICIAN Internal Medicine
DX: D59.39 Other hemolytic-uremic syndrome (principal); D59.30 Hemolytic-uremic syndrome, unspecified
CPT/HCPCS: 90619

== ENCOUNTER → 2024-06-24 12:05 | Outpatient (REF) | payer MEDICARE, OTHER, SELFPAY ==
[2024-06-24 10:39] LABS: % Basophils 0.5 % (0-2); % Eosinophils 2.3 % (0-6); % Neutrophils 63.2 % (42.2-75.2); Absolute Eosinophils 0.1 10^3/uL (0-0.7); Absolute Lymphocytes 1.1 10^3/uL (1.2-3.4); Absolute Monocytes 0.2 10^3/uL (0.1-0.6); Absolute Neutrophils 2.5 10^3/uL (1.4-6.5); Hematocrit 35.9 % (37.0-47.0); Hemoglobin 11.5 g/dL (12.0-16.0); Mean Corpuscular Hgb 31.5 pg (27.0-31.0); Mean Corpuscular Volume 98.4 fL (81.0-99.0); Mean Platelet Volume 10.3 fL (7.4-10.4); Platelet Count 199 10^3/uL (130-400); Red Blood Cell Count 3.65 10^6/uL (4.20-5.40); Red Cell Dist. Width 13.7 % (11.5-14.5)
[2024-06-24 12:03] LABS: ALT (SGPT) 23 U/L (0-35); AST (SGOT) 30 U/L (14-36); Albumin 4.4 g/dl (3.5-5.0); Alkaline Phosphatase 185 U/L (38-126); Blood Urea Nitrogen 22 mg/dl (7-17); Calcium 9.3 mg/dl (8.4-10.2); Carbon Dioxide 28 mmol/L (22-30); Chloride 101 mmol/L (98-107); Glucose 126 mg/dl (70-99); Potassium 4.8 mmol/L (3.5-5.1); Sodium 137 mmol/L (135-145); Total Bilirubin 0.6 mg/dl (0.2-1.3); Total Protein 7.2 g/dl (6.3-8.2); eGFR > 60.00
[2024-06-24 12:23] LABS: LDH 242 U/L (120-246)
== END ==
LOC: OIDL 12:05
PROVIDERS: ATTENDING PHYSICIAN Internal Medicine Hematology & Oncology
DX: D59.39 Other hemolytic-uremic syndrome (principal)
CPT/HCPCS: 80053; 83615; 85025

== ENCOUNTER → 2024-07-08 11:43 | Outpatient (REF) | payer MEDICARE, OTHER, SELFPAY ==
[2024-07-08 09:41] LABS: % Basophils 0.7 % (0-2); % Eosinophils 1.5 % (0-6); % Immature Granulocytes 0.2 % (0-0.5); % Lymphocytes 19.1 % (20.5-51.1); % Monocytes 6.9 % (1.7-9.3); % Neutrophils 71.6 % (42.2-75.2); Absolute Eosinophils 0.1 10^3/uL (0-0.7); Absolute Lymphocytes 0.9 10^3/uL (1.2-3.4); Absolute Monocytes 0.3 10^3/uL (0.1-0.6); Absolute Neutrophils 3.3 10^3/uL (1.4-6.5); Hematocrit 36.6 % (37.0-47.0); Mean Corp Hgb Conc. 32.8 g/dL (33.0-37.0); Mean Corpuscular Hgb 31.9 pg (27.0-31.0); Mean Corpuscular Volume 97.3 fL (81.0-99.0); Mean Platelet Volume 10.2 fL (7.4-10.4); Platelet Count 165 10^3/uL (130-400); Red Blood Cell Count 3.76 10^6/uL (4.20-5.40); Red Cell Dist. Width 13.5 % (11.5-14.5); White Blood Cell Count 4.6 10^3/uL (4.8-10.8)
[2024-07-08 10:31] LABS: Blood Urea Nitrogen 19 mg/dl (7-17); Calcium 9.4 mg/dl (8.4-10.2); Carbon Dioxide 28 mmol/L (22-30); Chloride 103 mmol/L (98-107); Glucose 190 mg/dl (70-99); LDH 200 U/L (120-246); Potassium 4.4 mmol/L (3.5-5.1); Sodium 136 mmol/L (135-145); eGFR > 60.00
== END ==
LOC: OIDL 11:43
PROVIDERS: ATTENDING PHYSICIAN Internal Medicine Hematology & Oncology
DX: D59.39 Other hemolytic-uremic syndrome (principal)
CPT/HCPCS: 80048; 83615; 85025

== ENCOUNTER → 2024-09-02 10:41 | Outpatient (REF) | payer MEDICARE, OTHER, SELFPAY ==
[2024-09-02 10:11] LABS: % Basophils 0.5 % (0-2); % Eosinophils 2.3 % (0-6); % Lymphocytes 33.5 % (20.5-51.1); % Monocytes 5.2 % (1.7-9.3); % Neutrophils 58.5 % (42.2-75.2); Absolute Eosinophils 0.1 10^3/uL (0-0.7); Absolute Lymphocytes 1.3 10^3/uL (1.2-3.4); Absolute Monocytes 0.2 10^3/uL (0.1-0.6); Absolute Neutrophils 2.3 10^3/uL (1.4-6.5); Hematocrit 36.4 % (37.0-47.0); Hemoglobin 11.9 g/dL (12.0-16.0); Mean Corp Hgb Conc. 32.7 g/dL (33.0-37.0); Mean Corpuscular Hgb 31.3 pg (27.0-31.0); Mean Corpuscular Volume 95.8 fL (81.0-99.0); Mean Platelet Volume 10.5 fL (7.4-10.4); Platelet Count 161 10^3/uL (130-400); Red Cell Dist. Width 14.3 % (11.5-14.5); White Blood Cell Count 3.9 10^3/uL (4.8-10.8)
[2024-09-02 10:56] LABS: Blood Urea Nitrogen 25 mg/dl (7-17); Calcium 9.9 mg/dl (8.4-10.2); Carbon Dioxide 26 mmol/L (22-30); Chloride 105 mmol/L (98-107); Glucose 214 mg/dl (70-99); LDH 196 U/L (120-246); Potassium 4.6 mmol/L (3.5-5.1); Sodium 139 mmol/L (135-145); eGFR > 60.00
== END ==
LOC: OIDL 10:41
PROVIDERS: ATTENDING PHYSICIAN Nurse Practitioner Primary Care
DX: D59.39 Other hemolytic-uremic syndrome (principal); D59.30 Hemolytic-uremic syndrome, unspecified
CPT/HCPCS: 80048; 83615; 85025

== ENCOUNTER 2024-12-09 12:54 | Outpatient (RCR) | payer MEDICARE, OTHER, SELFPAY ==
[2024-12-09] MEDS: TRUMENBA 120 MCG IM (13:14)
[2024-12-09 13:15] VITALS: BP 144/76
== END 2024-12-09 23:59 | disposition home or self-care (01) ==
LOC: OID 12:54
PROVIDERS: ATTENDING PHYSICIAN Internal Medicine Hematology & Oncology; FAMILY PHYSICIAN Internal Medicine
DX: Z23 Encounter for immunization (principal); D59.30 Hemolytic-uremic syndrome, unspecified; D59.39 Other hemolytic-uremic syndrome
CPT/HCPCS: 90471